=== PATIENT | female | born 1940 | race Caucasian/White ===

== ENCOUNTER 2023-07-30 20:42 | Inpatient (IN) | payer MEDICARE, SELFPAY ==
[2023-07-30 17:26] VITALS: BP 99/70
--- NOTE | 2023-07-30 19:16 | ED.GENMED ---
History of Present Illness
General
Chief Complaint: Catheter/Tube Problem
Source: patient, family (Daughter) and previous hospital records
Exam Limitations: none
Time Seen by Provider: 07/30/23 19:00
Nursing documentation reviewed up to this point in time: agreed with
Travel History
Have you had any contact with someone who has COVID-19?: No
Do you have any symptoms of coronavirus? Fever > 100 degrees, chills, cough, shortness of breath, sore throat, loss of taste or smell, muscle aches, or headache?: No
History of Present Illness
History of Present Illness:
The patient is an 83-year-old female with a past medical history of bladder mass causing right ureteral obstruction. Patient underwent a right nephrostomy tube placement on 07/11/2023. She returned to the emergency department stating that she
developed right lower back pain this morning and noticed that the right side of her shirt was wet. She reports that there is much less drainage in the nephrostomy bag and it looks more cloudy. Patient denies nausea and vomiting. She denies fever.
The area is dry at this time. There is cloudy yellow fluid in the bag. She reports Dr. Manzano is scheduled to pull the tube out on August 05.
Past History
Past History
ED Past Medical History: Cancer and HTN
ED Past Surgical History: Urological
Social History
Tobacco: Non-smoker
Alcohol: None
Drug: None
Personal: Other
Living: with family
Employment: Other
Family History
Family History: Other
Review of Systems
Review of Systems
Allergies reviewed?: Yes
All Other Systems: ROS reviewed and negative except as documented in HPI and ROS
Constitutional: Reports no symptoms
EENT: Reports no symptoms
Respiratory: Reports no symptoms
Cardiac: Reports no symptoms
ABD/GI: Reports no symptoms
: Reports flank pain
Musculoskeletal: Reports no symptoms
Skin: Reports no symptoms
Neurological: Reports no symptoms
Endocrine: Reports no symptoms
Hematologic/Lymphatic: Reports no symptoms
Psychiatric: Reports no symptoms
Phy Exam
Physical Exam
Physical Exam:
Physical Exam
General: no apparent distress, not acutely ill
Neck: supple. no meningeal signs. normal psoterior pharynx
Heart: s1/s2 regular rate and rhythm, no murmur. equal radial pulses.
Lungs: no acute respiratory distress. clear bilaterally
Abdomen: normal bowel sounds. not tender. Right nephrostomy tube dry and intact with yellow cloudy fluid in bag. No purulent discharge noted around tube insertion.
Neuro: alert and oriented. no focal neurological deficits
Skin: no rash
Psychiatric: well kept. interactive and cooperative
Extremities: no edema. no calf tenderness. negative homans. good distal pulses
Course
Orders/Labs/Results
Orders:
Orders
07/30/23 Dinner
Regular
At Your Request: Full Participation
07/30/23 19:34
Complete Blood Count/With Diff Urgent
Comprehensive Metabolic Panel Urgent
Lactic Acid Urgent
Urinalysis Reflex To Culture Urgent
Date Specimen was Collected: 07/30/23
Time Specimen was Collected: 19:34
07/30/23 19:35
Blood Culture Q30M
JESSICA Source: Blood/Venous
Specimen Description:
Blood Culture Q30M
JESSICA Source: Blood/Venous
Specimen Description:
07/30/23 19:36
CefTRIAXone [Rocephin] 1,000 mg IV NOW STA
07/30/23 19:37
0.9% Sodium Chloride 1000 ml [Nss] 1,000 ml IV BOLUS
07/30/23 20:08
Admit/Transfer Patient As Directed
Co-Sign Provider:
Level of Care: Inpatient admission
Assign to:: Medical/Surgical
Physician / Group: kateryna
Diagnosis: infected nephrsotomy tube
Reason for Hospitalization: infected nephrsotomy tube
Expected length of stay greater than two midnights?: Yes
ELOS- Estimated Length of Stay in days: 2
I certify the patient meets the requirements for IP care: Yes
07/30/23 20:12
Code Status As Directed
Resuscitation Status: Full Code
07/30/23 21:38
0.9% Sodium Chloride 1000 ml [Nss] 1,000 ml IV 80 mls/hr
07/30/23 21:38
Consult Interventional Radiology [IRAD CONSULT] Routine
Consulting Provider: Teja Orr
Was physician already notified: Yes
Reason for consult: nephrostomy tube removal
UROLOGY CONSULT Routine
Consulting Provider: Saurav Hallman
Was physician already notified: Yes
Activity As Directed
Activity Level: As Tolerated
Pneumatic Compression Sleeves As Directed
Type: Knee high
Vital Signs As Directed
Frequency: Per unit guidelines
DX Deep Vein Thrombosis Video Routine
07/31/23 00:01
Urine Microscopic Reflex Cult Routine
Urine Culture Routine
JESSICA Source: U
Specimen Description:
Date Specimen was Collected: 07/30/23
Time Specimen was Collected: 19:34
07/31/23 06:00
Complete Blood Count/With Diff IN AM
Comprehensive Metabolic Panel IN AM
07/31/23 08:00
Calcium Carbonate [Oscal Carlos 500] 500 mg PO DAILY
Multivitamin [Theragran] 1 tablet PO DAILY
07/31/23 20:00
CefTRIAXone [Rocephin] 1,000 mg IV Q24H
Abnormal Lab Results
07/30/23
19:34
WBC 11.8 H 10^3/uL
(4.8-10.8)
RBC 3.72 L 10^6/uL
(4.20-5.40)
Hgb 10.2 L g/dL
(12.0-16.0)
Hct 31.5 L %
(37.0-47.0)
MCHC 32.4 L g/dL
(33.0-37.0)
RDW 14.7 H %
(11.5-14.5)
Abs Immat Gran (auto) 0.1 H 10^3/uL
(0-0.05)
Absolute Neuts (auto) 9.0 H 10^3/uL
(1.4-6.5)
Absolute Monos (auto) 1.4 H 10^3/uL
(0.1-0.6)
Immature Gran % 0.6 H %
(0-0.5)
Neutrophils % 76.7 H %
(42.2-75.2)
Lymphocytes % 9.8 L %
(20.5-51.1)
Monocytes % 12.1 H %
(1.7-9.3)
Sodium 132 L mmol/L
(135-145)
Carbon Dioxide 21 L mmol/L
(22-30)
BUN 31 H mg/dl
(7-17)
Creatinine 2.5 H mg/dL
(0.6-1.0)
Glucose 123 H mg/dl
(70-99)
Albumin 3.4 L g/dl
(3.5-5.0)
07/30/23 19:34
07/30/23 19:34
Vital Signs
Initial and Last Documented VS:
Initial Vital Signs
Temp Pulse Resp BP Pulse Ox
98.9 F 110 16 99/70 97
07/30/23 17:26 07/30/23 17:26 07/30/23 17:26 07/30/23 17:26 07/30/23 17:26
Last Documented Vital Signs
Temp Pulse Resp BP Pulse Ox
98.5 F 73 18 95/53 96
07/30/23 23:01 07/30/23 23:01 07/30/23 23:01 07/30/23 23:01 07/30/23 23:01
MDM/Problems Addressed
Differential Diagnosis Includes:
Dislodged nephrostomy tube, infected nephrostomy tube, pyelonephritis
MDM/Problems Addressed:
Patient presents with decreased output from nephrostomy tube and right-sided back pain
Chronic conditions affecting care: Cancer
*Pulse Oximetry
Patient hypoxic: no
*EKG
Interpreted by ED Provider?: NA
*Hot Mill Supervisor Interpretation
Rate: Hot Mill Supervisor- N/A
*Critical Care Note
Total Time (30-74mins, 75-104mins- exclusive of procedures): Not Applicable
Data Reviewed
Review of Other/Old Records Reveals: Operative Reports (Operative report reviewed from interventional radiology from 07/11/2023 when patient had a right percutaneous nephrostomy tube placed)
Source: patient and family
Prescriptions/Medications Considered But Not Given:
IV antibiotics given for concern for infection associated with right kidney
Patient Management
Discussion with other providers: Hospitalist and Other (Discussed case with urology, Dr. Hallman, who recommended IV antibiotics and admission.)
Escalation/DeEscalation of care consider admission/obs:
Case also discussed with interventional radiology. Given my concern for kidney infection, decision made to admit patient for IV antibiotics and nephrostomy tube adjustment/replacement
ED Attending Note
-
Portions of this chart may have been created with voice recognition software.� Occasional wrong word or��sound alike� substitutions may have occurred due to the inherent limitations of voice recognition software.
Discharge Plan
Departure
Patient Disposition: Admit
Date of Disposition: 07/30/23
Time of Disposition: 19:35
Admit to: Med/Surg
Presentation/result/management discussed w/ accepting MD/DO: Hospitalist
Patient with high blood pressure during this ER visit?: No
Condition: Good
Covid-19: Not Applicable
Discharge Problem:
Malfunction of nephrostomy tube, Acute pyelonephritis
Interventions
Interventions:
*Risk Screen - Suicide Last Done: 07/30/23 17:26
*General Assessment Last Done: 07/30/23 17:26
*Neglect/Abuse Screening Last Done: 07/30/23 17:26
*ED COVID-19 Vaccine History Last Done: 07/30/23 17:26
*Nursing Disposition Last Done: 07/30/23 22:19
ED-Female Genitourinary Assessment Last Done: 07/30/23 20:01
Discharge Date and Time
Discharge Date/Time: 07/30/23 22:19
[2023-07-30 19:55] LABS: % Basophils 0.5 % (0-2); % Eosinophils 0.3 % (0-6); % Immature Granulocytes 0.6 % (0-0.5); % Lymphocytes 9.8 % (20.5-51.1); % Monocytes 12.1 % (1.7-9.3); % Neutrophils 76.7 % (42.2-75.2); Absolute Basophils 0.1 10^3/uL (0-0.2); Absolute Immature Granulocytes 0.1 10^3/uL (0-0.05); Absolute Lymphocytes 1.2 10^3/uL (1.2-3.4); Absolute Monocytes 1.4 10^3/uL (0.1-0.6); Hematocrit 31.5 % (37.0-47.0); Hemoglobin 10.2 g/dL (12.0-16.0); Mean Corp Hgb Conc. 32.4 g/dL (33.0-37.0); Mean Corpuscular Hgb 27.4 pg (27.0-31.0); Mean Corpuscular Volume 84.7 fL (81.0-99.0); Mean Platelet Volume 9.3 fL (7.4-10.4); Nucleated Red Blood Cells % 0 %; Platelet Count 290 10^3/uL (130-400); Red Blood Cell Count 3.72 10^6/uL (4.20-5.40); Red Cell Dist. Width 14.7 % (11.5-14.5); White Blood Cell Count 11.8 10^3/uL (4.8-10.8)
[2023-07-30 20:18] LABS: Lactic Acid 1.6 mmol/L (0.7-2.0)
[2023-07-30] MEDS: NSS 1000 IV ×2 (20:18→22:55)
[2023-07-30] MEDS: ROCEPHIN 1000 MG IV (20:18)
--- NOTE | 2023-07-30 20:19 | HPS.HSE ---
Family Physician
-
Family Physician: Anjelica Griffiths
Chief Complaint
-
infected nephrostomy tube
History of Present Illness
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
presenting with right lower back pain this morning and noticed that the right side of her shirt was wet. She noticed that the urine output from the nephrostomy was more cloudy. She denies decreased output from the nephrostomy. She denies nausea
or vomiting. She denies fever or chills. She reports Dr. Martinez scheduled to pull out the tube on August 05.
Patient was recently admitted from 07/08 to 07/12 for acute kidney injury secondary to obstructive uropathy due to right ureteral mass causing hydronephrosis. Right PCN was placed on 07/11 with improvement in renal function.
Medical History
Past Medical History
Past Medical History: Reports Other (bladder cancer status post tumor removal, right-sided hydronephrosis secondary to malignant obstruction, chronic anemia, hypertension, pacemaker, chronic ambulatory dysfunction, macular degeneration,)
Past Surgical History: Reports None
Social History
Tobacco: Non-smoker
Alcohol: None
Drug: None
Family History
Family History: Not pertinent
Allergies / Home Medications
Allergies reflects when Allergies were last updated in [facility].
Home Medications with original date entered in [facility]
Allergy/Medication List:
Allergies
Allergy/AdvReac Type Severity Reaction Status Date / Time
sulfamethoxazole Allergy swelling Verified 07/08/23 12:46
[From Bactrim] of tongue
trimethoprim [From Bactrim] Allergy swelling Verified 07/08/23 12:46
of tongue
Home Medications
calcium carbonate 500 mg calcium (1,250 mg) tablet 500 mg PO DAILY 07/30/23
glucosamine sulf dipot chlr,msm,chond 550 mg-C 30 mg-balbir 1 mg capsule (Glucosamine Chondroitin) 1 cap PO DAILY 07/30/23
naproxen sodium 220 mg tablet (Aleve) 220 mg PO DAILYPRN PRN mild pain 07/30/23
therapeutic multivitamin 1 tab PO DAILY 07/30/23
Review of Systems
-
History Source: Patient
A 12 point ROS was completed and negative except as noted: Yes
Constitutional: Reports No Symptoms
EENT: Reports No Symptoms
Respiratory: Reports No Symptoms
Cardiac: Reports No Symptoms
Abdomen/GI: Reports No Symptoms
: Reports No Symptoms
Musculoskeletal: Reports No Symptoms
Skin: Reports No Symptoms
Neurological: Reports No Symptoms
Endocrine: Reports No Symptoms
Hematologic/Lymphatic: Reports No Symptoms
Psych: Reports No Symptoms
Physical Exam
Vital Signs
Vital Signs
Temp Pulse Resp BP Pulse Ox
98.9 F 110 16 99/70 97
07/30/23 17:26 07/30/23 17:26 07/30/23 17:26 07/30/23 17:26 07/30/23 17:26
Physical Exam
General: Well Developed, Well Nourished and No Apparent Distress
HEENT: NormoCephalic, Moist mucous membranes and Atraumatic
Respiratory: Clear
Cardiac: S1/S2 and Regular Rhythm; No Murmur or Rub
GI: Soft, Non Tender, Non Distended and Normal Bowel Sounds; No Organomegaly
Rectal: Deferred by Provider
Musculoskeletal: No Clubbing, No Cyanosis and No Edema
Skin: No Rash
Neuro: Nonfocal/grossly intact
Laboratory Results
-
07/30/23 19:34
Laboratory Results
Lactic Acid 1.6 mmol/L (0.7-2.0) 07/30/23 19:34
Data Reviewed
-
Lab Data: Labs Reviewed by me
Old Records: Reviewed
Impression/Plan
-
IMPRESSION:
PLAN:
# Infected nephrostomy tube
# Right hydronephrosis secondary to malignant obstruction secondary to bladder cancer status post right-sided nephrostomy tube
-Check urine, blood cultures
-IV fluids
-Ceftriaxone
-Urology/IR consulted to remove/replace nephrostomy tube
-Labs pending to assess renal function
# Recent acute kidney injury secondary to obstructive uropathy
-Labs pending
History of bladder cancer status post tumor removal
Chronic anemia
-Hemoglobin stable
Essential hypertension
History of pacemaker
Chronic ambulatory dysfunction
Macular degeneration
Full code
DVT prophylaxis�SCDs
Regular
[2023-07-30 20:20] LABS: ALT (SGPT) 14 U/L (0-35); AST (SGOT) 23 U/L (14-36); Albumin 3.4 g/dl (3.5-5.0); Alkaline Phosphatase 86 U/L (38-126); Blood Urea Nitrogen 31 mg/dl (7-17); Calcium 8.6 mg/dl (8.4-10.2); Carbon Dioxide 21 mmol/L (22-30); Chloride 105 mmol/L (98-107); Glucose 123 mg/dl (70-99); Potassium 4.7 mmol/L (3.5-5.1); Sodium 132 mmol/L (135-145); Total Bilirubin 0.9 mg/dl (0.2-1.3); Total Protein 6.8 g/dl (6.3-8.2); eGFR 18.73
[2023-07-30 20:57] VITALS: BP 93/59
[2023-07-30 21:47] VITALS: BMI 26.3
--- NOTE | 2023-07-30 21:50 | PTCARENOTE ---
Received pt from ED via stretcher. Daughter at bedside. Pt ambulated to bed independently. AAOx3. No complaints of pain. Assessed and oriented to room. Pt verbalized understanding of call johnson. Call johnson within close reach. 1 medication from home
sent to pharmacy, medication form placed in back of paper chart. Will continue to monitor.
[2023-07-30 21:58] VITALS: BP 97/59
[2023-07-30 23:01] VITALS: BP 95/53
[2023-07-31 00:19] LABS: Urine Albumin 3+ (Neg - Trace); Urine Bilirubin Negative (Negative); Urine Character Very Cloudy (Clear); Urine Color Yellow; Urine Glucose Negative (Negative); Urine Ketone Negative (Negative); Urine Leukocyte 2+ (Negative); Urine Nitrite Positive (Negative); Urine Occult Blood 4+ (Negative); Urine Urobilinogen Negative (Neg - 1+)
[2023-07-31 02:05] LABS: Urine Amorphous Seen; Urine Squamous Cell SEEN /LPF (Few)
[2023-07-31 02:06] LABS: Urine White Cell >100 /HPF (0-5)
[2023-07-31 07:00] VITALS: BP 98/54
[2023-07-31 07:05] LABS: % Basophils 0.4 % (0-2); % Eosinophils 1.7 % (0-6); % Immature Granulocytes 0.3 % (0-0.5); % Lymphocytes 12.2 % (20.5-51.1); % Monocytes 13.9 % (1.7-9.3); % Neutrophils 71.5 % (42.2-75.2); Absolute Eosinophils 0.1 10^3/uL (0-0.7); Absolute Lymphocytes 0.9 10^3/uL (1.2-3.4); Absolute Neutrophils 5.1 10^3/uL (1.4-6.5); Hematocrit 25.6 % (37.0-47.0); Hemoglobin 8.2 g/dL (12.0-16.0); Mean Corpuscular Volume 87.4 fL (81.0-99.0); Mean Platelet Volume 10.1 fL (7.4-10.4); Nucleated Red Blood Cells % 0 %; Platelet Count 206 10^3/uL (130-400); Red Blood Cell Count 2.93 10^6/uL (4.20-5.40); Red Cell Dist. Width 14.7 % (11.5-14.5); White Blood Cell Count 7.2 10^3/uL (4.8-10.8)
[2023-07-31 07:33] LABS: ALT (SGPT) 11 U/L (0-35); AST (SGOT) 17 U/L (14-36); Albumin 2.2 g/dl (3.5-5.0); Alkaline Phosphatase 59 U/L (38-126); Blood Urea Nitrogen 33 mg/dl (7-17); Calcium 7.8 mg/dl (8.4-10.2); Carbon Dioxide 22 mmol/L (22-30); Chloride 106 mmol/L (98-107); Estimated Creatinine Clearance 16 ml/min; Glucose 104 mg/dl (70-99); Potassium 4.3 mmol/L (3.5-5.1); Sodium 135 mmol/L (135-145); Total Bilirubin 0.6 mg/dl (0.2-1.3); eGFR 19.67
[2023-07-31] MEDS: OSCAL CAL 500 500 MG PO (08:02)
[2023-07-31] MEDS: THERAGRAN 1 TABLET PO (08:02)
--- NOTE | 2023-07-31 11:46 | W.PN.HOSP.TC ---
Today's Communication/Plan
-
see A/P
Assessment / Plan
Assessment / Plan
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
presented with right lower back pain and noticed that the right side of her shirt was wet.�She noticed that the urine output from the nephrostomy was more cloudy.�
She denies decreased output from the nephrostomy.� She denies nausea or vomiting.� She denies fever or chills.�She reports Dr. Martinez scheduled to pull out the tube on August 05.
Patient was recently admitted from 07/08 to 07/12 for acute kidney injury secondary to obstructive uropathy due to right ureteral mass causing hydronephrosis.� Right PCN was placed on 07/11 with improvement in renal function.
A/P:
# Possibly infected R nephrostomy tube
# Right hydronephrosis secondary to malignant obstruction secondary to bladder cancer, status post right-sided nephrostomy tube
Follow urine and blood cultures
Cont IV fluids
Cont Ceftriaxone
Urology/IR consulted to remove/replace nephrostomy tube
# Recent acute kidney injury secondary to obstructive uropathy
# CKD stage 4
Monitor SCr
# History of bladder cancer status post tumor removal
# Chronic anemia
Hemoglobin stable
# Essential hypertension
# History of pacemaker
# Chronic ambulatory dysfunction
# Macular degeneration
Full code
DVT prophylaxis�SCDs
Regular
Anticipated Discharge: > 48 hours
Subjective/Interval History
-
Date of Service: July 31, 2023
Objective Data
-
Labs:
Laboratory Results
07/31/23
06:22
WBC 7.2
Hgb 8.2 L
Hct 25.6 L
Plt Count 206 D
Sodium 135
Potassium 4.3
Chloride 106
Carbon Dioxide 22
BUN 33 H
Creatinine 2.4 H
Glucose 104 H
Calcium 7.8 L
Total Bilirubin 0.6
AST 17
ALT 11
Alkaline Phosphatase 59
Vital Signs:
Vital Signs
Temp Pulse Resp BP Pulse Ox
36.7 C 73 18 98/54 98
07/31/23 07:00 07/31/23 07:00 07/31/23 07:00 07/31/23 07:00 07/31/23 07:00
I&O
07/30/23 07/31/23 08/01/23
06:59 06:59 06:59
Intake Total 760 / 760
Output Total 300 / 300
Balance 460 / 460
Review of Systems
-
All other systems: Reviewed and negative
Physical Exam
-
General: Well Developed, Well Nourished, No Apparent Distress, Comfortable and Conversant
HEENT: Moist Mucous Membranes, Nose Appears Normal and Ears Appear Normal
Respiratory: Clear to Auscultation and Non Labored Respirations; Negative Accessory Resp Muscle Use
Cardiac: Regular Rhythm and S1/S2
GI: Soft
Genito-urinary: Nephrostomy Tubes (R with some blood)
Psych: Calm and Intact Judgement/Insight
Data Reviewed
-
Labs: Labs Reviewed by me
[2023-07-31] MEDS: NSS 1000 IV (13:20)
--- NOTE | 2023-07-31 13:22 | CM ---
Reviewed chart, met with patient to obtain information for assessment. Patient stated that she lives in a single home with one step to enter with her spouse. She described herself as independent with her ADLs, personal care, dressing and bathing.
She ambulates without device. 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
She denied any DME in the home.
Patient drives and can get to all of her appointments and does her own shopping.
She has never had VN services nor has she been to a SNF.
Patient has a prescription plan and uses [facility] pharmacy on [facility] [address] [facility] for all of her medications.
She has a PCP-Dr. Anjelica Griffiths.
Patient stated that physically she feels she is at baseline and would like to return home when she is stable medically.
Plan: Case management will continue to follow and assist with discharge planning. Tentative back home with supportive spouse.
--- NOTE | 2023-07-31 13:29 | W.PN.URO.CBU ---
Today's Communication / Plan
-
irad for tube check may go home if styableafter check
Assessment / Plan
-
rt hydro from aggresive blader canber would check tube and dicharge to home once tbe evaluated pt scheduled for turbt next week
Diagnosis
-
Date of Service: July 31, 2023
-
Patient Diagnosis:
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
for tube check
Post Op Day:
Subjective
-
rt colic andgone asx
Objective
-
Vital Signs
Temp Pulse Resp BP Pulse Ox
98.1 F 73 18 98/54 98
07/31/23 07:00 07/31/23 07:00 07/31/23 07:00 07/31/23 07:00 07/31/23 07:00
Intake and Output
07/30/23 07/31/23 08/01/23
06:59 06:59 06:59
Intake Total 760 / 760
Output Total 300 / 300
Balance 460 / 460
Intake:
Oral fluids 120 / 120
IV fluids (Total) 640 / 640
Output:
Urinary Drain Output (Total) 300 / 300
Right Nephrostomy 300 / 300
Other:
Number of approximated MODERATE 3
amounts of urine
Laboratory Results
07/31/23 06:22
07/31/23 06:22
Review of Systems
-
: Frequency and Flank Pain
Physical Exam
-
General - well developed, well nourished, no acute distress
Chest - clear bilaterally
Abdomen - soft, non-tender, positive bowel sounds, no CVAT, no incisional pain or distention
Genitalia - normal
Rectal - normal
Skin - warm & dry with no rash
Neuro - AOx3, no motor deficits
Extremities - no clubbing, no cyanosis, no edema
Incision - clean, dry
Dressing - clean, dry, intact
Counseling
-
home if d-=satble after irad
Care Review
Data Reviewed
Discussed with: Nursing and IRAD
CT Scan: Image Pers Reviewed
[2023-07-31 15:00] VITALS: BP 94/49
--- NOTE | 2023-07-31 15:21 | W.PN.UPDATE ---
Update Note
Progress Note Update
We had unexpected emergency. We will perform nephrostomy tube check tomorrow morning. Thank you
[2023-07-31] MEDS: ROCEPHIN 1000 MG IV (20:37)
[2023-07-31] MEDS: STERILE WATER FOR INJECTION 10 ML IV (20:37)
[2023-07-31] MEDS: FLUSH (NSS) 2 FLUSH IV (20:37)
[2023-07-31 23:42] VITALS: BP 103/47
[2023-08-01] MEDS: NSS 1000 IV (04:01)
[2023-08-01 07:00] VITALS: BP 119/70
--- NOTE | 2023-08-01 07:29 | W.PN.URO.CBU ---
Today's Communication / Plan
-
if stable home after irad if ok with hospialist
Assessment / Plan
-
rt hydro from aggresive bladder cancer would check tube and discharge to home once tbe evaluated pt scheduled for turbt next week
Diagnosis
-
Date of Service: August 01, 2023
-
Patient Diagnosis:
Post Op Day:
Patient Diagnosis:
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
for tube check
Post Op Day:
Subjective
-
asx
Objective
-
Vital Signs
Temp Pulse Resp BP Pulse Ox
98.4 F 76 14 103/47 96
07/31/23 23:42 07/31/23 23:42 07/31/23 23:42 07/31/23 23:42 07/31/23 23:42
Intake and Output
07/31/23 08/01/23 08/02/23
06:59 06:59 06:59
Intake Total 760 / 760 1640 / 1640
Output Total 300 / 300 700 / 700
Balance 460 / 460 940 / 940
Intake:
Oral fluids 120 / 120 840 / 840
IV fluids (Total) 640 / 640 800 / 800
Output:
Urinary Drain Output (Total) 300 / 300 700 / 700
Right Nephrostomy 300 / 300 700 / 700
Other:
Number of approximated MODERATE 3
amounts of urine
How many times incontinent 4
MODERATE amount urine
Review of Systems
-
: Flank Pain
Physical Exam
-
General - well developed, well nourished, no acute distress
Chest - clear bilaterally
Abdomen - soft, non-tender, positive bowel sounds, no CVAT, no incisional pain or distention
Genitalia - normal
Rectal - normal
Skin - warm & dry with no rash
Neuro - AOx3, no motor deficits
Extremities - no clubbing, no cyanosis, no edema
Incision - clean, dry
Dressing - clean, dry, intact
Counseling
-
await irad
[2023-08-01 07:36] LABS: Hematocrit 26.2 % (37.0-47.0); Hemoglobin 8.3 g/dL (12.0-16.0); Mean Corp Hgb Conc. 31.7 g/dL (33.0-37.0); Mean Corpuscular Hgb 27.8 pg (27.0-31.0); Mean Corpuscular Volume 87.6 fL (81.0-99.0); Mean Platelet Volume 10.1 fL (7.4-10.4); Platelet Count 221 10^3/uL (130-400); Red Blood Cell Count 2.99 10^6/uL (4.20-5.40); Red Cell Dist. Width 14.6 % (11.5-14.5); White Blood Cell Count 5.2 10^3/uL (4.8-10.8)
[2023-08-01 07:41] LABS: Blood Urea Nitrogen 29 mg/dl (7-17); Calcium 7.9 mg/dl (8.4-10.2); Carbon Dioxide 20 mmol/L (22-30); Chloride 112 mmol/L (98-107); Estimated Creatinine Clearance 16 ml/min; Glucose 91 mg/dl (70-99); Potassium 4.4 mmol/L (3.5-5.1); Sodium 134 mmol/L (135-145)
[2023-08-01] MEDS: THERAGRAN 1 TABLET PO (08:15)
[2023-08-01] MEDS: OSCAL CAL 500 500 MG PO (08:15)
--- NOTE | 2023-08-01 09:00 | W.PN.UPDATE ---
Update Note
Progress Note Update
Antegrade nephrostogram shows patency of catheter, and catheter is in good position. High grade obstruction at right UPJ.
Catheter was not exchanged, as it is draining, and is in good position. Catheter was recently placed, and exchange would carry a higher risk of loss of access to the kidney.
--- NOTE | 2023-08-01 10:04 | PN.CDI ---
CDI
- -
CDI:
Physician Documentation Request
Admit Date: 07/30/23 20:42
Dear Doctor Levy,
Clinical Indicators:
Patient admitted with possibly infected R nephrostomy tube.
IVF NSS given.
Sodium level:
07/30/23
19:34
Sodium 132 L
Based on the above, could you clarify in the progress notes, the appropriate diagnosis, if significant, that supports the above abnormalities and additional evaluation, monitoring and/or treatment rendered:
Hyponatremia
Abnormal lab value, clinically insignificant
Other
Use of terms such as suspected, likely, concern for, or probable (associated with a specific diagnosis that is being evaluated, monitored, or treated as if it exists) are acceptable and can be coded in the inpatient setting, when documented at the
time of discharge.
Thank you,
CHANDLER Wise RN
CDI Specialist
available via tiger text
Please use your independent medical judgment in providing your response.
--- NOTE | 2023-08-01 10:15 | W.PN.HOSP.TC ---
Addendum entered and electronically signed by Ines Lockett MD 08/01/23 14:47:
# Hyponatremia
Original Note:
Today's Communication/Plan
-
see AP
Assessment / Plan
Assessment / Plan
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
presented with right lower back pain and noticed that the right side of her shirt was wet.�She noticed that the urine output from the nephrostomy was more cloudy.�
She denies decreased output from the nephrostomy.� She denies nausea or vomiting.� She denies fever or chills.�She reports Dr. Martinez scheduled to pull out the tube on August 05.
Patient was recently admitted from 07/08 to 07/12 for acute kidney injury secondary to obstructive uropathy due to right ureteral mass causing hydronephrosis.� Right PCN was placed on 07/11 with improvement in renal function.
A/P:
# Possibly infected R nephrostomy tube
# Right hydronephrosis secondary to malignant obstruction secondary to bladder cancer, status post right-sided nephrostomy tube
Follow urine Cx
blood cultures neg
s/p IV fluids
Cont Ceftriaxone
s/p tube check by IR 08/01, Catheter was not exchanged as it is draining and in good position. Catheter was recently placed, and exchange would carry a higher risk of loss of access to the kidney.
Uro on board, pt scheduled for turbt next week �
# Recent acute kidney injury secondary to obstructive uropathy
# CKD stage 4
Monitor SCr
# History of bladder cancer status post tumor removal
# Chronic anemia
Hemoglobin stable
# Essential hypertension
# History of pacemaker
# Chronic ambulatory dysfunction
# Macular degeneration
Full code
DVT prophylaxis�SCDs
Regular
Anticipated Discharge: Within 24 hours
Subjective/Interval History
-
Date of Service: August 01, 2023
Objective Data
-
Labs:
Laboratory Results
08/01/23
06:43
WBC 5.2
Hgb 8.3 L
Hct 26.2 L
Plt Count 221
Sodium 134 L
Potassium 4.4
Chloride 112 H
Carbon Dioxide 20 L
BUN 29 H
Creatinine 2.3 H
Glucose 91
Calcium 7.9 L
Vital Signs:
Vital Signs
Temp Pulse Resp BP Pulse Ox
36.8 C 68 17 119/70 96
08/01/23 07:00 08/01/23 07:00 08/01/23 07:00 08/01/23 07:00 08/01/23 07:00
I&O
07/31/23 08/01/23 08/02/23
06:59 06:59 06:59
Intake Total 760 / 760 1640 / 1640
Output Total 300 / 300 700 / 700
Balance 460 / 460 940 / 940
Review of Systems
-
All other systems: Reviewed and negative
Physical Exam
-
General: Well Developed, Well Nourished, No Apparent Distress, Comfortable and Conversant
HEENT: Normocephalic, Atraumatic, Nose Appears Normal and Ears Appear Normal
Respiratory: Clear to Auscultation and Non Labored Respirations; Negative Accessory Resp Muscle Use
Cardiac: Regular Rhythm and S1/S2
GI: Soft
Genito-urinary: Nephrostomy Tubes (R, now with clear urine )
Psych: Calm and Intact Judgement/Insight
Data Reviewed
-
Labs: Labs Reviewed by me
[2023-08-01 15:00] VITALS: BP 111/61
--- NOTE | 2023-08-01 15:03 | CM ---
Received notification from supervisor keymodule assembly that patient's daughter, Krista who lives in [place] called and asked to be added to the chart as someone with whom the medical staff can speak.
Met with patient who confirmed that staff can speak with her daughter. Updated supervisor keymodule assembly who stated that she will make sure that patient's daughter is on the chart. Request was made by patient's daughter to speak with . Placed a call to
patient's daughter, however patient's son in law answered. He stated that patient's daughter was not home but relayed that all of her questions are medical. Provided the number to [facility] nurses station so that she could speak with someone to obtain
the information she needs. He was agreeable to providing it to her and having her call.
Plan: Case management will continue to follow and assist with discharge planning. Tentative plan remains for home when stable.
[2023-08-01] MEDS: ROCEPHIN 1000 MG IV (20:41)
[2023-08-01] MEDS: STERILE WATER FOR INJECTION 10 ML IV (20:44)
[2023-08-01 23:28] VITALS: BP 111/72
[2023-08-02 06:54] LABS: Hematocrit 25.3 % (37.0-47.0); Mean Corp Hgb Conc. 31.6 g/dL (33.0-37.0); Mean Corpuscular Hgb 27.8 pg (27.0-31.0); Mean Corpuscular Volume 87.8 fL (81.0-99.0); Mean Platelet Volume 10.1 fL (7.4-10.4); Platelet Count 204 10^3/uL (130-400); Red Blood Cell Count 2.88 10^6/uL (4.20-5.40); Red Cell Dist. Width 14.6 % (11.5-14.5); White Blood Cell Count 4.4 10^3/uL (4.8-10.8)
[2023-08-02 07:00] VITALS: BP 131/67
[2023-08-02 07:18] LABS: Blood Urea Nitrogen 25 mg/dl (7-17); Calcium 8.1 mg/dl (8.4-10.2); Carbon Dioxide 24 mmol/L (22-30); Chloride 111 mmol/L (98-107); Estimated Creatinine Clearance 18 ml/min; Glucose 92 mg/dl (70-99); Potassium 4.5 mmol/L (3.5-5.1); Sodium 138 mmol/L (135-145); eGFR 23.09
--- NOTE | 2023-08-02 08:00 | W.PN.UPDATE ---
Update Note
Progress Note Update
s/p IR tube check and antegrade nephrostogram 08/01/23 => obstruction of contrast at level of bladder c/w local extension of known pT2 bladder cancer.
Currently patient scheduled for re-resection TURBT on 08/05/23 w/ plans to initiate chemoXRT w/ Med Onc and Rad Onc.
After initial recommendations by Urology for radical cystectomy s/p TURBT in 01/2023 demonstrating muscle-invasive disease - patient delayed F/U and subsequently elected bladder-sparing treatment.
Lengthy discussion had w/ patient >35 minutes in length regarding current state of her obstructed right kidney and MIBC.
- right PCN functioning well
- OK to d/c home from urologic perspective when cleared by Hospitalist
- plan for TURBT 08/05
- will F/U with Medical Oncology and Radiation Oncology to initiate chemoXRT
D/w patient.
[2023-08-02] MEDS: OSCAL CAL 500 500 MG PO (08:21)
[2023-08-02] MEDS: THERAGRAN 1 TABLET PO (08:21)
--- NOTE | 2023-08-02 11:16 | W.PN.HOSP.TC ---
Addendum entered and electronically signed by Reginald Mcghee MD 08/02/23 14:48:
Case discussed with infectious disease. QTc is less than 500 ms on ECG that was just done. Discharged on Cipro through August 10, 2023.
Total time spent on d/c = 41 min. This included today's physical exam, progress note, review of laboratory and diagnostic data, preparation of discharge documents and prescriptions, and discussions about the pt's hospital course and discharge plan
with the patient and other medical collector involved in the patient's care.
Addendum entered and electronically signed by Reginald Mcghee MD 08/02/23 14:22:
Complicated UTI is likely related to right PCN
Original Note:
Today's Communication/Plan
-
c/s ID
Assessment / Plan
Assessment / Plan
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
presented with right lower back pain and noticed that the right side of her shirt was wet.�She noticed that the urine output from the nephrostomy was more cloudy.�
She denies decreased output from the nephrostomy.� She denies nausea or vomiting.� She denies fever or chills.�She reports Dr. Martinez scheduled to pull out the tube on August 05.
Patient was recently admitted from 07/08 to 07/12 for acute kidney injury secondary to obstructive uropathy due to right ureteral mass causing hydronephrosis.� Right PCN was placed on 07/11 with improvement in renal function.
Gen: NAD, AAOx3.
Eyes: EOMI, PERRLA, no scleral icterus.
Neck: supple.
CV: RRR, +S1/S2, no m/r/g.
Resp: CTAB, no rales, wheezes, or rhonchi.
Abd: +BS, soft, NT, ND
Skin: No rashes.
Neuro: CN 2-12 intact, non-focal.
Psych: Normal mood and affect.
07/31/23 00:01 Urine Urine Culture - Final
Serratia marcescens
07/30/23 19:35 Blood/Venous Blood Culture - Preliminary
No Growth in 48 hours- Final report to follow
07/30/23 19:35 Blood/Venous Blood Culture - Preliminary
No Growth in 48 hours- Final report to follow
Acute complicated UTI:
-UCx with Serratia, currently on Rocephin (sensitive), c/s ID
Right hydronephrosis secondary to malignant obstruction secondary to bladder cancer, status post right-sided nephrostomy tube:
-h/o bladder cancer status post tumor removal
-IR performed tube check, tube functioning properly no need to exchange at this time.
-Uro following, for TURBT next week
Other problems:
Recent acute kidney injury (on CKD4) due to obstructive uropathy: Cr improving
Anemia of chronic anemia
Essential hypertension
h/o PPM
Chronic ambulatory dysfunction
Macular degeneration
FULL/SCDs
Anticipated Discharge: Within 24 hours
Subjective/Interval History
-
Date of Service: August 02, 2023
No new complaints.
Objective Data
-
Labs:
Laboratory Results
08/02/23
06:19
WBC 4.4 L
Hgb 8.0 L
Hct 25.3 L
Plt Count 204
Sodium 138
Potassium 4.5
Chloride 111 H
Carbon Dioxide 24
BUN 25 H
Creatinine 2.1 H
Glucose 92
Calcium 8.1 L
Vital Signs:
Vital Signs
Temp Pulse Resp BP Pulse Ox
98.4 F 65 16 131/67 97
08/02/23 07:00 08/02/23 07:00 08/02/23 07:00 08/02/23 07:00 08/02/23 07:00
I&O
08/01/23 08/02/23 08/03/23
06:59 06:59 06:59
Intake Total 1640 / 1640 560 / 560
Output Total 700 / 700 350 / 350
Balance 940 / 940 210 / 210
--- NOTE | 2023-08-02 13:06 | CON.ID ---
Consultation
-
Date/Time Consultation Requested: 08/02/2023 1119
Date/Time Consultation Performed: 08/02/2023 1320
Requesting Provider: Dr. Reginald Mcghee
Performing Provider: Dr. Lulu Montez
Reason for Consultation: UTI
Chief Complaint / Past History
Chief Complaint
Right flank pain
History of Present Illness
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
nephrostomy tubes placement on July 11, 2023. She came to the hospital on July 30 due to right flank pain and leaking nephrostomy tube. No fever. The right flank pain resolved. The nephrostomy appears to be functioning. Nephrostomy gram
showed patent nephrostomy. She is currently on ceftriaxone for Serratia that grew from the urine. Urology is planning for TURBT on Saturday, August 05. Patient reports she is doing well. Urine in the nephrostomy is clear.
Past History
Additional Past Medical History:
HTN
PPM
Bladder CA s/p TURBT
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
Allergy History:
sulfamethoxazole [From Bactrim] Allergy (Verified 07/08/23 12:46)
swelling of tongue
trimethoprim [From Bactrim] Allergy (Verified 07/08/23 12:46)
swelling of tongue
Social History
Tobacco: Non-Smoker
Alcohol: None
Drug: None
Family History
Family History: Not Pertinent
Review of Systems
Review of Systems
General: Negative Fever, Chills or Change in Appetite
HEENT: Negative Headache
Respiratory: Negative Dyspnea or Cough
Genital / Urological: Negative Dysuria
Endocrine: Negative Weakness
Neurological: Negative Dizziness
All systems: All other systems were reviewed and were negative
Vital Signs
Temp Pulse Resp BP Pulse Ox
98.4 F 65 16 131/67 97
08/02/23 07:00 08/02/23 07:00 08/02/23 07:00 08/02/23 07:00 08/02/23 07:00
Physical Exam
Physical Exam
Constitutional: No Acute Distress and Comfortable
Cardiovascular: Regular Rate, S1/S2 and Other (PPM pocket site without induration/erythema)
Pulmonary: Clear
Gastrointestinal: Soft, Non Distended and Normal Bowel Sounds
Genito-Urinary: Clear Urine (right perc neph); Negative CVA Tenderness
Neurological: AO x 3
Lab / Diagnostic Study Results
08/02/23 06:19
08/02/23 06:19
Abs Immat Gran (auto) 0.0 10^3/uL (0-0.05) 07/31/23 06:22
Absolute Neuts (auto) 5.1 10^3/uL (1.4-6.5) 07/31/23 06:22
Absolute Lymphs (auto) 0.9 10^3/uL (1.2-3.4) L 07/31/23 06:22
Absolute Monos (auto) 1.0 10^3/uL (0.1-0.6) H 07/31/23 06:22
Absolute Basos (auto) 0.0 10^3/uL (0-0.2) 07/31/23 06:22
Immature Gran % 0.3 % (0-0.5) 07/31/23 06:22
Neutrophils % 71.5 % (42.2-75.2) 07/31/23 06:22
Lymphocytes % 12.2 % (20.5-51.1) L 07/31/23 06:22
Monocytes % 13.9 % (1.7-9.3) H 07/31/23 06:22
Eosinophils % 1.7 % (0-6) 07/31/23 06:22
Basophils % 0.4 % (0-2) 07/31/23 06:22
Lactic Acid 1.6 mmol/L (0.7-2.0) 07/30/23 19:34
Ur Squamous Epith Cells Seen /LPF (Few) 07/31/23 00:01
Microbiology Results
Micro:
07/31/23 00:01 Urine Culture - Final
Urine Serratia marcescens
07/30/23 19:35 Blood Culture - Preliminary
Blood/Venous No Growth in 48 hours- Final report to follow
07/30/23 19:35 Blood Culture - Preliminary
Blood/Venous No Growth in 48 hours- Final report to follow
08/01/23 Nephrostogram: No evidence of catheter blockage or malpositioning. High-grade obstruction to the flow of urine at the level of the right UPJ. The catheter was not exchanged, as it is draining well, is well-positioned, and is not blocked.
Catheter was recently placed, and exchange would carry a higher rate of loss of access to the kidney.
Assessment / Plan
# Bladder cancer with obstructive uropathy s/pp perc neph tube placment 07/11/23
# Scheduled for TURBT on 08/05/23.
# Serratia bacteruria
- Ordered EKG.
-If QTC <500, can dc home on cipro 500mg po daily, through TURBT, and continue till 08/10/23.
--- NOTE | 2023-08-02 14:06 | PN.CDI ---
CDI
- -
CDI:
Physician Documentation Request
Admit Date: 07/30/23 20:42
Dear Doctor Litzy,
Clinical Indicators:
Patient admitted with malfunction of nephrostomy tube.
08/01 PN, 'Right PCN was placed on 07/11...Possibly infected R nephrostomy tube...'
08/02 PN,'Acute complicated UTI --UCx with Serratia...'
Please clarify if there is a relationship between the complicated UTI and nephrostomy tube:
Yes, complicated UTI is related to/associated with/due to nephrostomy tube.
No, complicated UTI is not related to/associated with/due to nephrostomy tube but it is due to ___. (Please specify)
Unable to determine
Use of terms such as suspected, likely, concern for, or probable (associated with a specific diagnosis that is being evaluated, monitored, or treated as if it exists) are acceptable and can be coded in the inpatient setting, when documented at the
time of discharge.
Thank you,
Uma Matthews RN
CDI Specialist
available via tiger text
Please use your independent medical judgment in providing your response.
--- NOTE | 2023-08-02 14:37 | CM ---
Spoke with attending who stated that patient is medically stable for discharge. Spoke with patient who is agreeable to discharge today. Will provide IMM. She declined VN services.
Plan: Case management will continue to follow and assist with discharge planning. Patient medically cleared for discharge.
[2023-08-02 15:00] VITALS: BP 114/57
--- NOTE | 2023-08-02 16:10 | W.DCSUMMARY ---
Discharge Summary
Discharge Data
Date of Admission: 07/30/23
Date of Discharge: 08/02/23
-
Pending Results: No
Hospital Course
Primary diagnoses:
Complicated urinary tract infection (likely related to right percutaneous nephrostomy)
Secondary diagnoses:
Right hydronephrosis secondary to malignant obstruction secondary to bladder cancer, status post right-sided nephrostomy tube
Recent acute kidney injury (on chronic kidney disease stage 4) due to obstructive uropathy
Anemia of chronic anemia
Essential hypertension
h/o permanent pacemaker
Chronic ambulatory dysfunction
Macular degeneration
Consultants:
Infectious disease
Urology
Imaging:
Nephrostogram:
1. No evidence of catheter blockage or malpositioning.
2. High-grade obstruction to the flow of urine at the level of the right UPJ.
3. The catheter was not exchanged, as it is draining well, is well-positioned, and is not blocked. Catheter was recently placed, and exchange would carry a higher rate of loss of access to the kidney.
Hospital course: 83-year-old female who presented with right lower back pain and leaking right PCN as outlined in the H&P done on admission. Patient had a history of Right hydronephrosis secondary to malignant obstruction secondary to bladder
cancer, status post right-sided nephrostomy tube. White count was 11.8 on admission. Urinalysis was suggestive of urinary tract infection. Patient was afebrile. On admission the patient was placed on Rocephin. Patient seen in consultation by
urology and infectious disease. Urine culture grew Serratia. On the day of discharge the patient's QTc was less than 500 ms and she was converted to oral ciprofloxacin through 08/10/23. The patient is scheduled for TURBT on 08/05/23.
Discharge Plan
-
Patient Disposition: Home (Routine Discharge)
Discharge Diagnosis/Procedures: Complicated urinary tract infection
Condition: Good
Diet: No restrictions
Activity: As tolerated
Driving Restrictions: As prior to admission
Referrals:
Saurav Hallman MD [Active] - (FOLLOW UP DR CONTRERAS FOR DEFINIOTIVE TREATMENT OF BLADDER CANCER AND RT RENAL OBSTRUCTION [phone])
Anjelica Griffiths MD [Family Provider] - in less than 1 week
Prescriptions:
New
ciprofloxacin HCl [Cipro] 500 mg tablet
500 mg PO DAILY Qty: 9 0RF
Continued
therapeutic multivitamin Tablet
1 tab PO DAILY
calcium carbonate 500 mg calcium (1,250 mg) Tablet
500 mg PO DAILY
Glucosamine Chondroitin 550-30-1 mg Capsule
1 cap PO DAILY
tolterodine 2 mg Capsule,Extended Release 24hr
2 mg PO DAILY
Discontinued
naproxen sodium [Aleve] 220 mg Tablet
220 mg PO DAILYPRN PRN (Reason: mild pain)
Discharge Orders:
Discharge Patient (As Directed); Ordered 08/02/23
Ordered By: Reginald Mcghee
--- NOTE | 2023-08-02 16:30 | PTCARENOTE ---
Patient ready for discharge. Removed IV. Went over discharge instructions.
== END 2023-08-02 16:44 | disposition home or self-care (01) | DRG 699 ==
LOC: 3 WEST ACU 20:42
PROVIDERS: Internal Medicine; ADMITTING PHYSICIAN Hospitalist; ATTENDING PHYSICIAN Internal Medicine; CONSULT PHYSICIAN Internal Medicine Infectious Disease; CONSULT PHYSICIAN Specialist; EMERGENCY PHYSICIAN Emergency Medicine; FAMILY PHYSICIAN Family Medicine
DX: T83.512A Infection and inflammatory reaction due to nephrostomy catheter, initial encounter (principal); E87.1 Hypo-osmolality and hyponatremia; N18.4 Chronic kidney disease, stage 4 (severe); N13.30 Unspecified hydronephrosis; D64.9 Anemia, unspecified; I12.9 Hypertensive chronic kidney disease with stage 1 through stage 4 chronic kidney disease, or unspecified chronic kidney disease; Z95.0 Presence of cardiac pacemaker; H35.30 Unspecified macular degeneration; C67.9 Malignant neoplasm of bladder, unspecified; T83.032A Leakage of nephrostomy catheter, initial encounter; Y73.2 Prosthetic and other implants, materials and accessory gastroenterology and urology devices associated with adverse incidents
CPT/HCPCS: 50431; 80048; 80053; 81003; 81015; 83605; 83735; 85025; 85027; 87040; 87077; 87086; 87186; 93005; 96361; 96374; 99284

== ENCOUNTER 2023-08-05 15:24 | Inpatient (IN) | payer MEDICARE, SELFPAY ==
[2023-08-05] VITALS (15 sets, daily range): BP systolic 92–132; BP diastolic 55–78; BMI 24.9
[2023-08-05] MEDS: NORMOSOL-R 1000 IV (13:06)
[2023-08-05] MEDS: CYSVIEW KIT 100 MG INTRAVES (13:15)
--- NOTE | 2023-08-05 15:38 | W.IMMPOSTOP ---
Surgical Immed Post Op Note
-
Primary Surgeon: Natacha
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
Post-op Diagnosis: Same
Procedure Performed: blue light TURBT (~6 cm tumor burden)
Anesthesia Type: GETA
Specimen / Cultures: bladder tumor/None
Estimated Blood Loss: 5 cc
Drains: 20Fr 3-way catheter
Complications: None
Operative Findings:
1. Extensive regrowth of bladder tumor along right and left lateral payton, right anterolateral bladder.
2. Friable soft tumor w/ bleeding noted - extensive fulguration performed to obtain hemostasis.
3. Satisfactory filling/emptying of bladder on final cysto w/o evidence of bladder perforation (aggressive resection to detrusor avoided), soft suprapubic/abdominal exam at conclusion of procedure.
Daughter (Laurence) updated post-op w/ plan for observation o/n on CBI.
[2023-08-05] MEDS: DETROL LA 4 MG PO (16:07)
[2023-08-05] MEDS: TRANEXAMIC ACID 100 IV (16:14)
--- NOTE | 2023-08-05 17:10 | PTCARENOTE ---
Pt arrived to 2S in bed. Full assessment completed. CBI infusing per order, pale pink output noted. Nephrostomy insertion site C/D, bandaid intact. Bed locked and in the lowest position, safety maintained. Oriented to room and call johnson.
[2023-08-06 03:13] VITALS: BP 122/60
[2023-08-06] MEDS: FLUSH (NSS) 1 FLUSH IV (03:17)
[2023-08-06 06:30] LABS: % Basophils 0.2 % (0-2); % Eosinophils 0.2 % (0-6); % Immature Granulocytes 0.6 % (0-0.5); % Lymphocytes 18.4 % (20.5-51.1); % Monocytes 8.6 % (1.7-9.3); Absolute Immature Granulocytes 0.1 10^3/uL (0-0.05); Absolute Lymphocytes 1.5 10^3/uL (1.2-3.4); Absolute Monocytes 0.7 10^3/uL (0.1-0.6); Absolute Neutrophils 5.9 10^3/uL (1.4-6.5); Hematocrit 25.7 % (37.0-47.0); Hemoglobin 8.2 g/dL (12.0-16.0); Mean Corp Hgb Conc. 31.9 g/dL (33.0-37.0); Mean Corpuscular Hgb 27.6 pg (27.0-31.0); Mean Corpuscular Volume 86.5 fL (81.0-99.0); Nucleated Red Blood Cells % 0 %; Platelet Count 264 10^3/uL (130-400); Red Blood Cell Count 2.97 10^6/uL (4.20-5.40); Red Cell Dist. Width 14.5 % (11.5-14.5); White Blood Cell Count 8.2 10^3/uL (4.8-10.8)
[2023-08-06 06:46] LABS: Blood Urea Nitrogen 30 mg/dl (7-17); Calcium 8.1 mg/dl (8.4-10.2); Carbon Dioxide 27 mmol/L (22-30); Chloride 108 mmol/L (98-107); Estimated Creatinine Clearance 17 ml/min; Glucose 110 mg/dl (70-99); Potassium 5.1 mmol/L (3.5-5.1); Sodium 135 mmol/L (135-145); eGFR 21.84
[2023-08-06 07:57] VITALS: BP 127/70
[2023-08-06] MEDS: THERAGRAN 1 TABLET PO (08:41)
[2023-08-06] MEDS: CIPRO 500 MG PO (08:42)
[2023-08-06] MEDS: OSCAL CAL 500 500 MG PO (08:42)
[2023-08-06] MEDS: DETROL LA 2 MG PO (08:43)
--- NOTE | 2023-08-06 10:41 | CM ---
Chart reviewed. Spoke with pt at bedside
Lives in 2 story home with
Independent - does shopping, cooking, drives
Rolling walker in home for
Denies past snf.
Has had HH in past - unsure of agency
PCP - Dr Anjelica Griffiths
Pharm - [facility]
CM will follow for d/c needs
Plan - anticipate home to previous setting
--- NOTE | 2023-08-06 11:26 | W.PN.UPDATE ---
Update Note
Progress Note Update
08/05: s/p palliative blue light TURBT => extensive involvement of bilateral bladder payton and bladder base noted w/ recurrent friable bladder cancer
Unable to identify bilateral UOs due to complete distortion of bladder anatomy
T3 disease given malignant hydro on right side from extension of MIBC
Urine light pink on low drip CBI o/n
Right PCN w/ clear drainage
Hgb 8.2 (stable, baseline)
Cr 2.2 (stable)
Plan:
- Medical Oncology consult appreciated to discuss chemotherapy regimen (patient elected against cystectomy) and GOC
- D/c home later today if clinically stable
- Plan to start chemo as outpatient (d/w Dr. Arenas)
[2023-08-06 11:49] VITALS: BP 109/53
--- NOTE | 2023-08-06 12:57 | CON.ONC ---
Impression
Impression
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
Plan
Plan
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
- She underwent TURBT with Dr. Manzano 02-18-23 for bladder cancer, and was scheduled to begin Cisplatin on 07-11-23.
- Plans for chemotherapy were put on hold pending treatment/resolution of right hydronephrosis/RHIANNA.
- Per Urology, she required a staged TURBT if she were to proceed with chemoradiation rather than radical cystectomy.
- She developed right lower back pain and leaking right percutaneous nephrostomy on 07-30-23, and was treated for complicated urinary tract infection.
- Subsequently, she underwent palliative blue light TURBT on 08-05-23.
- Extensive involvement of bilateral bladder payton and bladder base was noted with recurrent friable bladder cancer.
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
- Per NCCN Guidelines, several treatment approaches are available, including immunotherapy alternatives for patients that are cisplatin-ineligible (CKD, etc.)
- Outpatient follow-up with Dr. Arenas to discuss further and explore her options.
Patient History
History of Present Illness
Jessi Shipman, 83 year-old female, developed right lower back pain and leaking right percutaneous nephrostomy on 07-30-23, and was treated for complicated urinary tract infection. She had previously undergone TURBT with Dr. Manzano 02-18-23, and was
scheduled to begin Cisplatin 07-11-23. Plans for chemotherapy were put on hold pending treatment/resolution of right hydronephrosis/RHIANNA. Per Urology, she required a staged TURBT if she proceeds with chemoradiation rather than radical cystectomy. She
underwent palliative blue light TURBT on 08-05-23. Extensive involvement of bilateral bladder payton and bladder base was noted with recurrent friable bladder cancer. T3 disease given malignant hydro on right side from extension of MIBC.
Past-Medical/Surgical History
PMH: bladder cancer s/p TURBT, right-sided hydronephrosis secondary to malignant obstruction, chronic anemia, hypertension, pacemaker, chronic ambulatory dysfunction, macular degeneration
PSH: TURBT
SH: non-smoker; EtOH social
Patient Medication
Medication Instructions Recorded Confirmed Last Taken Type
calcium carbonate 500 mg calcium 500 mg PO DAILY Supplement 07/30/23 08/05/23 08/04/23 History
(1,250 mg) tablet
glucosamine sulf dipot 1 cap PO DAILY Supplement 07/30/23 08/05/23 08/04/23 History
chlr,msm,chond 550 mg-C 30 mg-balbir
1 mg capsule (Glucosamine
Chondroitin)
therapeutic multivitamin 1 tab PO DAILY Supplement 07/30/23 08/05/23 08/04/23 History
tolterodine 2 mg capsule,extended 2 mg PO DAILY Urinary Issue 07/30/23 08/05/23 08/04/23 History
release 24 hr
ciprofloxacin HCl 500 mg tablet 500 mg PO DAILY #9 tabs 08/02/23 08/05/23 08/04/23 Rx
(Cipro)
Active Medications
Generic Name Dose Route Start Last Admin
Trade Name Freq PRN Reason Stop Dose Admin
Acetaminophen 650 mg 08/05/23 15:28
Acetaminophen 325 Mg Tablet PO 09/02/23 15:27
Q6HPRN PRN
mild pain
Calcium Carbonate 500 mg 08/06/23 08:00 08/06/23 08:42
Calcium Carbonate 500 Mg Tablet PO 09/03/23 07:59 500 mg
DAILY CARISSA Administration
Ciprofloxacin 500 mg 08/06/23 08:00 08/06/23 08:42
Ciprofloxacin 500 Mg Tablet PO 500 mg
DAILY CARISSA Administration
Multivitamins Therapeutic 1 tablet 08/06/23 08:00 08/06/23 08:41
Multivitamin Tablet PO 09/03/23 07:59 1 tablet
DAILY CARISSA Administration
Sodium Chloride 0 flush 08/05/23 18:00 08/06/23 03:17
Sodium Chloride 0.9% (Flush) Syringe IV 09/02/23 17:59 1 flush
PER PROTOCOL CARISSA Administration
Tolterodine Tartrate 2 mg 08/06/23 08:00 08/06/23 08:43
Tolterodine 2 Mg Extended Release Capsule PO 09/03/23 07:59 2 mg
DAILY CARISSA Administration
Tramadol HCl 50 mg 08/05/23 15:29
Tramadol Hcl 50 Mg Tablet PO 09/02/23 15:28
Q6HPRN PRN
moderate pain
Review of Systems
-
History Source: Patient
Constitutional: Reports No Symptoms
EENT: Reports No Symptoms
Respiratory: Reports No Symptoms
Cardiac: Reports No Symptoms
GI: Reports No Symptoms
: Reports No Symptoms
Musculoskeletal: Reports No Symptoms
Skin: Reports No Symptoms
Neuro: Reports No Symptoms
Endocrine: Reports No Symptoms
Hematologic/Lymphatic: Reports No Symptoms
Allergy / Immunology: Reports No Symptoms
Psych: Reports No Symptoms
Physical Exam
-
General: No Apparent Distress and Comfortable
HEENT: Moist Mucous Membranes
Cardiology: Normal Sinus Rhythm, S1, S2 and No Murmur
Pulmonary: Clear
GI: Soft, Normal Bowel Sounds and No Organomegaly
Genito-Urinary: No Costovertebral Tenderness
Musculoskeletal: No Clubbing and No Cyanosis
Extremities: Pulses Present
Neurology: Non Focal
Hematologic / Lymphatic: No Lymphadenopathy
Psych: Calm
Labs
Lab Results
WBC 8.2 10^3/uL (4.8-10.8) 08/06/23 05:34
RBC 2.97 10^6/uL (4.20-5.40) L 08/06/23 05:34
Hgb 8.2 g/dL (12.0-16.0) L 08/06/23 05:34
Hct 25.7 % (37.0-47.0) L 08/06/23 05:34
MCV 86.5 fL (81.0-99.0) 08/06/23 05:34
MCH 27.6 pg (27.0-31.0) 08/06/23 05:34
MCHC 31.9 g/dL (33.0-37.0) L 08/06/23 05:34
RDW 14.5 % (11.5-14.5) 08/06/23 05:34
Plt Count 264 10^3/uL (130-400) D 08/06/23 05:34
MPV 10.0 fL (7.4-10.4) 08/06/23 05:34
Abs Immat Gran (auto) 0.1 10^3/uL (0-0.05) H 08/06/23 05:34
Absolute Neuts (auto) 5.9 10^3/uL (1.4-6.5) 08/06/23 05:34
Absolute Lymphs (auto) 1.5 10^3/uL (1.2-3.4) 08/06/23 05:34
Absolute Monos (auto) 0.7 10^3/uL (0.1-0.6) H 08/06/23 05:34
Absolute Eos (auto) 0.0 10^3/uL (0-0.7) 08/06/23 05:34
Absolute Basos (auto) 0.0 10^3/uL (0-0.2) 08/06/23 05:34
Immature Gran % 0.6 % (0-0.5) H 08/06/23 05:34
Neutrophils % 72.0 % (42.2-75.2) 08/06/23 05:34
Lymphocytes % 18.4 % (20.5-51.1) L 08/06/23 05:34
Monocytes % 8.6 % (1.7-9.3) 08/06/23 05:34
Eosinophils % 0.2 % (0-6) 08/06/23 05:34
Basophils % 0.2 % (0-2) 08/06/23 05:34
Creatinine 2.2 mg/dL (0.6-1.0) H 08/06/23 05:34
Vital Signs
Vital Signs
Temp Pulse Resp BP Pulse Ox
97.8 F 73 16 109/53 95
08/06/23 11:49 08/06/23 11:49 08/06/23 11:49 08/06/23 11:49 08/06/23 11:49
--- NOTE | 2023-08-06 14:26 | W.DS.TRANS ---
DC Summary - [facility]
-
Discharge Instructions:
Sleep Apnea Risk Low
Discharge Diagnosis/Procedures muscle-invasive bladder cancer, right
hydronephrosis
Diet Regular
Activity No strenuous activity
Additional Activity No strenuous activity, exercise, lifting >20 lbs
for 1 week
Driving Restrictions As prior to admission
Bathing Restrictions None
Instructions:
Stand-Alone Forms:
Changes to Home Medications: No
Discharge Medications:
DC Medications w/original date entered in [place]
calcium carbonate 500 mg calcium (1,250 mg) tablet 500 mg PO DAILY Supplement 07/30/23
glucosamine sulf dipot chlr,msm,chond 550 mg-C 30 mg-balbir 1 mg capsule (Glucosamine Chondroitin) 1 cap PO DAILY Supplement 07/30/23
therapeutic multivitamin 1 tab PO DAILY Supplement 07/30/23
tolterodine 2 mg capsule,extended release 24 hr 2 mg PO DAILY Urinary Issue 07/30/23
ciprofloxacin HCl 500 mg tablet (Cipro) 500 mg PO DAILY #9 tabs 08/02/23
Home Medication Changes
Pending Results: No
== END 2023-08-06 15:45 | disposition home or self-care (01) | DRG 669 ==
LOC: 2 SOUTH 15:24
PROVIDERS: ADMITTING PHYSICIAN Surgery; CONSULT PHYSICIAN Internal Medicine Hematology & Oncology
PROC: 0TBB8ZZ Excision of Bladder, Via Natural or Artificial Opening Endoscopic (ICD-10-PCS; 2023-08-05)
DX: C67.8 Malignant neoplasm of overlapping sites of bladder (principal); N13.1 Hydronephrosis with ureteral stricture, not elsewhere classified; N18.9 Chronic kidney disease, unspecified; I12.9 Hypertensive chronic kidney disease with stage 1 through stage 4 chronic kidney disease, or unspecified chronic kidney disease; H35.30 Unspecified macular degeneration; D63.1 Anemia in chronic kidney disease; D63.0 Anemia in neoplastic disease; Z79.899 Other long term (current) drug therapy; Z95.0 Presence of cardiac pacemaker
CPT/HCPCS: 80048; 85025; 86850; 86900; 86901; A4300; A9589; C1769

== ENCOUNTER 2023-08-07 18:15 | Inpatient (IN) | payer MEDICARE, SELFPAY ==
[2023-08-07 11:53] VITALS: BP 108/74; BMI 24.9
[2023-08-07 12:07] LABS: % Basophils 0.3 % (0-2); % Eosinophils 2.6 % (0-6); % Immature Granulocytes 0.7 % (0-0.5); % Lymphocytes 18.9 % (20.5-51.1); % Neutrophils 66.5 % (42.2-75.2); Absolute Eosinophils 0.3 10^3/uL (0-0.7); Absolute Immature Granulocytes 0.1 10^3/uL (0-0.05); Absolute Monocytes 1.2 10^3/uL (0.1-0.6); Absolute Neutrophils 7.1 10^3/uL (1.4-6.5); Hematocrit 29.2 % (37.0-47.0); Hemoglobin 9.1 g/dL (12.0-16.0); Mean Corp Hgb Conc. 31.2 g/dL (33.0-37.0); Mean Corpuscular Hgb 27.2 pg (27.0-31.0); Mean Corpuscular Volume 87.2 fL (81.0-99.0); Mean Platelet Volume 9.7 fL (7.4-10.4); Nucleated Red Blood Cells % 0 %; Platelet Count 309 10^3/uL (130-400); Red Blood Cell Count 3.35 10^6/uL (4.20-5.40); Red Cell Dist. Width 14.6 % (11.5-14.5); White Blood Cell Count 10.7 10^3/uL (4.8-10.8)
[2023-08-07 12:19] LABS: ALT (SGPT) < 10 U/L (0-35); AST (SGOT) 21 U/L (14-36); Albumin 2.9 g/dl (3.5-5.0); Alkaline Phosphatase 72 U/L (38-126); Blood Urea Nitrogen 36 mg/dl (7-17); Calcium 9.1 mg/dl (8.4-10.2); Carbon Dioxide 25 mmol/L (22-30); Chloride 104 mmol/L (98-107); Estimated Creatinine Clearance 17 ml/min; Glucose 125 mg/dl (70-99); Potassium 4.5 mmol/L (3.5-5.1); Sodium 135 mmol/L (135-145); Total Bilirubin 0.5 mg/dl (0.2-1.3); Total Protein 6.1 g/dl (6.3-8.2); eGFR 21.84
[2023-08-07 12:30] LABS: Troponin I < 0.012 ng/ml
--- NOTE | 2023-08-07 15:36 | ED.GENMED ---
History of Present Illness
<Derick De Paz PA-C - Last Filed: 08/07/23 16:46>
General
Chief Complaint: Chest Pain
Source: patient
Exam Limitations: none
Time Seen by Provider: 08/07/23 15:18
Travel History
Have you had any contact with someone who has COVID-19?: No
Do you have any symptoms of coronavirus? Fever > 100 degrees, chills, cough, shortness of breath, sore throat, loss of taste or smell, muscle aches, or headache?: No
History of Present Illness
History of Present Illness:
83-year-old female with history of bladder cancer and need for pacemaker presents complaining of chest pain in the center of her chest that is pleuritic in nature starting last night. She had a bladder surgery 2 days ago. She states her bladder
was cleaned out by her urologist. She has an ongoing nephrostomy tube on the right side. There is been no fever. She does note a cough. She denies shortness of breath. She is not anticoagulated. No other complaints at this time
Past History
<Derick De Paz PA-C - Last Filed: 08/07/23 16:46>
Past History
ED Past Medical History: Cancer and HTN
ED Past Surgical History: Urological
Social History
Tobacco: Non-smoker
Alcohol: None
Drug: None
Personal: Other
Living: with family
Employment: Other
Family History
Family History: Other
Phy Exam
<Derick De Paz PA-C - Last Filed: 08/07/23 16:46>
Physical Exam
Physical Exam:
General: Well-appearing female no acute respiratory distress HEENT: Normocephalic atraumatic neck is supple
Heart: Regular rate and rhythm no murmurs
Lungs: Clear to auscultation bilaterally no wheeze or Rales
Abdomen: Soft nontender nondistended no guarding rebound normal bowel
Extremities: No cyanosis or edema
Skin: Warm no rash or lesions
Scores
<Derick De Paz PA-C - Last Filed: 08/07/23 16:46>
Heart Score for Chest Pain Patients
STEMI patient?: No
History: Slightly or Non-Suspicious
ECG: Normal
Age: </= 45 years
Risk Factors: No Risk Factors
Troponin: </= Normal Limit
Heart Score for Chest Pain Patients: 0
Heart Score Risk: 2.5% MACE over next 6 weeks
<Alejandro Gloria DO - Last Filed: 08/07/23 19:27>
Heart Score for Chest Pain Patients
Heart Score for Chest Pain Patients: 0
Heart Score Risk: 2.5% MACE over next 6 weeks
Course
<Derick De Paz PA-C - Last Filed: 08/07/23 16:46>
Orders/Labs/Results
Orders:
Orders
08/07/23 11:52
Electrocardiogram (*1) Urgent
Reason for Study: Chest Pain
EKG- Treatment ONCE
08/07/23 11:56
Complete Blood Count/With Diff Urgent
Comprehensive Metabolic Panel Urgent
Troponin I Urgent
08/07/23 15:31
CR Chest - 2 Views Urgent
Comment:
Reason For Exam: cough, chest pain
08/07/23 15:41
COVID-19 Antigen Urgent
Source: Nasal Swab
NT-proBNP Urgent
Influenza A+B Rapid Molecular Urgent
JESSICA Source: Nasal Swab
Specimen Description:
08/07/23 15:52
D-Dimer Urgent
08/07/23 16:40
Cefepime HCl [Maxipime] 1,000 mg IV NOW STA
Vancomycin 1 Gram/200 ml [Vancocin] 1 gram in 200 ml IV NOW
08/07/23 17:14
Admit/Transfer Patient As Directed
Co-Sign Provider:
Level of Care: Inpatient admission
Assign to:: Medical/Surgical
Physician / Group: [facility]
Diagnosis: pneumonia
Reason for Hospitalization: pneumonia
Expected length of stay greater than two midnights?: Yes
ELOS- Estimated Length of Stay in days: 3
I certify the patient meets the requirements for IP care: Yes
08/07/23 17:15
Code Status As Directed
Resuscitation Status: Full Code
08/07/23 17:45
Heparin 5,300 units IV NOW STA
Heparin 30668 Units/250 ml 25,000 units in 250 ml IV PER PROTOCOL
Weight to be used for heparin protocol in kilograms (kg):: 65.771
Protocol:: DVT/PE
PTT Goal Range to be used:: PTT 73 to 111 seconds
Order type:: Initial
INITIAL Infusion Dose (UNITS/KG/hr) & then follow protocol:: 18 units/kg/hr
Infusion Dose in UNITS/hr & then follow protocol (UNITS/hr):: 1,200
INFUSION RATE in mL/hr & then follow protocol (mL/hr):: 12
For DVT/PE algorithm, re-bolus for low PTT?: Yes
PTT less than or equal to 64 seconds:: Re-bolus 80 units/kg (max 10,000units). Increase by 300 units/hr
(+ 3mL/hr)
PTT 64.1 to 72.9 seconds:: Re-bolus 40 units/kg (max 5,000 units). Increase by 100 units/hr
(+ 1mL/hr)
PTT 73 to 111 seconds:: Target Range. No change in rate.
PTT 111.1 to 130.9 seconds:: Decrease rate by 100 units/hr (- 1 mL/hr)
PTT 131 to 199.9 seconds:: HOLD for 1 hr. Then decrease by 200 units/hr (- 2mL/hr)
PTT greater than or equal to 200 seconds:: HOLD for 2 hrs & Notify Provider. Then decrease by 300 units/hr
(- 3mL/hr)
Lab follow-up:: Each change, PTT q6h until 2 consecutive are therapeutic. Then
PTT daily.
Heparin Protocol- PTT Orders As Directed
PTT per Heparin protocol: -Obtain CBC and baseline PTT - if not already collected.
-Obtain PTT 6 hours from start of infusion. Then, every 6 hours until 2 consecutive
PTT's are therapeutic. Then, PTT Daily.
-With each rate change, obtain PTT every 6 hours until 2 consecutive PTT's are
therapeutic. Then, PTT Daily.
Notify MD As Directed
Notify physician if: PTT is greater than or equal to 200.
08/07/23 17:46
GASTROINTESTINAL CONSULT Routine
Consulting Provider: Cheikh Quevedo
Was physician already notified: Yes
Speech Therapy Eval & Treat Routine
08/07/23 17:50
Complete Blood Count/No Diff Urgent
Comment: Obtain baseline before beginning heparin infusion if not already collected
PTT Urgent
Comment: Obtain baseline before beginning heparin infusion if not already collected
08/07/23 17:53
Heparin 2,600 units IV PRN PRN
Heparin 5,300 units IV PRN PRN
08/07/23 18:33
Acetaminophen [Tylenol] 650 mg PO Q4HPRN PRN
VANCOMYCIN Pharmacy to Dose [VANCOCIN Pharmacy to Dose] 1 each Pharmacy To Prepare [Call Pharmacy To Prepare] 0 ml IV PER PROTOCOL
08/07/23 18:33
INFECTIOUS DISEASE CONSULT Routine
Consulting Provider: Vitaliy Wolf
Was physician already notified: Yes
Legionella Urinary Antigen Routine
JESSICA Source: Urine
Specimen Description:
Respiratory Culture/Gram Stain Routine
JESSICA Source: Sputum
Specimen Description:
Strep pneumoniae Antigen Routine
JESSICA Source: Urine
Specimen Description:
VQ Scan [NM Lung Scan Vent/perf ] Routine
Comment:
Reason For Exam: sob
Heparin Protocol- PTT Orders As Directed
PTT per Heparin protocol: -Obtain CBC and baseline PTT - if not already collected.
-Obtain PTT 6 hours from start of infusion. Then, every 6 hours until 2 consecutive
PTT's are therapeutic. Then, PTT Daily.
-With each rate change, obtain PTT every 6 hours until 2 consecutive PTT's are
therapeutic. Then, PTT Daily.
Activity As Directed
Activity Level: Out of Bed-Early Mobility
Intake/ Output As Directed
Frequency: Per unit guidelines
Notify MD As Directed
Notify physician if: PTT is greater than or equal to 200.
Vital Signs As Directed
Frequency: Per unit guidelines
Weight As Directed
Frequency: Once
Comment: on admission
Pt Eval And Treat Routine
Activity Level: As Tolerated
DX Deep Vein Thrombosis Video Routine
08/08/23 Breakfast
Clear Liquid
Oral Supplement (If unsure of flavor order apple or vanilla): Ensure Enlive Vanilla
Supplement Frequency: BID
Basic Metabolic Panel IN AM
Complete Blood Count/No Diff IN AM
Cefepime HCl [Maxipime] 1,000 mg IV Q12H
08/08/23 08:00
Tolterodine Extended Release [Detrol LA] 2 mg PO DAILY
08/09/23 06:00
Basic Metabolic Panel IN AM
Complete Blood Count/No Diff IN AM
Complete Blood Count/No Diff Q2D
Comment: Notify MD if platelet count is <130,000 or decreases by 50% from baseline
08/10/23 06:00
Basic Metabolic Panel IN AM
Complete Blood Count/No Diff IN AM
08/11/23 06:00
Basic Metabolic Panel IN AM
Complete Blood Count/No Diff IN AM
Complete Blood Count/No Diff Q2D
Comment: Notify MD if platelet count is <130,000 or decreases by 50% from baseline
08/12/23 06:00
Basic Metabolic Panel IN AM
Complete Blood Count/No Diff IN AM
08/13/23 06:00
Complete Blood Count/No Diff Q2D
Comment: Notify MD if platelet count is <130,000 or decreases by 50% from baseline
08/15/23 06:00
Complete Blood Count/No Diff Q2D
Comment: Notify MD if platelet count is <130,000 or decreases by 50% from baseline
08/17/23 06:00
Complete Blood Count/No Diff Q2D
Comment: Notify MD if platelet count is <130,000 or decreases by 50% from baseline
08/19/23 06:00
Complete Blood Count/No Diff Q2D
Comment: Notify MD if platelet count is <130,000 or decreases by 50% from baseline
08/21/23 06:00
Complete Blood Count/No Diff Q2D
Comment: Notify MD if platelet count is <130,000 or decreases by 50% from baseline
08/23/23 06:00
Complete Blood Count/No Diff Q2D
Comment: Notify MD if platelet count is <130,000 or decreases by 50% from baseline
Abnormal Lab Results
08/07/23 08/07/23 08/07/23
11:56 15:52 17:50
RBC 3.35 L 10^6/uL 3.09 L 10^6/uL
(4.20-5.40) (4.20-5.40)
Hgb 9.1 L g/dL 8.5 L g/dL
(12.0-16.0) (12.0-16.0)
Hct 29.2 L % 26.2 L %
(37.0-47.0) (37.0-47.0)
MCHC 31.2 L g/dL 32.4 L g/dL
(33.0-37.0) (33.0-37.0)
RDW 14.6 H % 15.0 H %
(11.5-14.5) (11.5-14.5)
Abs Immat Gran (auto) 0.1 H 10^3/uL
(0-0.05)
Absolute Neuts (auto) 7.1 H 10^3/uL
(1.4-6.5)
Absolute Monos (auto) 1.2 H 10^3/uL
(0.1-0.6)
Immature Gran % 0.7 H %
(0-0.5)
Lymphocytes % 18.9 L %
(20.5-51.1)
Monocytes % 11.0 H %
(1.7-9.3)
D-Dimer 2.36 H ug/mlFEU
(0.00-0.50)
BUN 36 H mg/dl
(7-17)
Creatinine 2.2 H mg/dL
(0.6-1.0)
Glucose 125 H mg/dl
(70-99)
Total Protein 6.1 L g/dl
(6.3-8.2)
Albumin 2.9 L g/dl
(3.5-5.0)
08/07/23 17:50
08/07/23 11:56
Vital Signs
Initial and Last Documented VS:
Initial Vital Signs
Temp Pulse Resp BP Pulse Ox
97.6 F 86 16 108/74 97
08/07/23 11:53 08/07/23 11:53 08/07/23 11:53 08/07/23 11:53 08/07/23 11:53
Last Documented Vital Signs
Temp Pulse Resp BP Pulse Ox
98.2 F 87 18 137/78 99
08/07/23 18:45 08/07/23 18:45 08/07/23 18:45 08/07/23 18:45 08/07/23 18:45
<Alejandro Gloria, DO - Last Filed: 08/07/23 19:27>
Orders/Labs/Results
Orders:
Orders
08/07/23 11:52
Electrocardiogram (*1) Urgent
Reason for Study: Chest Pain
EKG- Treatment ONCE
08/07/23 11:56
Complete Blood Count/With Diff Urgent
Comprehensive Metabolic Panel Urgent
Troponin I Urgent
08/07/23 15:31
CR Chest - 2 Views Urgent
Comment:
Reason For Exam: cough, chest pain
08/07/23 15:41
COVID-19 Antigen Urgent
Source: Nasal Swab
NT-proBNP Urgent
Influenza A+B Rapid Molecular Urgent
JESSICA Source: Nasal Swab
Specimen Description:
08/07/23 15:52
D-Dimer Urgent
08/07/23 16:40
Cefepime HCl [Maxipime] 1,000 mg IV NOW STA
Vancomycin 1 Gram/200 ml [Vancocin] 1 gram in 200 ml IV NOW
08/07/23 17:14
Admit/Transfer Patient As Directed
Co-Sign Provider:
Level of Care: Inpatient admission
Assign to:: Medical/Surgical
Physician / Group: [facility]
Diagnosis: pneumonia
Reason for Hospitalization: pneumonia
Expected length of stay greater than two midnights?: Yes
ELOS- Estimated Length of Stay in days: 3
I certify the patient meets the requirements for IP care: Yes
08/07/23 17:15
Code Status As Directed
Resuscitation Status: Full Code
08/07/23 17:45
Heparin 5,300 units IV NOW STA
Heparin 44974 Units/250 ml 25,000 units in 250 ml IV PER PROTOCOL
Weight to be used for heparin protocol in kilograms (kg):: 65.771
Protocol:: DVT/PE
PTT Goal Range to be used:: PTT 73 to 111 seconds
Order type:: Initial
INITIAL Infusion Dose (UNITS/KG/hr) & then follow protocol:: 18 units/kg/hr
Infusion Dose in UNITS/hr & then follow protocol (UNITS/hr):: 1,200
INFUSION RATE in mL/hr & then follow protocol (mL/hr):: 12
For DVT/PE algorithm, re-bolus for low PTT?: Yes
PTT less than or equal to 64 seconds:: Re-bolus 80 units/kg (max 10,000units). Increase by 300 units/hr
(+ 3mL/hr)
PTT 64.1 to 72.9 seconds:: Re-bolus 40 units/kg (max 5,000 units). Increase by 100 units/hr
(+ 1mL/hr)
PTT 73 to 111 seconds:: Target Range. No change in rate.
PTT 111.1 to 130.9 seconds:: Decrease rate by 100 units/hr (- 1 mL/hr)
PTT 131 to 199.9 seconds:: HOLD for 1 hr. Then decrease by 200 units/hr (- 2mL/hr)
PTT greater than or equal to 200 seconds:: HOLD for 2 hrs & Notify Provider. Then decrease by 300 units/hr
(- 3mL/hr)
Lab follow-up:: Each change, PTT q6h until 2 consecutive are therapeutic. Then
PTT daily.
Heparin Protocol- PTT Orders As Directed
PTT per Heparin protocol: -Obtain CBC and baseline PTT - if not already collected.
-Obtain PTT 6 hours from start of infusion. Then, every 6 hours until 2 consecutive
PTT's are therapeutic. Then, PTT Daily.
-With each rate change, obtain PTT every 6 hours until 2 consecutive PTT's are
therapeutic. Then, PTT Daily.
Notify MD As Directed
Notify physician if: PTT is greater than or equal to 200.
08/07/23 17:46
GASTROINTESTINAL CONSULT Routine
Consulting Provider: Cheikh Quevedo
Was physician already notified: Yes
Speech Therapy Eval & Treat Routine
08/07/23 17:50
Complete Blood Count/No Diff Urgent
Comment: Obtain baseline before beginning heparin infusion if not already collected
PTT Urgent
Comment: Obtain baseline before beginning heparin infusion if not already collected
08/07/23 17:53
Heparin 2,600 units IV PRN PRN
Heparin 5,300 units IV PRN PRN
08/07/23 18:33
Acetaminophen [Tylenol] 650 mg PO Q4HPRN PRN
VANCOMYCIN Pharmacy to Dose [VANCOCIN Pharmacy to Dose] 1 each Pharmacy To Prepare [Call Pharmacy To Prepare] 0 ml IV PER PROTOCOL
08/07/23 18:33
INFECTIOUS DISEASE CONSULT Routine
Consulting Provider: Vitaliy Wolf
Was physician already notified: Yes
Legionella Urinary Antigen Routine
JESSICA Source: Urine
Specimen Description:
Respiratory Culture/Gram Stain Routine
JESSICA Source: Sputum
Specimen Description:
Strep pneumoniae Antigen Routine
JESSICA Source: Urine
Specimen Description:
VQ Scan [NM Lung Scan Vent/perf ] Routine
Comment:
Reason For Exam: sob
Heparin Protocol- PTT Orders As Directed
PTT per Heparin protocol: -Obtain CBC and baseline PTT - if not already collected.
-Obtain PTT 6 hours from start of infusion. Then, every 6 hours until 2 consecutive
PTT's are therapeutic. Then, PTT Daily.
-With each rate change, obtain PTT every 6 hours until 2 consecutive PTT's are
therapeutic. Then, PTT Daily.
Activity As Directed
Activity Level: Out of Bed-Early Mobility
Intake/ Output As Directed
Frequency: Per unit guidelines
Notify MD As Directed
Notify physician if: PTT is greater than or equal to 200.
Vital Signs As Directed
Frequency: Per unit guidelines
Weight As Directed
Frequency: Once
Comment: on admission
Pt Eval And Treat Routine
Activity Level: As Tolerated
DX Deep Vein Thrombosis Video Routine
08/08/23 Breakfast
Clear Liquid
Oral Supplement (If unsure of flavor order apple or vanilla): Ensure Enlive Vanilla
Supplement Frequency: BID
Basic Metabolic Panel IN AM
Complete Blood Count/No Diff IN AM
Cefepime HCl [Maxipime] 1,000 mg IV Q12H
08/08/23 08:00
Tolterodine Extended Release [Detrol LA] 2 mg PO DAILY
08/09/23 06:00
Basic Metabolic Panel IN AM
Complete Blood Count/No Diff IN AM
Complete Blood Count/No Diff Q2D
Comment: Notify MD if platelet count is <130,000 or decreases by 50% from baseline
08/10/23 06:00
Basic Metabolic Panel IN AM
Complete Blood Count/No Diff IN AM
08/11/23 06:00
Basic Metabolic Panel IN AM
Complete Blood Count/No Diff IN AM
Complete Blood Count/No Diff Q2D
Comment: Notify MD if platelet count is <130,000 or decreases by 50% from baseline
08/12/23 06:00
Basic Metabolic Panel IN AM
Complete Blood Count/No Diff IN AM
08/13/23 06:00
Complete Blood Count/No Diff Q2D
Comment: Notify MD if platelet count is <130,000 or decreases by 50% from baseline
08/15/23 06:00
Complete Blood Count/No Diff Q2D
Comment: Notify MD if platelet count is <130,000 or decreases by 50% from baseline
08/17/23 06:00
Complete Blood Count/No Diff Q2D
Comment: Notify MD if platelet count is <130,000 or decreases by 50% from baseline
08/19/23 06:00
Complete Blood Count/No Diff Q2D
Comment: Notify MD if platelet count is <130,000 or decreases by 50% from baseline
08/21/23 06:00
Complete Blood Count/No Diff Q2D
Comment: Notify MD if platelet count is <130,000 or decreases by 50% from baseline
08/23/23 06:00
Complete Blood Count/No Diff Q2D
Comment: Notify MD if platelet count is <130,000 or decreases by 50% from baseline
Abnormal Lab Results
08/07/23 08/07/23 08/07/23
11:56 15:52 17:50
RBC 3.35 L 10^6/uL 3.09 L 10^6/uL
(4.20-5.40) (4.20-5.40)
Hgb 9.1 L g/dL 8.5 L g/dL
(12.0-16.0) (12.0-16.0)
Hct 29.2 L % 26.2 L %
(37.0-47.0) (37.0-47.0)
MCHC 31.2 L g/dL 32.4 L g/dL
(33.0-37.0) (33.0-37.0)
RDW 14.6 H % 15.0 H %
(11.5-14.5) (11.5-14.5)
Abs Immat Gran (auto) 0.1 H 10^3/uL
(0-0.05)
Absolute Neuts (auto) 7.1 H 10^3/uL
(1.4-6.5)
Absolute Monos (auto) 1.2 H 10^3/uL
(0.1-0.6)
Immature Gran % 0.7 H %
(0-0.5)
Lymphocytes % 18.9 L %
(20.5-51.1)
Monocytes % 11.0 H %
(1.7-9.3)
D-Dimer 2.36 H ug/mlFEU
(0.00-0.50)
BUN 36 H mg/dl
(7-17)
Creatinine 2.2 H mg/dL
(0.6-1.0)
Glucose 125 H mg/dl
(70-99)
Total Protein 6.1 L g/dl
(6.3-8.2)
Albumin 2.9 L g/dl
(3.5-5.0)
08/07/23 17:50
08/07/23 11:56
Vital Signs
Initial and Last Documented VS:
Initial Vital Signs
Temp Pulse Resp BP Pulse Ox
97.6 F 86 16 108/74 97
08/07/23 11:53 08/07/23 11:53 08/07/23 11:53 08/07/23 11:53 08/07/23 11:53
Last Documented Vital Signs
Temp Pulse Resp BP Pulse Ox
98.2 F 87 18 137/78 99
08/07/23 18:45 08/07/23 18:45 08/07/23 18:45 08/07/23 18:45 08/07/23 18:45
<Derick De Paz PA-C - Last Filed: 08/07/23 16:46>
MDM/Problems Addressed
Differential Diagnosis Includes:
Chest pain. Acute. Patient is stable. Consider ACS, given history of bladder cancer and recent surgery also consider pulmonary embolism. Patient notes she is coughing. Will test for COVID and flu as well
Considered PE study of chest however renal functions will not allow this as GFR is only 17. Will check D-dimer in the event this is negative can comfortably rule out potential for PE. Troponin was ordered for triage which is undetectable. EKG
shows a paced rhythm.
<Derick De Paz PA-C - Last Filed: 08/07/23 16:46>
*Critical Care Note
Total Time (30-74mins, 75-104mins- exclusive of procedures): Not Applicable
<Derick De Paz PA-C - Last Filed: 08/07/23 16:46>
Update Note
Update Note:
Workup here demonstrates chest x-ray that shows left lower lobe pneumonia. Will start vancomycin and cefepime for this. Patient does have pleuritic chest pain in setting of recent surgery and has bladder cancer. D-dimer is 2.3 however renal
functions will not allow PE study. Will keep in hospital for further evaluation for possible PE.
ED Attending Note
<Derick De Paz PA-C - Last Filed: 08/07/23 16:46>
-
Portions of this chart may have been created with voice recognition software.� Occasional wrong word or��sound alike� substitutions may have occurred due to the inherent limitations of voice recognition software.
<Alejandro Gloria DO - Last Filed: 08/07/23 19:27>
ED Attending Note
I performed the substantive portion of visit, reviewed & personally made and approve the management plan that is documented in note by myself or LEON.: Yes
ED Attending Note:
I have reviewed and agree with history and treatment plan by sushma De Paz.
Suspect pneumonia, less likely PE. Admit to hospitalist for further treatment and management.
Discharge Plan
Departure
Patient Disposition: Admit
Date of Disposition: 08/07/23
Time of Disposition: 16:46
Admit to: Telemetry
Presentation/result/management discussed w/ accepting MD/DO: Hospitalist
Discharge Problem:
Chest pain
Interventions
Interventions:
*Risk Screen - Suicide Last Done: 08/07/23 14:42
*General Assessment Last Done: 08/07/23 15:45
*Neglect/Abuse Screening Last Done: 08/07/23 14:42
ED- Fall Risk Assessment Last Done: 08/07/23 15:46
*ED COVID-19 Vaccine History Last Done: 08/07/23 14:42
*Nursing Disposition Last Done: 08/07/23 18:23
ED- Cardiac Assessment Last Done: 08/07/23 15:55
Discharge Date and Time
Discharge Date/Time: 08/07/23 18:23
[2023-08-07 16:00] VITALS: BP 131/77
[2023-08-07 16:12] LABS: D-Dimer 2.36 ug/mlFEU (0.00-0.50)
[2023-08-07 16:16] LABS: COVID-19 Antigen Negative (Negative)
[2023-08-07 16:19] LABS: NT-proBNP 1800 pg/ml
--- NOTE | 2023-08-07 16:52 | HPS.HSE ---
Addendum entered and electronically signed by Deandre Sierra MD 08/07/23 18:52:
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
Developed sob and pleuritic chest pain
Also feels like food becomes stuck in mid esophagus when attempts to eat and startes she can only consume liquids
Pt situation reviewed with dgt in room
Seen independently and agree with [employer] OPERATOR note
Lungs clear on shallow respiration
CV reg
Ext no edema, though left leg feels 'puffy' compared to Rt
CXR:Findings suggesting mild left lower lobe pneumonia.
Imp: LLL PNA, possible aspiration
sob with pleuritic component, concern for PE, though could be related to PNA
Renal Insuff with creat of 2.[address]A, VQ scan to be ordered for the morning. Full dose Heparin will be ordered until resulted, will stop AC if negative
Bladder Cancer
P:VQ scan
ID consult
Original Note:
Family Physician
-
Family Physician: Anjelica Griffiths
Chief Complaint
-
Cough
History of Present Illness
83-year-old female with history of bladder cancer, pacemaker presents complaining of chest pain in the center of her chest that is pleuritic in nature starting last night. Patient stated cough with clear sputum. Stated some throat pain felt like,
something was stuck in her throat. Stated some back pain as well. there is been no fever.�� She denies shortness of breath.� Patient denied any headache, dizziness, syncopal episode. Patient denied abdominal pain, nausea, vomiting, diarrhea.
Patient denies dysuria hematuria
Patient presents just discharged yesterday status post TURBT for advanced bladder cancer. She has right nephrostomy tube
Medical History
Past Medical History
Past Medical History: Reports Other
Additional Past Medical History:
Bladder cancer
Past Surgical History: Reports Other
Additional Past Surgical History:
Status post TURBT
Bladder tumor removed
Social History
Tobacco: Non-smoker
Alcohol: None
Drug: None
Personal:
Living: With Family
Family History
Family History: Not pertinent
Allergies / Home Medications
Allergies reflects when Allergies were last updated in [facility].
Home Medications with original date entered in [facility]
Allergy/Medication List:
Allergies
Allergy/AdvReac Type Severity Reaction Status Date / Time
sulfamethoxazole Allergy swelling Verified 07/08/23 12:46
[From Bactrim] of tongue
trimethoprim [From Bactrim] Allergy swelling Verified 07/08/23 12:46
of tongue
Home Medications
calcium carbonate 500 mg calcium (1,250 mg) tablet 500 mg PO DAILY Supplement 07/30/23
glucosamine sulf dipot chlr,msm,chond 550 mg-C 30 mg-balbir 1 mg capsule (Glucosamine Chondroitin) 1 cap PO DAILY Supplement 07/30/23
therapeutic multivitamin 1 tab PO DAILY Supplement 07/30/23
tolterodine 2 mg capsule,extended release 24 hr 2 mg PO DAILY Urinary Issue 07/30/23
ciprofloxacin HCl 500 mg tablet (Cipro) 500 mg PO DAILY #9 tabs 08/02/23
Review of Systems
-
Constitutional: Reports No Symptoms
EENT: Reports No Symptoms
Respiratory: Reports No Symptoms and Cough
Cardiac: Reports No Symptoms and Chest Pain
Abdomen/GI: Reports No Symptoms
: Reports No Symptoms
Musculoskeletal: Reports No Symptoms
Skin: Reports No Symptoms
Neurological: Reports No Symptoms
Endocrine: Reports No Symptoms
Hematologic/Lymphatic: Reports No Symptoms
Psych: Reports No Symptoms
Physical Exam
Vital Signs
Vital Signs
Temp Pulse Resp BP Pulse Ox
97.6 F 77 18 131/77 96
08/07/23 11:53 08/07/23 16:00 08/07/23 16:00 08/07/23 16:00 08/07/23 16:00
Physical Exam
General: Well Developed, Well Nourished and No Apparent Distress
HEENT: NormoCephalic, Moist mucous membranes and Atraumatic
Respiratory: Clear
Cardiac: S1/S2 and Regular Rhythm; No Murmur or Rub
GI: Soft, Non Tender, Non Distended and Normal Bowel Sounds; No Organomegaly
Rectal: Deferred by Provider
Musculoskeletal: No Clubbing, No Cyanosis and No Edema
Skin: No Rash
Neuro: AO x 3 and Nonfocal/grossly intact
Psych: Calm
Laboratory Results
-
08/07/23 11:56
08/07/23 11:56
Laboratory Results
Total Bilirubin 0.5 mg/dl (0.2-1.3) 08/07/23 11:56
AST 21 U/L (14-36) 08/07/23 11:56
ALT < 10 U/L (0-35) 08/07/23 11:56
Alkaline Phosphatase 72 U/L (38-126) 08/07/23 11:56
Troponin I < 0.012 ng/ml 08/07/23 11:56
Data Reviewed
-
Diagnostic Radiology: Report Reviewed by me
Lab Data: Labs Reviewed by me
Impression/Plan
-
# Pleuritic chest pain/cough likely from pneumonia
-Chest x-ray with possible left lower lobe pneumonia
-COVID-negative
-Negative for influenza AMB
-IV Vanco and cefepime
-Tylenol as needed for fever
-ID consulted
# History of bladder cancer
-Had bladder tumor removed
-Nephrostomy tube in place
# Anemia of chronic disease
-Hemoglobin stable at 9.1
-No active bleeding
-Continue to monitor
# Elevated D-dimer concern for PE
-D-dimer of 2.36
-Obtain ultrasound/VQ scan
-initiated on heparin drip
#difficulty swallowing
-speech eval
-GI consulted for possible EGD
# Chronic kidney disease stage IV
-Creatinine 2.2
-Continue to monitor
# History of PPM
# Chronic macular degeneration
# Chronic ambulatory dysfunction
# DVT prophylaxis
-Heparin
# CODE STATUS
-Full code
[2023-08-07] MEDS: MAXIPIME 1000 MG IV (17:06)
[2023-08-07] MEDS: VANCOCIN 200 IV (17:07)
[2023-08-07 18:02] LABS: Hematocrit 26.2 % (37.0-47.0); Hemoglobin 8.5 g/dL (12.0-16.0); Mean Corp Hgb Conc. 32.4 g/dL (33.0-37.0); Mean Corpuscular Hgb 27.5 pg (27.0-31.0); Mean Corpuscular Volume 84.8 fL (81.0-99.0); Mean Platelet Volume 9.7 fL (7.4-10.4); Platelet Count 279 10^3/uL (130-400); Red Blood Cell Count 3.09 10^6/uL (4.20-5.40); White Blood Cell Count 8.9 10^3/uL (4.8-10.8)
[2023-08-07] MEDS: HEPARIN 5300 UNITS IV (18:04)
[2023-08-07 18:11] LABS: APTT 29.1 Sec (23.4-35.0)
[2023-08-07] MEDS: HEPARIN 25000 UNITS/250 ML IV (18:12)
[2023-08-07 18:45] VITALS: BP 137/78
--- NOTE | 2023-08-07 19:33 | PHA.VAN.IN ---
Assessment
- Assessment
Renal Function: Appears elevated from baseline (01/26/23 BASELINE SCR: 0.9)
Concomitant Antimicrobials: CEFEPIME
- Previous Dosing Experience
Previous Regimen: NONE
Plan
- Plan
Initial / Loading Dose: 1500MG
Maintenance Regimen: DOSING BY RANDOM LEVELS
Monitoring: RANDOM VANCOMYCIN LEVEL 08/08/23 AM
Pharmacokinetics Vancomycin I
- -
Patient Age: 83
Patient Sex: Female
Vancomycin Day #: 1
Indication: Pulmonary/Respiratory (LLE PNA/ASPIRATION)
Requesting Provider: KVNG
Pertinent Antimicrobial Allergies:
Allergies
sulfamethoxazole [From Bactrim] Allergy (Verified 07/08/23 12:46)
swelling of tongue
trimethoprim [From Bactrim] Allergy (Verified 07/08/23 12:46)
swelling of tongue
Height / Weight:
Height 5 ft 4 in
Actual Weight 65.771 kg
Pertinent Past Medical History: RECENT DISCHARGE 08/06/23
- Vital Signs / Lab Results
Temp Pulse Resp BP Pulse Ox
98.2 F 87 18 137/78 99
08/07/23 18:45 08/07/23 18:45 08/07/23 18:45 08/07/23 18:45 08/07/23 18:45
Lab Results - Hematology
08/07/23 08/07/23
11:56 17:50
WBC 10.7 8.9
Lab Results - Chemistry
08/07/23
11:56
BUN 36 H
Creatinine 2.2 H
Estimated Creat Clear 17
Albumin 2.9 L
Microbiology Results
08/07/23 15:41 Influenza Types A & B (FAVIOLA) - Final
Nasal Swab Negative for Influenza A & B, NAAT
Negative results must be combined with clinical observations
and patient history.
Nucleic Acid Amplification test (NAAT)performed on the
[employer] platform.
[2023-08-07] MEDS: VANCOCIN HCL 500 MG 100 IV (21:56)
[2023-08-07 23:22] VITALS: BP 120/75
[2023-08-08 01:04] LABS: APTT > 200 Sec (23.4-35.0)
--- NOTE | 2023-08-08 01:40 | PTCARENOTE ---
@2893,Instructed KAYE Ahumada on critical lab ,via TT, PTT>200.Heparin drip stopped for 2 hours. Following protocol.
[2023-08-08] MEDS: MAXIPIME 1000 MG IV (06:20)
[2023-08-08] MEDS: STERILE WATER FOR INJECTION 10 ML IV (06:21)
--- NOTE | 2023-08-08 06:31 | CON.GI ---
Consultation
-
Date/Time Consultation Performed: 08/08/23
Performing Provider: Adriano Quevedo MD
Reason for Consultation: dysphagia
Medical History
Chief Complaint / HPI
Chief Complaint: back pain, dysphagia
History of Present Illness:
The patient is an 83-year-old female with past medical history as noted presents with shortness of breath and pleuritic chest pain. She was recently hospitalized with surgery for invasive bladder cancer and right hydronephrosis. After surgery she
went home and developed some back pain and chest pain with some shortness of breath. She took 2 Tylenol and then after that developed dysphagia and odynophagia. With eating she has pain with swallowing, and does feel that there is some dysphagia
and points to her lower chest, though she is able to tolerate her secretions and liquids. She denies any fevers or chills. She is currently on heparin with elevated D-dimer and pleuritic chest pain, awaiting VQ scan for possible PE. She is never
had dysphagia in the past, never had an endoscopy and usually has no GI symptoms.
Past Medical History
Past Medical History: Other (Bladder cancer s/p TURBT; >5cm left lateral wall tumor (01/2023) Chronic kidney disease; stage 3a Mobitz type II AV block Pacemaker Macular degeneration Ambulatory dysfunction Hypertension Diverticulitis Osteoarthritis
Visual impairment Hyperlipidemia Post-herpetic neuralg)
Past Surgical History: Other ( Appendectomy Tubal ligation, pacemaker)
Social History
Tobacco: Non-Smoker
Alcohol: None
Family History
Family History: Reviewed & Not Pertinent
Allergies / Home Medications
Allergy/AdvReac Type Severity Reaction Status Date / Time
sulfamethoxazole Allergy swelling Verified 07/08/23 12:46
[From Bactrim] of tongue
trimethoprim [From Bactrim] Allergy swelling Verified 07/08/23 12:46
of tongue
Medication Instructions Recorded
calcium carbonate 500 mg calcium 500 mg PO DAILY Supplement 07/30/23
(1,250 mg) tablet
glucosamine sulf dipot 1 cap PO DAILY Supplement 07/30/23
chlr,msm,chond 550 mg-C 30 mg-balbir
1 mg capsule (Glucosamine
Chondroitin)
therapeutic multivitamin 1 tab PO DAILY Supplement 07/30/23
tolterodine 2 mg capsule,extended 2 mg PO DAILY Urinary Issue 07/30/23
release 24 hr
ciprofloxacin HCl 500 mg tablet 500 mg PO DAILY #9 tabs 08/02/23
(Cipro)
Review of Systems
-
All other systems: A 12 pt ROS was Negative except as stated above in HPI
Vital Signs
Temp Pulse Resp BP Pulse Ox
98.9 F 84 18 120/75 97
08/07/23 23:22 08/07/23 23:22 08/07/23 23:22 08/07/23 23:22 08/07/23 23:22
Physical Exam
Exam
General: NAD
HEENT: MMM, anicteric, no lymphadenopathy
Heart: Regular, 2/6 murmurs
Lungs: CTA bilaterally
Abdomen: normal bowel sounds, soft, no tenderness, no rebound or guarding, no masses, bruits or ascites
Extremeties: no edema
Skin: no rashes
Results
WBC 8.9 10^3/uL (4.8-10.8) 08/07/23 17:50
Hgb 8.5 g/dL (12.0-16.0) L 08/07/23 17:50
Hct 26.2 % (37.0-47.0) L 08/07/23 17:50
MCV 84.8 fL (81.0-99.0) 08/07/23 17:50
Plt Count 279 10^3/uL (130-400) 08/07/23 17:50
Absolute Neuts (auto) 7.1 10^3/uL (1.4-6.5) H 08/07/23 11:56
APTT > 200 Sec (23.4-35.0) H* 08/08/23 00:25
Sodium 135 mmol/L (135-145) 08/07/23 11:56
Potassium 4.5 mmol/L (3.5-5.1) 08/07/23 11:56
Chloride 104 mmol/L (98-107) 08/07/23 11:56
Carbon Dioxide 25 mmol/L (22-30) 08/07/23 11:56
BUN 36 mg/dl (7-17) H 08/07/23 11:56
Creatinine 2.2 mg/dL (0.6-1.0) H 08/07/23 11:56
Calcium 9.1 mg/dl (8.4-10.2) 08/07/23 11:56
Total Bilirubin 0.5 mg/dl (0.2-1.3) 08/07/23 11:56
AST 21 U/L (14-36) 08/07/23 11:56
ALT < 10 U/L (0-35) 08/07/23 11:56
Alkaline Phosphatase 72 U/L (38-126) 08/07/23 11:56
Diagnostic Image Results:
Prior GI Procedures:
EGD:
Colonoscopy:
Assessment / Plan
-
1. Dysphagia/odynophagia: Acute, with no history of symptoms in the past, after taking medications for back pain, likely pill esophagitis. There is no thrush on exam now, doubt other infectious esophagitis. Again she has had no dysphagia in the
past, and doubt underlying malignancy or other esophageal pathology. She is currently on heparin, awaiting VQ scan for possible PE. At this point we will check barium esophagram, start PPI daily for now and discussed dietary modifications.
Pending esophagram, symptoms and need for anticoagulation may consider endoscopy tomorrow.
-
-
Thank you for consultation and allowing me to participate in the patient's care. Please call the fashion buyer GI physician during the after hours with any questions or concerns.
[2023-08-08 07:30] VITALS: BP 134/74
--- NOTE | 2023-08-08 08:23 | PHA.VAN.FU ---
Vancomycin Assessment / Plan
- Assessment
Renal Function: Stable
WBC's are: WNL
In the past 24 hrs, patient has been: Afebrile
Concomitant Antimicrobials: cefepime
- Assessment - Therapeutic Drug Monitoring
Random Level: 13.7 - drawn ~11.5H after split load of 1500mg
- Dosing Plan
Dosing by Level: Re-dose today (Vanc 750mg)
- Monitoring Plan
Random Level: 08/09 06
- Follow Up
Pharmacy will continue to follow.
Vancomycin Follow UP
- -
Patient Age: 83
Patient Sex: Female
Vancomycin Day #: 2
Indication: Pulmonary/Respiratory
Requesting Provider: Donta Nicole
Pertinent Antimicrobial Allergies:
sulfamethoxazole / trimethoprim [From Bactrim] - swelling of tongue
Height / Weight:
Height 5 ft 4 in
Actual Weight 65.771 kg
Pertinent Past Medical History: CKD IV
- Vital Signs / Lab Results
Temp Pulse Resp BP Pulse Ox
98.3 F 74 16 134/74 96
08/08/23 07:30 08/08/23 07:30 08/08/23 07:30 08/08/23 07:30 08/08/23 07:30
Lab Results - Hematology
08/07/23 08/07/23
11:56 17:50
WBC 10.7 8.9
Lab Results - Chemistry
08/07/23
11:56
BUN 36 H
Creatinine 2.2 H
Estimated Creat Clear 17
Albumin 2.9 L
Microbiology Results
08/07/23 15:41 Influenza Types A & B (FAVIOLA) - Final
Nasal Swab Negative for Influenza A & B, NAAT
Negative results must be combined with clinical observations
and patient history.
Nucleic Acid Amplification test (NAAT)performed on the
[employer] platform.
[2023-08-08] MEDS: DETROL LA 2 MG PO (08:27)
[2023-08-08] MEDS: PROTONIX IV 40 MG IV (08:27)
[2023-08-08] MEDS: NSS (PRESERVATIVE FREE) 10 ML IV (08:28)
[2023-08-08 09:50] LABS: Hematocrit 25.7 % (37.0-47.0); Hemoglobin 8.1 g/dL (12.0-16.0); Mean Corp Hgb Conc. 31.5 g/dL (33.0-37.0); Mean Corpuscular Hgb 27.2 pg (27.0-31.0); Mean Corpuscular Volume 86.2 fL (81.0-99.0); Platelet Count 273 10^3/uL (130-400); Red Blood Cell Count 2.98 10^6/uL (4.20-5.40); White Blood Cell Count 7.8 10^3/uL (4.8-10.8)
--- NOTE | 2023-08-08 09:50 | CM ---
Patient seen at bedside. Patient states that she lives with her in a 2 story. Patient has no DME and uses the [facility] in [place], PCP is Dr. Anjelica Griffiths. Patient stated that she would anticipate needing VN to restart with [facility]. CM will
continue to follow for discharge planning needs.
Plan; home with VN; confirm with [facility] that they are current and [facility]
[2023-08-08 10:00] LABS: APTT 73.9 Sec (23.4-35.0)
[2023-08-08 10:05] LABS: Vancomycin Random 13.7 ug/ml
[2023-08-08 10:17] LABS: Blood Urea Nitrogen 27 mg/dl (7-17); Carbon Dioxide 21 mmol/L (22-30); Chloride 109 mmol/L (98-107); Estimated Creatinine Clearance 19 ml/min; Glucose 94 mg/dl (70-99); Potassium 4.2 mmol/L (3.5-5.1); Sodium 134 mmol/L (135-145); eGFR 24.48
--- NOTE | 2023-08-08 11:03 | CON.ID ---
Consultation
-
Date/Time Consultation Requested: August 07, 2023
Date/Time Consultation Performed: August 08, 2023
Requesting Provider: Dr. Deandre Sierra
Performing Provider: Dr. Lulu Montez
Reason for Consultation: PNA
Chief Complaint / Past History
Chief Complaint
Chest pain
History of Present Illness
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
nephrostomy tubes placement on July 11, 2023. She was recently hospitalized from July 30 to August 02 with transient malfunctioning nephrostomy tube. Nephrostogram showed patent tube. Urine culture grew Serratia. I placed her on
ciprofloxacin through the planned urological procedure on August 05. August 05 she underwent bluelight TURBT of 6 cm tumor burden. She was maintained on Cipro in the hospital. She was discharged to home August 06. However yesterday
she developed substernal chest pain and therefore came to the ER. No fever. No white count. Chest x-ray shows possible mild left lower lobe pneumonia. By report she was complaining of food getting stuck on her chest. Esophagram pending. She
denies cough/sob/dysphagia/odynophagia to me. Chest pain resolved. No flank pain. No urinary sxs.
Past History
Additional Past Medical History:
HTN
PPM
CKD
Bladder CA s/p TURBT, most recent 08/05/23
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
Allergy History:
sulfamethoxazole [From Bactrim] Allergy (Verified 07/08/23 12:46)
swelling of tongue
trimethoprim [From Bactrim] Allergy (Verified 07/08/23 12:46)
swelling of tongue
Medications Reviewed: Yes
Current Antibiotics:
Cefepime
Vancomycin
Social History
Tobacco: Non-Smoker
Alcohol: None
Drug: None
Family History
Family History: Not Pertinent
Review of Systems
Review of Systems
General: Negative Fever or Chills
HEENT: Negative Sinus Problems or Headache
Cardiovascular: Negative Dyspnea or Edema
Respiratory: Negative Dyspnea or Cough
Gasteroenterology: Other (no diarrhea); Negative Nausea or Vomiting
Genital / Urological: Negative Dysuria or Flank Pain
Endocrine: Negative Weakness
Neurological: Negative Headache or Dizziness
All systems: All other systems were reviewed and were negative
Vital Signs
Temp Pulse Resp BP Pulse Ox
98.3 F 74 16 134/74 96
08/08/23 07:30 08/08/23 07:30 08/08/23 07:30 08/08/23 07:30 08/08/23 07:30
Physical Exam
Physical Exam
Constitutional: No Acute Distress and Comfortable
Eyes: Sclera Anicteric
Cardiovascular: Regular Rate and S1/S2
Pulmonary: Non Labored; Negative Wheezes, Rales, Rhonchi or Coarse
Gastrointestinal: Soft, Tender and Non Tender
Genito-Urinary: Clear Urine (right nephrostomy); Negative CVA Tenderness
Extremities: Negative Edema
Neurological: Awake and Alert
Lab / Diagnostic Study Results
08/08/23 09:33
08/08/23 09:33
Abs Immat Gran (auto) 0.1 10^3/uL (0-0.05) H 08/07/23 11:56
Absolute Neuts (auto) 7.1 10^3/uL (1.4-6.5) H 08/07/23 11:56
Absolute Lymphs (auto) 2.0 10^3/uL (1.2-3.4) 08/07/23 11:56
Absolute Monos (auto) 1.2 10^3/uL (0.1-0.6) H 02/07/24 11:56
Absolute Basos (auto) 0.0 10^3/uL (0-0.2) 08/07/23 11:56
Immature Gran % 0.7 % (0-0.5) H 08/07/23 11:56
Neutrophils % 66.5 % (42.2-75.2) 08/07/23 11:56
Lymphocytes % 18.9 % (20.5-51.1) L 08/07/23 11:56
Monocytes % 11.0 % (1.7-9.3) H 08/07/23 11:56
Eosinophils % 2.6 % (0-6) 08/07/23 11:56
Basophils % 0.3 % (0-2) 08/07/23 11:56
Microbiology Results
Micro:
08/08/23 08:45 Nasal Screen MRSA (PCR) - Pending
Nose
08/07/23 15:41 Influenza Types A & B (FAVIOLA) - Final
Nasal Swab Negative for Influenza A & B, NAAT
Negative results must be combined with clinical observations
and patient history.
Nucleic Acid Amplification test (NAAT)performed on the
[employer] platform.
08/08/23 VQ scan : Examination is very low probability for pulmonary embolism.
08/07/23 CXR: Findings suggesting mild left lower lobe pneumonia.
Assessment / Plan
# Probable aspiration PNA
- Reported dysphagia/odynophagia/food stuck in esophagus
-Esophagus XRAY pending
-Narrow Vanco/cefepime to Unasyn (renally adjusted)
When able to take po, transition to Augmentin 500mg po bid till 08/12/23
#Bladder cancer with obstructive uropathy s/pp perc neph tube placement 07/11/23
s/p bluelight TURBT on 08/05/23.
Care Review
Plan reviewed with: Physician (Dr. Sierra)
[2023-08-08] MEDS: VANCOCIN 150 IV (13:04)
[2023-08-08 13:29] VITALS: BMI 24.9
--- NOTE | 2023-08-08 13:50 | W.PN.HOSP.TC ---
Today's Communication/Plan
-
venous doppler
follow up CXr
stop Heparin (in pt with hematuria, bladder cancer
await esophagram, potential EGD based on results
Assessment / Plan
Assessment / Plan
# Pleuritic chest pain/cough likely from pneumonia
V/Q scan neg for PE
-Chest x-ray with possible left lower lobe pneumonia
-COVID-negative
-Negative for influenza A&B
-IV Vanco and cefepime
-Tylenol as needed for fever
-ID consulted
# History of bladder cancer
-Had bladder tumor removed
-Nephrostomy tube in place
while on Heparin did have some hematuria, fortunately able to stop Heparin
# Anemia of chronic disease
-Hemoglobin stable at 9.1-->8.1
follow off Heparin
-Continue to monitor
# Elevated D-dimer concern for PE (most likely related to bladder cancer)
-D-dimer of 2.36
-Obtain ultrasound/VQ scan
-initiated on heparin drip, now stopped
#difficulty swallowing
-speech eval
-GI consulted for possible EGD. Underwent esophagram, results pending, though pt believes she can eat
# Chronic kidney disease stage IV
-Creatinine 2.2-->2.0
-Continue to monitor
# History of PPM
# Chronic macular degeneration
# Chronic ambulatory dysfunction
# DVT prophylaxis
-will stop Heparin, check venous doppler, if neg consider SCD's
complex situation
# CODE STATUS
-Full code
Anticipated Discharge: 24 - 48 hours
Subjective/Interval History
-
Date of Service: August 08, 2023
Asking if she can eat and go home, obviously feeling better
Objective Data
-
Labs:
Laboratory Results
08/08/23 08/08/23
09:33 15:45
WBC 7.8
Hgb 8.1 L
Hct 25.7 L
Plt Count 273
APTT 73.9 H Cancelled
Sodium 134 L
Potassium 4.2
Chloride 109 H
Carbon Dioxide 21 L
BUN 27 H
Creatinine 2.0 H
Glucose 94
Calcium 8.0 L
Vital Signs:
Vital Signs
Temp Pulse Resp BP Pulse Ox
98.3 F 74 16 134/74 97
08/08/23 07:30 08/08/23 07:30 08/08/23 07:30 08/08/23 07:30 08/08/23 08:00
I&O
08/07/23 08/08/23 08/09/23
06:59 06:59 06:59
Intake Total 448 / 448 150 / 150
Output Total 100 / 100 100 / 100
Balance 348 / 348 50 / 50
Review of Systems
-
History Source: Patient and Coordinated Provider
Constitutional: Denies Fever
EENT: Reports No Symptoms Reported
Respiratory: Denies Trouble Breathing
Cardiac: Reports No Symptoms
Abdomen/GI: Denies Abdominal Pain
Musculoskeletal: Reports No Symptoms
Physical Exam
-
General: Well Developed, Well Nourished and No Apparent Distress
HEENT: Normocephalic, Atraumatic and Moist Mucous Membranes
Respiratory: Clear to Auscultation; Negative Wheezes, Rales or Rhonchi
Cardiac: Regular Rhythm, S1/S2 and Other (pectus excavatum)
GI: Soft, Nontender and Nondistended
Genito-urinary: Bloody Urine
Musculoskeletal: No Clubbing, No Cyanosis and No Edema
Neuro: Awake and Alert
[2023-08-08 15:55] VITALS: BP 133/75
--- NOTE | 2023-08-08 16:22 | PTOTSP ---
Dysphagia Evaluation
Oral and pharyngeal stages of swallowing suspected to be grossly WFL. No signs of aspiration observed. Patient can advance to regular, thin liquids if/when medically cleared to do so.
Recommend:
1. Regular, Thin Liquids
2. General aspiration and reflux precautions
3. No further dysphagia tx warranted
[2023-08-08] MEDS: UNASYN IV (17:01)
[2023-08-08 23:35] VITALS: BP 101/61
[2023-08-09] MEDS: UNASYN IV (05:10)
[2023-08-09 06:12] LABS: Hematocrit 25.8 % (37.0-47.0); Hemoglobin 8.2 g/dL (12.0-16.0); Mean Corp Hgb Conc. 31.8 g/dL (33.0-37.0); Mean Corpuscular Hgb 27.3 pg (27.0-31.0); Mean Platelet Volume 9.8 fL (7.4-10.4); Platelet Count 240 10^3/uL (130-400); Red Cell Dist. Width 14.8 % (11.5-14.5); White Blood Cell Count 6.6 10^3/uL (4.8-10.8)
[2023-08-09 06:36] LABS: Blood Urea Nitrogen 27 mg/dl (7-17); Carbon Dioxide 23 mmol/L (22-30); Chloride 105 mmol/L (98-107); Estimated Creatinine Clearance 19 ml/min; Glucose 106 mg/dl (70-99); Potassium 3.8 mmol/L (3.5-5.1); Sodium 135 mmol/L (135-145); eGFR 24.48
[2023-08-09 08:00] VITALS: BP 116/66
[2023-08-09] MEDS: DETROL LA 2 MG PO (08:13)
[2023-08-09] MEDS: NSS (PRESERVATIVE FREE) 10 ML IV (08:14)
[2023-08-09] MEDS: PROTONIX IV 40 MG IV (08:16)
--- NOTE | 2023-08-09 09:16 | CM ---
Plan: discharge to home when stable; may or may not need home health services
Continue to monitor for needs @ discharge
--- NOTE | 2023-08-09 10:20 | W.PN.ID1 ---
Date of Service
Date of Service: August 09, 2023
Today's Communication
Transition Unasyn to Augmentin 500mg suspension po bid till 08/13/23.
ID will sign off.
Assessment / Plan
# Probable aspiration LLL PNA
- Pill dysphagia
- transition Unasyn to Augmentin 500mg suspension po bid till 08/12/23.
- ID will sign off.
#Bladder cancer with obstructive uropathy s/pp perc neph tube placement 07/11/23
s/p bluelight TURBT on 08/05/23.
Chief Complaint
-: Pneumonia
Subjective / Review of Systems
Swallowing better.
Vital Signs / Physical Exam
Vital Signs
Vital Signs
Temp Pulse Resp BP Pulse Ox
99.1 F 94 20 116/66 93
08/09/23 08:00 08/09/23 08:00 08/09/23 08:00 08/09/23 08:00 08/09/23 08:00
Physical Exam
Constitutional: No Acute Distress and Comfortable
Pulmonary: Coarse (bases)
Gastrointestinal: Soft, Non Tender and Non Distended
Genito-Urinary: Negative CVA Tenderness
Objective Data
Lab Data
Lab Results
08/09/23 05:48
08/09/23 05:48
APTT Cancelled 08/08/23 15:45
Estimated Creat Clear 19 ml/min 08/09/23 05:48
Total Bilirubin 0.5 mg/dl (0.2-1.3) 08/07/23 11:56
AST 21 U/L (14-36) 08/07/23 11:56
ALT < 10 U/L (0-35) 08/07/23 11:56
Alkaline Phosphatase 72 U/L (38-126) 08/07/23 11:56
Most recent labs reviewed.
Micro Results:
08/08/23 12:52 Legionella Urinary Antigen - Final
Urine Negative for Legionella pneumophila Serogroup 1 antigen.
A negative result does not rule out the possiblity of
Legionella infection due to other serogroups or species of
Legionella. Clinical correlation is recommended.
Streptococcus pneumoniae Antigen (M - Final
Negative for Streptococcus pneumoniae antigen.
A negative result does not exclude infection with
Streptococcus pneumoniae. Clinical correlation is
recommended.
08/08/23 08:45 Nasal Screen MRSA (PCR) - Final
Nose MRSA not detected - performed by PCR methodology.
08/07/23 15:41 Influenza Types A & B (FAVIOLA) - Final
Nasal Swab Negative for Influenza A & B, NAAT
Negative results must be combined with clinical observations
and patient history.
Nucleic Acid Amplification test (NAAT)performed on the
[employer] platform.
08/08/23 VQ scan : Examination is very low probability for pulmonary embolism.
08/07/23 CXR: Findings suggesting mild left lower lobe pneumonia.
Care Review
Plan reviewed with: Physician ()
[2023-08-09] MEDS: AUGMENTIN 500 MG/125 MG 1 TABLET PO (13:04)
[2023-08-09] MEDS: TYLENOL 650 MG PO (13:04)
--- NOTE | 2023-08-09 13:29 | W.PN.GI.CBS2 ---
Today's Communication / Plan
-
1. Dysphagia/odynophagia: Acute, with no history of symptoms in the past, after taking medications for back pain, likely pill esophagitis.
Esophagram with barium tablet showing mild acid reflux and delay in transit of barium tablet without any stricture or Schatzki's ring
Cannot rule out esophagitis . CT chest without any extrinsic lesion causing compression On the esophagus
Currently able to tolerate regular diet without any trouble swallowing
Given patient is tolerating diet well, would continue regular food but would take small bites, chew food well and stay upright with meals and drink water especially with dry foods.
Increase Protonix to 40 mg twice a day for 8 weeks and then once a day thereafter
Avoid NSAIDs
If any trouble swallowing, will do inpatient upper endoscopy, if not can be done as an outpatient
Will follow for now
Assessment / Plan
-
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 No
previous similar episodes. Chest CT, low probability for PE.
Esophagram with a barium tablet 08/08/2023 -IMPRESSION:
1. Mild residue esophagus.
2. Mild gastric esophageal reflux.
3. Delayed transit of barium pill through the gastroesophageal junction. No overt evidence for stricture or Schatzki's ring.
1. Dysphagia/odynophagia: Acute, with no history of symptoms in the past, after taking medications for back pain, likely pill esophagitis.
Esophagram with barium tablet showing mild acid reflux and delay in transit of barium tablet without any stricture or Schatzki's ring
Cannot rule out esophagitis . CT chest without any extrinsic lesion causing compression On the esophagus
Currently able to tolerate regular diet without any trouble swallowing
Given patient is tolerating diet well, would continue regular food but would take small bites, chew food well and stay upright with meals and drink water especially with dry foods.
Increase Protonix to 40 mg twice a day for 8 weeks and then once a day thereafter
Avoid NSAIDs
If any trouble swallowing, will do inpatient upper endoscopy, if not can be done as an outpatient
Will follow for now
Subjective
Subjective
Date of Service: August 09, 2023
Patient currently tolerating regular diet. Formed stool 08/08. No trouble swallowing regular food so far
Objective
Data Reviewed
Laboratory Data:
Laboratory Results
08/09/23 05:48
08/09/23 05:48
Laboratory Results
APTT Cancelled 08/08/23 15:45
Total Bilirubin 0.5 mg/dl (0.2-1.3) 08/07/23 11:56
AST 21 U/L (14-36) 08/07/23 11:56
ALT < 10 U/L (0-35) 08/07/23 11:56
Alkaline Phosphatase 72 U/L (38-126) 08/07/23 11:56
Vital Signs and I&O:
Vital Signs
Temp Pulse Resp BP Pulse Ox
99.1 F 94 20 116/66 93
08/09/23 08:00 08/09/23 08:00 08/09/23 08:00 08/09/23 08:00 08/09/23 08:00
I&O
08/08/23 08/09/23 08/10/23
06:59 06:59 06:59
Intake Total 448 / 448 750 / 750 300 / 300
Output Total 100 / 100 650 / 650
Balance 348 / 348 100 / 100 300 / 300
Physical Exam
Physical Exam
GI: Soft, Non Distended, Non Tender and Normal Bowel Sounds
--- NOTE | 2023-08-09 13:53 | W.PN.HOSP.TC ---
Today's Communication/Plan
-
dc to home
Assessment / Plan
Assessment / Plan
# Pleuritic chest pain/cough likely from pneumonia, now fully resolved
V/Q scan neg for PE
-Chest x-ray with possible left lower lobe pneumonia
-COVID-negative
-Negative for influenza A&B
-IV Vanco and cefepime to be transitioned to oral Augmentin
-Tylenol as needed for fever
-ID consulted, input appreciated
Pt did not like liquid Augmentin, she prefers tablet and is aware can crush tablet if unable to swallow whole
# History of bladder cancer
-Had bladder tumor removed
-Nephrostomy tube in place
while on Heparin did have some hematuria, fortunately able to stop Heparin and hematuria apparently resolved
# Anemia of chronic disease
-Hemoglobin stable at 9.1-->8.1-->8.2
follow off Heparin
-Continue to monitor
# Elevated D-dimer concern for PE (most likely related to bladder cancer)
-D-dimer of 2.36
-neg ultrasound/neg VQ scan
-initiated on heparin drip, now stopped
#difficulty swallowing
-speech eval
-GI consulted for possible EGD. Underwent esophagram, which was negative and cleared by GI to resume diet
# Chronic kidney disease stage IV
-Creatinine 2.2-->2.0
-Continue to monitor
# History of PPM
# Chronic macular degeneration
# Chronic ambulatory dysfunction
# DVT prophylaxis
# CODE STATUS-Full code
dc to home
see dictated note
Anticipated Discharge: Today
Subjective/Interval History
-
Date of Service: August 09, 2023
Generally feels well and is asking when can be discharged
Objective Data
-
Labs:
Laboratory Results
08/09/23
05:48
WBC 6.6
Hgb 8.2 L
Hct 25.8 L
Plt Count 240
Sodium 135
Potassium 3.8
Chloride 105
Carbon Dioxide 23
BUN 27 H
Creatinine 2.0 H
Glucose 106 H
Calcium 8.0 L
Vital Signs:
Vital Signs
Temp Pulse Resp BP Pulse Ox
99.1 F 94 20 116/66 93
08/09/23 08:00 08/09/23 08:00 08/09/23 08:00 08/09/23 08:00 08/09/23 08:00
I&O
08/08/23 08/09/23 08/10/23
06:59 06:59 06:59
Intake Total 448 / 448 750 / 750 300 / 300
Output Total 100 / 100 650 / 650
Balance 348 / 348 100 / 100 300 / 300
Review of Systems
-
History Source: Patient and Coordinated Provider
Constitutional: Denies Fever
EENT: Reports No Symptoms Reported
Respiratory: Denies Trouble Breathing or Pleurisy (resolved)
Cardiac: Reports No Symptoms
Abdomen/GI: Denies Abdominal Pain
Musculoskeletal: Reports No Symptoms
Physical Exam
-
General: Well Developed, Well Nourished and No Apparent Distress
HEENT: Normocephalic, Atraumatic and Moist Mucous Membranes
Respiratory: Clear to Auscultation; Negative Wheezes, Rales or Rhonchi
Cardiac: Regular Rhythm, S1/S2 and Other (pectus excavatum)
GI: Soft, Nontender and Nondistended
Genito-urinary: Bloody Urine
Musculoskeletal: No Clubbing, No Cyanosis and No Edema
Neuro: Awake and Alert
[2023-08-09 14:54] VITALS: BP 84/52
[2023-08-09 15:43] VITALS: BP 105/65; BP 115/69; PULSE 80
--- NOTE | 2023-08-09 16:08 | W.DS.TRANS ---
DC Summary - [employer]
-
Discharge Instructions:
Discharge Diagnosis/Procedures Pneumonia
Diet Regular
Activity With assistance,No strenuous activity
Driving Restrictions Not until seen by your Dr
Bathing Restrictions None
Blood Work CBC, BMP in 1 week
Other Services [facility]
Instructions:
Stand-Alone Forms:
Changes to Home Medications: Yes
Discharge Medications:
DC Medications w/original date entered in [facility]
calcium carbonate 500 mg calcium (1,250 mg) tablet 500 mg PO DAILY Supplement 07/30/23
glucosamine sulf dipot chlr,msm,chond 550 mg-C 30 mg-balbir 1 mg capsule (Glucosamine Chondroitin) 1 cap PO DAILY Supplement 07/30/23
therapeutic multivitamin 1 tab PO DAILY Supplement 07/30/23
tolterodine 2 mg capsule,extended release 24 hr 2 mg PO DAILY Urinary Issue 07/30/23
amoxicillin 500 mg-potassium clavulanate 125 mg tablet 1 tab PO Q12 #10 tabs 08/09/23
pantoprazole 40 mg tablet,delayed release 40 mg PO BID #60 tabs 08/09/23
Home Medication Changes
Augmentin for next 5 days
Protonix bid
Stop Cipro
Pending Results: No
--- NOTE | 2023-08-09 16:35 | VNURNOTE ---
Home Health Liaison spoke with patient's daughter Jodi by phone at 1630 to discuss [facility] nurse/therapy, visits, schedule and homebound status. Jodi is agreeable and understands that visits at home will be 2-3 x per week to assess and teach
medical management.
Jodi is aware that [facility] will contact them for start of care in 1-2 days after discharge from .
[facility] referral completed in [facility].
--- NOTE | 2023-08-09 16:53 | CM ---
Met with patient and daughter at bedside; explained at PT recommended Home Health for PT. Patient and family agreeable; agency preference is [facility]; referral sent and acknowledged via [place] [facility] to [facility] liaison
IMM explained and signed by patient
Plan: Home with Home Health services from [facility]; daughter will transport home
== END 2023-08-09 17:50 | disposition home health service (06) | DRG 178 ==
LOC: 3 WEST ACU 18:15
PROVIDERS: Emergency Medicine; Physician Assistant; Registered Nurse; ADMITTING PHYSICIAN Internal Medicine; CONSULT PHYSICIAN Internal Medicine Gastroenterology; EMERGENCY PHYSICIAN Emergency Medicine; FAMILY PHYSICIAN Family Medicine; OTHER PHYSICIAN Internal Medicine Infectious Disease
DX: J69.0 Pneumonitis due to inhalation of food and vomit (principal); N13.30 Unspecified hydronephrosis; N18.4 Chronic kidney disease, stage 4 (severe); Z11.52 Encounter for screening for COVID-19; Z95.0 Presence of cardiac pacemaker; Z93.6 Other artificial openings of urinary tract status; I12.9 Hypertensive chronic kidney disease with stage 1 through stage 4 chronic kidney disease, or unspecified chronic kidney disease; D63.1 Anemia in chronic kidney disease; K22.4 Dyskinesia of esophagus; C67.9 Malignant neoplasm of bladder, unspecified
CPT/HCPCS: 71046; 74220; 78582; 80048; 80053; 80202; 83880; 84484; 85025; 85027; 85379; 85730; 87449; 87502; 87641; 87811; 87899; 92610; 93005; 93970; 96374; 96375; 97116; 97163; 99285; A9540; A9567

== ENCOUNTER 2023-08-10 12:54 | Inpatient (IN) | payer MEDICARE, SELFPAY ==
[2023-08-10] VITALS (38 sets, daily range): BP systolic 75–129; BP diastolic 49–75
--- NOTE | 2023-08-10 09:35 | ED.GENMED ---
History of Present Illness
General
Chief Complaint: Weakness
Source: patient
Exam Limitations: none
Time Seen by Provider: 08/10/23 09:29
Nursing documentation reviewed up to this point in time: agreed with
History of Present Illness
History of Present Illness:
Patient with history of bladder cancer, status post bladder surgery during recent admission, during which time she was treated for pneumonia as well as UTI, discharge from the hospital yesterday, returns to ED today secondary to continual chills
sensation, decreased appetite, and worsening generalized weakness. This morning, secondary to profound weakness, patient was unable to get out of bed, necessitating 911 dispatch. Upon arrival, patient denies coughing. Denies headache. Denies
sore throat. Denies vomiting or diarrhea.
Past History
Past History
ED Past Medical History: Cancer and HTN
ED Past Surgical History: Urological
Social History
Tobacco: Non-smoker
Alcohol: None
Drug: None
Personal: Other
Living: with family
Employment: Other
Family History
Family History: Other
Review of Systems
Review of Systems
Allergies reviewed?: Yes
All Other Systems: ROS reviewed and negative except as documented in HPI and ROS
Constitutional: Reports chills
EENT: Reports no symptoms
Respiratory: Reports no symptoms; Denies cough or trouble breathing
Cardiac: Reports no symptoms; Denies chest pain
ABD/GI: Denies abdominal pain, vomiting or diarrhea
: Reports no symptoms
Musculoskeletal: Reports no symptoms
Skin: Reports no symptoms
Neurological: Reports weakness; Denies headache
Phy Exam
Physical Exam
Physical Exam:
Physical Exam
General: mild distress, not acutely ill. afebrile. weak appearing
Head: nc/at. eomi
Neck: supple. no meningeal signs.
Heart: s1/s2 regular rate and rhythm, no murmur. equal radial pulses.
Lungs: no acute respiratory distress. clear bilaterally
Abdomen: normal bowel sounds. not tender. nephrostomy tube noted, right midback.
Neuro: alert and oriented. no focal neurological deficits
Skin: no rash
Psychiatric: well kept. interactive and cooperative
Extremities: no edema. no calf tenderness.
Course
Orders/Labs/Results
Orders:
Orders
08/10/23 Breakfast
Regular
At Your Request: Full Participation
08/10/23 09:27
Electrocardiogram (*1) Urgent
Reason for Study: Chest Pain
Cardiac Monitoring- Treatment ONCE
EKG- Treatment ONCE
IV Insert/Care/Rem.- Treatment PRN
08/10/23 09:42
Complete Blood Count/With Diff Urgent
Comprehensive Metabolic Panel Urgent
Troponin I Urgent
08/10/23 09:48
COVID-19 Antigen Urgent
Source: Nasal Swab
Influenza A+B Rapid Molecular Urgent
JESSICA Source: Nasal Swab
Specimen Description:
08/10/23 10:19
Physical Therapy Consult [Pt Eval And Treat] Urgent
Activity Level: As Tolerated
08/10/23 10:28
Rectal Temp- Treatment ONCE
08/10/23 10:32
Lactic Acid Q4H
Comment: CANCEL 2nd LACTIC ACID IF 1st LACTIC ACID IS LESS THAN 2
Blood Culture Q30M
JESSICA Source: Blood/Venous
Specimen Description:
Blood Culture Q30M
JESSICA Source: Blood/Venous
Specimen Description:
08/10/23 10:39
Urinalysis Reflex To Culture Urgent
Date Specimen was Collected: 08/10/23
Time Specimen was Collected: 10:36
Urine Microscopic Reflex Cult Urgent
Urine Culture Urgent
JESSICA Source: U
Specimen Description:
Date Specimen was Collected: 08/10/23
Time Specimen was Collected: 10:36
08/10/23 10:40
0.9% Sodium Chloride 500 ml [Nss] 500 ml IV BOLUS
Acetaminophen [Tylenol] 650 mg PO NOW STA
08/10/23 12:21
0.9% Sodium Chloride 1000 ml [Nss] 1,000 ml IV BOLUS
08/10/23 12:29
Straight Cath As Directed
Frequency: One time now
08/10/23 12:32
Admit/Transfer Patient As Directed
Co-Sign Provider:
Level of Care: Inpatient admission
Assign to:: IMU- Intermediate Care
Physician / Group: Rigo
Diagnosis: Severe Sepsis
Reason for Hospitalization: IVFs, IV abx, possible pressors
Expected length of stay greater than two midnights?: Yes
ELOS- Estimated Length of Stay in days: 2
I certify the patient meets the requirements for IP care: Yes
Ertapenem [Invanz] 1,000 mg 0.9% Sodium Chloride [Nss] 50 ml IV NOW
08/10/23 12:33
Code Status As Directed
Resuscitation Status: Full Code
08/10/23 12:42
Urinalysis Reflex To Culture Urgent
Date Specimen was Collected: 08/10/23
Time Specimen was Collected: 12:41
Comment: Straight Cath
Urine Microscopic Reflex Cult Urgent
Urine Culture Urgent
JESSICA Source: U
Specimen Description:
Date Specimen was Collected: 08/10/23
Time Specimen was Collected: 12:41
08/10/23 17:16
0.9% Sodium Chloride 1000 ml [Nss] 1,000 ml IV 100 mls/hr
Acetaminophen [Tylenol] 650 mg PO Q4HPRN PRN
08/10/23 17:16
Activity As Directed
Activity Level: Out of Bed-Early Mobility
With Assistance
Bladder Scan As Directed
Follow Bladder Retention/Intermittent Cath Algorithm?: Yes
PRN if no void in __ hours: 6
Frequency: Per Retention Algorithm
If Bladder Scan Result >: 400
then:: Straight cath
I&O [Intake/ Output] As Directed
Frequency: q12h
Pneumatic Compression Sleeves As Directed
Type: Knee high
Straight Cath As Directed
Frequency: Per Retention Algorithm
Additional Instructions: straight cath as needed per acute urinary retention algorithm for 24 hrs
Additional Instructions: for bladder scan greater than 400 mL
Vital Signs As Directed
Frequency: Per unit guidelines
Weight As Directed
Frequency: Daily
Ot Eval And Treat Routine
Pt Eval And Treat Routine
Activity Level: Out of Bed-Early Mobility
DX Deep Vein Thrombosis Video Routine
08/11/23 04:21
Basic Metabolic Panel IN AM
Complete Blood Count/No Diff IN AM
08/11/23 12:00
Ertapenem [Invanz] 500 mg 0.9% Sodium Chloride [Nss] 50 ml IV Q24H
Abnormal Lab Results
08/10/23 08/10/23 08/10/23
09:42 10:39 12:42
WBC 11.0 H 10^3/uL
(4.8-10.8)
RBC 3.29 L 10^6/uL
(4.20-5.40)
Hgb 9.0 L g/dL
(12.0-16.0)
Hct 28.4 L %
(37.0-47.0)
MCHC 31.7 L g/dL
(33.0-37.0)
RDW 14.6 H %
(11.5-14.5)
Abs Immat Gran (auto) 0.1 H 10^3/uL
(0-0.05)
Absolute Neuts (auto) 8.1 H 10^3/uL
(1.4-6.5)
Absolute Monos (auto) 0.9 H 10^3/uL
(0.1-0.6)
Immature Gran % 0.7 H %
(0-0.5)
Lymphocytes % 14.8 L %
(20.5-51.1)
Sodium 132 L mmol/L
(135-145)
BUN 25 H mg/dl
(7-17)
Creatinine 2.1 H mg/dL
(0.6-1.0)
Glucose 102 H mg/dl
(70-99)
Calcium 8.3 L mg/dl
(8.4-10.2)
Total Protein 5.9 L g/dl
(6.3-8.2)
Albumin 2.8 L g/dl
(3.5-5.0)
Urine Ketones Trace A Trace A
(Negative) (Negative)
Ur Occult Blood Reflex 3+ A 4+ A
(Negative) (Negative)
Urine Nitrite (Reflex) Positive A
(Negative)
Leukocyte Esterase Rfl 2+ A 2+ A
(Negative) (Negative)
Urine RBC 21-25 A /HPF 30-40 A /HPF
(0-2) (0-2)
Urine WBC (Reflex) 21-25 A /HPF 40-50 A /HPF
(0-5) (0-5)
Urine Bacteria (Reflex) Few A Moderate A
(Negative) (Negative)
Urine Albumin (Reflex) 2+ A 3+ A
(Neg - Trace) (Neg - Trace)
08/10/23 09:42
08/10/23 09:42
Vital Signs
Initial and Last Documented VS:
Initial Vital Signs
Temp Pulse Resp BP Pulse Ox
99.6 F 98 16 113/75 95
08/10/23 09:28 08/10/23 09:28 08/10/23 09:28 08/10/23 09:28 08/10/23 09:28
Last Documented Vital Signs
Temp Pulse Resp BP Pulse Ox
98.7 F 71 19 126/54 100
08/11/23 07:40 08/11/23 08:15 08/11/23 08:15 08/11/23 08:15 08/11/23 08:15
MDM/Problems Addressed
MDM/Problems Addressed:
Patient presenting with fever, along with generalized weakness and mental status change, concerning for potential recurrent UTI with development of bacteremia. As such, patient will be admitted for IV fluids and IV antibiotics. Urine culture from
July 2023 noted, and as such, will start Invanz
Due to hypotension with IVF, decision made to start levophed. Pt will be admitted to ICU.
*EKG
Interpreted by ED Provider?: Yes
EKG Intrepretation Date: 08/10/23
Heart Rate: 92
Rhythm: av sequential
*Critical Care Note
Total Time (30-74mins, 75-104mins- exclusive of procedures): 40 min
ED Attending Note
-
Portions of this chart may have been created with voice recognition software.� Occasional wrong word or��sound alike� substitutions may have occurred due to the inherent limitations of voice recognition software.
Discharge Plan
Departure
Patient Disposition: Admit
Date of Disposition: 08/10/23
Time of Disposition: 11:49
Admit to: Telemetry
Presentation/result/management discussed w/ accepting MD/DO: Hospitalist
Covid-19: Negative COVID-19
Discharge Problem:
Sepsis, Acute UTI
Interventions
Interventions:
*Risk Screen - Suicide Last Done: 08/10/23 09:28
*General Assessment Last Done: 08/10/23 09:28
*Neglect/Abuse Screening Last Done: 08/10/23 09:28
ED- Fall Risk Assessment Last Done: 08/10/23 09:28
*ED COVID-19 Vaccine History Last Done: 08/10/23 09:28
*Nursing Disposition Last Done: 08/10/23 17:05
ED- Cardiac Assessment Last Done: 08/10/23 09:40
ED- Neurological Assessment Last Done: 08/10/23 09:40
ED- Pulmonary Assessment Last Done: 08/10/23 09:40
Discharge Date and Time
Discharge Date/Time: 08/10/23 17:05
[2023-08-10 09:49] LABS: % Basophils 0.2 % (0-2); % Eosinophils 2.5 % (0-6); % Immature Granulocytes 0.7 % (0-0.5); % Lymphocytes 14.8 % (20.5-51.1); % Neutrophils 73.8 % (42.2-75.2); Absolute Eosinophils 0.3 10^3/uL (0-0.7); Absolute Immature Granulocytes 0.1 10^3/uL (0-0.05); Absolute Lymphocytes 1.6 10^3/uL (1.2-3.4); Absolute Monocytes 0.9 10^3/uL (0.1-0.6); Absolute Neutrophils 8.1 10^3/uL (1.4-6.5); Hematocrit 28.4 % (37.0-47.0); Mean Corp Hgb Conc. 31.7 g/dL (33.0-37.0); Mean Corpuscular Hgb 27.4 pg (27.0-31.0); Mean Corpuscular Volume 86.3 fL (81.0-99.0); Mean Platelet Volume 9.9 fL (7.4-10.4); Nucleated Red Blood Cells % 0 %; Platelet Count 288 10^3/uL (130-400); Red Blood Cell Count 3.29 10^6/uL (4.20-5.40); Red Cell Dist. Width 14.6 % (11.5-14.5)
[2023-08-10 10:02] LABS: ALT (SGPT) 12 U/L (0-35); AST (SGOT) 24 U/L (14-36); Albumin 2.8 g/dl (3.5-5.0); Alkaline Phosphatase 68 U/L (38-126); Blood Urea Nitrogen 25 mg/dl (7-17); Calcium 8.3 mg/dl (8.4-10.2); Carbon Dioxide 23 mmol/L (22-30); Chloride 99 mmol/L (98-107); Glucose 102 mg/dl (70-99); Potassium 3.8 mmol/L (3.5-5.1); Sodium 132 mmol/L (135-145); Total Bilirubin 0.7 mg/dl (0.2-1.3); Total Protein 5.9 g/dl (6.3-8.2); eGFR 23.09
[2023-08-10 10:11] LABS: COVID-19 Antigen Negative (Negative)
[2023-08-10 10:12] LABS: Troponin I 0.021 ng/ml
[2023-08-10] MEDS: TYLENOL 650 MG PO (10:42)
[2023-08-10] MEDS: NSS 500 IV (10:43)
[2023-08-10 10:50] LABS: Urine Albumin 2+ (Neg - Trace); Urine Bilirubin Negative (Negative); Urine Character Clear (Clear); Urine Color Yellow; Urine Glucose Negative (Negative); Urine Ketone Trace (Negative); Urine Leukocyte 2+ (Negative); Urine Nitrite Negative (Negative); Urine Occult Blood 3+ (Negative); Urine Urobilinogen Negative (Neg - 1+)
[2023-08-10 10:58] LABS: Lactic Acid 1.2 mmol/L (0.7-2.0)
[2023-08-10 10:59] LABS: Urine Mucus Few
[2023-08-10 11:01] LABS: Urine Bacteria Few (Negative); Urine Red Blood Cell 21-25 /HPF (0-2); Urine White Cell 21-25 /HPF (0-5)
--- NOTE | 2023-08-10 12:15 | EDRN ---
PT was here to see pt. Dr. Poon said maybe not a good idea now as pt very somnolent from her fever. PT opted to do assessment after admission.
--- NOTE | 2023-08-10 12:15 | HPS.HSE ---
Addendum entered and electronically signed by Deandre Sierra MD 08/10/23 16:01:
Pt had refused SNF yesterday and was very insistent on being discharged to home, did not feel well shortly after arriving home
Pt seen independently and agree with PA note
Lungs clear on shallow respirations
CV reg
Abd soft, nondistended
Ext no edema
Imp: recurrent fever, UTI vs PNA vs Tumor fever
Muscle Invasive Bladder cancer
Profound weakness
P:IVF, septic bolus
Levophed for now
Ertapenem
ID and Urology consults
Original Note:
Family Physician
-
Family Physician: Anjelica Griffiths
Chief Complaint
-
Weakness and Fever
History of Present Illness
Pt is an 83yo F w/ a PMH of CKD-IV, and Bladder cancer presenting to the ED c/o weakness and fever x 1 day. She was discharged from yesterday on Augmentin after presenting with pleuritic chest pain which was diagnosed as pneumonia. She is now
returning complaining of weakness and fever which began after she returned home yesterday. She admits to intermittent cough. She denies shortness of breath or chest pain at present time. She denies abdominal pain, nausea, vomiting or diarrhea. She
has a right nephrostomy in place draining urine, but room has strong odor of urine.
Medical History
Past Medical History
Past Medical History: Reports Other
Additional Past Medical History:
Bladder Cancer
CKD Stage IV
Past Surgical History: Reports Other
Additional Past Surgical History:
Transurethral Resection of Bladder Tumor
Social History
Tobacco: Non-smoker
Alcohol: None
Family History
Family History: Not pertinent
Allergies / Home Medications
Allergies reflects when Allergies were last updated in [employer].
Home Medications with original date entered in [employer]
Allergy/Medication List:
Allergies
Allergy/AdvReac Type Severity Reaction Status Date / Time
sulfamethoxazole Allergy swelling Verified 08/10/23 09:26
[From Bactrim] of tongue
trimethoprim [From Bactrim] Allergy swelling Verified 08/10/23 09:26
of tongue
Home Medications
calcium carbonate 500 mg calcium (1,250 mg) tablet 500 mg PO DAILY Supplement 07/30/23
glucosamine sulf dipot chlr,msm,chond 550 mg-C 30 mg-balbir 1 mg capsule (Glucosamine Chondroitin) 1 cap PO DAILY Supplement 07/30/23
therapeutic multivitamin 1 tab PO DAILY Supplement 07/30/23
tolterodine 2 mg capsule,extended release 24 hr 2 mg PO DAILY Urinary Issue 07/30/23
amoxicillin 500 mg-potassium clavulanate 125 mg tablet 1 tab PO Q12 #10 tabs 08/09/23
pantoprazole 40 mg tablet,delayed release 40 mg PO BID #60 tabs 08/09/23
Review of Systems
-
A 12 point ROS was completed and negative except as noted: Yes
Constitutional: Reports Fever
Respiratory: Reports Cough; Denies Trouble Breathing
Cardiac: Denies Chest Pain or Palpitations
Abdomen/GI: Denies Abdominal Pain, Nausea, Vomiting or Diarrhea
: Reports See HPI
Physical Exam
Vital Signs
Vital Signs
Temp Pulse Resp BP Pulse Ox
102.5 F H 80 24 105/63 93
08/10/23 10:39 08/10/23 11:30 08/10/23 11:30 08/10/23 11:00 08/10/23 11:30
Physical Exam
General: Comfortable and Conversant
HEENT: Anicteric and Moist mucous membranes
Respiratory: Rales (Bilateral bases more prominent on right than left)
Cardiac: S1/S2 and Regular Rhythm
GI: Soft, Non Tender and Non Distended
Genito-urinary: Nephrostomy Tubes (Right)
Skin: Warm and Dry
Neuro: Awake, Alert, Oriented and Nonfocal/grossly intact
Psych: Calm
Laboratory Results
-
08/10/23 09:42
08/10/23 09:42
Laboratory Results
Lactic Acid Cancelled 08/10/23 14:30
Total Bilirubin 0.7 mg/dl (0.2-1.3) 08/10/23:
AST 24 U/L (14-36) 08/10/23 09:42
ALT 12 U/L (0-35) 08/10/23 09:42
Alkaline Phosphatase 68 U/L (38-126) 08/10/23 09:42
Troponin I 0.021 ng/ml 08/10/23 09:42
Data Reviewed
-
Lab Data: Labs Reviewed by me
Old Records: Reviewed
Impression/Plan
-
Septic Shock, suspect urine source
-Consult Urology and Infectious Disease
-Initial urine sample obtained from nephrostomy tube - Attempt to obtain second sample
-Await urine and blood culture
-Continue Invanz pending culture data
-Continue IVFs
-Start Levophed
CKD Stage IV
-Monitor creatinine
Anemia of Chronic Disease
-Hgb at baseline
Bladder CA s/p TURBT on Aug 05, and Right Nephrostomy on Jul 11
DVT proph: SCDs
Code Status: Full Code
--- NOTE | 2023-08-10 12:24 | EDRN ---
Leni CUI in room w/ pt.
[2023-08-10] MEDS: NSS 1000 IV ×2 (12:29→18:34)
--- NOTE | 2023-08-10 12:32 | EDRN ---
Pharmacy called to mix and send invanz IV infusion at this time.
--- NOTE | 2023-08-10 12:49 | EDRN ---
Dr. Sierra in to see pt. He said that pt to have levophed if BP not increased after pt receives an entire 2 liters of IVF.
[2023-08-10 12:51] LABS: Urine Albumin 3+ (Neg - Trace); Urine Bilirubin Negative (Negative); Urine Character Slightly Cloudy (Clear); Urine Color Amber; Urine Glucose Negative (Negative); Urine Ketone Trace (Negative); Urine Leukocyte 2+ (Negative); Urine Nitrite Positive (Negative); Urine Occult Blood 4+ (Negative); Urine Specific Gravity 1.015 (<1.030); Urine Urobilinogen Negative (Neg - 1+)
--- NOTE | 2023-08-10 12:54 | EDRN ---
First urine was obtained via nephrostomy tube per Dr. Poon request and Leni Burris requested a straight cath urine which was done.
--- NOTE | 2023-08-10 12:55 | EDRN ---
Pt was speaking to her daughter about her AM falling and weakness at this time. Daughter had just arrived in room. Pt had attempted to go to BR and fell going to BR. Pt went to couch to rest and got up and fell into a chair across room then fell to
floor and was unable to get even w/ help of her spouse. pt had about 3-4 different falls this am.
--- NOTE | 2023-08-10 12:58 | EDRN ---
Family arrived and are in with pt at this time.
[2023-08-10 13:03] LABS: Urine Bacteria Moderate (Negative); Urine Red Blood Cell 30-40 /HPF (0-2); Urine Squamous Cell 0-2 /LPF (Few); Urine White Cell 40-50 /HPF (0-5)
[2023-08-10] MEDS: INVANZ 60 MG IV (13:03)
--- NOTE | 2023-08-10 13:05 | W.PN.URO.CBU ---
Today's Communication / Plan
-
per hosptalist
Assessment / Plan
-
fever ptrobaly urinary in origin from perc tube but can also be from ateleca=tasis ansd tumor v]\\fecver from mets await cxs plan per hospitalis t and for now no gu intervention
Diagnosis
-
Date of Service: August 10, 2023
-
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
Post Op Day:
Subjective
-
fever rt flank pain
Objective
-
Vital Signs
Temp Pulse Resp BP Pulse Ox
101 F H 75 18 84/53 96
08/10/23 12:29 08/10/23 13:00 08/10/23 13:00 08/10/23 12:45 08/10/23 13:00
Laboratory Results
08/10/23 09:42
08/10/23 09:42
Review of Systems
-
Constitutional: Fever
Abdomen/GI: Abdominal Pain
: Bleeding
Physical Exam
-
General - well developed, well nourished, no acute distress
Chest - clear bilaterally
Abdomen - soft, non-tender, positive bowel sounds, no CVAT, no incisional pain or distention
Genitalia - normal
Rectal - normal
Skin - warm & dry with no rash
Neuro - AOx3, no motor deficits
Extremities - no clubbing, no cyanosis, no edema
Incision - clean, dry
Dressing - clean, dry, intact
Counseling
-
no gu changes
Care Review
Data Reviewed
Discussed with: Hospitalist
CT Scan: Image Pers Reviewed
--- NOTE | 2023-08-10 13:15 | EDRN ---
Dr. Sierra said to start Levophed and notify Leni CUI that pt to be placed on Levophed for SBP 79 and MAP <65 at this time.
[2023-08-10] MEDS: LEVOPHED 250 IV (13:20)
--- NOTE | 2023-08-10 13:20 | EDRN ---
IV #18 P started in L AC and Levophed started at 1 mcg per min at this time.
--- NOTE | 2023-08-10 13:36 | EDRN ---
Dr. Hallman in room w/pt at this time.
--- NOTE | 2023-08-10 14:04 | EDRN ---
All IV fluid boluses are completed for a total of 2 liters of IVF NSS.
--- NOTE | 2023-08-10 14:57 | EDRN ---
Pt no longer has an IMU bed at this time. Report returned to ER. Pt awaiting admission bed once again.
--- NOTE | 2023-08-10 14:57 | EDRN ---
MAP remains >65 w/ no changes in Levophed infusion. Will watch pt as all IVF have infused and no IVF infusing at this time.
--- NOTE | 2023-08-10 15:15 | CON.ID ---
Consultation
-
Date/Time Consultation Requested: 08/10/23 13:00
Date/Time Consultation Performed: 08/10/23 15:15
Requesting Provider: Dr Sierra
Performing Provider: Dr Guillen
Reason for Consultation: uti
Chief Complaint / Past History
Chief Complaint
weakness and fever
History of Present Illness
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
who presented here for weakenss and fever x1 day, of note recently hospitalized for pleuritic chest pain diagnosed as aspiration pneumonia and discharged with augmentin. She now reports weakness and fever at home, ongoing cough and malodorous
urine. No shortness of breath, abdominal pain, nausea, vomiting or diarrhea.
�She was recently hospitalized from July 30 to August 02 with transient malfunctioning nephrostomy tube.� Nephrostogram showed patent tube.� Urine culture grew Serratia.� Dr Montez placed her on ciprofloxacin through the planned urological
procedure on Saturday, August 05.� August 05 she underwent bluelight TURBT of 6 cm tumor burden.� She was maintained on Cipro in the hospital.� She was discharged to home August 06 for a 3 day total course of ciprofloxacin.
Since arrival here rectal Ts to 102.5, bpt stable, HR normal, mildly tachypneic wbc 11.0 from 6.6, hgb 9.0, plt 288, L shift is not noted, cr 2.0 baseline today 2.1, lactic acid 1.0, t bili 0.7, ast 24, alt 12, alk phos 68, UA x2 both with pyuria
and few-moderate bacteria, covid negative, cxr: most likely atelectasis, urine cultures pending, blood cultures in progress, 07/31 urine culture serratia - resistant to augmentin, 07/30 blood cultures no growth to date. She has been seen by urology
and there is no current plan for intervention.
Past History
Additional Past Medical History:
Bladder Cancer
CKD Stage IV
Additional Past Surgical History:
as above
Allergy History:
sulfamethoxazole [From Bactrim] Allergy (Verified 08/10/23 09:26)
swelling of tongue
trimethoprim [From Bactrim] Allergy (Verified 08/10/23 09:26)
swelling of tongue
Medications Reviewed: Yes
Social History
Tobacco: Non-Smoker
Alcohol: None
Drug: None
Family History
Family History: Not Pertinent
Review of Systems
Review of Systems
General: Fever and Chills
All systems: All other systems were reviewed and were negative
Vital Signs
Temp Pulse Resp BP Pulse Ox
101 F H 81 25 107/72 95
08/10/23 12:29 08/10/23 15:00 08/10/23 15:00 08/10/23 15:00 08/10/23 15:00
Physical Exam
Physical Exam
Constitutional: Acutely Ill and Chronically Ill
Cardiovascular: Regular Rate and S1/S2; Negative Murmur or Rub
Pulmonary: Clear and Symmetric; Negative Wheezes, Rales or Rhonchi
Gastrointestinal: Soft, Non Tender, Non Distended and Normal Bowel Sounds
Genito-Urinary: Hematuria; Negative Suprapubic Tenderness or CVA Tenderness
Skin: Warm and Dry; Negative Rash or Jaundice
Neurological: Awake
Lab / Diagnostic Study Results
08/10/23 09:42
08/10/23 09:42
Abs Immat Gran (auto) 0.1 10^3/uL (0-0.05) H 08/10/23 09:42
Absolute Neuts (auto) 8.1 10^3/uL (1.4-6.5) H 08/10/23 09:42
Absolute Lymphs (auto) 1.6 10^3/uL (1.2-3.4) 08/10/23 09:42
Absolute Monos (auto) 0.9 10^3/uL (0.1-0.6) H 08/10/23 09:42
Absolute Basos (auto) 0.0 10^3/uL (0-0.2) 08/10/23 09:42
Immature Gran % 0.7 % (0-0.5) H 08/10/23 09:42
Neutrophils % 73.8 % (42.2-75.2) 08/10/23 09:42
Lymphocytes % 14.8 % (20.5-51.1) L 08/10/23 09:42
Monocytes % 8.0 % (1.7-9.3) 08/10/23 09:42
Eosinophils % 2.5 % (0-6) 08/10/23 09:42
Basophils % 0.2 % (0-2) 08/10/23 09:42
Lactic Acid Cancelled 08/10/23 14:30
Ur Squamous Epith Cells 0-2 /LPF (Few) 08/10/23 12:42
Microbiology Results
Micro:
08/10/23 12:42 Urine Culture - Pending
Urine
08/10/23 10:39 Urine Culture - Pending
Urine
08/10/23 10:32 Blood Culture - Pending
Blood/Venous
08/10/23 10:32 Blood Culture - Pending
Blood/Venous
08/10/23 09:48 Influenza Types A & B (FAVIOLA) - Final
Nasal Swab Negative for Influenza A & B, NAAT
Negative results must be combined with clinical observations
and patient history.
Nucleic Acid Amplification test (NAAT)performed on the
[employer] platform.
Assessment / Plan
Post Operative Fever - POD5 - blue light TURBT (~6 cm tumor burden)
DDX: UTI, atelectasis, drug fever, tumor fever
- likely atelecatsis on the CXR
- UA's suggestive of urinary tract colonization vs infection - follow up cultures
- 2/8 VQ scan no PE, 08/08 no DVT on US
- agree with ertapenem
- follow clinically
--- NOTE | 2023-08-10 15:23 | EDRN ---
Pt's feeling cold. Will take NV temp at this time. Pt has maintained MAP >65 in the 70's w/ last MAP 79. Pt now feeling cold. Will retake temp rectally at this time.
--- NOTE | 2023-08-10 15:46 | EDRN ---
Infectious disease MD in to see pt at this time. Dr. dEen.
--- NOTE | 2023-08-10 16:44 | EDRN ---
MAP remains in the 70's w/ last MAP 77, SBP >100.
--- NOTE | 2023-08-10 18:21 | PTCARENOTE ---
Pt received from ED via stretcher. Aox3, drowsy. Levo infusing at 1mcg. VSS. Family at bedside. Daughter assisting pt with admission questions. Awaiting verification of IVF and IV Abx by pharmacy.
--- NOTE | 2023-08-10 23:48 | PTCARENOTE ---
Received pt at start of shift. aaox3, withdrawn, sleepy. denies pain. BP's stable, levo running at 1mcg but turned off around 2345. Nephrostomy tube in place, cdi. Vpaced on monitor. RA at start of shift then placed on 2L when asleep d/t desat to
86%. SCDs in place. Bed alarm on, Call johnson in reach. Spoke to Krista daughter on phone, updated her.
[2023-08-11] VITALS (38 sets, daily range): BP systolic 85–127; BP diastolic 37–74; BMI 26.3
[2023-08-11] MEDS: TYLENOL 650 MG PO ×2 (03:24→11:41)
[2023-08-11] MEDS: NSS 1000 IV ×2 (04:22→12:48)
[2023-08-11 04:47] LABS: Hematocrit 23.2 % (37.0-47.0); Hemoglobin 7.3 g/dL (12.0-16.0); Mean Corp Hgb Conc. 31.5 g/dL (33.0-37.0); Mean Corpuscular Hgb 27.7 pg (27.0-31.0); Mean Corpuscular Volume 87.9 fL (81.0-99.0); Mean Platelet Volume 9.9 fL (7.4-10.4); Platelet Count 210 10^3/uL (130-400); Red Blood Cell Count 2.64 10^6/uL (4.20-5.40); Red Cell Dist. Width 14.3 % (11.5-14.5); White Blood Cell Count 7.6 10^3/uL (4.8-10.8)
[2023-08-11 05:08] LABS: Blood Urea Nitrogen 25 mg/dl (7-17); Calcium 7.5 mg/dl (8.4-10.2); Carbon Dioxide 19 mmol/L (22-30); Chloride 106 mmol/L (98-107); Estimated Creatinine Clearance 19 ml/min; Glucose 102 mg/dl (70-99); Potassium 3.7 mmol/L (3.5-5.1); Sodium 133 mmol/L (135-145); eGFR 24.48
--- NOTE | 2023-08-11 05:33 | PTCARENOTE ---
Placed back on levo gtt around 0430 d/t MAP <60.
--- NOTE | 2023-08-11 09:20 | PTCARENOTE ---
Rec'd pt this AM. Levo gtt off at 0915. Vital signs stable. resting comfortably. Daughter updated via phone.
[2023-08-11] MEDS: INVANZ 55 MG IV (11:41)
--- NOTE | 2023-08-11 12:15 | W.PN.ID1 ---
Date of Service
Date of Service: August 11, 2023
Today's Communication
- agree with ertapenem - aspiration?
Assessment / Plan
Post Operative Fevers - POD6 - blue light TURBT (~6 cm tumor burden)
DDX: drug fever, tumor fever, less likely atelectasis
- likely atelectasis on the CXR
- Urine cultures x2 negative
- agree with ertapenem - aspiration?
- follow clinically
Chief Complaint
-: Fever
Subjective / Review of Systems
tmax 102.8
bp stable
resolved leukocytosis
cr stable
urine culture x2 no growth
blood cultures no growth at 24 hours
Vital Signs / Physical Exam
Vital Signs
Vital Signs
Temp Pulse Resp BP Pulse Ox
100.7 F H 71 19 126/54 100
08/11/23 11:54 08/11/23 08:15 08/11/23 08:15 08/11/23 08:15 08/11/23 08:15
Physical Exam
Constitutional: No Acute Distress and Chronically Ill
Cardiovascular: Regular Rate and S1/S2; Negative Murmur or Rub
Pulmonary: Clear and Symmetric; Negative Wheezes or Rales
Gastrointestinal: Soft, Non Tender, Non Distended and Normal Bowel Sounds
Skin: Warm and Dry; Negative Rash or Jaundice
Objective Data
Lab Data
Lab Results
08/11/23 04:21
08/11/23 04:21
Estimated Creat Clear 19 ml/min 08/11/23 04:21
Lactic Acid Cancelled 08/10/23 14:30
Total Bilirubin 0.7 mg/dl (0.2-1.3) 08/10/23 09:42
AST 24 U/L (14-36) 08/10/23 09:42
ALT 12 U/L (0-35) 08/10/23 09:42
Alkaline Phosphatase 68 U/L (38-126) 08/10/23 09:42
Most recent labs reviewed.
Micro Results:
08/10/23 10:32 Blood Culture - Preliminary
Blood/Venous No Growth in 24 hours- Final report to follow
08/10/23 10:32 Blood Culture - Preliminary
Blood/Venous No Growth in 24 hours- Final report to follow
08/10/23 10:39 Urine Culture - Final
Urine NO GROWTH
08/10/23 12:42 Urine Culture - Final
Urine NO GROWTH
08/10/23 09:48 Influenza Types A & B (FAVIOLA) - Final
Nasal Swab Negative for Influenza A & B, NAAT
Negative results must be combined with clinical observations
and patient history.
Nucleic Acid Amplification test (NAAT)performed on the
[employer] platform.
--- NOTE | 2023-08-11 13:19 | W.PN.URO.CBU ---
Today's Communication / Plan
-
no gu intervention
Assessment / Plan
-
fever improving feeling betterconytinue present care
Diagnosis
-
Date of Service: August 11, 2023
-
Patient Diagnosis:
Post Op Day:
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
Post Op Day:
Subjective
-
improving
Objective
-
Vital Signs
Temp Pulse Resp BP Pulse Ox
100.7 F H 71 19 126/54 100
08/11/23 11:54 08/11/23 08:15 08/11/23 08:15 08/11/23 08:15 08/11/23 08:15
Intake and Output
08/10/23 08/11/23 08/12/23
06:59 06:59 06:59
Intake Total 240 / 240
Output Total 1000 / 1000
Balance -760 / -760
Intake:
Oral fluids 240 / 240
Output:
Urinary Drain Output (Total) 650 / 650
Right Nephrostomy 650 / 650
Urine, Voided 350 / 350
Laboratory Results
08/11/23 04:21
08/11/23 04:21
Review of Systems
-
Constitutional: Fever
: Flank Pain
Physical Exam
-
General - well developed, well nourished, no acute distress
Chest - clear bilaterally
Abdomen - soft, non-tender, positive bowel sounds, no CVAT, no incisional pain or distention
Genitalia - normal
Rectal - normal
Skin - warm & dry with no rash
Neuro - AOx3, no motor deficits
Extremities - no clubbing, no cyanosis, no edema
Incision - clean, dry
Dressing - clean, dry, intact
Counseling
-
no gu intervention
Care Review
Data Reviewed
Discussed with: Hospitalist and Nursing
--- NOTE | 2023-08-11 13:36 | PTCARENOTE ---
Restarted levo for MAP 56. Notified Dr. Sierra. family updated
--- NOTE | 2023-08-11 15:51 | W.PN.HOSP.TC ---
Today's Communication/Plan
-
continue in IMU
wean off Levophed
Continue Ertapenem
Assessment / Plan
Assessment / Plan
Septic Shock, suspect urine source
-Consult Urology and Infectious Disease
-Initial urine sample obtained from nephrostomy tube - Attempt to obtain second sample
-Await urine and blood culture-NGTD
-Continue Invanz pending culture data
-Continue IVFs
- Levophed has been weaned to 1, hopefully will be off in near future
WBC 11.0-->7.6
CKD Stage IV
-Monitor creatinine
Anemia of Chronic Disease/Blood Loss Anemia
9.0-->7.3
drop in Hgb possibly from rehydration association with septic fluid boluses, but will need to recheck.
Type and Screen ordered
Blood Consent obtained from pt, witness by CRISTAL Zayas
Bladder CA s/p TURBT on Aug 05, and Right Nephrostomy on Jul 11
DVT proph: SCDs
Code Status: Full Code
Anticipated Discharge: > 48 hours
Subjective/Interval History
-
Date of Service: August 11, 2023
Much more alert and conversant over past 24 hrs
Objective Data
-
Labs:
Laboratory Results
08/11/23 08/11/23
04:21 15:50
WBC 7.6 Pending
Hgb 7.3 L Pending
Hct 23.2 L Pending
Plt Count 210 D Pending
Sodium 133 L
Potassium 3.7
Chloride 106
Carbon Dioxide 19 L
BUN 25 H
Creatinine 2.0 H
Glucose 102 H
Calcium 7.5 L
Vital Signs:
Vital Signs
Temp Pulse Resp BP Pulse Ox
100.7 F H 67 22 88/42 96
08/11/23 11:54 08/11/23 13:30 08/11/23 13:30 08/11/23 13:30 08/11/23 13:37
I&O
08/10/23 08/11/23 08/12/23
06:59 06:59 06:59
Intake Total 240 / 240
Output Total 1000 / 1000
Balance -760 / -760
Review of Systems
-
History Source: Patient and Coordinated Provider
Constitutional: Denies Fever
EENT: Reports No Symptoms Reported
Respiratory: Denies Trouble Breathing or Pleurisy (resolved)
Cardiac: Reports No Symptoms
Abdomen/GI: Denies Abdominal Pain
Musculoskeletal: Reports No Symptoms
Physical Exam
-
General: Well Developed, Well Nourished, No Apparent Distress and Appears Chronically Ill
HEENT: Normocephalic, Atraumatic and Moist Mucous Membranes
Respiratory: Clear to Auscultation; Negative Wheezes, Rales or Rhonchi
Cardiac: Regular Rhythm, S1/S2 and Other (pectus excavatum)
GI: Soft, Nontender and Nondistended
Genito-urinary: Bloody Urine
Musculoskeletal: No Clubbing, No Cyanosis and No Edema
Neuro: Awake and Alert
[2023-08-11 16:59] LABS: Hemoglobin 7.8 g/dL (12.0-16.0); Mean Corp Hgb Conc. 31.2 g/dL (33.0-37.0); Mean Corpuscular Hgb 27.2 pg (27.0-31.0); Mean Corpuscular Volume 87.1 fL (81.0-99.0); Mean Platelet Volume 9.7 fL (7.4-10.4); Platelet Count 225 10^3/uL (130-400); Red Blood Cell Count 2.87 10^6/uL (4.20-5.40); Red Cell Dist. Width 14.3 % (11.5-14.5); White Blood Cell Count 7.7 10^3/uL (4.8-10.8)
--- NOTE | 2023-08-11 17:20 | PTCARENOTE ---
Pt more awake and alert. BP stable on 1mcg of levo. family at bedside.
[2023-08-11] MEDS: LEVOPHED 250 IV (20:00)
[2023-08-12] VITALS (47 sets, daily range): BP systolic 76–141; BP diastolic 43–93; PULSE 73–75; O2SAT 97–98; BMI 26.4
[2023-08-12] MEDS: NSS 1000 IV ×2 (03:48→17:53)
[2023-08-12 04:37] LABS: % Basophils 0.3 % (0-2); % Eosinophils 4.2 % (0-6); % Immature Granulocytes 0.5 % (0-0.5); % Lymphocytes 20.2 % (20.5-51.1); % Monocytes 12.1 % (1.7-9.3); % Neutrophils 62.7 % (42.2-75.2); Absolute Eosinophils 0.3 10^3/uL (0-0.7); Absolute Lymphocytes 1.5 10^3/uL (1.2-3.4); Absolute Monocytes 0.9 10^3/uL (0.1-0.6); Absolute Neutrophils 4.6 10^3/uL (1.4-6.5); Hematocrit 27.3 % (37.0-47.0); Hemoglobin 8.7 g/dL (12.0-16.0); Mean Corp Hgb Conc. 31.9 g/dL (33.0-37.0); Mean Corpuscular Hgb 27.6 pg (27.0-31.0); Mean Corpuscular Volume 86.7 fL (81.0-99.0); Mean Platelet Volume 9.9 fL (7.4-10.4); Nucleated Red Blood Cells % 0 %; Platelet Count 258 10^3/uL (130-400); Red Blood Cell Count 3.15 10^6/uL (4.20-5.40); Red Cell Dist. Width 14.1 % (11.5-14.5); White Blood Cell Count 7.4 10^3/uL (4.8-10.8)
--- NOTE | 2023-08-12 04:57 | PTCARENOTE ---
nurse wanted to do daily weight.
[2023-08-12 04:58] LABS: Blood Urea Nitrogen 20 mg/dl (7-17); Calcium 7.9 mg/dl (8.4-10.2); Carbon Dioxide 20 mmol/L (22-30); Chloride 109 mmol/L (98-107); Estimated Creatinine Clearance 25 ml/min; Glucose 96 mg/dl (70-99); Potassium 4.2 mmol/L (3.5-5.1); Sodium 136 mmol/L (135-145); eGFR 34.58
--- NOTE | 2023-08-12 06:22 | PTCARENOTE ---
Took care of patient overnight. No assessment changes from previous shift. aaox3, drowsy, sleepy. Attempted to wean of levo gtt around [address] back on at 0200. MAP dropped to 59. IVF running. No other issues. call johnson in reach, bed
alarm on.
[2023-08-12] MEDS: TYLENOL 650 MG PO (08:11)
--- NOTE | 2023-08-12 08:46 | W.PN.ID1 ---
Date of Service
Date of Service: August 12, 2023
Today's Communication
- third set of blood cultures and repeat covid ag
- continue with ertapenem for now - day 3
- increasing suspicion for tumor fever
Assessment / Plan
Post Operative Fevers - POD7 - blue light TURBT (~6 cm tumor burden)
DDX: tumor fever, aspiration pneumonia
- tumor fever becoming the leading diagnosis, unlikely drug fever due to antibiotics as switched on arrival, fevers began before
- recheck covid ag
- third set of blood cultures
- sputum culture if able to obtain one (patient has been reporting no sputum production)
- continue with ertapenem for now - day 3
- follow clinically
Chief Complaint
-: Fever
Subjective / Review of Systems
fevers ongoing
bp stable
without leukocytosis
cr further improved
denies cough/sputum production
swallow evaluation - no dysphagia treatment needed
confused
Vital Signs / Physical Exam
Vital Signs
Vital Signs
Temp Pulse Resp BP Pulse Ox
101.8 F H 83 17 113/57 96
08/12/23 08:13 08/12/23 05:29 08/12/23 05:29 08/12/23 05:30 08/12/23 05:29
Physical Exam
Constitutional: No Acute Distress and Chronically Ill
Cardiovascular: Regular Rate and S1/S2; Negative Murmur or Rub
Pulmonary: Clear and Symmetric; Negative Wheezes or Rales
Gastrointestinal: Soft, Non Tender, Non Distended and Normal Bowel Sounds
Skin: Warm and Dry; Negative Rash or Jaundice
Neurological: Awake
Psychological: Confused
Objective Data
Lab Data
Lab Results
08/12/23 03:54
08/12/23 03:54
Estimated Creat Clear 25 ml/min 08/12/23 03:54
Lactic Acid Cancelled 08/10/23 14:30
Total Bilirubin 0.7 mg/dl (0.2-1.3) 08/10/23 09:42
AST 24 U/L (14-36) 08/10/23 09:42
ALT 12 U/L (0-35) 08/10/23 09:42
Alkaline Phosphatase 68 U/L (38-126) 08/10/23 09:42
Most recent labs reviewed.
Micro Results:
08/10/23 10:32 Blood Culture - Preliminary
Blood/Venous No Growth in 24 hours- Final report to follow
08/10/23 10:32 Blood Culture - Preliminary
Blood/Venous No Growth in 24 hours- Final report to follow
08/10/23 10:39 Urine Culture - Final
Urine NO GROWTH
08/10/23 12:42 Urine Culture - Final
Urine NO GROWTH
08/10/23 09:48 Influenza Types A & B (FAVIOLA) - Final
Nasal Swab Negative for Influenza A & B, NAAT
Negative results must be combined with clinical observations
and patient history.
Nucleic Acid Amplification test (NAAT)performed on the
[employer] platform.
--- NOTE | 2023-08-12 09:08 | W.PN.HOSP.TC ---
Today's Communication/Plan
-
cont IVF
treat fever
follow cultures
apprec ID/urology
on and off Levophed, consider midodrine
Assessment / Plan
Assessment / Plan
pt is an 83 year old female
Septic Shock-- suspect urine source--cultures all negative--apprec urology and ID--cont ertapenem--cont IVF--on and off pressors --WBC 11 to 7.4
CKD Stage IV (unknown baseline)--Monitor creatinine
Anemia of Chronic Disease--drop likely dilutional from IVF
Bladder CA s/p TURBT on Aug 05, and Right Nephrostomy on Jul 11--apprec urology
DVT proph: SCDs
Code Status: Full Code
spoke with Cheikh, he is the 'point person' to contact
may need SNF at d/c
Anticipated Discharge: > 48 hours
Subjective/Interval History
-
Date of Service: August 12, 2023
pt sleepy but arousable
Objective Data
-
Labs:
Laboratory Results
08/12/23
03:54
WBC 7.4
Hgb 8.7 L
Hct 27.3 L
Plt Count 258
Sodium 136
Potassium 4.2
Chloride 109 H
Carbon Dioxide 20 L
BUN 20 H
Creatinine 1.5 H
Glucose 96
Calcium 7.9 L
Vital Signs:
max temp for 24 hours
08/12/23
08:13
Temp 101.8 F H
Vital Signs
Temp Pulse Resp BP Pulse Ox
101.8 F H 83 17 113/57 96
08/12/23 08:13 08/12/23 05:29 08/12/23 05:29 08/12/23 05:30 08/12/23 05:29
I&O
08/11/23 08/12/23 08/13/23
06:59 06:59 06:59
Intake Total 240 / 240 972 / 972
Output Total 1000 / 1000 1150 / 1150
Balance -760 / -760 -178 / -178
Review of Systems
-
Unable to obtain full review of systems at this time due to: Acuity
Physical Exam
-
General: Well Developed, Well Nourished and No Apparent Distress
HEENT: Normocephalic, Atraumatic and Oxygen
Respiratory: Clear to Auscultation; Negative Wheezes or Rhonchi
Cardiac: Regular Rhythm and S1/S2; Negative Murmur
GI: Soft, Nontender, Nondistended and Normal Bowel Sounds
Musculoskeletal: No Clubbing, No Cyanosis and No Edema
Skin: Warm
Neuro: Awake
Psych: Calm
--- NOTE | 2023-08-12 09:32 | CM ---
Addendum entered by Christel Hou 08/12/23 16:45:
family meeting with patient family and they will work on options for SNF referrals. CM will send when family identifies options. Patient is contact for information.
Original Note:
Patient seen at bedside with physician. Patient drowsy at this time. CM and physician spoke with patient , who indicated that he would be the point person. CM reviewed dot compliance manager role with patient and will continue to follow for
discharge planning needs. CM will continue to follow for discharge planning needs.
Plan; SNF vs home with VN; pending functional assessment
[2023-08-12 11:04] LABS: COVID-19 Antigen Negative (Negative)
--- NOTE | 2023-08-12 11:27 | PTCARENOTE ---
RTC from pt's Daughter Krista requesting to meet with MD with her siblings. RN spoke with Dr. Black and informed daughter that her father is the primary contact and decision maker for her mother. He is the person that will be updated by the
MD. RN updated daughter and requested she and siblings obtain any additional info from her father. Also rec'd call from son, Rd Shipman Jr. requesting info. Re-iterated that father is primary contact and he needs to get info from his father. Provided
brief nursing update but informed pt that nursing staff cannot update multiple family members throughout the day.
[2023-08-12] MEDS: INVANZ 55 MG IV (12:07)
--- NOTE | 2023-08-12 16:32 | W.PN.URO.CBU ---
Today's Communication / Plan
-
NO CHANGES
Assessment / Plan
-
fever improving feeling betterconytinue present care POSSIBLE SHERLY MAHAJANB;E UROSEPSIS FROM PERC TUBE WILL AGRE WITH ID
Diagnosis
-
Date of Service: August 12, 2023
-
Patient Diagnosis:
Post Op Day:
Patient Diagnosis:
Post Op Day:
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
Post Op Day:
Subjective
-
FELING SL BETTER
Objective
-
Vital Signs
Temp Pulse Resp BP Pulse Ox
98.6 F 71 19 76/61 96
08/12/23 10:46 08/12/23 11:00 08/12/23 11:00 08/12/23 11:00 08/12/23 15:14
Intake and Output
08/11/23 08/12/23 08/13/23
06:59 06:59 06:59
Intake Total 240 / 240 972 / 972
Output Total 1000 / 1000 1150 / 1150 550 / 550
Balance -760 / -760 -178 / -178 -550 / -550
Intake:
Oral fluids 240 / 240 240 / 240
IV fluids (Total) 720 / 720
IV piggybacks
Output:
Urinary Drain Output (Total) 650 / 650 350 / 350 250 / 250
Right Nephrostomy 650 / 650 350 / 350 250 / 250
Urine, Voided 350 / 350 800 / 800 300 / 300
Laboratory Results
08/12/23 03:54
08/12/23 03:54
Review of Systems
-
Constitutional: Fever
: Flank Pain and Difficulty Voiding
Physical Exam
-
General - well developed, well nourished, no acute distress
Chest - clear bilaterally
Abdomen - soft, non-tender, positive bowel sounds, no CVAT, no incisional pain or distention
Genitalia - normal
Rectal - normal
Skin - warm & dry with no rash
Neuro - AOx3, no motor deficits
Extremities - no clubbing, no cyanosis, no edema
Incision - clean, dry
Dressing - clean, dry, intact
Counseling
-
NO CHANGES
Care Review
Data Reviewed
Discussed with: Other (SPOKE WITH PRIMARY UROLOGIST QUYNH CANO IN ON RECENT EVENTS TO ALERT FAMILY ETC)
--- NOTE | 2023-08-12 17:45 | PTCARENOTE ---
Pt presented this AM to be lethargic and confused at start of shift. Upon assessment Pt presented to be febrile and slightly Hypotensive. Pt treated with PO Tylenol and Levo drip reinitiated. Pt improved throughout the day as fever and pressures
were managed . Orientation improved, pt out of bed with max assist, family at bedside, daughter (Lesley) requested to stay over night in order to meet with Oncology in the AM Dr. Black in agreement. molding manager notified.
[2023-08-13] VITALS (44 sets, daily range): BP systolic 80–161; BP diastolic 44–120; BMI 26.9
[2023-08-13] MEDS: NSS 1000 IV ×2 (03:13→17:29)
[2023-08-13] MEDS: TYLENOL 650 MG PO (03:17)
[2023-08-13 04:35] LABS: Hemoglobin 7.6 g/dL (12.0-16.0); Mean Corp Hgb Conc. 31.7 g/dL (33.0-37.0); Mean Corpuscular Volume 85.1 fL (81.0-99.0); Platelet Count 240 10^3/uL (130-400); Red Blood Cell Count 2.82 10^6/uL (4.20-5.40); Red Cell Dist. Width 14.2 % (11.5-14.5); White Blood Cell Count 6.3 10^3/uL (4.8-10.8)
[2023-08-13 05:01] LABS: Blood Urea Nitrogen 14 mg/dl (7-17); Calcium 7.6 mg/dl (8.4-10.2); Carbon Dioxide 19 mmol/L (22-30); Chloride 109 mmol/L (98-107); Estimated Creatinine Clearance 31 ml/min; Glucose 112 mg/dl (70-99); Magnesium 1.8 mg/dl (1.6-2.3); Sodium 137 mmol/L (135-145); eGFR 45.19
--- NOTE | 2023-08-13 06:01 | PTCARENOTE ---
received patient- pt is AAOx2- forgetful with some garbled speech at times. on 2L- 98%. right nephro tube intact draining clear yellow urine. q2t. levo gtt running- tried to titrate levo off- pt SBP dropped to 80s. levo had to be increased to
3mcg/min to maintained MAP >65. daughter at bedside, staying overnight to see doctor in the AM. bed alarm on, care ongoing.
--- NOTE | 2023-08-13 09:51 | W.PN.HOSP.TC ---
Today's Communication/Plan
-
repeat blood cultures
transfuse pRBC
Assessment / Plan
Assessment / Plan
pt is an 83 year old female
Septic Shock-- suspect urine source--cultures all negative except 08/13 blood culture with gm positive cocci in chains--repeat until clear--apprec urology and ID--cont ertapenem--cont IVF--on and off pressors --WBC 11 to 7.4
CKD Stage IV (unknown baseline)--Monitor creatinine
Anemia of Chronic Disease--drop likely dilutional from IVF--HGB 7.6--will transfuse 1 unit pRBC, consent obtained
Bladder CA s/p TURBT on Aug 05, and Right Nephrostomy on Jul 11--apprec urology--metastatic--await onc input for options
DVT proph: SCDs
Code Status: Full Code
spoke with Cheikh twice 08/12, he is the 'point person' to contact--daughter at bedside this AM
will need SNF at d/c
Anticipated Discharge: > 48 hours
Subjective/Interval History
-
Date of Service: August 13, 2023
pt feels 'great'
Objective Data
-
Labs:
Laboratory Results
08/13/23
04:12
WBC 6.3
Hgb 7.6 L
Hct 24.0 L
Plt Count 240
Sodium 137
Potassium 4.0
Chloride 109 H
Carbon Dioxide 19 L
BUN 14
Creatinine 1.2 H
Glucose 112 H
Calcium 7.6 L
Vital Signs:
max temp for 24 hours
08/13/23
03:10
Temp 100.3 F
Vital Signs
Temp Pulse Resp BP Pulse Ox
98.3 F 69 25 120/67 98
08/13/23 09:41 08/13/23 09:00 08/13/23 09:00 08/13/23 09:00 08/13/23 09:00
I&O
08/12/23 08/13/23 08/14/23
06:59 06:59 06:59
Intake Total 972 / 972 2450 / 2450
Output Total 1150 / 1150 1200 / 1200
Balance -178 / -178 1250 / 1250
Review of Systems
-
All other systems: Reviewed and negative
Physical Exam
-
General: Appears Chronically Ill
HEENT: Normocephalic, Atraumatic and Oxygen
Respiratory: Decreased Breath Sounds
Cardiac: Regular Rhythm and S1/S2; Negative Murmur
GI: Soft, Nontender, Nondistended and Normal Bowel Sounds
Musculoskeletal: No Clubbing, No Cyanosis and No Edema
Skin: Warm
Neuro: Awake
Psych: Calm
--- NOTE | 2023-08-13 09:53 | W.PN.ID1 ---
Date of Service
Date of Service: August 13, 2023
Today's Communication
add vanc
continue ertapenem for now
Assessment / Plan
Post Operative Fevers - POD8 - blue light TURBT (~6 cm tumor burden)
Gram positive bacteremia
DDX: gram positive bacteremia vs contamination, tumor fever, aspiration pneumonia
- one of two steps of blood cultures gpcs in chains - further imaging pending ID/repeat cultures
- repeat blood cultures x2 in progress
- covid ag - neg
- sputum culture if able to obtain one (patient has been reporting no sputum production)
- add vancomycin pending ID/sensi of the strep/enterococcus
- continue with ertapenem for now - day 3
- follow clinically
Chief Complaint
-: Fever
Subjective / Review of Systems
fever curve further improved
BP stable
remains without leukocytosis
cr further improved to 1.2
covid ag again negative
1 of 2 bood cultures yesterday with GPCS in chains -
tolerating current therapies
Vital Signs / Physical Exam
Vital Signs
Vital Signs
Temp Pulse Resp BP Pulse Ox
98.3 F 69 25 120/67 98
08/13/23 09:41 08/13/23 09:00 08/13/23 09:00 08/13/23 09:00 08/13/23 09:00
Physical Exam
Constitutional: No Acute Distress and Chronically Ill
Cardiovascular: Regular Rate and S1/S2; Negative Murmur or Rub
Pulmonary: Clear and Symmetric; Negative Wheezes or Rales
Gastrointestinal: Soft, Non Tender, Non Distended and Normal Bowel Sounds
Skin: Warm and Dry; Negative Rash or Jaundice
Objective Data
Lab Data
Lab Results
08/13/23 04:12
08/13/23 04:12
Estimated Creat Clear 31 ml/min 08/13/23 04:12
Lactic Acid Cancelled 08/10/23 14:30
Total Bilirubin 0.7 mg/dl (0.2-1.3) 08/10/23 09:42
AST 24 U/L (14-36) 08/10/23 09:42
ALT 12 U/L (0-35) 08/10/23 09:42
Alkaline Phosphatase 68 U/L (38-126) 08/10/23 09:42
Most recent labs reviewed.
Micro Results:
08/12/23 10:59 Blood Culture - Preliminary
Blood/Venous Positive culture in progress
Gram Stain - Preliminary
08/12/23 10:55 Blood Culture - Pending
Blood/Venous
08/10/23 10:32 Blood Culture - Preliminary
Blood/Venous No Growth in 48 hours- Final report to follow
08/10/23 10:32 Blood Culture - Preliminary
Blood/Venous No Growth in 48 hours- Final report to follow
08/10/23 12:42 Urine Culture - Final
Urine NO GROWTH
08/10/23 10:39 Urine Culture - Final
Urine NO GROWTH
08/10/23 09:48 Influenza Types A & B (FAVIOLA) - Final
Nasal Swab Negative for Influenza A & B, NAAT
Negative results must be combined with clinical observations
and patient history.
Nucleic Acid Amplification test (NAAT)performed on the
[employer] platform.
[2023-08-13] MEDS: VANCOCIN 300 MG IV (11:01)
[2023-08-13] MEDS: VANCOCIN 300 ML IV (11:01)
--- NOTE | 2023-08-13 11:33 | PHA.VAN.IN ---
Assessment
- Assessment
Renal Function: Unknown baseline (SCR decreasing from admission 2.1-->2-->1.5-->1.2)
Concomitant Antimicrobials: ertapenem
Plan
- Plan
Initial / Loading Dose: Vanc 1500mg - 08/13 11:01 PLUS additional 500mg x1 later today
Maintenance Regimen: dosing by level
Monitoring: random 08/14 06
Pharmacokinetics Vancomycin I
- -
Patient Age: 83
Patient Sex: Female
Vancomycin Day #: 1
Indication: Bacteremia
Requesting Provider: Dr. Guillen
Pertinent Antimicrobial Allergies:
sulfamethoxazole/trimethoprim - swelling of tongue
Height / Weight:
Height 5 ft 4 in
Actual Weight 71.1 kg
Pertinent Past Medical History: CKD
- Vital Signs / Lab Results
Temp Pulse Resp BP Pulse Ox
98.3 F 69 25 120/67 98
08/13/23 09:41 08/13/23 09:00 08/13/23 09:00 08/13/23 09:00 08/13/23 09:00
Lab Results - Hematology
08/11/23 08/11/23 08/12/23
04:21 16:43 03:54
WBC 7.6 7.7 7.4
08/13/23
04:12
WBC 6.3
Lab Results - Chemistry
08/11/23 08/12/23 08/13/23
04:21 03:54 04:12
BUN 25 H 20 H 14
Creatinine 2.0 H 1.5 H 1.2 H
Estimated Creat Clear 19 25 31
08/10/23
14:30
Lactic Acid Cancelled
Lab Results - Urine
08/10/23
12:42
Urine Nitrite (Reflex) Positive A
Leukocyte Esterase Rfl 2+ A
Urine WBC (Reflex) 40-50 A
Ur Squamous Epith Cells 0-2
Urine Bacteria (Reflex) Moderate A
Microbiology Results
08/12/23 10:55 Blood Culture - Preliminary
Blood/Venous No Growth in 24 hours- Final report to follow
08/10/23 10:32 Blood Culture - Preliminary
Blood/Venous No Growth in 72 hours- Final report to follow
08/10/23 10:32 Blood Culture - Preliminary
Blood/Venous No Growth in 72 hours- Final report to follow
08/12/23 10:59 Blood Culture - Preliminary
Blood/Venous Positive culture in progress
Gram Stain - Preliminary
08/10/23 12:42 Urine Culture - Final
Urine NO GROWTH
08/10/23 10:39 Urine Culture - Final
Urine NO GROWTH
[2023-08-13] MEDS: INVANZ 55 MG IV (13:09)
--- NOTE | 2023-08-13 14:50 | W.PN.URO.CBU ---
Today's Communication / Plan
-
continue present care
Assessment / Plan
-
fever improving feeling betterconytinue present care POSSIBLE SHERLY JACOME UROSEPSIS FROM PERC TUBE WILL AGRE WITH ID
Diagnosis
-
Date of Service: August 13, 2023
-
Patient Diagnosis:
Post Op Day:
Patient Diagnosis:
Post Op Day:
Patient Diagnosis:
Post Op Day:
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
Post Op Day:
Subjective
-
improving
Objective
-
Vital Signs
Temp Pulse Resp BP Pulse Ox
98.0 F 75 21 117/70 98
08/13/23 14:15 08/13/23 14:15 08/13/23 14:15 08/13/23 14:15 08/13/23 09:00
Intake and Output
08/12/23 08/13/23 08/14/23
06:59 06:59 06:59
Intake Total 972 / 972 2450 / 2450 0 / 0
Output Total 1150 / 1150 1200 / 1200
Balance -178 / -178 1250 / 1250 0 / 0
Intake:
Oral fluids 240 / 240
IV fluids (Total) 720 / 720 2400 / 2400
IV piggybacks 50 / 50
Blood Product Amount Infused ( 0 / 0
mL)
Packed Rbc Leukoreduced Unit 0 / 0
[id number]
Output:
Urinary Drain Output (Total) 350 / 350 900 / 900
Right Nephrostomy 350 / 350 900 / 900
Urine, Voided 800 / 800 300 / 300
Other:
How many times incontinent 1
SATURATED amount urine
Laboratory Results
08/13/23 04:12
08/13/23 04:12
Review of Systems
-
: Flank Pain and Bleeding
Physical Exam
-
General - well developed, well nourished, no acute distress
Chest - clear bilaterally
Abdomen - soft, non-tender, positive bowel sounds, no CVAT, no incisional pain or distention
Genitalia - normal
Rectal - normal
Skin - warm & dry with no rash
Neuro - AOx3, no motor deficits
Extremities - no clubbing, no cyanosis, no edema
Incision - clean, dry
Dressing - clean, dry, intact
Counseling
-
conytinue present care
--- NOTE | 2023-08-13 15:30 | PTCARENOTE ---
Levophed stopped at 1530, MAP has been stable 85-90 x4hr. Physician notified per protocol. Will continue to monitor for now.
--- NOTE | 2023-08-13 15:47 | CON.ONC ---
Impression
Impression
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
Plan
Plan
The patient wishes to pursue bladder preservation therapy however given 3 month interval since last restaging would consider restaging once she attains ambulatory capacity to PS 0-2 as opposed to PS3-4 to reassess any modifications of te original
plan
Patient History
History of Present Illness
requested to review options for bladder preservation therapy
82 year old woman in usual state of health until a fall outside [facility] in late December. She experienced flank, hip and abdominal pain after the fall, also noted acute onset of grossly bloody urine. She underwent CT imaging and was told that she
might have bladder cancer. She was treated by primary care physician with antibiotics for UTI without improvement. She was then referred to Dr. Manzano for evaluation. CT urography showed possible upper tract urothelial carcinoma as well as
bladder mass. He performed blue light TURBT on January 25 for a large and hemorrhagic left lateral bladder wall tumor. The left ureteral orifice was not clearly identified due to tumor location so ureteroscopy was not able to be performed. Pathology
showed urothelial carcinoma with squamous features, detrussor muscle involvement representing stage T2. Her case was discussed at [facility] multidisciplinary tumor board on 03/27 with concern for adenopathy. PET scan was recommended by
consensus. If no evidence of metastatic disease, options under consideration are surgery or bladder conservation with chemo/RT. Patient definitely does not want cystectomy. PET scan noted no distant mets though common iliac artery LN was
involved. SHe was re-evalauted and consented to cisplatin based therapy with XRT however she was subsequently admitted to for pain and FTT for which she has since developed nonambulatroy status prompting need for PT//rehab following treatment
for pneumonia/ urosepsis/ septic shock
Past-Medical/Surgical History
diverticulitis
hypertension
chronic kidney disease
Macular degeneration
osteoarthritis
hyperlipidemia
Patient Medication
Medication Instructions Recorded Confirmed Last Taken Type
calcium carbonate 500 mg calcium 500 mg PO DAILY Supplement 07/30/23 08/10/23 08/09/23 History
(1,250 mg) tablet
glucosamine sulf dipot 1 cap PO DAILY Supplement 07/30/23 08/10/23 08/09/23 History
chlr,msm,chond 550 mg-C 30 mg-balbir
1 mg capsule (Glucosamine
Chondroitin)
therapeutic multivitamin 1 tab PO DAILY Supplement 07/30/23 08/10/23 08/09/23 History
tolterodine 2 mg capsule,extended 2 mg PO DAILY Urinary Issue 07/30/23 08/10/23 08/09/23 History
release 24 hr
amoxicillin 500 mg-potassium 1 tab PO Q12 Infection 08/10/23 08/10/23 08/09/23 History
clavulanate 125 mg tablet
pantoprazole 40 mg tablet,delayed 40 mg PO BID Gastrointestinal Issue 08/10/23 08/10/23 08/09/23 History
release
Active Medications
Generic Name Dose Route Start Last Admin
Trade Name Freq PRN Reason Stop Dose Admin
Acetaminophen 650 mg 08/10/23 17:16 08/13/23 03:17
Acetaminophen 325 Mg Tablet PO 09/07/23 17:15 650 mg
Q4HPRN PRN Administration
mild pain/ fever>100.5F
Norepinephrine Bitartrate 4 mg in 250 mls @ 0 mls/hr 08/10/23 13:15 08/11/23 20:00
Levophed IV 250 mls
PER PROTOCOL CARISSA Administration
Protocol
Per Protocol
Sodium Chloride 1,000 mls @ 100 mls/hr 08/10/23 17:16 08/13/23 03:13
Nss IV 1,000 mls
.Q10H CARISSA Administration
Ertapenem 500 mg/ Sodium 55 mls @ 100 mls/hr 08/11/23 12:00 08/13/23 13:09
Chloride IV 55 mls
Q24H CARISSA Administration
Vancomycin HCl 1 each/ Device 0 mls @ 0 mls/hr 08/13/23 12:00
IV
PER PROTOCOL CARISSA
Protocol
As Directed
Vancomycin HCl 100 mls @ 100 mls/hr 08/13/23 18:00
Vancocin Hcl 500 Mg IV 08/13/23 18:59
ONCE@1800 ONE
Sodium Chloride 0 flush 08/10/23 14:00
Sodium Chloride 0.9% (Flush) Syringe IV 09/07/23 13:59
PER PROTOCOL CARISSA
Review of Systems
-
History Source: Patient and Family
All Other Systems: Reviewed and Negative (other than for weakness )
Physical Exam
-
General: Comfortable
HEENT: Moist Mucous Membranes
Cardiology: Irregular Rate/Rhythm
Labs
Lab Results
WBC 6.3 10^3/uL (4.8-10.8) 08/13/23 04:12
RBC 2.82 10^6/uL (4.20-5.40) L 08/13/23 04:12
Hgb 7.6 g/dL (12.0-16.0) L 08/13/23 04:12
Hct 24.0 % (37.0-47.0) L 08/13/23 04:12
MCV 85.1 fL (81.0-99.0) 08/13/23 04:12
MCH 27.0 pg (27.0-31.0) 08/13/23 04:12
MCHC 31.7 g/dL (33.0-37.0) L 08/13/23 04:12
RDW 14.2 % (11.5-14.5) 08/13/23 04:12
Plt Count 240 10^3/uL (130-400) 08/13/23 04:12
MPV 10.0 fL (7.4-10.4) 08/13/23 04:12
Abs Immat Gran (auto) 0.0 10^3/uL (0-0.05) 08/12/23 03:54
Absolute Neuts (auto) 4.6 10^3/uL (1.4-6.5) 08/12/23 03:54
Absolute Lymphs (auto) 1.5 10^3/uL (1.2-3.4) 08/12/23 03:54
Absolute Monos (auto) 0.9 10^3/uL (0.1-0.6) H 08/12/23 03:54
Absolute Eos (auto) 0.3 10^3/uL (0-0.7) 08/12/23 03:54
Absolute Basos (auto) 0.0 10^3/uL (0-0.2) 08/12/23 03:54
Immature Gran % 0.5 % (0-0.5) 08/12/23 03:54
Neutrophils % 62.7 % (42.2-75.2) 08/12/23 03:54
Lymphocytes % 20.2 % (20.5-51.1) L 08/12/23 03:54
Monocytes % 12.1 % (1.7-9.3) H 08/12/23 03:54
Eosinophils % 4.2 % (0-6) 08/12/23 03:54
Basophils % 0.3 % (0-2) 08/12/23 03:54
Creatinine 1.2 mg/dL (0.6-1.0) H 08/13/23 04:12
Vital Signs
Vital Signs
Temp Pulse Resp BP Pulse Ox
98.3 F 79 28 129/72 98
08/13/23 14:34 08/13/23 14:34 08/13/23 14:34 08/13/23 14:34 08/13/23 09:00
--- NOTE | 2023-08-13 15:52 | PTCARENOTE ---
Patient more awake and alert this afternoon. Patient is AAOx3, no c/o pain. Patient is receiving one unit of PRBC. Family at bedside. Patient tolerating regular diet, incontinent of large amounts of ramesh urine. Affect still remains flat.
[2023-08-13] MEDS: VANCOCIN HCL 500 MG 100 IV (17:39)
[2023-08-14] VITALS (14 sets, daily range): BP systolic 111–151; BP diastolic 52–88; PULSE 77; O2SAT 94–99; BMI 27.3
[2023-08-14] MEDS: NSS 1000 IV ×2 (04:05→09:30)
[2023-08-14 04:27] LABS: Hematocrit 26.5 % (37.0-47.0); Hemoglobin 8.5 g/dL (12.0-16.0); Mean Corp Hgb Conc. 32.1 g/dL (33.0-37.0); Mean Corpuscular Hgb 27.2 pg (27.0-31.0); Mean Corpuscular Volume 84.7 fL (81.0-99.0); Mean Platelet Volume 9.9 fL (7.4-10.4); Platelet Count 226 10^3/uL (130-400); Red Blood Cell Count 3.13 10^6/uL (4.20-5.40); Red Cell Dist. Width 14.4 % (11.5-14.5); White Blood Cell Count 5.7 10^3/uL (4.8-10.8)
[2023-08-14 04:44] LABS: Vancomycin Random 16.2 ug/ml
[2023-08-14 05:21] LABS: ALT (SGPT) 17 U/L (0-35); AST (SGOT) 32 U/L (14-36); Alkaline Phosphatase 54 U/L (38-126); Blood Urea Nitrogen 11 mg/dl (7-17); Calcium 7.6 mg/dl (8.4-10.2); Carbon Dioxide 21 mmol/L (22-30); Chloride 111 mmol/L (98-107); Estimated Creatinine Clearance 35 ml/min; Glucose 108 mg/dl (70-99); Magnesium 1.7 mg/dl (1.6-2.3); Potassium 3.8 mmol/L (3.5-5.1); Sodium 137 mmol/L (135-145); Total Bilirubin 0.5 mg/dl (0.2-1.3); Total Protein 4.7 g/dl (6.3-8.2); eGFR 45.19
--- NOTE | 2023-08-14 06:05 | PTCARENOTE ---
Pt drowsy overnight, but oriented. denies any pain. Tele showing vpaced rhythm. Repositioned throughout the night. heels floated, pt favors left side. Daughter stayed overnight. Nephrostomy tube with clear yellow output. Incont in diaper. skin
intact. on room air. NSS @ 100mL/hr. BPs have been stable. Call johnson within reach. Bed alarm set for safety.
--- NOTE | 2023-08-14 08:58 | PHA.VAN.FU ---
Vancomycin Assessment / Plan
- Assessment
Renal Function: Stable
WBC's are: WNL
In the past 24 hrs, patient has been: Afebrile
Concomitant Antimicrobials: ertapenem
- Assessment - Therapeutic Drug Monitoring
Random Level: 16.2 - drawn ~10.5H after previous dose of 500mg
received total of 2000mg yesterday
- Dosing Plan
Dosing by Level: Re-dose today (Vanc 750mg)
- Monitoring Plan
Random Level: 08/15 0600
- Follow Up
Pharmacy will continue to follow.
Vancomycin Follow UP
- -
Patient Age: 83
Patient Sex: Female
Vancomycin Day #: 2
Indication: Bacteremia
Requesting Provider: Dr. Guillen
Pertinent Antimicrobial Allergies:
sulfamethoxazole/trimethoprim - swelling of tongue
Height / Weight:
Height 5 ft 4 in
Actual Weight 72.2 kg
Pertinent Past Medical History: CKD
- Vital Signs / Lab Results
Temp Pulse Resp BP Pulse Ox
98.3 F 76 25 132/67 93
08/14/23 08:14 08/14/23 07:00 08/14/23 07:00 08/14/23 06:00 08/14/23 07:00
Lab Results - Hematology
08/11/23 08/12/23 08/13/23
16:43 03:54 04:12
WBC 7.7 7.4 6.3
08/14/23
03:59
WBC 5.7
Lab Results - Chemistry
08/12/23 08/13/23 08/14/23
03:54 04:12 03:59
BUN 20 H 14 11
Creatinine 1.5 H 1.2 H 1.2 H
Estimated Creat Clear 25 31 35
Albumin 2.0 L
Microbiology Results
08/12/23 10:59 Blood Culture - Preliminary
Blood/Venous Streptococcus species
Gram Stain - Preliminary
08/12/23 10:55 Blood Culture - Preliminary
Blood/Venous No Growth in 24 hours- Final report to follow
08/10/23 10:32 Blood Culture - Preliminary
Blood/Venous No Growth in 72 hours- Final report to follow
08/10/23 10:32 Blood Culture - Preliminary
Blood/Venous No Growth in 72 hours- Final report to follow
08/10/23 12:42 Urine Culture - Final
Urine NO GROWTH
Therapeutic Drug Monitoring
Random Vancomycin 16.2 ug/ml 08/14/23 03:59
--- NOTE | 2023-08-14 09:31 | CM ---
Addendum entered by Christel Hou 08/14/23 09:58:
referrals sent via all scripts
Original Note:
Patient seen at bedside with daughter. Daughter requested referrals to [facility]. CM will send referrals and await responses. CM will continue to follow for discharge planning needs.
Plan; SNF
[2023-08-14] MEDS: INVANZ 55 MG IV (10:56)
--- NOTE | 2023-08-14 11:10 | W.PN.ID1 ---
Date of Service
Date of Service: August 14, 2023
Today's Communication
await ID of the strep
follow repeat blood cultures
panellipse
Assessment / Plan
Fevers Resolved
Gram positive bacteremia - probable strep
- one of two steps of blood cultures gpcs in chains - further imaging pending ID/repeat cultures
- repeat blood cultures x2 in progress
- panellipse, pneumonia also on the differential
- sputum culture if able
- continue vancomycin pending ID/sensi of the strep
- stop ertapenem
- follow clinically
Chief Complaint
-: Fever
Subjective / Review of Systems
remains afebrile
bp stable
without leukocytosis
cr 1.2
repeat blood cultures x2 in progress
Vital Signs / Physical Exam
Vital Signs
Vital Signs
Temp Pulse Resp BP Pulse Ox
98.3 F 79 20 137/72 94
08/14/23 08:14 08/14/23 10:00 08/14/23 10:00 08/14/23 10:00 08/14/23 10:00
Physical Exam
Constitutional: No Acute Distress
Cardiovascular: Regular Rate and S1/S2; Negative Murmur or Rub
Pulmonary: Clear and Symmetric; Negative Wheezes or Rales
Gastrointestinal: Soft, Non Tender, Non Distended and Normal Bowel Sounds
Skin: Warm and Dry; Negative Rash or Jaundice
Objective Data
Lab Data
Lab Results
08/14/23 03:59
08/14/23 03:59
Estimated Creat Clear 35 ml/min 08/14/23 03:59
Lactic Acid Cancelled 08/10/23 14:30
Total Bilirubin 0.5 mg/dl (0.2-1.3) 08/14/23 03:59
AST 32 U/L (14-36) 08/14/23 03:59
ALT 17 U/L (0-35) 08/14/23 03:59
Alkaline Phosphatase 54 U/L (38-126) 08/14/23 03:59
Most recent labs reviewed.
Micro Results:
08/10/23 10:32 Blood Culture - Preliminary
Blood/Venous No Growth in 4 days- Final report to follow
08/10/23 10:32 Blood Culture - Preliminary
Blood/Venous No Growth in 4 days- Final report to follow
08/12/23 10:59 Blood Culture - Preliminary
Blood/Venous Streptococcus species
Gram Stain - Preliminary
08/13/23 11:28 Blood Culture - Pending
Blood/Venous
08/13/23 11:28 Blood Culture - Pending
Blood/Venous
08/12/23 10:55 Blood Culture - Preliminary
Blood/Venous No Growth in 24 hours- Final report to follow
08/10/23 12:42 Urine Culture - Final
Urine NO GROWTH
08/10/23 10:39 Urine Culture - Final
Urine NO GROWTH
08/10/23 09:48 Influenza Types A & B (FAVIOLA) - Final
Nasal Swab Negative for Influenza A & B, NAAT
Negative results must be combined with clinical observations
and patient history.
Nucleic Acid Amplification test (NAAT)performed on the
[employer] platform.
--- NOTE | 2023-08-14 11:49 | W.PN.HOSP.TC ---
Today's Communication/Plan
-
SNF referrals sent out
d/c planning
Assessment / Plan
Assessment / Plan
pt is an 83 year old female
Septic Shock-- suspect urine source--cultures all negative except 08/13 blood culture with strep species, repeat negative---apprec urology and ID--cont ertapenem--stop IVF--on and off pressors --WBC 11 to 7.4
CKD Stage IV (unknown baseline)--Monitor creatinine
Anemia of Chronic Disease--drop likely dilutional from IVF--HGB 7.6--will transfuse 1 unit pRBC, consent obtained--improved to 8.5
Bladder CA s/p TURBT on Aug 05, and Right Nephrostomy on Jul 11--apprec urology--metastatic--apprec onc input for options
DVT proph: SCDs
Code Status: Full Code
spoke with Cheikh twice 08/12, he is the 'point person' to contact--daughter at bedside this AM
will need SNF at d/c
Anticipated Discharge: 24 - 48 hours
Subjective/Interval History
-
Date of Service: August 14, 2023
pt agreeable to SNF
Objective Data
-
Labs:
Laboratory Results
08/14/23
03:59
WBC 5.7
Hgb 8.5 L
Hct 26.5 L
Plt Count 226
Sodium 137
Potassium 3.8
Chloride 111 H
Carbon Dioxide 21 L
BUN 11
Creatinine 1.2 H
Glucose 108 H
Calcium 7.6 L
Total Bilirubin 0.5
AST 32
ALT 17
Alkaline Phosphatase 54
Vital Signs:
max temp for 24 hours
08/14/23
03:22
Temp 100.1 F
Vital Signs
Temp Pulse Resp BP Pulse Ox
98.1 F 75 29 137/72 91
08/14/23 11:37 08/14/23 11:00 08/14/23 11:00 08/14/23 10:00 08/14/23 11:00
I&O
08/13/23 08/14/23 08/15/23
06:59 06:59 06:59
Intake Total 2450 / 2450 1518 / 1518
Output Total 1200 / 1200 750 / 750 450 / 450
Balance 1250 / 1250 768 / 768 -450 / -450
Review of Systems
-
All other systems: Reviewed and negative
Physical Exam
-
General: Well Developed, Well Nourished and No Apparent Distress
HEENT: Normocephalic and Atraumatic
Respiratory: Clear to Auscultation; Negative Wheezes, Rales, Rhonchi or Crackles
Cardiac: Regular Rhythm and S1/S2; Negative Murmur
GI: Soft, Nontender, Nondistended and Normal Bowel Sounds
Musculoskeletal: No Clubbing, No Cyanosis and No Edema
Neuro: Awake
--- NOTE | 2023-08-14 11:56 | PN.CDI ---
CDI
- -
CDI:
Physician Documentation Request
Admit Date: 08/10/23 12:54
Dear Doctor Wayne,
Patient admitted with sepsis.
Creatinine resulted as follows:
08/10/23 08/11/23 08/12/23
09:42 04:21 03:54
Creatinine 2.1 H 2.0 H 1.5 H
08/14/23
03:59
Creatinine 1.2 H
Based on the above, could you please provide a diagnosis that supports the above abnormalities and additional evaluation, monitoring and/or treatment rendered:
RHIANNA
Abnormal lab values clinically insignificant
Other
Criteria for RHIANNA*
1 Increase in serum creatinine by > or = to 0.3 mg/dL (> or = to 26.5 micromol/L) within 48 hours, OR
2 Increase in serum creatinine to > or = to 1.5 times baseline, which is known or presumed to have occurred within 7 days, OR
3 Urine volume < 0.5 nL/kg/hour for six hours
Use of terms such as suspected, likely, concern for, or probable (associated with a specific diagnosis that is being evaluated, monitored, or treated as if it exists) are acceptable and can be coded in the inpatient setting, when documented at the
time of discharge.
Thank you,
Laury Durbin RN, BSN
CDI Specialist
tiger text
Please use your independent medical judgment in providing your response.
[2023-08-14] MEDS: VANCOCIN 150 IV (12:06)
[2023-08-15] VITALS (11 sets, daily range): BP systolic 118–154; BP diastolic 60–106; BMI 27.1
[2023-08-15 05:27] LABS: Hematocrit 28.8 % (37.0-47.0); Hemoglobin 9.5 g/dL (12.0-16.0); Mean Corpuscular Hgb 27.5 pg (27.0-31.0); Mean Corpuscular Volume 83.5 fL (81.0-99.0); Mean Platelet Volume 9.5 fL (7.4-10.4); Platelet Count 243 10^3/uL (130-400); Red Blood Cell Count 3.45 10^6/uL (4.20-5.40); Red Cell Dist. Width 14.5 % (11.5-14.5); White Blood Cell Count 5.8 10^3/uL (4.8-10.8)
[2023-08-15 05:41] LABS: Blood Urea Nitrogen 10 mg/dl (7-17); Calcium 7.7 mg/dl (8.4-10.2); Carbon Dioxide 26 mmol/L (22-30); Chloride 111 mmol/L (98-107); Estimated Creatinine Clearance 35 ml/min; Glucose 102 mg/dl (70-99); Magnesium 1.7 mg/dl (1.6-2.3); Potassium 3.5 mmol/L (3.5-5.1); Sodium 136 mmol/L (135-145); eGFR 45.19
[2023-08-15 05:45] LABS: Vancomycin Random 14.4 ug/ml
--- NOTE | 2023-08-15 05:54 | PTCARENOTE ---
Pt AAOx3, [place]. 100% V-paced. VSS. Appears pale, weak pedal pulses. Pt able to request BP for loose BM, but incontinent of blood tinged urine. This RN observed two consecutive episodes of desat to 60s-70s with prompt return to 93%. This RN woke pt
and placed 2L NC with improvement to 98%.
--- NOTE | 2023-08-15 07:05 | W.PN.ONC2 ---
Today's Communication / Plan
-
For D/C likely to SNF. When PS improved, restaging with CT to assess bladder conservation if remains local (chemoXRT) vs systemic Tx alone is PS adequate. Will sign off.
Impression
Impression
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
Septic shock
Gm + bacteremia, suspect UTI source
Plan
Plan
The patient wishes to pursue bladder preservation therapy however given 3 month interval since last restaging would consider restaging once she attains ambulatory capacity to PS 0-2 as opposed to PS3-4 to reassess any modifications of the original
plan
Subjective/Objective
Chief Complaint
ACS Heme Onc
Subjective
PS remains poor. No c/o. Daughter sleeping in room.
Vital Signs:
Vital Signs
Temp Pulse Resp BP Pulse Ox
98.9 F 76 23 154/84 97
08/15/23 02:52 08/15/23 06:00 08/15/23 06:00 08/15/23 06:00 08/15/23 06:00
Lab Results:
Laboratory Data
WBC 5.8 10^3/uL (4.8-10.8) 08/15/23 05:18
Hgb 9.5 g/dL (12.0-16.0) L 08/15/23 05:18
Plt Count 243 10^3/uL (130-400) 08/15/23 05:18
eGFR 45.19 08/15/23 05:18
Physical Exam
Cardiology: S1 and S2
Pulmonary: Clear
--- NOTE | 2023-08-15 08:40 | W.PN.UPDATE ---
Update Note
Progress Note Update
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
RHIANNA
s/p right PCN placement 07/2023
s/p re-resection TURBT 08/05/23 => extensive regrowth of bladder cancer noted throughout totality of bladder urothelium - palliative TURBT performed
Hgb 9.5
Cr 1.2 (prior baseline >2.0 at time of TURBT)
Right PCN draining clear urine
Plan:
- No indication for further urologic intervention - patient adamantly has refused cystectomy and decided upon bladder-sparing therapy w/ chemoXRT
- Restaging imaging considered per Oncology
- F/U with Oncology to discuss next steps in treatment
- Antibiotic therapy for bacteremia
D/w Oncology
--- NOTE | 2023-08-15 10:00 | CM ---
Patient accepted at [facility] with [facility] and referral pending at [facility], not accepted at [facility] or [facility]. CM will review with patient and family options. CM will continue to follow for discharge planning needs.
--- NOTE | 2023-08-15 10:11 | PHA.VAN.FU ---
Vancomycin Assessment / Plan
- Assessment
Renal Function: Stable
WBC's are: WNL
In the past 24 hrs, patient has been: Afebrile
- Assessment - Therapeutic Drug Monitoring
Random Level: 14.4 - drawn ~17H after previous dose of 750mg
- Dosing Plan
Dosing by Level: Re-dose today (Vanc 750mg)
- Monitoring Plan
Random Level: 08/16 0600 - continue to trend level direction
- Follow Up
Pharmacy will continue to follow.
Vancomycin Follow UP
- -
Patient Age: 83
Patient Sex: Female
Vancomycin Day #: 3
Indication: Bacteremia
Requesting Provider: Dr. Guillen
Pertinent Antimicrobial Allergies:
sulfamethoxazole/trimethoprim - swelling of tongue
Height / Weight:
Height 5 ft 4 in
Actual Weight 71.6 kg
Pertinent Past Medical History: CKD
- Vital Signs / Lab Results
Temp Pulse Resp BP Pulse Ox
98 F 76 23 154/84 97
08/15/23 07:29 08/15/23 06:00 08/15/23 06:00 08/15/23 06:00 08/15/23 06:00
Lab Results - Hematology
08/13/23 08/14/23 08/15/23
04:12 03:59 05:18
WBC 6.3 5.7 5.8
Lab Results - Chemistry
08/13/23 08/14/23 08/15/23
04:12 03:59 05:18
BUN 14 11 10
Creatinine 1.2 H 1.2 H 1.2 H
Estimated Creat Clear 31 35 35
Albumin 2.0 L
Microbiology Results
08/13/23 11:28 Blood Culture - Preliminary
Blood/Venous No Growth in 24 hours- Final report to follow
08/13/23 11:28 Blood Culture - Preliminary
Blood/Venous No Growth in 24 hours- Final report to follow
08/12/23 10:55 Blood Culture - Preliminary
Blood/Venous No Growth in 48 hours- Final report to follow
08/10/23 10:32 Blood Culture - Preliminary
Blood/Venous No Growth in 4 days- Final report to follow
08/10/23 10:32 Blood Culture - Preliminary
Blood/Venous No Growth in 4 days- Final report to follow
08/12/23 10:59 Blood Culture - Preliminary
Blood/Venous Streptococcus species
Gram Stain - Preliminary
Therapeutic Drug Monitoring
Random Vancomycin 14.4 ug/ml 08/15/23 05:18
[2023-08-15] MEDS: VANCOCIN 150 IV (10:53)
--- NOTE | 2023-08-15 11:43 | W.PN.HOSP.TC ---
Addendum entered and electronically signed by Rossana Black MD 08/15/23 13:31:
In retrospect, seems to have normal baseline creatinine so CKD is not a valid diagnosis and creat at 2.1 on admission with improvement to 1.2 is now RHIANNA
Original Note:
Today's Communication/Plan
-
transfer to tele
d/c planning
Assessment / Plan
Assessment / Plan
pt is an 83 year old female
Septic Shock-- suspect urine source--cultures all negative except 08/13 blood culture with strep species, repeat negative---apprec urology and ID--cont ertapenem--stop IVF-- off pressors --WBC 11 to 7.4
CKD Stage IV (unknown baseline)--Monitor creatinine
Anemia of Chronic Disease--drop likely dilutional from IVF--HGB 7.6--will transfuse 1 unit pRBC, consent obtained--improved to 8.5
Bladder CA s/p TURBT on Aug 05, and Right Nephrostomy on Jul 11--apprec urology--metastatic--apprec onc input for options
DVT proph: SCDs
Code Status: Full Code
spoke with Cheikh twice 08/12, he is the 'point person' to contact--daughter at bedside this AM
will need SNF at d/c
can transfer to tele
Anticipated Discharge: > 48 hours
Subjective/Interval History
-
Date of Service: August 15, 2023
pt without c/o
Objective Data
-
Labs:
Laboratory Results
08/15/23
05:18
WBC 5.8
Hgb 9.5 L
Hct 28.8 L
Plt Count 243
Sodium 136
Potassium 3.5
Chloride 111 H
Carbon Dioxide 26
BUN 10
Creatinine 1.2 H
Glucose 102 H
Calcium 7.7 L
Vital Signs:
max temp for 24 hours
08/14/23
23:23
Temp 99.0 F
Vital Signs
Temp Pulse Resp BP Pulse Ox
98 F 76 23 154/84 97
08/15/23 07:29 08/15/23 06:00 08/15/23 06:00 08/15/23 06:00 08/15/23 06:00
I&O
08/14/23 08/15/23 08/16/23
06:59 06:59 06:59
Intake Total 1518 / 1518 1775 / 1775
Output Total 750 / 750 1750 / 1750
Balance 768 / 768
Review of Systems
-
All other systems: Reviewed and negative
Physical Exam
-
General: Well Developed, Well Nourished, No Apparent Distress and Appears Chronically Ill
HEENT: Normocephalic and Atraumatic
Respiratory: Clear to Auscultation; Negative Wheezes or Rhonchi
Cardiac: Regular Rhythm and S1/S2; Negative Murmur
GI: Soft, Nontender, Nondistended and Normal Bowel Sounds
Musculoskeletal: No Clubbing, No Cyanosis and No Edema
Neuro: Awake
Psych: Calm
--- NOTE | 2023-08-15 12:57 | PTCARENOTE ---
Pt's daughter at bedside asking if patient could shower, this RN reminded daughter that pt was a max assist to sit on side of bed with PT yesterday and a shower would not be an appropriate goal. PT is following EOD per notes. Q2T maintained. Pt with
no complaints at this time.
--- NOTE | 2023-08-15 13:39 | W.PN.ID1 ---
Date of Service
Date of Service: August 15, 2023
Today's Communication
- continue vancomycin pending ID/sensi of the strep
Assessment / Plan
Fevers Resolved
Gram positive bacteremia - probable strep
- one of two steps of blood cultures gpcs in chains - further imaging pending ID/repeat cultures
- repeat blood cultures x2 in progress
- panelipse - negative, cxr questionable pneumonia
- not producing sputum
- continue vancomycin pending ID/sensi of the strep
- follow clinically
Chief Complaint
-: Fever
Subjective / Review of Systems
afebrile
bp stable
awaiting ID of the strep
no leukocytosis
cr stable
repeat blood cultures no growth at 48 hrs
Vital Signs / Physical Exam
Vital Signs
Vital Signs
Temp Pulse Resp BP Pulse Ox
98.4 F 76 23 154/84 96
08/15/23 11:00 08/15/23 06:00 08/15/23 06:00 08/15/23 06:00 08/15/23 09:04
Physical Exam
Constitutional: No Acute Distress
Cardiovascular: Regular Rate and S1/S2; Negative Murmur or Rub
Pulmonary: Clear and Symmetric; Negative Wheezes or Rales
Gastrointestinal: Soft, Non Tender, Non Distended and Normal Bowel Sounds
Skin: Warm and Dry; Negative Rash or Jaundice
Objective Data
Lab Data
Lab Results
08/15/23 05:18
08/15/23 05:18
Estimated Creat Clear 35 ml/min 08/15/23 05:18
Lactic Acid Cancelled 08/10/23 14:30
Total Bilirubin 0.5 mg/dl (0.2-1.3) 08/14/23 03:59
AST 32 U/L (14-36) 08/14/23 03:59
ALT 17 U/L (0-35) 08/14/23 03:59
Alkaline Phosphatase 54 U/L (38-126) 08/14/23 03:59
Most recent labs reviewed.
Micro Results:
08/13/23 11:28 Blood Culture - Preliminary
Blood/Venous No Growth in 48 hours- Final report to follow
08/13/23 11:28 Blood Culture - Preliminary
Blood/Venous No Growth in 48 hours- Final report to follow
08/12/23 10:55 Blood Culture - Preliminary
Blood/Venous No Growth in 72 hours- Final report to follow
08/10/23 10:32 Blood Culture - Final
Blood/Venous No Growth - Final Report
08/10/23 10:32 Blood Culture - Final
Blood/Venous No Growth - Final Report
08/12/23 10:59 Blood Culture - Preliminary
Blood/Venous Streptococcus species
Gram Stain - Preliminary
08/10/23 12:42 Urine Culture - Final
Urine NO GROWTH
08/10/23 10:39 Urine Culture - Final
Urine NO GROWTH
08/10/23 09:48 Influenza Types A & B (FAVIOLA) - Final
Nasal Swab Negative for Influenza A & B, NAAT
Negative results must be combined with clinical observations
and patient history.
Nucleic Acid Amplification test (NAAT)performed on the
[employer] platform.
--- NOTE | 2023-08-15 15:08 | PTCARENOTE ---
Report called to [facility] Pt and daughter updated.
[2023-08-16] VITALS (7 sets, daily range): BP systolic 101–137; BP diastolic 53–72; PULSE 77; O2SAT 99; BMI 27.2
[2023-08-16 07:03] LABS: Vancomycin Random 13.7 ug/ml
--- NOTE | 2023-08-16 07:53 | PHA.VAN.FU ---
Addendum entered and electronically signed by Marce Slaughter [facility] 08/16/23 14:44:
BUN & SCR ordered per protocol
Original Note:
Vancomycin Assessment / Plan
- Assessment
Renal Function: No New Labs Today
In the past 24 hrs, patient has been: Afebrile
- Assessment - Therapeutic Drug Monitoring
Random Level: 13.7 - drawn ~19.5H after previous dose of 750mg
- Dosing Plan
Dosing by Level: Re-dose today (Vanc 750mg)
Dosing Comments: if levels remain relatively stable - may consider scheduling dosing
- Monitoring Plan
Random Level: 08/17 0600
- Follow Up
Pharmacy will continue to follow.
Vancomycin Follow UP
- -
Patient Age: 83
Patient Sex: Female
Vancomycin Day #: 4
Indication: Bacteremia
Requesting Provider: Dr. Guillen
Pertinent Antimicrobial Allergies:
sulfamethoxazole/trimethoprim - swelling of tongue
Height / Weight:
Height 5 ft 4 in
Actual Weight 71.894 kg
Pertinent Past Medical History: CKD
- Vital Signs / Lab Results
Temp Pulse Resp BP Pulse Ox
98.6 F 76 22 115/59 93
08/16/23 02:48 08/16/23 02:48 08/16/23 02:48 08/16/23 02:48 08/16/23 02:48
Lab Results - Hematology
08/14/23 08/15/23
03:59 05:18
WBC 5.7 5.8
Lab Results - Chemistry
08/14/23 08/15/23
03:59 05:18
BUN 11 10
Creatinine 1.2 H 1.2 H
Estimated Creat Clear 35 35
Albumin 2.0 L
Microbiology Results
08/13/23 11:28 Blood Culture - Preliminary
Blood/Venous No Growth in 48 hours- Final report to follow
08/13/23 11:28 Blood Culture - Preliminary
Blood/Venous No Growth in 48 hours- Final report to follow
08/12/23 10:55 Blood Culture - Preliminary
Blood/Venous No Growth in 72 hours- Final report to follow
08/10/23 10:32 Blood Culture - Final
Blood/Venous No Growth - Final Report
08/10/23 10:32 Blood Culture - Final
Blood/Venous No Growth - Final Report
08/12/23 10:59 Blood Culture - Preliminary
Blood/Venous Streptococcus species
Gram Stain - Preliminary
Therapeutic Drug Monitoring
Random Vancomycin 13.7 ug/ml 08/16/23 06:25
[2023-08-16] MEDS: VANCOCIN 150 IV (10:02)
--- NOTE | 2023-08-16 15:38 | W.PN.HOSP.TC ---
Today's Communication/Plan
-
d/c planning
Assessment / Plan
Assessment / Plan
pt is an 83 year old female
Septic Shock-- suspect urine source--cultures all negative except 08/13 blood culture with strep species, repeat negative---apprec urology and ID--cont ertapenem--stop IVF-- off pressors --WBC 11 to 7.4
CKD Stage IV (unknown baseline)--Monitor creatinine
Anemia of Chronic Disease--drop likely dilutional from IVF--HGB 7.6--will transfuse 1 unit pRBC, consent obtained--improved to 8.5
Bladder CA s/p TURBT on Aug 05, and Right Nephrostomy on Jul 11--apprec urology--metastatic--apprec onc input for options
DVT proph: SCDs
Code Status: Full Code
spoke with Cheikh twice 08/12, he is the 'point person' to contact--daughter at bedside this AM
will need SNF at d/c--hopeful Saturday
Anticipated Discharge: > 48 hours
Subjective/Interval History
-
Date of Service: August 16, 2023
pt sitting in the chair
Objective Data
-
Vital Signs:
max temp for 24 hours
08/15/23
19:59
Temp 99.1 F
Vital Signs
Temp Pulse Resp BP Pulse Ox
97.8 F 82 18 101/59 98
08/16/23 11:00 08/16/23 11:00 08/16/23 11:00 08/16/23 11:00 08/16/23 11:00
I&O
08/15/23 08/16/23 08/17/23
06:59 06:59 06:59
Intake Total 1775 / 1775 1088 / 1088 150 / 150
Output Total 1750 / 1750 600 / 600
Balance 25 / 25 488 / 488 150 / 150
Review of Systems
-
All other systems: Reviewed and negative
Physical Exam
-
General: Well Developed, Well Nourished and No Apparent Distress
HEENT: Normocephalic and Atraumatic
Respiratory: Clear to Auscultation; Negative Wheezes or Rhonchi
Cardiac: Regular Rhythm and S1/S2; Negative Murmur
GI: Soft, Nontender, Nondistended and Normal Bowel Sounds
Musculoskeletal: No Clubbing, No Cyanosis and No Edema
Neuro: Awake
--- NOTE | 2023-08-16 17:55 | W.PN.ID1 ---
Date of Service
Date of Service: August 16, 2023
Today's Communication
Continue abx.
Assessment / Plan
Fevers : Resolved
Gram positive bacteremia - Strep spp.
- one of two steps of blood cultures gpcs in chains - further imaging pending ID/repeat cultures
- repeat blood cultures x2 in progress
- panelipse - negative, cxr questionable pneumonia
- not producing sputum
- continue vancomycin pending ID/sensi of the strep
- follow clinically
Chief Complaint
-: Fever
Subjective / Review of Systems
Review of Systems: No Fever
Vital Signs / Physical Exam
Vital Signs
Vital Signs
Temp Pulse Resp BP Pulse Ox
97.8 F 83 16 130/64 98
08/16/23 15:00 08/16/23 15:00 08/16/23 15:00 08/16/23 15:00 08/16/23 15:00
Physical Exam
Constitutional: No Acute Distress, Comfortable, Chronically Ill and Non-toxic
Eyes: Sclera Anicteric
Cardiovascular: S1/S2; Negative S3/S4
Pulmonary: Non Labored
Gastrointestinal: Non Distended
Neurological: Awake and Alert
Psychological: Calm
Objective Data
Lab Data
Lab Results
08/15/23 05:18
08/15/23 05:18
Estimated Creat Clear 35 ml/min 08/15/23 05:18
Lactic Acid Cancelled 08/10/23 14:30
Total Bilirubin 0.5 mg/dl (0.2-1.3) 08/14/23 03:59
AST 32 U/L (14-36) 08/14/23 03:59
ALT 17 U/L (0-35) 08/14/23 03:59
Alkaline Phosphatase 54 U/L (38-126) 08/14/23 03:59
Most recent labs reviewed.
Micro Results:
08/13/23 11:28 Blood Culture - Preliminary
Blood/Venous No Growth in 72 hours- Final report to follow
08/13/23 11:28 Blood Culture - Preliminary
Blood/Venous No Growth in 72 hours- Final report to follow
08/12/23 10:55 Blood Culture - Preliminary
Blood/Venous No Growth in 4 days- Final report to follow
08/10/23 10:32 Blood Culture - Final
Blood/Venous No Growth - Final Report
08/10/23 10:32 Blood Culture - Final
Blood/Venous No Growth - Final Report
08/12/23 10:59 Blood Culture - Preliminary
Blood/Venous Streptococcus species
Gram Stain - Preliminary
08/10/23 12:42 Urine Culture - Final
Urine NO GROWTH
08/10/23 10:39 Urine Culture - Final
Urine NO GROWTH
08/10/23 09:48 Influenza Types A & B (FAVIOLA) - Final
Nasal Swab Negative for Influenza A & B, NAAT
Negative results must be combined with clinical observations
and patient history.
Nucleic Acid Amplification test (NAAT)performed on the
[employer] platform.
[2023-08-17 03:30] VITALS: BP 110/68
[2023-08-17 06:00] VITALS: BMI 27.2
[2023-08-17 07:00] VITALS: BP 113/59
[2023-08-17 08:22] LABS: Vancomycin Random 12.7 ug/ml
[2023-08-17 08:28] LABS: Hematocrit 26.1 % (37.0-47.0); Hemoglobin 8.3 g/dL (12.0-16.0); Mean Corp Hgb Conc. 31.8 g/dL (33.0-37.0); Mean Corpuscular Hgb 27.5 pg (27.0-31.0); Mean Corpuscular Volume 86.4 fL (81.0-99.0); Mean Platelet Volume 10.1 fL (7.4-10.4); Platelet Count 226 10^3/uL (130-400); Red Blood Cell Count 3.02 10^6/uL (4.20-5.40); Red Cell Dist. Width 14.7 % (11.5-14.5); White Blood Cell Count 5.3 10^3/uL (4.8-10.8)
[2023-08-17 08:44] LABS: Blood Urea Nitrogen 16 mg/dl (7-17); Calcium 7.6 mg/dl (8.4-10.2); Carbon Dioxide 28 mmol/L (22-30); Chloride 108 mmol/L (98-107); Estimated Creatinine Clearance 26 ml/min; Glucose 95 mg/dl (70-99); Potassium 3.4 mmol/L (3.5-5.1); Sodium 137 mmol/L (135-145)
--- NOTE | 2023-08-17 10:41 | W.PN.HOSP.TC ---
Today's Communication/Plan
-
anticipate d/c to SNF Saturday
Assessment / Plan
Assessment / Plan
pt is an 83 year old female
Septic Shock--resolved-- suspect urine source--cultures all negative except 08/13 blood culture with strep species (called lab, no further workup by them at this point), repeat negative---apprec urology and ID--on vanco--consider stopping or change
to oral
CKD Stage IV (unknown baseline)--Monitor creatinine
Anemia of Chronic Disease--drop likely dilutional from IVF--HGB 7.6--will transfuse 1 unit pRBC, consent obtained--improved to 8.5
Bladder CA s/p TURBT on Aug 05, and Right Nephrostomy on Jul 11--apprec urology--metastatic--apprec onc input for options
DVT proph: SCDs
Code Status: Full Code
spoke with Cheikh twice 08/12, he is the 'point person' to contact--daughter at bedside this AM
will need SNF at d/c--hopeful Saturday
Anticipated Discharge: 24 - 48 hours
Subjective/Interval History
-
Date of Service: August 17, 2023
pt without c/o--waiting for breakfast
Objective Data
-
Labs:
Laboratory Results
08/17/23
07:28
WBC 5.3
Hgb 8.3 L
Hct 26.1 L
Plt Count 226
Sodium 137
Potassium 3.4 L
Chloride 108 H
Carbon Dioxide 28
BUN 16
Creatinine 1.6 H
Glucose 95
Calcium 7.6 L
Vital Signs:
max temp for 24 hours
08/16/23
19:10
Temp 98.5 F
Vital Signs
Temp Pulse Resp BP Pulse Ox
98.5 F 70 19 113/59 94
08/17/23 07:00 08/17/23 07:00 08/17/23 07:00 08/17/23 07:00 08/17/23 07:00
I&O
08/16/23 08/17/23 08/18/23
06:59 06:59 06:59
Intake Total 1088 / 1088 990 / 990
Output Total 600 / 600 450 / 450
Balance 488 / 488 540 / 540
Review of Systems
-
All other systems: Reviewed and negative
Physical Exam
-
General: Well Developed, Well Nourished and No Apparent Distress
HEENT: Normocephalic and Atraumatic
Cardiac: Regular Rhythm and S1/S2; Negative Murmur
GI: Soft, Nontender, Nondistended and Normal Bowel Sounds
Musculoskeletal: No Clubbing, No Cyanosis and No Edema
Neuro: Awake
--- NOTE | 2023-08-17 11:41 | PHA.VAN.FU ---
Vancomycin Assessment / Plan
- Assessment
Renal Function: SCR Increasing (1.2>1.6)
WBC's are: Trending Down (5.8>5.3)
In the past 24 hrs, patient has been: Afebrile
- Assessment - Therapeutic Drug Monitoring
Random Level: 12.72 drawn ~21.5 hrs after 750mg dose given
- Dosing Plan
Dosing by Level: Re-dose today (Vancomycin 750mg IV x 1 dose)
- Monitoring Plan
Random Level: Ordered for 08/18/23 at 06:00
- Follow Up
Pharmacy will continue to follow.
Vancomycin Follow UP
- -
Patient Age: 83
Patient Sex: Female
Vancomycin Day #: 5
Indication: Bacteremia
Requesting Provider: Dr. Guillen
Pertinent Antimicrobial Allergies:
sulfamethoxazole/trimethoprim - swelling of tongue
Height / Weight:
Height 5 ft 4 in
Actual Weight 71.809 kg
Pertinent Past Medical History: CKD
- Vital Signs / Lab Results
Temp Pulse Resp BP Pulse Ox
98.5 F 70 19 113/59 94
08/17/23 07:00 08/17/23 07:00 08/17/23 07:00 08/17/23 07:00 08/17/23 07:00
Lab Results - Hematology
08/15/23 08/17/23
05:18 07:28
WBC 5.8 5.3
Lab Results - Chemistry
08/15/23 08/17/23
05:18 07:28
BUN 10 16
Creatinine 1.2 H 1.6 H
Estimated Creat Clear 35 26
Microbiology Results
08/13/23 11:28 Blood Culture - Preliminary
Blood/Venous No Growth in 4 days- Final report to follow
08/13/23 11:28 Blood Culture - Preliminary
Blood/Venous No Growth in 4 days- Final report to follow
08/12/23 10:55 Blood Culture - Final
Blood/Venous No Growth - Final Report
08/10/23 10:32 Blood Culture - Final
Blood/Venous No Growth - Final Report
08/10/23 10:32 Blood Culture - Final
Blood/Venous No Growth - Final Report
Therapeutic Drug Monitoring
Random Vancomycin 12.7 ug/ml 08/17/23 07:28
[2023-08-17] MEDS: VANCOCIN 150 IV (12:08)
[2023-08-17] MEDS: KCL 40 MEQ PO (12:09)
--- NOTE | 2023-08-17 14:49 | W.PN.ID1 ---
Date of Service
Date of Service: August 17, 2023
Today's Communication
Continue antibiotics. See below�
Assessment / Plan
Fevers : Resolved
Gram positive bacteremia - Strep spp.
- one of two steps of blood cultures gpcs in chains
- repeat blood cultures negative
- panelipse - negative, cxr questionable pneumonia
- not producing sputum
-Transition to cefazolin.
If remains clinically stable, can likely transition to cephalexin in next 24 hours.
Chief Complaint
-: Fever
Subjective / Review of Systems
Review of Systems: No Fever and No Chills
Vital Signs / Physical Exam
Vital Signs
Vital Signs
Temp Pulse Resp BP Pulse Ox
98.5 F 70 19 113/59 94
08/17/23 07:00 08/17/23 07:00 08/17/23 07:00 08/17/23 07:00 08/17/23 07:00
Physical Exam
Constitutional: No Acute Distress, Comfortable and Non-toxic
Pulmonary: Non Labored
Gastrointestinal: Non Distended
Extremities: Negative Erythema
Neurological: Awake and Alert
Psychological: Calm
Objective Data
Lab Data
Lab Results
08/17/23 07:28
08/17/23 07:28
Estimated Creat Clear 26 ml/min 08/17/23 07:28
Lactic Acid Cancelled 08/10/23 14:30
Total Bilirubin 0.5 mg/dl (0.2-1.3) 08/14/23 03:59
AST 32 U/L (14-36) 08/14/23 03:59
ALT 17 U/L (0-35) 08/14/23 03:59
Alkaline Phosphatase 54 U/L (38-126) 08/14/23 03:59
Most recent labs reviewed.
Micro Results:
08/13/23 11:28 Blood Culture - Preliminary
Blood/Venous No Growth in 4 days- Final report to follow
08/13/23 11:28 Blood Culture - Preliminary
Blood/Venous No Growth in 4 days- Final report to follow
08/12/23 10:55 Blood Culture - Final
Blood/Venous No Growth - Final Report
08/10/23 10:32 Blood Culture - Final
Blood/Venous No Growth - Final Report
08/10/23 10:32 Blood Culture - Final
Blood/Venous No Growth - Final Report
08/12/23 10:59 Blood Culture - Preliminary
Blood/Venous Streptococcus species
Gram Stain - Preliminary
08/10/23 12:42 Urine Culture - Final
Urine NO GROWTH
08/10/23 10:39 Urine Culture - Final
Urine NO GROWTH
08/10/23 09:48 Influenza Types A & B (FAVIOLA) - Final
Nasal Swab Negative for Influenza A & B, NAAT
Negative results must be combined with clinical observations
and patient history.
Nucleic Acid Amplification test (NAAT)performed on the
[employer] platform.
[2023-08-17 15:00] VITALS: BP 109/54
[2023-08-17] MEDS: ANCEF 5 IV (18:17)
[2023-08-17 23:27] VITALS: BP 126/64
[2023-08-18] VITALS (7 sets, daily range): BP systolic 78–135; BP diastolic 40–72; PULSE 81; O2SAT 93; BMI 27.0
[2023-08-18] MEDS: ANCEF 5 IV (05:05)
[2023-08-18] MEDS: FLUSH (NSS) 1 FLUSH IV (05:05)
[2023-08-18 07:46] LABS: Hematocrit 27.8 % (37.0-47.0); Hemoglobin 8.9 g/dL (12.0-16.0); Mean Corpuscular Hgb 26.7 pg (27.0-31.0); Mean Corpuscular Volume 83.5 fL (81.0-99.0); Mean Platelet Volume 10.4 fL (7.4-10.4); Platelet Count 260 10^3/uL (130-400); Red Blood Cell Count 3.33 10^6/uL (4.20-5.40); Red Cell Dist. Width 14.8 % (11.5-14.5); White Blood Cell Count 6.6 10^3/uL (4.8-10.8)
[2023-08-18 07:59] LABS: Blood Urea Nitrogen 19 mg/dl (7-17); Carbon Dioxide 27 mmol/L (22-30); Chloride 105 mmol/L (98-107); Estimated Creatinine Clearance 25 ml/min; Glucose 110 mg/dl (70-99); Magnesium 1.8 mg/dl (1.6-2.3); Potassium 3.9 mmol/L (3.5-5.1); Sodium 137 mmol/L (135-145); eGFR 29.76
--- NOTE | 2023-08-18 10:59 | W.PN.HOSP.TC ---
Today's Communication/Plan
-
hopeful d/c to SNF in AM
Assessment / Plan
Assessment / Plan
pt is an 83 year old female
Septic Shock--resolved--suspected urine source with positive UA--cultures all negative except 08/13 blood culture with strep species (called lab, no further workup by them at this point), repeat negative---apprec urology and ID--vanco to ancef and
transition to keflex per ID
CKD Stage IV (unknown baseline)--Monitor creatinine
Anemia of Chronic Disease--drop likely dilutional from IVF--HGB 7.6--will transfuse 1 unit pRBC, consent obtained--improved to 8.5
Bladder CA s/p TURBT on Aug 05, and Right Nephrostomy on Jul 11--apprec urology--metastatic--apprec onc input for options
DVT proph: SCDs
Code Status: Full Code
spoke with Cheikh twice 08/12, he is the 'point person' to contact--daughter at bedside this AM
d/c--hopeful Saturday--therapy has said can't keep balance and NOT safe to be in a chair will need SNF
Anticipated Discharge: Within 24 hours
Subjective/Interval History
-
Date of Service: August 18, 2023
pt asking when she is leaving the hospital
Objective Data
-
Labs:
Laboratory Results
08/18/23
06:24
WBC 6.6
Hgb 8.9 L
Hct 27.8 L
Plt Count 260
Sodium 137
Potassium 3.9
Chloride 105
Carbon Dioxide 27
BUN 19 H
Creatinine 1.7 H
Glucose 110 H
Calcium 8.0 L
Vital Signs:
max temp for 24 hours
08/17/23
23:27
Temp 99.5 F
Vital Signs
Temp Pulse Resp BP Pulse Ox
99.8 F 74 17 123/67 95
08/18/23 07:47 08/18/23 07:47 08/18/23 07:47 08/18/23 07:47 08/18/23 07:47
I&O
08/17/23 08/18/23 08/19/23
06:59 06:59 06:59
Intake Total 990 / 990 950 / 950
Output Total 450 / 450 700 / 700
Balance 540 / 540 250 / 250
Review of Systems
-
All other systems: Reviewed and negative
Physical Exam
-
General: Well Developed, Well Nourished and No Apparent Distress
HEENT: Normocephalic and Atraumatic
Respiratory: Clear to Auscultation; Negative Wheezes or Rhonchi
Cardiac: Regular Rhythm and S1/S2; Negative Murmur
GI: Soft, Nontender, Nondistended and Normal Bowel Sounds
Musculoskeletal: No Clubbing, No Cyanosis and No Edema
Neuro: Awake and Alert
[2023-08-18 11:55] LABS: Glucose - Point of Care 116 mg/dl (70-99)
[2023-08-18] MEDS: KEFLEX 500 MG PO ×2 (13:09→22:58)
--- NOTE | 2023-08-18 15:30 | CM ---
manager lsw reviewed patient's chart and spoke with patient's daughter at bedside and patient's spouse by phone, patient's spouse would like [facility] for skilled placement and is aware of $225 per day cost, manager rn case will need Auth from
insurance.
Glory; To confirm that there is a skilled bed for patient and obtain Auth from insurance.
[2023-08-18] MEDS: TYLENOL 650 MG PO (16:53)
[2023-08-18] MEDS: TYLENOL/FEVERALL 325 MG RECTAL (18:23)
--- NOTE | 2023-08-18 19:31 | PTCARENOTE ---
Pt's 1500 vitals showed oral temp of 100.6, PRN Tylenol administered. Pt repositioned in bed and skin noted to be very warm. SPD called for rectal temp. Pt's rectal temp 104.4 call center specialist physician notified and ordered blood cultures, P.O and rectal
Tylenol. Cold compress and ice packs applied with +effects. Prior to rectal Tylenol administration temperature recheck, rectal temp 102.9. Pt AAOx3 but drowsy, alert to sound, daughter at bedside.
--- NOTE | 2023-08-18 19:45 | PTCARENOTE ---
Pt with manual BP of 78/50, asymptomatic. KAYE VailS. notified. 500ml bolus ordered and administered. Pt manual BP recheck after bolus was 84/40. KAYE Palencia. notified again. STAT Midodrine ordered and administered. 3am BP recheck 111/55. Pt hot to touch
at 0430, rectal temp 101.2, KAYE VailS notified. Tylenol administered.
[2023-08-18] MEDS: NSS 500 IV (20:26)
[2023-08-18] MEDS: PROTONIX 40 MG PO (22:58)
[2023-08-18] MEDS: ProAmatine 10 MG PO (23:19)
[2023-08-18 23:33] LABS: % Basophils 0.5 % (0-2); % Eosinophils 2.6 % (0-6); % Immature Granulocytes 0.5 % (0-0.5); % Lymphocytes 23.5 % (20.5-51.1); % Monocytes 12.4 % (1.7-9.3); % Neutrophils 60.5 % (42.2-75.2); Absolute Eosinophils 0.2 10^3/uL (0-0.7); Absolute Lymphocytes 1.5 10^3/uL (1.2-3.4); Absolute Monocytes 0.8 10^3/uL (0.1-0.6); Hemoglobin 8.5 g/dL (12.0-16.0); Mean Corp Hgb Conc. 32.7 g/dL (33.0-37.0); Mean Corpuscular Hgb 27.2 pg (27.0-31.0); Mean Corpuscular Volume 83.1 fL (81.0-99.0); Mean Platelet Volume 9.8 fL (7.4-10.4); Nucleated Red Blood Cells % 0 %; Platelet Count 219 10^3/uL (130-400); Red Blood Cell Count 3.13 10^6/uL (4.20-5.40); Red Cell Dist. Width 14.9 % (11.5-14.5); White Blood Cell Count 6.6 10^3/uL (4.8-10.8)
[2023-08-18 23:47] LABS: Blood Urea Nitrogen 20 mg/dl (7-17); Calcium 7.3 mg/dl (8.4-10.2); Carbon Dioxide 24 mmol/L (22-30); Chloride 105 mmol/L (98-107); Estimated Creatinine Clearance 23 ml/min; Glucose 115 mg/dl (70-99); Potassium 3.9 mmol/L (3.5-5.1); Sodium 132 mmol/L (135-145); eGFR 27.78
[2023-08-18 23:48] LABS: Lactic Acid 0.9 mmol/L (0.7-2.0)
[2023-08-19 02:49] VITALS: BP 111/55
[2023-08-19 03:16] LABS: COVID-19 Antigen Negative (Negative)
[2023-08-19] MEDS: KEFLEX 500 MG PO (04:26)
[2023-08-19] MEDS: TYLENOL 650 MG PO ×2 (04:38→23:54)
[2023-08-19 06:00] VITALS: BMI 26.3
[2023-08-19 06:56] LABS: Hematocrit 27.3 % (37.0-47.0); Hemoglobin 8.6 g/dL (12.0-16.0); Mean Corp Hgb Conc. 31.5 g/dL (33.0-37.0); Mean Corpuscular Volume 85.8 fL (81.0-99.0); Mean Platelet Volume 10.3 fL (7.4-10.4); Platelet Count 246 10^3/uL (130-400); Red Blood Cell Count 3.18 10^6/uL (4.20-5.40); Red Cell Dist. Width 14.7 % (11.5-14.5); White Blood Cell Count 7.2 10^3/uL (4.8-10.8)
[2023-08-19 07:08] LABS: Blood Urea Nitrogen 23 mg/dl (7-17); Calcium 7.6 mg/dl (8.4-10.2); Carbon Dioxide 26 mmol/L (22-30); Chloride 102 mmol/L (98-107); Estimated Creatinine Clearance 19 ml/min; Glucose 99 mg/dl (70-99); Magnesium 1.8 mg/dl (1.6-2.3); Potassium 3.9 mmol/L (3.5-5.1); Sodium 134 mmol/L (135-145); eGFR 24.48
[2023-08-19 07:48] VITALS: BP 99/47
[2023-08-19] MEDS: OSCAL CAL 500 500 MG PO (08:20)
[2023-08-19] MEDS: DETROL LA 2 MG PO (08:20)
[2023-08-19] MEDS: THERAGRAN 1 TABLET PO (08:20)
[2023-08-19] MEDS: PROTONIX 40 MG PO ×2 (08:21→21:23)
--- NOTE | 2023-08-19 12:14 | CM ---
Addendum entered by RINA Harris 08/19/23 13:40:
Placed a call to [facility] [phone] and spoke with a outside sales representative named, Brenna, who requested that all clinicals be faxed to, .
Faxed all clinical. Will await determination.
Original Note:
Received text from attending that patient is medically cleared for discharge. Met with patient and her daughter who was at bedside. Patient is still selecting [facility]. She is still agreeable to 225 co-pay.
Placed a call to Anali in admissions at [facility] who confirmed the ability to accept patient/pending auth from insurance but stated that she won't have a bed until tomorrow.
Anali stated that she will email financial application for patient's family to complete.
Plan: Case mangement will continue to follow and assist with discharge planning. [facility].
--- NOTE | 2023-08-19 12:39 | W.PN.ID1 ---
Date of Service
Date of Service: August 19, 2023
Today's Communication
broad workup for relapse of fevers/hypotension- most notable renal/bladder US given rapidly growing tumor
restart vancomycin
Assessment / Plan
Fevers : Relapsed
Gram positive bacteremia - Strep spp.
RHIANNA - progressive
- relapse of fevers 08/18 - persistent, with hypotension
- with progressive RHIANNA and rapidly growing tumor will reassess for obstruction with renal US
- UA and culture
- repeat blood cultures x2 already in progress
- influenza neg today, covid ag neg today
- s pneumo urine ag
- repeat CXR - unfortunately patient unable to stand, portable
- echo
- 08/08 vasc US negative as was VQ scan at that time
- restart vancomycin
- follow clinically
Chief Complaint
-: Fever
Subjective / Review of Systems
relapse of fevers to 102.8
relapse of hypotension
repeat blood cultures are in progress
08/12 blood culture was not IDd beyond strep
cr increasing now 2.0 from baseline of 1.2
family at bedside report fevers were notable, occasional nonproductive cough, questionable coughing while eating
no back pain
abdomen soft
reports shes still making urine from the bladder 'actually its more'
Vital Signs / Physical Exam
Vital Signs
Vital Signs
Temp Pulse Resp BP Pulse Ox
98.8 F 67 17 99/47 97
08/19/23 07:48 08/19/23 07:48 08/19/23 07:48 08/19/23 07:48 08/19/23 08:15
Physical Exam
Constitutional: No Acute Distress and Non-toxic
Cardiovascular: Regular Rate and S1/S2; Negative Murmur or Rub
Pulmonary: Clear and Symmetric; Negative Wheezes or Rales
Gastrointestinal: Soft, Non Tender, Non Distended and Normal Bowel Sounds
Genito-Urinary: Negative Suprapubic Tenderness or CVA Tenderness
Skin: Warm and Dry; Negative Rash or Jaundice
Lines: Other (suprapubic cath - clear urine)
Physical Exam:
leaning to the L in the bed
Objective Data
Lab Data
Lab Results
08/19/23 06:14
08/19/23 06:14
Estimated Creat Clear 19 ml/min 08/19/23 06:14
Lactic Acid 0.9 mmol/L (0.7-2.0) 08/18/23 23:23
Total Bilirubin 0.5 mg/dl (0.2-1.3) 08/14/23 03:59
AST 32 U/L (14-36) 08/14/23 03:59
ALT 17 U/L (0-35) 08/14/23 03:59
Alkaline Phosphatase 54 U/L (38-126) 08/14/23 03:59
Most recent labs reviewed.
Micro Results:
08/12/23 10:59 Blood Culture - Final
Blood/Venous Streptococcus species
Gram Stain - Final
08/19/23 Unknown Influenza Types A & B (FAVIOLA) - Final
Nasal Swab Negative for Influenza A & B, NAAT
Negative results must be combined with clinical observations
and patient history.
Nucleic Acid Amplification test (NAAT)performed on the
[employer] platform.
08/18/23 18:18 Blood Culture - Pending
Blood/Venous
08/18/23 17:57 Blood Culture - Pending
Blood/Venous
08/13/23 11:28 Blood Culture - Final
Blood/Venous No Growth - Final Report
08/13/23 11:28 Blood Culture - Final
Blood/Venous No Growth - Final Report
08/12/23 10:55 Blood Culture - Final
Blood/Venous No Growth - Final Report
08/10/23 10:32 Blood Culture - Final
Blood/Venous No Growth - Final Report
08/10/23 10:32 Blood Culture - Final
Blood/Venous No Growth - Final Report
08/10/23 12:42 Urine Culture - Final
Urine NO GROWTH
08/10/23 10:39 Urine Culture - Final
Urine NO GROWTH
08/10/23 09:48 Influenza Types A & B (FAVIOLA) - Final
Nasal Swab Negative for Influenza A & B, NAAT
Negative results must be combined with clinical observations
and patient history.
Nucleic Acid Amplification test (NAAT)performed on the
[employer] platform.
--- NOTE | 2023-08-19 12:55 | PHA.VAN.IN ---
Assessment
- Assessment
Renal Function: Unknown baseline
Plan
- Plan
Initial / Loading Dose: Vanc 1500mg - administration pending
Maintenance Regimen: dosing by level
Monitoring: random 08/20 0600
Pharmacokinetics Vancomycin I
- -
Patient Age: 83
Patient Sex: Female
Vancomycin Day #: 1 (previously on vanco 08/13-08/17)
Indication: Bacteremia
Requesting Provider: Dr. Guillen
Pertinent Antimicrobial Allergies:
sulfamethoxazole/trimethoprim - swelling of tongue
Height / Weight:
Height 5 ft 4 in
Actual Weight 69.4 kg
Pertinent Past Medical History: CKD
- Vital Signs / Lab Results
Temp Pulse Resp BP Pulse Ox
98.8 F 67 17 99/47 97
08/19/23 07:48 08/19/23 07:48 08/19/23 07:48 08/19/23 07:48 08/19/23 08:15
Lab Results - Hematology
08/17/23 08/18/23 08/18/23
07:28 06:24 23:23
WBC 5.3 6.6 6.6
08/19/23
06:14
WBC 7.2
Lab Results - Chemistry
08/17/23 08/18/23 08/18/23
07:28 06:24 23:23
BUN 16 19 H 20 H
Creatinine 1.6 H 1.7 H 1.8 H
Estimated Creat Clear 26 25 23
08/19/23
06:14
BUN 23 H
Creatinine 2.0 H
Estimated Creat Clear 19
08/18/23
23:23
Lactic Acid 0.9
Microbiology Results
08/12/23 10:59 Blood Culture - Final
Blood/Venous Streptococcus species
Gram Stain - Final
08/19/23 Unknown Influenza Types A & B (FAVIOLA) - Final
Nasal Swab Negative for Influenza A & B, NAAT
Negative results must be combined with clinical observations
and patient history.
Nucleic Acid Amplification test (NAAT)performed on the
[employer] platform.
08/13/23 11:28 Blood Culture - Final
Blood/Venous No Growth - Final Report
08/13/23 11:28 Blood Culture - Final
Blood/Venous No Growth - Final Report
08/12/23 10:55 Blood Culture - Final
Blood/Venous No Growth - Final Report
[2023-08-19 13:23] VITALS: BP 91/50
[2023-08-19] MEDS: VANCOCIN 300 MG IV (13:23)
[2023-08-19] MEDS: VANCOCIN 300 ML IV (13:23)
[2023-08-19] MEDS: ProAmatine 5 MG PO ×2 (13:23→17:25)
--- NOTE | 2023-08-19 15:05 | W.PN.HOSP.TC ---
Today's Communication/Plan
-
discharge planning
Assessment / Plan
Assessment / Plan
Septic Shock - resolved
-resolved-suspected urine source with positive UA
-cultures all negative except 2/13 blood culture with strep species (called lab, no further workup by them at this point), repeat negative
-appreciate urology and ID
-vanco to Ancef and transition to Keflex per ID
CKD Stage IV (unknown baseline)
-Monitor creatinine
Anemia of Chronic Disease
-drop likely dilutional from IVF
-s/p 1U PRBC
Bladder CA s/p TURBT on Aug 05, and Right Nephrostomy on Jul 11
-appreciate urology
-metastatic disease
-patient will be evaluated post rehab by oncology for potential candidacy of chemotherapy
DVT proph: SCDs
Code Status: Full Code
Anticipated Discharge: Within 24 hours
Subjective/Interval History
-
Date of Service: August 19, 2023
feeling better subjectively , denies abd pain/nausea/vomiting
no other issues
Objective Data
-
Labs:
Laboratory Results
08/19/23
06:14
WBC 7.2
Hgb 8.6 L
Hct 27.3 L
Plt Count 246
Sodium 134 L
Potassium 3.9
Chloride 102
Carbon Dioxide 26
BUN 23 H
Creatinine 2.0 H
Glucose 99
Calcium 7.6 L
Vital Signs:
Vital Signs
Temp Pulse Resp BP Pulse Ox
98.5 F 66 16 91/50 95
08/19/23 13:23 08/19/23 13:23 08/19/23 13:23 08/19/23 13:23 08/19/23 13:23
I&O
08/18/23 08/19/23 08/20/23
06:59 06:59 06:59
Intake Total 950 / 950 1390 / 1390
Output Total 700 / 700
Balance 250 / 250 1390 / 1390
Review of Systems
-
Respiratory: Reports No Symptoms
Cardiac: Reports No Symptoms
Abdomen/GI: Reports No Symptoms
Physical Exam
-
General: No Apparent Distress
HEENT: Negative Oxygen
GI: Soft, Nontender and Nondistended
Musculoskeletal: No Edema
Neuro: Awake, Alert, Oriented and No Motor Deficits
[2023-08-19 16:22] VITALS: BP 98/56
[2023-08-19 19:30] VITALS: BP 95/43
[2023-08-19 21:35] LABS: Urine Albumin 1+ (Neg - Trace); Urine Bilirubin Negative (Negative); Urine Character Clear (Clear); Urine Color Yellow; Urine Glucose Negative (Negative); Urine Ketone Negative (Negative); Urine Leukocyte 1+ (Negative); Urine Nitrite Negative (Negative); Urine Occult Blood 1+ (Negative); Urine Urobilinogen Negative (Neg - 1+)
[2023-08-19 21:43] LABS: Urine Squamous Cell 0-2 /LPF (Few); Urine Uric Acid Crystals Present
[2023-08-19 21:45] LABS: Urine White Cell 30-40 /HPF (0-5)
[2023-08-19 23:45] VITALS: BP 136/65
[2023-08-20 06:00] VITALS: BMI 26.9
[2023-08-20 06:48] LABS: Vancomycin Random 17.6 ug/ml
[2023-08-20 06:49] LABS: % Basophils 0.6 % (0-2); % Eosinophils 5.9 % (0-6); % Immature Granulocytes 0.2 % (0-0.5); % Lymphocytes 26.2 % (20.5-51.1); % Monocytes 14.5 % (1.7-9.3); % Neutrophils 52.6 % (42.2-75.2); Absolute Eosinophils 0.4 10^3/uL (0-0.7); Absolute Lymphocytes 1.6 10^3/uL (1.2-3.4); Absolute Monocytes 0.9 10^3/uL (0.1-0.6); Absolute Neutrophils 3.3 10^3/uL (1.4-6.5); Hematocrit 25.1 % (37.0-47.0); Hemoglobin 8.2 g/dL (12.0-16.0); Mean Corp Hgb Conc. 32.7 g/dL (33.0-37.0); Mean Corpuscular Hgb 27.5 pg (27.0-31.0); Mean Corpuscular Volume 84.2 fL (81.0-99.0); Mean Platelet Volume 10.3 fL (7.4-10.4); Nucleated Red Blood Cells % 0 %; Platelet Count 222 10^3/uL (130-400); Red Blood Cell Count 2.98 10^6/uL (4.20-5.40); Red Cell Dist. Width 14.6 % (11.5-14.5); White Blood Cell Count 6.3 10^3/uL (4.8-10.8)
[2023-08-20 07:40] VITALS: BP 96/51
--- NOTE | 2023-08-20 09:43 | PHA.VAN.FU ---
Addendum entered and electronically signed by Marce Slaughter [facility] 08/20/23 16:20:
BUN & SCR ordered per protocol
Original Note:
Vancomycin Assessment / Plan
- Assessment
Renal Function: SCR Increasing
WBC's are: WNL
- Assessment - Therapeutic Drug Monitoring
Random Level: 17.6 - drawn ~16.5H after 1500mg initial dose
- Dosing Plan
Dosing by Level: Re-dose today (Vanc 750mg)
Patient previously maintained levels on 750mg once daily dosing earlier this admission
SCR currently elevated
Will trial dose of 750mg today but may require reduced dosing or prolonged interval if SCR remains elevated
- Monitoring Plan
Random Level: 08/21 0600
- Follow Up
Pharmacy will continue to follow.
Vancomycin Follow UP
- -
Patient Age: 83
Patient Sex: Female
Vancomycin Day #: 2 (previously on vanco 08/13-08/17)
Indication: Bacteremia
Requesting Provider: Dr. Guillen
Pertinent Antimicrobial Allergies:
sulfamethoxazole/trimethoprim - swelling of tongue
Height / Weight:
Height 5 ft 4 in
Actual Weight 71.123 kg
Pertinent Past Medical History: CKD
- Vital Signs / Lab Results
Temp Pulse Resp BP Pulse Ox
97.6 F 80 16 96/51 96
08/20/23 07:40 08/20/23 07:40 08/20/23 07:40 08/20/23 07:40 08/20/23 07:40
Lab Results - Hematology
08/18/23 08/18/23 08/19/23
06:24 23:23 06:14
WBC 6.6 6.6 7.2
08/20/23
06:04
WBC 6.3
Lab Results - Chemistry
08/18/23 08/18/23 08/19/23
06:24 23:23 06:14
BUN 19 H 20 H 23 H
Creatinine 1.7 H 1.8 H 2.0 H
Estimated Creat Clear 25 23 19
08/18/23
23:23
Lactic Acid 0.9
Lab Results - Urine
08/19/23
21:26
Urine Nitrite (Reflex) Negative
Leukocyte Esterase Rfl 1+ A
Ur Squamous Epith Cells 0-2
Microbiology Results
08/19/23 21:26 Streptococcus pneumoniae Antigen (M - Final
Urine Negative for Streptococcus pneumoniae antigen.
A negative result does not exclude infection with
Streptococcus pneumoniae. Clinical correlation is
recommended.
08/18/23 18:18 Blood Culture - Preliminary
Blood/Venous No Growth in 24 hours- Final report to follow
08/18/23 17:57 Blood Culture - Preliminary
Blood/Venous No Growth in 24 hours- Final report to follow
08/12/23 10:59 Blood Culture - Final
Blood/Venous Streptococcus species
Gram Stain - Final
08/19/23 Unknown Influenza Types A & B (FAVIOLA) - Final
Nasal Swab Negative for Influenza A & B, NAAT
Negative results must be combined with clinical observations
and patient history.
Nucleic Acid Amplification test (NAAT)performed on the
[employer] platform.
08/13/23 11:28 Blood Culture - Final
Blood/Venous No Growth - Final Report
08/13/23 11:28 Blood Culture - Final
Blood/Venous No Growth - Final Report
Therapeutic Drug Monitoring
Random Vancomycin 17.6 ug/ml 08/20/23 06:04
[2023-08-20] MEDS: THERAGRAN 1 TABLET PO (09:58)
[2023-08-20] MEDS: PROTONIX 40 MG PO ×2 (09:58→20:59)
[2023-08-20] MEDS: DETROL LA 2 MG PO (09:58)
[2023-08-20] MEDS: ProAmatine 5 MG PO (09:59)
[2023-08-20] MEDS: OSCAL CAL 500 500 MG PO (09:59)
[2023-08-20] MEDS: VANCOCIN 150 IV (12:01)
[2023-08-20] MEDS: ProAmatine 10 MG PO (12:09)
--- NOTE | 2023-08-20 12:32 | CM ---
Placed a call to [employer] to determine auth status. Spoke with a solar manufacturer's representative named, Zuly, who confirmed receipt of all clinical and stated that it has just been assigned to a reviewer for hopeful authorization. Will f/u again if no return
call has been received with determination.
Plan: Case management will continue to follow and assist with discharge planning. Hopeful transfer to [facility] pending auth.
--- NOTE | 2023-08-20 13:55 | W.PN.HOSP.TC ---
Today's Communication/Plan
-
continue discharge planning for rehab
Assessment / Plan
Assessment / Plan
Septic Shock - resolved
-resolved-suspected urine source with positive UA
-cultures all negative except 2/13 blood culture with strep species (called lab, no further workup by them at this point), repeat negative
-appreciate urology and ID
-vanco to Ancef and transition to Keflex per ID
CKD Stage IV (unknown baseline)
-Monitor creatinine
Anemia of Chronic Disease
-drop likely dilutional from IVF
-s/p 1U PRBC
Bladder CA s/p TURBT on Aug 05, and Right Nephrostomy on Jul 11
-appreciate urology
-metastatic disease
-patient will be evaluated post rehab by oncology for potential candidacy of chemotherapy
DVT proph: SCDs
Code Status: Full Code
Anticipated Discharge: Today
Subjective/Interval History
-
Date of Service: August 20, 2023
no complains overnight
Objective Data
-
Labs:
Laboratory Results
08/20/23
06:04
WBC 6.3
Hgb 8.2 L
Hct 25.1 L
Plt Count 222
Vital Signs:
Vital Signs
Temp Pulse Resp BP Pulse Ox
97.6 F 67 16 91/51 96
08/20/23 07:40 08/20/23 12:09 08/20/23 07:40 08/20/23 12:09 08/20/23 07:40
I&O
08/19/23 08/20/23 08/21/23
06:59 06:59 06:59
Intake Total 1390 / 1390 1200 / 1200
Output Total 475 / 475
Balance 1390 / 1390 725 / 725
Review of Systems
-
Respiratory: Reports No Symptoms
Cardiac: Reports No Symptoms
Abdomen/GI: Reports No Symptoms
Physical Exam
-
General: No Apparent Distress
HEENT: Negative Oxygen
GI: Soft, Nontender and Nondistended
Musculoskeletal: No Edema
Neuro: Awake, Alert, Oriented and No Motor Deficits
[2023-08-20 15:10] VITALS: BP 101/65
[2023-08-20 15:35] VITALS: BP 101/65; BP 96/54; BP 98/54; PULSE 65; PULSE 67; O2SAT 93
--- NOTE | 2023-08-20 16:01 | CM ---
Received return call from Linda at [facility] who stated that auth is pending Dr. carias to peer review. Will update attending.
Attending will need to call [phone] option 5.
Plan: Case management will continue to follow and assist with discharge planning. Will update attending so that peer to peer can be done.
--- NOTE | 2023-08-20 16:59 | W.PN.ID1 ---
Date of Service
Date of Service: August 20, 2023
Today's Communication
- will replace toth given progressive RHIANNA and persistent obstruction on US
- note persistent pyuria
- start doxycycline, stop vancomycin - plan for another 7 days
- follow up with urology
Assessment / Plan
Fevers : resolving
Gram positive bacteremia - Strep spp.
RHIANNA - progressive
- will replace toth given progressive RHIANNA and persistent obstruction on US
- note persistent pyuria
- start doxycycline, stop vancomycin - plan for another 7 days
- follow up with urology
Chief Complaint
-: Fever
Subjective / Review of Systems
no further fevers
bp improving
without leukocytosis
cultures remain negative
echo - no lesions
US markedly improved though persistent hydronephrosis
Vital Signs / Physical Exam
Vital Signs
Vital Signs
Temp Pulse Resp BP Pulse Ox
98.8 F 67 17 101/65 96
08/20/23 15:10 08/20/23 15:10 08/20/23 15:10 08/20/23 15:10 08/20/23 15:10
Physical Exam
Constitutional: No Acute Distress
Cardiovascular: Regular Rate and S1/S2; Negative Murmur or Rub
Pulmonary: Clear and Symmetric; Negative Wheezes or Rales
Gastrointestinal: Soft, Non Tender, Non Distended and Normal Bowel Sounds
Skin: Warm and Dry; Negative Rash or Jaundice
Objective Data
Lab Data
Lab Results
08/20/23 06:04
08/19/23 06:14
Estimated Creat Clear 19 ml/min 08/19/23 06:14
Lactic Acid 0.9 mmol/L (0.7-2.0) 08/18/23 23:23
Total Bilirubin 0.5 mg/dl (0.2-1.3) 08/14/23 03:59
AST 32 U/L (14-36) 08/14/23 03:59
ALT 17 U/L (0-35) 08/14/23 03:59
Alkaline Phosphatase 54 U/L (38-126) 08/14/23 03:59
Most recent labs reviewed.
Micro Results:
08/19/23 21:26 Streptococcus pneumoniae Antigen (M - Final
Urine Negative for Streptococcus pneumoniae antigen.
A negative result does not exclude infection with
Streptococcus pneumoniae. Clinical correlation is
recommended.
08/19/23 21:26 Urine Culture - Pending
Urine
08/18/23 18:18 Blood Culture - Preliminary
Blood/Venous No Growth in 24 hours- Final report to follow
08/18/23 17:57 Blood Culture - Preliminary
Blood/Venous No Growth in 24 hours- Final report to follow
08/12/23 10:59 Blood Culture - Final
Blood/Venous Streptococcus species
Gram Stain - Final
08/19/23 Unknown Influenza Types A & B (FAVIOLA) - Final
Nasal Swab Negative for Influenza A & B, NAAT
Negative results must be combined with clinical observations
and patient history.
Nucleic Acid Amplification test (NAAT)performed on the
[employer] platform.
08/13/23 11:28 Blood Culture - Final
Blood/Venous No Growth - Final Report
08/13/23 11:28 Blood Culture - Final
Blood/Venous No Growth - Final Report
08/12/23 10:55 Blood Culture - Final
Blood/Venous No Growth - Final Report
08/10/23 10:32 Blood Culture - Final
Blood/Venous No Growth - Final Report
08/10/23 10:32 Blood Culture - Final
Blood/Venous No Growth - Final Report
08/10/23 12:42 Urine Culture - Final
Urine NO GROWTH
08/10/23 10:39 Urine Culture - Final
Urine NO GROWTH
08/10/23 09:48 Influenza Types A & B (FAVIOLA) - Final
Nasal Swab Negative for Influenza A & B, NAAT
Negative results must be combined with clinical observations
and patient history.
Nucleic Acid Amplification test (NAAT)performed on the
[employer] platform.
[2023-08-20] MEDS: ProAmatine PO (17:38)
--- NOTE | 2023-08-20 19:01 | W.PN.UPDATE ---
Update Note
Progress Note Update
Heme/Onc not consulted on this patient but she is my outpatient. Pt's family called the office today to discuss prognosis, which is poor, and to ask about hospice. Not a candidate for treatment due to loss of PS and repeated infection.
and daughter requesting hospice. I agree that hospice would be appropriate. If pt does not want hospice, please consult us so we can discuss with her directly. Thank you.
[2023-08-20] MEDS: VIBRAMYCIN 100 MG PO (20:59)
[2023-08-20 23:53] VITALS: BP 99/52
[2023-08-21 00:39] VITALS: BP 114/60
[2023-08-21 03:10] VITALS: BP 119/50
--- NOTE | 2023-08-21 05:41 | DOWNTIME ---
There was a [employer] Downtime on 08/21/2023 from 0111 to 08/21/2023 at 0405. Downtime documentation of patient's care, including medication administrations, has been reconciled in the electronic record per guidelines. Refer to the
patient's paper chart under the miscellaneous tab to see printed paper medication records and downtime forms.
[2023-08-21 06:00] VITALS: BMI 26.7
[2023-08-21 06:56] LABS: Blood Urea Nitrogen 27 mg/dl (7-17); Estimated Creatinine Clearance 21 ml/min
[2023-08-21 07:00] VITALS: BP 94/48
--- NOTE | 2023-08-21 07:40 | W.PN.ONC2 ---
Today's Communication / Plan
-
D/C planning.
She is eligible for anti-cancer treatment if her PS improves post septic shock. Recommend SNF. They agree.
Impression
Impression
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
Septic shock - resolved
Gm + bacteremia, suspect UTI source
CKD Stage IV
Plan
Plan
Long discussion with patient and daughter Krista regarding goals of care.
No clear evidence of metastatic disease and she has not received ANY treatment yet for her bladder ca.
She remains weak and cannot walk 2* to severe deconditioning. She needs posr hospitalization SNF for some rehab.
Following that, restaging (although imaging done in hospital still shows no evidence for metastatic disease) and then either chemoXRT or systemic treatment alone.
Discussed with Nurse media analytics manager and will review with CM.
Subjective/Objective
Chief Complaint
Oncology F/U
Subjective
Patient weak but wants to do rehab or SNF to see if she can get stronger enough to get chemoXRT for locally advanced bladder ca. Denies pain or dyspnea.
Vital Signs:
Vital Signs
Temp Pulse Resp BP Pulse Ox
97.9 F 65 18 119/50 96
08/21/23 03:10 08/21/23 03:10 08/21/23 03:10 08/21/23 03:10 08/21/23 03:10
Lab Results:
Laboratory Data
WBC 6.3 10^3/uL (4.8-10.8) 08/20/23 06:04
Hgb 8.2 g/dL (12.0-16.0) L 08/20/23 06:04
Plt Count 222 10^3/uL (130-400) 08/20/23 06:04
eGFR 24.48 08/19/23 06:14
Physical Exam
AAOx3. NAD
HEENT: No Jaundice
Cardiology: S1 and S2
Pulmonary: Clear
GI: Soft
Extremities: No C/C/E
[2023-08-21] MEDS: THERAGRAN 1 TABLET PO (08:16)
[2023-08-21] MEDS: ProAmatine 10 MG PO ×2 (08:16→11:59)
[2023-08-21] MEDS: PROTONIX 40 MG PO (08:16)
[2023-08-21] MEDS: VIBRAMYCIN 100 MG PO (08:16)
[2023-08-21] MEDS: OSCAL CAL 500 500 MG PO (08:17)
[2023-08-21] MEDS: DETROL LA 2 MG PO (08:17)
--- NOTE | 2023-08-21 09:11 | CM ---
Addendum entered by RINA Harris 08/21/23 11:56:
Imm reviewed and on chart.
Addendum entered by RINA Harris 08/21/23 10:50:
Spoke with Anali in admissions at [facility] who stated that the number for report is, and fax [phone]. TT attending to make aware that auth is approved and bed is available.
Addendum entered by RINA Harris 08/21/23 10:38:
Received return call from Dr. Parrish who confirmed that [facility] approved the SNF stay. Auth# [id number] [facility] 08/22/23 fax all paperwork to [phone]. Placed a call to Anali in admissions at [facility] to update however she did not answer. Left a
message requesting return call.
Addendum entered by RINA Harris 08/21/23 09:32:
Spoke with Lynne Lazo through TT who stated that hospice was broached with the family, however they became upset and expressed no interest, therefore the plan remains hopeful for SNF and then CA tx when she can tolerate.
Original Note:
Spoke with Dr. Parrish this morning through TT and by phone. Let her know of appeal and request was made for her to call [facility] to appeal their determination. Discussed the case. She stated that she would call and then get right back to .
Will await return call.
Plan: Case management will continue to follow and assist with discharge planning. Hopeful transfer to SNF.
--- NOTE | 2023-08-21 12:39 | W.PN.ID1 ---
Date of Service
Date of Service: August 21, 2023
Today's Communication
- continue doxycycline - plan for another 7 days
Assessment / Plan
Fevers : resolved
Gram positive bacteremia - Strep spp.
RHIANNA - progressive
- will replace toth given progressive RHIANNA and persistent obstruction on US
- note persistent pyuria
- continue doxycycline - plan for another 7 days
- would continue toth for now, alternative of TID straight caths discussed and she is not willing to do that
- follow up with urology, oncology
Chief Complaint
-: Fever
Subjective / Review of Systems
no further fevers
bp stable
cr improved with toth
reassessed with oncology - for dc
cultures no growth
Vital Signs / Physical Exam
Vital Signs
Vital Signs
Temp Pulse Resp BP Pulse Ox
97.9 F 63 18 94/48 94
08/21/23 07:00 08/21/23 07:00 08/21/23 07:00 08/21/23 07:00 08/21/23 08:15
Physical Exam
Constitutional: No Acute Distress
Cardiovascular: Regular Rate and S1/S2; Negative Murmur or Rub
Pulmonary: Clear and Symmetric; Negative Wheezes or Rales
Gastrointestinal: Soft, Non Tender, Non Distended and Normal Bowel Sounds
Skin: Warm and Dry; Negative Rash or Jaundice
Objective Data
Lab Data
Lab Results
08/20/23 06:04
08/21/23 05:58
Estimated Creat Clear 21 ml/min 08/21/23 05:58
Lactic Acid 0.9 mmol/L (0.7-2.0) 08/18/23 23:23
Total Bilirubin 0.5 mg/dl (0.2-1.3) 08/14/23 03:59
AST 32 U/L (14-36) 08/14/23 03:59
ALT 17 U/L (0-35) 08/14/23 03:59
Alkaline Phosphatase 54 U/L (38-126) 08/14/23 03:59
Most recent labs reviewed.
Micro Results:
08/19/23 21:26 Urine Culture - Final
Urine NO GROWTH
08/18/23 18:18 Blood Culture - Preliminary
Blood/Venous No Growth in 48 hours- Final report to follow
08/18/23 17:57 Blood Culture - Preliminary
Blood/Venous No Growth in 48 hours- Final report to follow
08/19/23 21:26 Streptococcus pneumoniae Antigen (M - Final
Urine Negative for Streptococcus pneumoniae antigen.
A negative result does not exclude infection with
Streptococcus pneumoniae. Clinical correlation is
recommended.
08/12/23 10:59 Blood Culture - Final
Blood/Venous Streptococcus species
Gram Stain - Final
08/19/23 Unknown Influenza Types A & B (FAVIOLA) - Final
Nasal Swab Negative for Influenza A & B, NAAT
Negative results must be combined with clinical observations
and patient history.
Nucleic Acid Amplification test (NAAT)performed on the
[employer] platform.
08/13/23 11:28 Blood Culture - Final
Blood/Venous No Growth - Final Report
08/13/23 11:28 Blood Culture - Final
Blood/Venous No Growth - Final Report
08/12/23 10:55 Blood Culture - Final
Blood/Venous No Growth - Final Report
08/10/23 10:32 Blood Culture - Final
Blood/Venous No Growth - Final Report
08/10/23 10:32 Blood Culture - Final
Blood/Venous No Growth - Final Report
08/10/23 12:42 Urine Culture - Final
Urine NO GROWTH
08/10/23 10:39 Urine Culture - Final
Urine NO GROWTH
08/10/23 09:48 Influenza Types A & B (FAVIOLA) - Final
Nasal Swab Negative for Influenza A & B, NAAT
Negative results must be combined with clinical observations
and patient history.
Nucleic Acid Amplification test (NAAT)performed on the
[employer] platform.
--- NOTE | 2023-08-21 14:52 | W.PN.HOSP.TC ---
Today's Communication/Plan
-
d/c snf rehab
Assessment / Plan
Assessment / Plan
Septic Shock - resolved
-resolved-suspected urine source with positive UA
-cultures all negative except 2/ blood culture with strep species (called lab, no further workup by them at this point), repeat negative
-appreciate urology and ID
-vanco to Ancef and transition to Keflex per ID
CKD Stage IV (unknown baseline)
-Monitor creatinine
Anemia of Chronic Disease
-drop likely dilutional from IVF
-s/p 1U PRBC
Bladder CA s/p TURBT on Aug 05
Right Nephrostomy on Jul 11
-appreciate urology
-metastatic disease
-Gracia catheter in place, f/u in urology office.
-patient will be evaluated post rehab by oncology for potential candidacy of chemotherapy
DVT proph: SCDs
Code Status: Full Code
08/21 Care plan discussed with sister.
More than 30 minutes spent in discharge including
Final examination of the patient
Summarizing hospital stay
Instructions for continuing care to all relevant caregivers
Preparation of discharge records, prescriptions, and referral forms
Total time spent (in minutes): 38 mins
Anticipated Discharge: Today
Subjective/Interval History
-
Date of Service: August 21, 2023
no complains ovenright
Objective Data
-
Labs:
Laboratory Results
08/21/23
05:58
BUN 27 H
Creatinine 1.8 H
Vital Signs:
Vital Signs
Temp Pulse Resp BP Pulse Ox
97.9 F 63 18 94/48 94
08/21/23 07:00 08/21/23 07:00 08/21/23 07:00 08/21/23 07:00 08/21/23 08:15
I&O
08/20/23 08/21/23 08/22/23
06:59 06:59 06:59
Intake Total 1200 / 1200 1260 / 1260
Output Total 475 / 475 950 / 950
Balance 725 / 725 310 / 310
Review of Systems
-
Respiratory: Reports No Symptoms
Cardiac: Reports No Symptoms
Abdomen/GI: Reports No Symptoms
Physical Exam
-
General: No Apparent Distress
HEENT: Negative Oxygen
GI: Soft, Nontender and Nondistended
Musculoskeletal: No Edema
Neuro: Awake, Alert, Oriented and No Motor Deficits
--- NOTE | 2023-08-22 07:38 | W.DCSUMMARY ---
Discharge Summary
Discharge Data
Date of Admission: 08/10/23
Date of Discharge: 08/21/23
-
Pending Results: No
Hospital Course
Discharging Physician : Dr Kale Keyes
Disposition : Home
Primary care physician : Dr Karen Nation
Principal Discharge diagnosis :
Septic shock
Streptococcus species bacteremia
Chronic Discharge diagnosis :
Metastatic bladder cancer s/p transurethral resection of bladder tumor
Status post right nephrostomy tube placement in Jul 24
Anemia of chronic disease
Chronic kidney disease stage IV
Hospital Course :
Patient is 83-year-old female with mentioned past medical history came to ER with new onset of generalized weakness and fever episode. Patient was discharged from ER day before this admission after being diagnosed for pleurisy/pneumonia and was
prescribed Augmentin.
Septic shock, Streptococcus species bacteremia, malignant bladder cancer-patient with history of metastatic bladder cancer and right ureteral obstruction with recent resection of bladder tumor on August 06 and right percutaneous nephrostomy tube
placement. Urine analysis through nephrostomy tube showing pyuria and bacteriuria. Urine culture and blood cultures were collected. Patient required small dose of Levophed vasopressor support. Patient was started on Invanz and infectious disease
and urology were involved in care. Urology recommended for patient to be evaluated by medical oncology for possible treatment options. Patient blood culture later grew gram-positive bacteria and identified as Streptococcus species. ID changed
antibiotic to vancomycin later to cephalosporin. After improvement of sepsis/septic shock patient was changed to doxycycline 7-day course at discharge. Patient have indwelling Gracia catheter and did not want to pursue 3 times a day straight
catheterization and was left in at discharge. Medical oncology recommended patient to go through SNF rehab for improvement of functional status. Also planned to have follow-up with repeat CT abdomen pelvis for staging purposes on outpatient basis
and possible consideration of chemotherapy.
Important imaging findings :
None
Procedure findings :
None
Discharge Plan
-
Patient Disposition: Intermediate/SNF
Discharge Diagnosis/Procedures: Septic shock resolved suspected urinary source, chronic kidney disease stage IV, anemia of chronic disease, metastatic bladder cancer with right nephrostomy tube status post TURBT
Condition: Fair
Diet: As tolerated and Regular
Activity: As tolerated
Driving Restrictions: No driving
Bathing Restrictions: None
Referrals:
Bita Hunt MD [Active] - in two to four weeks
Saurav Hallman MD [Active] -
Anjelica Griffiths MD [Family Provider] - in less than 1 week
Prescriptions:
New
doxycycline hyclate 100 mg Capsule
100 mg PO Q12 Qty: 14 0RF
Rx Instructions:
Last dose 08/27/23
midodrine 5 mg Tablet
10 mg PO TID@0800,1300,1800 PRN (Reason: Dizziness or SBP < 100) Qty: 60 0RF
Continued
therapeutic multivitamin Tablet
1 tab PO DAILY
calcium carbonate 500 mg calcium (1,250 mg) Tablet
500 mg PO DAILY
Glucosamine Chondroitin 550-30-1 mg Capsule
1 cap PO DAILY
tolterodine 2 mg Capsule,Extended Release 24hr
2 mg PO DAILY
pantoprazole 40 mg tablet,delayed release (DR/EC)
40 mg PO BID
Discontinued
amoxicillin-pot clavulanate 500-125 mg tablet
1 tab PO Q12
Patient Comments:
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
Discharge Orders:
Discharge Patient (As Directed); Ordered 08/21/23
Ordered By: Kale Keyes
Discharge Date and Time
Discharge Date/Time: 08/21/23 14:14
== END 2023-08-21 14:14 | DRG 871 ==
LOC: 3 WEST ACU 12:54
PROVIDERS: Internal Medicine; Nurse Practitioner Family; Physician Assistant Medical; ADMITTING PHYSICIAN Internal Medicine; ATTENDING PHYSICIAN Hospitalist; CONSULT PHYSICIAN Internal Medicine Hematology & Oncology; CONSULT PHYSICIAN Specialist; CONSULT PHYSICIAN Student in an Organized Health Care Education/Training Program; EMERGENCY PHYSICIAN Emergency Medicine; FAMILY PHYSICIAN Family Medicine
PROC: 30233N1 Transfusion of Nonautologous Red Blood Cells into Peripheral Vein, Percutaneous Approach (ICD-10-PCS; 2023-08-13)
DX: A41.9 Sepsis, unspecified organism (principal); R65.21 Severe sepsis with septic shock; J98.11 Atelectasis; N17.9 Acute kidney failure, unspecified; N39.0 Urinary tract infection, site not specified; C67.9 Malignant neoplasm of bladder, unspecified; D63.8 Anemia in other chronic diseases classified elsewhere
CPT/HCPCS: 70100; 71045; 76770; 80048; 80053; 80202; 81003; 81015; 82565; 82962; 83605; 83735; 84484; 84520; 85025; 85027; 86850; 86900; 86901; 86920; 87040; 87086; 87149; 87205; 87502; 87811; 87899; 93005; 93306; 96361; 96365; 96366; 96367; 97163; 97167; 97530; 97535; 99291; J1335; P9016

== ENCOUNTER → 2023-08-22 12:52 | Outpatient (REF) | payer OTHER, MEDICARE, SELFPAY ==
[2023-08-22 13:08] LABS: % Basophils 0.8 % (0-2); % Eosinophils 5.5 % (0-6); % Immature Granulocytes 0.2 % (0-0.5); % Lymphocytes 31.5 % (20.5-51.1); % Monocytes 13.4 % (1.7-9.3); % Neutrophils 48.6 % (42.2-75.2); Absolute Eosinophils 0.3 10^3/uL (0-0.7); Absolute Lymphocytes 1.6 10^3/uL (1.2-3.4); Absolute Monocytes 0.7 10^3/uL (0.1-0.6); Absolute Neutrophils 2.5 10^3/uL (1.4-6.5); Hematocrit 25.9 % (37.0-47.0); Hemoglobin 8.2 g/dL (12.0-16.0); Mean Corp Hgb Conc. 31.7 g/dL (33.0-37.0); Mean Corpuscular Hgb 27.2 pg (27.0-31.0); Mean Platelet Volume 11.2 fL (7.4-10.4); Nucleated Red Blood Cells % 0 %; Platelet Count 234 10^3/uL (130-400); Red Blood Cell Count 3.01 10^6/uL (4.20-5.40); Red Cell Dist. Width 15.1 % (11.5-14.5); White Blood Cell Count 5.1 10^3/uL (4.8-10.8)
[2023-08-22 13:28] LABS: Blood Urea Nitrogen 26 mg/dl (7-17); Calcium 8.1 mg/dl (8.4-10.2); Carbon Dioxide 26 mmol/L (22-30); Chloride 103 mmol/L (98-107); Glucose 94 mg/dl (70-99); Potassium 3.9 mmol/L (3.5-5.1); Sodium 135 mmol/L (135-145); eGFR 27.78
== END ==
LOC: OLABP 12:52
PROVIDERS: ATTENDING PHYSICIAN Student in an Organized Health Care Education/Training Program
DX: A41.9 Sepsis, unspecified organism (principal); B95.0 Streptococcus, group A, as the cause of diseases classified elsewhere; M62.81 Muscle weakness (generalized); R26.2 Difficulty in walking, not elsewhere classified; N18.4 Chronic kidney disease, stage 4 (severe); I10 Essential (primary) hypertension; D64.9 Anemia, unspecified; C67.9 Malignant neoplasm of bladder, unspecified; R29.6 Repeated falls
CPT/HCPCS: 36415; 80048; 85025

== ENCOUNTER 2023-08-31 19:31 | Emergency (ER) | payer OTHER, MEDICARE, SELFPAY ==
[2023-08-31 19:36] VITALS: BP 130/67
--- NOTE | 2023-08-31 20:09 | ED.GENMED ---
History of Present Illness
General
Chief Complaint: Catheter/Tube Problem
Source: patient and ambulance crew
Exam Limitations: none
Time Seen by Provider: 08/31/23 19:48
Nursing documentation reviewed up to this point in time: agreed with
Travel History
Have you had any contact with someone who has COVID-19?: No
Do you have any symptoms of coronavirus? Fever > 100 degrees, chills, cough, shortness of breath, sore throat, loss of taste or smell, muscle aches, or headache?: No
History of Present Illness
History of Present Illness:
83-year-old female presents emergency department due to loose sutures in right nephrostomy. Nephrostomy is draining. No fever.
Past History
Past History
ED Past Medical History: Cancer and HTN
ED Past Surgical History: Urological
Social History
Tobacco: Non-smoker
Alcohol: None
Drug: None
Personal: Other
Living: with family
Employment: Other
Family History
Family History: Other
Review of Systems
Review of Systems
Allergies reviewed?: Yes
All Other Systems: Not applicable
Constitutional: Reports no symptoms; Denies fever
EENT: Reports no symptoms
Respiratory: Reports no symptoms
Cardiac: Reports no symptoms
ABD/GI: Reports no symptoms
: Reports other (Loose sutures on right nephrostomy)
Musculoskeletal: Reports no symptoms
Skin: Reports no symptoms
Neurological: Reports no symptoms
Endocrine: Reports no symptoms
Hematologic/Lymphatic: Reports no symptoms
Psychiatric: Reports no symptoms
Phy Exam
Physical Exam
Physical Exam:
Physical Exam
General: no apparent distress, not acutely ill
Neck: supple. no meningeal signs. normal posterior pharynx
Heart: s1/s2 regular rate and rhythm, no murmur. equal radial
pulses.
HEENT: Pupils equal round reactive to light, EOMI
Lungs: no acute respiratory distress. clear bilaterally
Abdomen: normal bowel sounds. not tender. no CVAT, right CVA nephrostomy in place draining urine, loose suture
Neuro: alert and oriented. no focal neurological deficits
Skin: no rash
Psychiatric: well kept. interactive and cooperative
Extremities: no edema. no calf tenderness. negative homans. good distal pulses
Course
Vital Signs
Initial and Last Documented VS:
Initial Vital Signs
Temp Pulse Resp BP Pulse Ox
98.0 F 63 16 130/67 98
08/31/23 19:36 08/31/23 19:36 08/31/23 19:36 08/31/23 19:36 08/31/23 19:36
Last Documented Vital Signs
Temp Pulse Resp BP Pulse Ox
98.0 F 63 16 130/67 98
08/31/23 19:36 08/31/23 19:36 08/31/23 19:36 08/31/23 19:36 08/31/23 19:36
MDM/Problems Addressed
Differential Diagnosis Includes:
Infected nephrostomy site, dislodged nephrostomy tube
MDM/Problems Addressed:
81-year-old female with loose suture and right nephrostomy, draining appropriately. Discussed with Dr. Orr,, who reviewed pictures and agrees patient may be discharged home.
Chronic conditions affecting care: Other (Pyelonephritis)
Acute Exacerbation and/or Progression of Chronic Illness: Other (Obstructed UPJ)
*Pulse Oximetry
Patient hypoxic: no
*EKG
Interpreted by ED Provider?: NA
*Yarn Dyer Interpretation
Rate: Yarn Dyer- N/A
*Critical Care Note
Total Time (30-74mins, 75-104mins- exclusive of procedures): Not Applicable
Data Reviewed
Review of Other/Old Records Reveals: Operative Reports (Prior nephrostomy nephrogram on 07/31/2023, normal)
Source: records
Patient Management
Social determinants of health affecting care: Strong social support
Discussion with other providers: Manager Intermediate (Dr. Orr, interventional radiology)
Escalation/DeEscalation of care consider admission/obs:
Admit not indicated
ED Attending Note
-
Portions of this chart may have been created with voice recognition software.� Occasional wrong word or��sound alike� substitutions may have occurred due to the inherent limitations of voice recognition software.
Discharge Plan
Departure
Patient Disposition: Longterm/SNF
Date of Disposition: 08/31/23
Time of Disposition: 20:16
Patient with high blood pressure during this ER visit?: Yes
Condition: Good
Discharge Problem:
Nephrostomy complication
Instructions: BLOOD PRESSURE
Prescriptions:
No Action
therapeutic multivitamin Tablet
1 tab PO DAILY
calcium carbonate 500 mg calcium (1,250 mg) Tablet
500 mg PO DAILY
Glucosamine Chondroitin 550-30-1 mg Capsule
1 cap PO DAILY
tolterodine 2 mg Capsule,Extended Release 24hr
2 mg PO DAILY
pantoprazole 40 mg tablet,delayed release (DR/EC)
40 mg PO BID
doxycycline hyclate 100 mg Capsule
100 mg PO Q12 Qty: 14 0RF
Rx Instructions:
Last dose 08/27/23
midodrine 5 mg Tablet
10 mg PO TID@0800,1300,1800 PRN (Reason: Dizziness or SBP < 100) Qty: 60 0RF
Referrals:
Karen Pinedo DO [Family Provider] - Call in 1-3 days for appt
Interventions
Interventions:
*Risk Screen - Suicide Last Done: 08/31/23 19:36
*General Assessment Last Done: 08/31/23 19:36
*Neglect/Abuse Screening Last Done: 08/31/23 19:36
*ED COVID-19 Vaccine History Last Done: 08/31/23 19:36
[2023-09-01 00:45] VITALS: BP 130/86
== END 2023-09-01 00:52 ==
LOC: EMR 19:31
PROVIDERS: EMERGENCY PHYSICIAN Emergency Medicine; FAMILY PHYSICIAN Student in an Organized Health Care Education/Training Program
DX: N99.528 Other complication of incontinent external stoma of urinary tract (principal); N12 Tubulo-interstitial nephritis, not specified as acute or chronic; I10 Essential (primary) hypertension
CPT/HCPCS: 99282

== ENCOUNTER 2023-09-26 17:06 | Emergency (ER) | payer MEDICARE, SELFPAY ==
[2023-09-26 17:09] VITALS: BP 116/76
[2023-09-26 17:32] LABS: % Basophils 0.4 % (0-2); % Eosinophils 3.1 % (0-6); % Immature Granulocytes 1.1 % (0-0.5); % Lymphocytes 23.5 % (20.5-51.1); % Monocytes 10.6 % (1.7-9.3); % Neutrophils 61.3 % (42.2-75.2); Absolute Eosinophils 0.3 10^3/uL (0-0.7); Absolute Immature Granulocytes 0.1 10^3/uL (0-0.05); Absolute Lymphocytes 2.1 10^3/uL (1.2-3.4); Absolute Neutrophils 5.6 10^3/uL (1.4-6.5); Hematocrit 29.1 % (37.0-47.0); Hemoglobin 9.5 g/dL (12.0-16.0); Mean Corp Hgb Conc. 32.6 g/dL (33.0-37.0); Mean Corpuscular Hgb 26.3 pg (27.0-31.0); Mean Corpuscular Volume 80.6 fL (81.0-99.0); Mean Platelet Volume 9.7 fL (7.4-10.4); Nucleated Red Blood Cells % 0 %; Platelet Count 433 10^3/uL (130-400); Red Blood Cell Count 3.61 10^6/uL (4.20-5.40); Red Cell Dist. Width 16.1 % (11.5-14.5); White Blood Cell Count 9.1 10^3/uL (4.8-10.8)
[2023-09-26 17:57] LABS: ALT (SGPT) 22 U/L (0-35); AST (SGOT) 29 U/L (14-36); Alkaline Phosphatase 95 U/L (38-126); Blood Urea Nitrogen 44 mg/dl (7-17); Calcium 8.7 mg/dl (8.4-10.2); Carbon Dioxide 23 mmol/L (22-30); Chloride 100 mmol/L (98-107); Glucose 118 mg/dl (70-99); Potassium 4.1 mmol/L (3.5-5.1); Sodium 131 mmol/L (135-145); Total Bilirubin 0.5 mg/dl (0.2-1.3); Total Protein 6.4 g/dl (6.3-8.2); eGFR 24.48
[2023-09-26 17:58] LABS: Troponin I < 0.012 ng/ml
[2023-09-26 18:04] VITALS: BP 78/60
[2023-09-26 18:20] VITALS: BP 104/64
[2023-09-26 19:00] VITALS: BP 111/67
--- NOTE | 2023-09-26 20:13 | ED.GENMED ---
History of Present Illness
General
Chief Complaint: Cardiac Symptoms
Source: patient and family (Children)
Exam Limitations: none
Time Seen by Provider: 09/26/23 18:30
Nursing documentation reviewed up to this point in time: agreed with
Travel History
Have you had any contact with someone who has COVID-19?: No
Do you have any symptoms of coronavirus? Fever > 100 degrees, chills, cough, shortness of breath, sore throat, loss of taste or smell, muscle aches, or headache?: No
History of Present Illness
History of Present Illness:
83-year-old female with history as documented presents to the emergency room referred by cardiology after an episode of A-fib. Patient follows with Dr. Barajas for cardiology ([facility]). Apparently she received a call that she had an episode of
A-fib. Apparently she was told that she likely need to be on blood thinners but given her recently abnormal hemoglobin and renal function she was recommended to get blood work first. Family brought her to the emergency room to get blood work for
assessment. Patient says she feels fine and wants to go home. She says she does not know why she is here. She denies any chest pain, palpitations, shortness of breath. She denies any recent bleeding including GI bleeding. She denies any other
complaints. I did place a call to the patient's warehouse clerk spoke with the on-call warehouse clerk for [facility]. She was indeed referred for evaluation with labs prior to starting anticoagulation.
Past History
Past History
ED Past Medical History: Cancer and HTN
ED Past Surgical History: Urological
Social History
Tobacco: Non-smoker
Alcohol: None
Drug: None
Personal: Other
Living: with family
Employment: Other
Family History
Family History: Other
Review of Systems
Review of Systems
All Other Systems: ROS reviewed and negative except as documented in HPI and ROS
Constitutional: Denies fever or chills
Respiratory: Denies trouble breathing
Cardiac: Denies chest pain
ABD/GI: Denies abdominal pain, nausea, vomiting, bloody stools or black stools
: Denies flank pain
Musculoskeletal: Denies neck pain or back pain
Neurological: Denies dizzy or headache
Phy Exam
Physical Exam
Physical Exam:
General: Awake, alert, oriented x3, hard of hearing; no acute distress
Head: Normocephalic, atraumatic
Eyes: Conjunctiva normal, sclera anicteric
Throat: Airway intact, handling secretions
Neck: Trachea midline, supple without meningismus
Lungs: Clear to auscultation bilaterally, no wheezing, rales, rhonchi
Heart: Regular rate and rhythm, no murmurs, gallops, or rubs
Abd: Soft, non distended, nontender
Rectal: Hemoccult negative
Back: Right-sided nephrostomy tube with good output
Neuro: No gross deficits
Skin: no rash
Extremities: Warm well-perfused
Scores
[id number] Score for Afib Stroke Risk
Age in Years (65=0, 65-74=1, >/=75=2): > or = 75
Sex (Female=+1): Female
Congestive Heart Failure History (Yes=+1): No
Hypertension History (Yes=+1): Yes
Stroke/TIA/Thromboembolism History (Yes=+2): No
Vascular Disease History (Yes=+1): No
Diabetes Mellitus (Yes=+1): No
Score: 4
Anticoagulation Recommendations: Recommend anticoagulation (as validated in nonvalvular fib)
Heart Failure Risk
Heart Failure Risk Score: Not Applicable
Heart Score for Chest Pain Patients
STEMI patient?: Not applicable
Withdrawal Assessment of Alcohol
Withdrawal Assessment Completed?: Not applicable
Course
Orders/Labs/Results
Orders:
Orders
09/26/23 17:17
Electrocardiogram (*1) Urgent
Reason for Study: Chest Pain
EKG- Treatment ONCE
09/26/23 17:23
Complete Blood Count/With Diff Urgent
Comprehensive Metabolic Panel Urgent
Troponin I Urgent
09/26/23 18:32
Interrogate Pacemaker- Treatment ONCE
09/26/23 19:53
Chest [CR Chest - 2 Views ] Urgent
Comment:
Reason For Exam: a fib
Abnormal Lab Results
09/26/23
17:23
RBC 3.61 L 10^6/uL
(4.20-5.40)
Hgb 9.5 L g/dL
(12.0-16.0)
Hct 29.1 L %
(37.0-47.0)
MCV 80.6 L fL
(81.0-99.0)
MCH 26.3 L pg
(27.0-31.0)
MCHC 32.6 L g/dL
(33.0-37.0)
RDW 16.1 H %
(11.5-14.5)
Plt Count 433 H 10^3/uL
(130-400)
Abs Immat Gran (auto) 0.1 H 10^3/uL
(0-0.05)
Absolute Monos (auto) 1.0 H 10^3/uL
(0.1-0.6)
Immature Gran % 1.1 H %
(0-0.5)
Monocytes % 10.6 H %
(1.7-9.3)
Sodium 131 L mmol/L
(135-145)
BUN 44 H mg/dl
(7-17)
Creatinine 2.0 H mg/dL
(0.6-1.0)
Glucose 118 H mg/dl
(70-99)
Albumin 3.0 L g/dl
(3.5-5.0)
09/26/23 17:23
09/26/23 17:23
Vital Signs
Initial and Last Documented VS:
Initial Vital Signs
Temp Pulse Resp BP Pulse Ox
37.0 C 100 16 116/76 98
09/26/23 17:09 09/26/23 17:09 09/26/23 17:09 09/26/23 17:09 09/26/23 17:09
Last Documented Vital Signs
Temp Pulse Resp BP Pulse Ox
37.0 C 83 25 111/67 98
09/26/23 17:09 09/26/23 19:15 09/26/23 19:15 09/26/23 19:00 09/26/23 19:15
MDM/Problems Addressed
Differential Diagnosis Includes:
A-fib
MDM/Problems Addressed:
83-year-old female presents for evaluation after an episode of A-fib found on outpatient report from patient's device interrogation. I called patient's cardiology group to discuss�they confirm that she had a roughly 20-hour episode of A-fib 2 days
ago. Plan was to start anticoagulation and request was for blood work prior to initiation. We sent basic labs including a CBC which showed stable anemia to 9.5. Platelet count acceptable. We sent a CMP which showed a creatinine of 2.0 which is
in line with patient's baseline. She had an EKG which showed atrial sensed ventricular paced rhythm�visible P waves on EKG here. Chest x-ray ordered in triage no acute pathology. Discussed with cardiology recommended starting Eliquis 2.5 mg twice
daily. Patient is already on metoprolol succinate, no dose adjustment for now. She will follow-up with cardiology as an outpatient. She feels comfortable with this plan and in fact is repeatedly requesting discharge. Spoke about return
precautions all questions answered.
Chronic conditions affecting care:
Hypertension, hyperlipidemia, cardiac history, cancer history
*Radiology
Radiology exam reviewed: preliminary read by ED provider
*Pulse Oximetry
Patient hypoxic: no
*EKG
Interpreted by ED Provider?: Yes
Heart Rate: 103
Rate: normal
Rhythm: av sequential
*Critical Care Note
Total Time (30-74mins, 75-104mins- exclusive of procedures): Not Applicable
Data Reviewed
Review of Other/Old Records Reveals: Labs and Records
Source: patient and family (Daughter, son-in-law)
Patient Management
Discussion with other providers: Process Cheese Cooker (Discussed with warehouse clerk on-call for [facility] (patient's normal cardiology group))
ED Attending Note
-
Portions of this chart may have been created with voice recognition software.� Occasional wrong word or��sound alike� substitutions may have occurred due to the inherent limitations of voice recognition software.
Discharge Plan
Departure
Patient Disposition: Home (Routine Discharge)
Date of Disposition: 09/26/23
Time of Disposition: 20:21
Patient with high blood pressure during this ER visit?: No
Discharge Problem:
Atrial fibrillation
Instructions: Atrial Fibrillation (DC)
Prescriptions:
New
Eliquis 2.5 mg tablet
2.5 mg PO BID Qty: 60 0RF
No Action
therapeutic multivitamin Tablet
1 tab PO DAILY
calcium carbonate 500 mg calcium (1,250 mg) Tablet
500 mg PO DAILY
Glucosamine Chondroitin 550-30-1 mg Capsule
1 cap PO DAILY
tolterodine 2 mg Capsule,Extended Release 24hr
2 mg PO DAILY
pantoprazole 40 mg tablet,delayed release (DR/EC)
40 mg PO BID
doxycycline hyclate 100 mg Capsule
100 mg PO Q12 Qty: 14 0RF
Rx Instructions:
Last dose 08/27/23
midodrine 5 mg Tablet
10 mg PO TID@0800,1300,1800 PRN (Reason: Dizziness or SBP < 100) Qty: 60 0RF
Referrals:
Alejandro Barajas MD [Non-Admitting Privileges] - Call in 1-3 days for appt
Activity Restrictions/Additional Instructions:
You were seen in the emergency room after your warehouse clerk detected an episode of A-fib. Because of the high risk of stroke with A-fib, your cardiology group recommended starting you on a blood thinner called Eliquis. You should take this
medicine as prescribed. This medicine does come with a higher risk of bleeding. If you notice any bleeding in your stools or any other bleeding you should call your doctor immediately or come to the emergency room. If you have any significant
trauma or fall you should come to the emergency room for assessment due to high risk of bleeding.
Thank you for visiting the Emergency Department at [facility].
1. Please schedule a follow up appointment as directed. Call first thing tomorrow morning to make an appointment.
2. If indicated, please take your medications as instructed and indicated on discharge paperwork.
3. If any of your symptoms do not improve, or persist, or become more severe within 6-12 hours, please return to the emergency department for further care.
4. Please return to the emergency department if you develop a headache, neck pain/stiffness, fever greater than 100.4F, chest pain, shortness of breath, persistent nausea, vomiting, slurred speech, difficulty walking, numbness/tingling, weakness,
signs of infection or any other symptoms that are worrisome to you.
Please call [phone] if you have any questions.
Interventions
Interventions:
*Risk Screen - Suicide Last Done: 09/26/23 18:20
*General Assessment Last Done: 09/26/23 18:07
*Neglect/Abuse Screening Last Done: 09/26/23 18:07
ED- Pulmonary Assessment Last Done: 09/26/23 18:20
ED- Cardiac Assessment Last Done: 09/26/23 18:20
Discharge Date and Time
Print Language: MALAGASY
== END 2023-09-26 20:43 | disposition home or self-care (01) ==
LOC: EMR 17:06
PROVIDERS: EMERGENCY PHYSICIAN Emergency Medicine; FAMILY PHYSICIAN Family Medicine
DX: I48.91 Unspecified atrial fibrillation (principal); E78.00 Pure hypercholesterolemia, unspecified; I10 Essential (primary) hypertension; D64.9 Anemia, unspecified
CPT/HCPCS: 99285; 71046; 80053; 84484; 85025; 93005

== ENCOUNTER → 2023-12-04 12:47 | Outpatient (REF) | payer MEDICARE, SELFPAY | LOC: RAD 12:47 | PROVIDERS: ATTENDING PHYSICIAN Nurse Practitioner Family; FAMILY PHYSICIAN Family Medicine | DX: C67.8 Malignant neoplasm of overlapping sites of bladder (principal); M79.641 Pain in right hand; M79.642 Pain in left hand; M25.50 Pain in unspecified joint | CPT/HCPCS: 73130 ==

== ENCOUNTER → 2024-02-19 12:01 | Outpatient (REF) | payer MEDICARE, SELFPAY ==
[2024-02-19 12:29] VITALS: BP 146/77; BP_SYST 70
[2024-02-19 13:09] VITALS: BP 122/82; BP_SYST 76
== END ==
LOC: RADI 12:01
PROVIDERS: ATTENDING PHYSICIAN Radiology Vascular & Interventional Radiology; FAMILY PHYSICIAN Family Medicine; REFERRING PHYSICIAN Surgery
DX: Z43.6 Encounter for attention to other artificial openings of urinary tract (principal); N13.6 Pyonephrosis
CPT/HCPCS: 50435; 87086; C1729; C1769

== ENCOUNTER 2024-03-22 16:29 | Emergency (ER) | payer MEDICARE, SELFPAY ==
[2024-03-22 16:31] VITALS: BP 101/70
--- NOTE | 2024-03-22 17:11 | ED.GENMED ---
History of Present Illness
General
Chief Complaint: Weakness
Source: patient
Exam Limitations: none
Time Seen by Provider: 03/22/24 16:53
History of Present Illness
History of Present Illness:
Yes 83-year-old female on Eliquis for history of A-fib presents with progressive weakness over the past 7 days. She fell in the garage hitting her head. She was not evaluated. She does have a history of bladder cancer and has a right nephrostomy
tube. She notes slight cough and some chills over the past couple days. She denies shortness of breath. She notes she has generalized weakness. She denies any pain.
Past History
Past History
ED Past Medical History: Cancer and HTN
ED Past Surgical History: Urological
Social History
Tobacco: Non-smoker
Alcohol: None
Drug: None
Personal: Other
Living: with family
Employment: Other
Family History
Family History: Other
Phy Exam
Physical Exam
Physical Exam:
General: Well-appearing female no acute respiratory distress
HEENT: Normocephalic mucosa dry neck is supple pupils equal round reactive to light
Heart: Regular rate and rhythm no murmurs
Lungs: Clear no wheeze
Abdomen is soft nontender
Extremities: No cyanosis or edema
Skin: Warm no rash
Course
Orders/Labs/Results
Orders:
Orders
03/22/24 16:36
CT Head W/o Iv Contrast Urgent
Comment: pt c/o with bilateral leg weakness
Reason For Exam: fall 1 week ago, head strike, on eliquis
03/22/24 17:07
CR Chest - 2 Views Urgent
Comment:
Reason For Exam: cough
03/22/24 17:29
COVID-19 Antigen Urgent
Source: Nasal Swab
Complete Blood Count/With Diff Urgent
Influenza A+B Rapid Molecular Urgent
JESSICA Source: Nasal Swab
Specimen Description:
03/22/24 18:57
Comprehensive Metabolic Panel Urgent
03/22/24 19:07
Urinalysis Reflex To Culture Stat
Date Specimen was Collected: 03/22/24
Time Specimen was Collected: 19:02
Urine Microscopic Reflex Cult Stat
Urine Culture Stat
JESSICA Source: U
Specimen Description:
Date Specimen was Collected: 03/22/24
Time Specimen was Collected: 19:02
03/22/24 19:48
CefTRIAXone [Rocephin] 1,000 mg IV NOW STA
Abnormal Lab Results
03/22/24 03/22/24 03/22/24
17:29 18:57 19:07
RDW 16.9 H %
(11.5-14.5)
Absolute Monos (auto) 1.0 H 10^3/uL
(0.1-0.6)
Monocytes % 13.4 H %
(1.7-9.3)
Sodium 132 L mmol/L
(135-145)
BUN 34 H mg/dl
(7-17)
Creatinine 2.1 H mg/dL
(0.6-1.0)
Glucose 101 H mg/dl
(70-99)
Total Protein 5.8 L g/dl
(6.3-8.2)
Albumin 3.3 L g/dl
(3.5-5.0)
Ur Occult Blood Reflex 4+ A
(Negative)
Leukocyte Esterase Rfl 2+ A
(Negative)
Urine Bacteria (Reflex) Many A
(Negative)
Urine Albumin (Reflex) 2+ A
(Neg - Trace)
03/22/24 17:29
03/22/24 18:57
Vital Signs
Initial and Last Documented VS:
Initial Vital Signs
Temp Pulse Resp BP Pulse Ox
100.5 F H 93 18 101/70 93
03/22/24 16:31 03/22/24 16:31 03/22/24 16:31 03/22/24 16:31 03/22/24 16:31
Last Documented Vital Signs
Temp Pulse Resp BP Pulse Ox
100.5 F H 101 25 106/72 94
03/22/24 16:31 03/22/24 19:00 03/22/24 19:00 03/22/24 19:00 03/22/24 18:00
MDM/Problems Addressed
Differential Diagnosis Includes:
Weakness. Patient noted to have a fever at triage temperature 100.5. Question viral illness including COVID or flu. She did hit her head last week and is on Eliquis. Will order CT of head to evaluate for any intracranial hemorrhage. Check for
electrolyte abnormality versus anemia as well.
Do not suspect CVA given generalized weakness and no unilateral finding
*Critical Care Note
Total Time (30-74mins, 75-104mins- exclusive of procedures): Not Applicable
Update Note
Update Note:
Workup consistent with UTI. CT negative chest x-ray clear COVID and flu negative. Labs reviewed with stable kidney function. White count normal. Had discussion with patient and daughter regarding treatment options. Patient does not want to stay
in the hospital. She was to try antibiotics at home. Will give a dose of Rocephin prior to discharge. Will discharge home on Omnicef.
ED Attending Note
-
Portions of this chart may have been created with voice recognition software.� Occasional wrong word or��sound alike� substitutions may have occurred due to the inherent limitations of voice recognition software.
Discharge Plan
Departure
Patient Disposition: Home (Routine Discharge)
Date of Disposition: 03/22/24
Time of Disposition: 19:53
Patient with high blood pressure during this ER visit?: No
Discharge Problem:
Acute UTI
Instructions: Urinary Tract Infection, Adult ED
Prescriptions:
New
cefdinir 300 mg capsule
300 mg PO BID Qty: 14 0RF
No Action
therapeutic multivitamin Tablet
1 tab PO DAILY
Glucosamine Chondroitin 550-30-1 mg Capsule
1 cap PO DAILY
tolterodine 2 mg Capsule,Extended Release 24hr
2 mg PO DAILY
Eliquis 2.5 mg tablet
2.5 mg PO BID Qty: 60 0RF
calcium 500 mg Tablet
500 mg PO DAILY
famotidine 20 mg Tablet
20 mg PO DAILY
Referrals:
Anjelica Griffiths MD [Family Provider] -
Activity Restrictions/Additional Instructions:
Stay hydrated. Take antibiotics as directed. Please return here for worsening symptoms including fever increased weakness vomiting. Follow-up with urology otherwise
Interventions
Interventions:
*Risk Screen - Suicide Last Done: 03/22/24 16:31
*General Assessment Last Done: 03/22/24 16:31
*Neglect/Abuse Screening Last Done: 03/22/24 16:31
ED- Fall Risk Assessment Last Done: 03/22/24 17:58
*ED COVID-19 Vaccine History Last Done: 03/22/24 17:52
ED- Cardiac Assessment Last Done: 03/22/24 19:41
ED- Neurological Assessment Last Done: 03/22/24 19:41
ED- Pulmonary Assessment Last Done: 03/22/24 19:41
Discharge Date and Time
Print Language: HUNGARIAN
[2024-03-22 17:36] LABS: % Basophils 0.7 % (0-2); % Eosinophils 1.8 % (0-6); % Immature Granulocytes 0.5 % (0-0.5); % Lymphocytes 28.5 % (20.5-51.1); % Monocytes 13.4 % (1.7-9.3); % Neutrophils 55.1 % (42.2-75.2); Absolute Basophils 0.1 10^3/uL (0-0.2); Absolute Eosinophils 0.1 10^3/uL (0-0.7); Absolute Lymphocytes 2.2 10^3/uL (1.2-3.4); Absolute Neutrophils 4.2 10^3/uL (1.4-6.5); Hematocrit 39.6 % (37.0-47.0); Hemoglobin 13.1 g/dL (12.0-16.0); Mean Corp Hgb Conc. 33.1 g/dL (33.0-37.0); Mean Corpuscular Hgb 27.3 pg (27.0-31.0); Mean Corpuscular Volume 82.5 fL (81.0-99.0); Mean Platelet Volume 9.3 fL (7.4-10.4); Nucleated Red Blood Cells % 0 %; Platelet Count 219 10^3/uL (130-400); Red Cell Dist. Width 16.9 % (11.5-14.5); White Blood Cell Count 7.7 10^3/uL (4.8-10.8)
[2024-03-22 17:52] LABS: COVID-19 Antigen Negative (Negative)
[2024-03-22 17:56] VITALS: BMI 27.7
[2024-03-22 18:50] VITALS: BP 108/67
[2024-03-22 19:00] VITALS: BP 106/72
[2024-03-22 19:17] LABS: Urine Albumin 2+ (Neg - Trace); Urine Bilirubin Negative (Negative); Urine Character Very Cloudy (Clear); Urine Color Yellow; Urine Glucose Negative (Negative); Urine Ketone Negative (Negative); Urine Leukocyte 2+ (Negative); Urine Nitrite Negative (Negative); Urine Occult Blood 4+ (Negative); Urine Urobilinogen Negative (Neg - 1+)
[2024-03-22 19:20] LABS: ALT (SGPT) 16 U/L (0-35); AST (SGOT) 26 U/L (14-36); Albumin 3.3 g/dl (3.5-5.0); Alkaline Phosphatase 69 U/L (38-126); Blood Urea Nitrogen 34 mg/dl (7-17); Calcium 8.9 mg/dl (8.4-10.2); Carbon Dioxide 22 mmol/L (22-30); Chloride 100 mmol/L (98-107); Estimated Creatinine Clearance 20 ml/min; Glucose 101 mg/dl (70-99); Potassium 4.4 mmol/L (3.5-5.1); Sodium 132 mmol/L (135-145); Total Bilirubin 1.2 mg/dl (0.2-1.3); Total Protein 5.8 g/dl (6.3-8.2); eGFR 23.09
[2024-03-22 19:23] LABS: Urine Amorphous Seen
[2024-03-22 19:24] LABS: Urine Bacteria Many (Negative)
--- NOTE | 2024-03-22 19:44 | EDRN ---
Pt fell 1 week ago and hit her head. Pt was not seen for this injury. Daughter says pt has been dizzy and weak. Pt says she feels exhausted. Pt was able to walk without a walker but is now dependent on it to ambulate. Pt lives with her .
Pt denies fever/chills/cough although daughter notes pt had a fever when she had her temp taken in ED. No cp, sob, abd pain, n/v. Pt has had a decreased appetite and daughter says she has been eating a lot of popsicles.
[2024-03-22 20:00] VITALS: BP 113/67
[2024-03-22] MEDS: ROCEPHIN 1000 MG IV (20:16)
== END 2024-03-22 20:35 | disposition home or self-care (01) ==
LOC: EMR 16:29
PROVIDERS: Physician Assistant; EMERGENCY PHYSICIAN Emergency Medicine; FAMILY PHYSICIAN Family Medicine
DX: N39.0 Urinary tract infection, site not specified (principal); S09.90XA Unspecified injury of head, initial encounter; R53.1 Weakness; R05.9 Cough, unspecified; W18.30XA Fall on same level, unspecified, initial encounter; Y92.89 Other specified places as the place of occurrence of the external cause; Z11.52 Encounter for screening for COVID-19; I48.91 Unspecified atrial fibrillation; I10 Essential (primary) hypertension; Z85.51 Personal history of malignant neoplasm of bladder; Z93.6 Other artificial openings of urinary tract status; Z79.01 Long term (current) use of anticoagulants
CPT/HCPCS: 99284; 96374; 70450; 71046; 80053; 81003; 81015; 85025; 87086; 87502; 87811

== ENCOUNTER 2024-03-23 23:00 | Inpatient (IN) | payer MEDICARE, SELFPAY ==
[2024-03-23] VITALS (10 sets, daily range): BP systolic 83–112; BP diastolic 55–97; BMI 28.0
[2024-03-23 18:32] LABS: % Basophils 0.4 % (0-2); % Eosinophils 2.3 % (0-6); % Immature Granulocytes 0.4 % (0-0.5); % Lymphocytes 27.3 % (20.5-51.1); % Neutrophils 57.6 % (42.2-75.2); Absolute Eosinophils 0.2 10^3/uL (0-0.7); Absolute Lymphocytes 2.5 10^3/uL (1.2-3.4); Absolute Monocytes 1.1 10^3/uL (0.1-0.6); Absolute Neutrophils 5.3 10^3/uL (1.4-6.5); Hematocrit 43.4 % (37.0-47.0); Mean Corp Hgb Conc. 32.3 g/dL (33.0-37.0); Mean Corpuscular Hgb 27.7 pg (27.0-31.0); Mean Corpuscular Volume 85.9 fL (81.0-99.0); Mean Platelet Volume 9.6 fL (7.4-10.4); Nucleated Red Blood Cells % 0 %; Platelet Count 222 10^3/uL (130-400); Red Blood Cell Count 5.05 10^6/uL (4.20-5.40); Red Cell Dist. Width 16.8 % (11.5-14.5); White Blood Cell Count 9.2 10^3/uL (4.8-10.8)
[2024-03-23 18:52] LABS: ALT (SGPT) 20 U/L (0-35); AST (SGOT) 32 U/L (14-36); Albumin 3.6 g/dl (3.5-5.0); Blood Urea Nitrogen 38 mg/dl (7-17); Calcium 8.8 mg/dl (8.4-10.2); Carbon Dioxide 22 mmol/L (22-30); Chloride 99 mmol/L (98-107); Glucose 115 mg/dl (70-99); Potassium 4.2 mmol/L (3.5-5.1); Sodium 135 mmol/L (135-145); Total Protein 6.3 g/dl (6.3-8.2); eGFR 21.84
[2024-03-23 19:55] LABS: Alkaline Phosphatase < 20 U/L (38-126); Total Bilirubin 1.1 mg/dl (0.2-1.3)
--- NOTE | 2024-03-23 20:31 | ED.GENMED ---
History of Present Illness
General
Chief Complaint: Weakness
Source: patient and family (daughter at bedside.)
Exam Limitations: none
Time Seen by Provider: 03/23/24 18:36
History of Present Illness
History of Present Illness:
83 yo female w h/o HTN, HLD, pacemaker, a fib on Eliquis, GERD, bladder cancer, R nephrostomy tube presents after discharge from this ED yesterday for UTI, given 1 gm Rocephin and Cefdinir po upon discharge.
She remains generally weak, febrile, poor appetite. Opted to try out pt antibiotics when offered admission. Is back feeling worse.
Urine culture pending.
Past History
Past History
ED Past Medical History: Cancer and HTN
ED Past Surgical History: Urological
Social History
Tobacco: Non-smoker
Alcohol: None
Drug: None
Personal: Other
Living: with family
Employment: Other
Family History
Family History: Other
Review of Systems
Review of Systems
Allergies reviewed?: Yes
All Other Systems: ROS reviewed and negative except as documented in HPI and ROS
Constitutional: Reports fever and fatigue; Denies chills
EENT: Denies sore throat
Respiratory: Denies trouble breathing
Cardiac: Denies chest pain
ABD/GI: Denies abdominal pain, nausea or vomiting
: Reports other (urostomy tube)
Musculoskeletal: Denies edema
Skin: Reports no symptoms
Neurological: Reports weakness (General weakness); Denies dizzy or headache
Phy Exam
Physical Exam
Physical Exam:
GENERAL: No acute distress. A&Ox3.
CONSTITUTIONAL: Afebrile.
EYES: clear, conjunctivae normal
ENMT: moist mucus membranes, Pharynx nl
RESPIRATORY: Regular respirations, nonlabored, lungs clear.
CARDIOVASCULAR: Regular rate and rhythm, no murmurs, no rubs.
GI: Soft, nontender, normal BS
: R urostomy tube draining well.
MUSCULOSKELETAL: No edema. Well perfused.
SKIN: Warm, dry, pink
PSYCH: Normal mood and affect. Well kept, interactive and appropriate
NEUROLOGIC: Awake, alert and oriented. No focal neurological deficits
Sepsis
Sepsis Screening
Sepsis Assessment: Sepsis Ruled Out
Sepsis Screen
Sepsis Screen: Sepsis Ruled Out
Date: 03/23/24
Time: 23:45
Course
Orders/Labs/Results
Orders:
Orders
03/23/24 18:20
Complete Blood Count/With Diff Urgent
Comprehensive Metabolic Panel Urgent
Lactic Acid Urgent
03/23/24 18:54
CT Abd/pel Without Iv Or Oral Urgent
Comment:
Reason For Exam: UTI, febrile, nephrostomy tube, hx bladder ca
03/23/24 19:19
Blood Culture Urgent
JESSICA Source: Blood/Venous
Specimen Description:
03/23/24 20:41
Acetaminophen [Tylenol] 650 mg .ROUTE .STK-MED ONE
03/23/24 20:42
0.9% Sodium Chloride 1000 ml [Nss] 1,000 ml IV BOLUS
Acetaminophen [Tylenol] 650 mg PO NOW STA
03/23/24 21:03
Electrocardiogram (*1) Urgent
Reason for Study: Fatigue / Weakness
EKG- Treatment ONCE
03/23/24 21:04
CefTRIAXone [Rocephin] 1,000 mg IV NOW STA
03/23/24 22:50
Admit/Transfer Patient As Directed
Co-Sign Provider:
Level of Care: Inpatient admission
Assign to:: Telemetry
Physician / Group: Ibrahima
Diagnosis: Cystitis / Bladder cancer
Reason for Telemetry: Arrhythmia
Date to Stop Telemetry: 03/26/24
Time to Stop Telemetry: 11:00
Reason for Hospitalization: Cystitis / Bladder cancer
Expected length of stay greater than two midnights?: Yes
ELOS- Estimated Length of Stay in days: 2
I certify the patient meets the requirements for IP care: Yes
PRN Pain Medication Management As Directed
May give lesser potent ordered pain med per pt: Yes
preference::
Protocol:: Medication orders for pain may be administered in a
manner that supports deferring to patient preference
when the pt is:
- Requesting an ordered lesser potent pain medication.
Least to most potent pain medications are defined
as: acetaminophen < NSAID < tramadol < opioids
(morphine, oxycodone, hydromorphone).
- Requesting a lesser dose of the same medication IF
ORDERED.
- Requesting a less intrusive route of administration
if both routes are prescribed by the provider (PO <
IV).
03/23/24 22:51
Code Status As Directed
Resuscitation Status: Full Code
03/26/24 11:00
DC Protocol for Telemetry ONCE
Abnormal Lab Results
03/23/24
18:20
MCHC 32.3 L g/dL
(33.0-37.0)
RDW 16.8 H %
(11.5-14.5)
Absolute Monos (auto) 1.1 H 10^3/uL
(0.1-0.6)
Monocytes % 12.0 H %
(1.7-9.3)
BUN 38 H mg/dl
(7-17)
Creatinine 2.2 H mg/dL
(0.6-1.0)
Glucose 115 H mg/dl
(70-99)
Alkaline Phosphatase < 20 L U/L
(38-126)
03/23/24 18:20
03/23/24 18:20
Vital Signs
Initial and Last Documented VS:
Initial Vital Signs
Temp Pulse Resp BP Pulse Ox
101.2 F H 81 18 112/97 96
03/23/24 18:07 03/23/24 18:07 03/23/24 18:07 03/23/24 18:07 03/23/24 18:07
Last Documented Vital Signs
Temp Pulse Resp BP Pulse Ox
98.3 F 86 17 97/57 89
03/23/24 22:45 03/23/24 22:45 03/23/24 22:45 03/23/24 22:00 03/23/24 22:45
MDM/Problems Addressed
Differential Diagnosis Includes:
UTI, sepsis
MDM/Problems Addressed:
83 yo female w h/o HTN, HLD, pacemaker, a fib on Eliquis, GERD, bladder cancer, R nephrostomy tube presents after discharge from this ED yesterday for UTI, given 1 gm Rocephin and Cefdinir po upon discharge.
She remains generally weak, febrile, poor appetite. Opted to try out pt antibiotics when offered admission. Is back feeling worse.
Dr. [facility] contacted pt today regarding recent
Urine culture pending.
Temp 101.2
CBC with no clinically significant abnormality
CMP: BUN/creat 38/2.[address] abd/pelvis radiology report read: IMPRESSION:
1. 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
2. 3.2 cm mass in the RIGHT MID URETER consistent with UROTHELIAL CARCINOMA.
3. Right percutaneous nephrostomy tube in place and moderate right renal cortical atrophy.
4. No CT evidence for hydronephrosis in either kidney.
5. Severe calcific atherosclerotic plaque in the abdominal aorta.
6. Severe diverticulosis in the descending colon.
7. Small pericardial effusion.
8. Mild inflammatory interstitial pneumonitis in the lower lungs.
9. Severe discogenic degenerative disease and facet joint arthrosis in the lumbar spine.
9:00 p.m.
Lactic 2.0
BP soft at 94/59 (pt states she always has low BP) HR 77 paced.
concern for risk of sepsis
Plan: Admit for IV antibiotics
Urine culture pending
Blood culture pending.
Hospitalist notified of admission.
Texted Oncology material preparation worker Dr. Padilla with update.
*Critical Care Note
Total Time (30-74mins, 75-104mins- exclusive of procedures): Not Applicable
ED Attending Note
-
Portions of this chart may have been created with voice recognition software.� Occasional wrong word or��sound alike� substitutions may have occurred due to the inherent limitations of voice recognition software.
Discharge Plan
Departure
Patient Disposition: Admit
Date of Disposition: 03/23/24
Time of Disposition: 21:10
Admit to: Med/Surg
Presentation/result/management discussed w/ accepting MD/DO: Hospitalist
Condition: Fair
Discharge Problem:
Bladder cancer, Acute hemorrhagic cystitis
Interventions
Interventions:
*Risk Screen - Suicide Last Done: 03/23/24 18:58
*General Assessment Last Done: 03/23/24 18:58
*Neglect/Abuse Screening Last Done: 03/23/24 18:58
*ED COVID-19 Vaccine History Last Done: 03/23/24 18:58
ED- Cardiac Assessment Last Done: 03/23/24 18:58
ED- Neurological Assessment Last Done: 03/23/24 18:58
ED- Pulmonary Assessment Last Done: 03/23/24 18:58
[2024-03-23] MEDS: TYLENOL 650 MG PO (20:45)
[2024-03-23] MEDS: NSS 1000 IV (20:45)
[2024-03-23] MEDS: ROCEPHIN 1000 MG IV (21:07)
--- NOTE | 2024-03-23 22:56 | HPS.HSE ---
Family Physician
-
Family Physician: Anjelica Griffiths
Chief Complaint
-
Fever, weakness
History of Present Illness
Patient is an 83y F with PMH significant for transitional cell carcinoma who presents to ED complaining of weakness and fever. Patient was seen here in the ED yesterday with similar complaints. Evaluation at that time suggested UTI and patient
received a dose of V ceftriaxone and was discharged to home on Omnicef. Patient states that she has taken a single soriano of this medication so far. She spoke with her Oncologist today who advised her to return to the ED. In the ED today, patient is
febrile to 101.2.
She denies any N/V/D.
Medical History
Past Medical History
Past Medical History: Reports Other
Additional Past Medical History:
Transitional Cell Carcinoma
Right Ureteral Obstruction secondary to the above
CKD IV
Past Surgical History: Reports Other
Additional Past Surgical History:
TURBT
Right Percutaneous Nephrostomy Tube
Social History
Tobacco: Non-smoker
Alcohol: None
Family History
Family History: Not pertinent
Allergies / Home Medications
Allergies reflects when Allergies were last updated in [facility].
Home Medications with original date entered in [facility]
Allergy/Medication List:
Allergies
Allergy/AdvReac Type Severity Reaction Status Date / Time
sulfamethoxazole Allergy swelling Verified 03/23/24 18:07
[From Bactrim] of tongue
trimethoprim [From Bactrim] Allergy swelling Verified 03/23/24 18:07
of tongue
Home Medications
glucosamine sulf dipot chlr,msm,chond 550 mg-C 30 mg-balbir 1 mg capsule (Glucosamine Chondroitin) 1 cap PO DAILY Supplement 07/30/23
therapeutic multivitamin 1 tab PO DAILY Supplement 07/30/23
tolterodine 2 mg capsule,extended release 24 hr 2 mg PO DAILY Urinary Issue 07/30/23
apixaban 2.5 mg tablet (Eliquis) 2.5 mg PO BID #60 tabs 09/26/23
calcium 500 mg tablet 500 mg PO DAILY 03/22/24
cefdinir 300 mg capsule 300 mg PO BID #14 caps 03/22/24
famotidine 20 mg tablet 20 mg PO DAILY 03/22/24
Review of Systems
-
History Source: Patient and Family
A 12 point ROS was completed and negative except as noted: Yes
Constitutional: Reports Fever and Fatigue; Denies Chills
EENT: Denies Sore Throat
Respiratory: Denies Cough or Trouble Breathing
Cardiac: Denies Chest Pain or Palpitations
Abdomen/GI: Denies Abdominal Pain, Nausea, Vomiting or Diarrhea
: Denies Dysuria, Frequency or Flank Pain
Neurological: Denies Dizzy or Headache
Psych: Denies Depression or Anxiety
Physical Exam
Vital Signs
Vital Signs
Temp Pulse Resp BP Pulse Ox
98.3 F 86 17 97/57 89
03/23/24 22:45 03/23/24 22:45 03/23/24 22:45 03/23/24 22:00 03/23/24 22:45
Physical Exam
General: Other (83y F in no acute distress.)
HEENT: Moist mucous membranes and PERRLA
Respiratory: Clear; No Wheezes, Rales or Rhonchi
Cardiac: S1/S2 and Regular Rhythm
GI: Soft, Non Tender, Non Distended and Normal Bowel Sounds
Genito-urinary: Other (R PCN tube in place. No surrounding erythema, bleeding / discharge. Yellow urine in device.)
Musculoskeletal: No Clubbing, No Cyanosis and No Edema
Neuro: AO x 3
Laboratory Results
-
03/23/24 18:20
03/23/24 18:20
Laboratory Results
Lactic Acid 2.0 mmol/L (0.7-2.0) 03/23/24 18:20
Total Bilirubin 1.1 mg/dl (0.2-1.3) 03/23/24 18:20
AST 32 U/L (14-36) 03/23/24 18:20
ALT 20 U/L (0-35) 03/23/24 18:20
Alkaline Phosphatase < 20 U/L (38-126) L 03/23/24 18:20
Impression/Plan
-
A/P: Patient is an 83y F with PMH significant for bladder cancer who presents to ED c/o persistent fever and weakness due to UTI.
UTI / Cystitis
- Admit for further evaluation and treatment.
- Continue IV abx.
- Cultures from 01/2024 with haq-sensitive organisms isolated.
- Follow-up repeat culture from 03/22 visit.
- IVF support.
- Follow for any new / worsening symptoms.
Transitional Cell Carcinoma
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
- Maintain R PCN tube / local care.
- Follow-up with Oncology as an outpatient.
CKD IV
- Stable. renal function is at / near known baseline.
DVT Prophylaxis: Eliquis
Code Status: Full
[2024-03-24] VITALS (10 sets, daily range): BP systolic 86–137; BP diastolic 55–92; PULSE 96–99; O2SAT 93; BMI 26.9
[2024-03-24] MEDS: NSS 1000 IV ×3 (01:08→17:29)
--- NOTE | 2024-03-24 01:15 | TRANSFER ---
Received pt from ED via stretcher. Stretcher placed next to bed, pt able to stand and pivot into bed with assist x2. AAOx2-3. [place]. Daughter at bedside. No complaints of pain. Assessed and orientated to room. Pt demonstrated understanding of call
johnson. Call johnson within close reach. shelter monitor placed. Will continue to monitor.
[2024-03-24 06:10] LABS: Hematocrit 39.1 % (37.0-47.0); Hemoglobin 12.8 g/dL (12.0-16.0); Mean Corp Hgb Conc. 32.7 g/dL (33.0-37.0); Mean Corpuscular Hgb 28.1 pg (27.0-31.0); Mean Corpuscular Volume 85.7 fL (81.0-99.0); Mean Platelet Volume 9.9 fL (7.4-10.4); Platelet Count 204 10^3/uL (130-400); Red Blood Cell Count 4.56 10^6/uL (4.20-5.40); Red Cell Dist. Width 16.7 % (11.5-14.5); White Blood Cell Count 7.9 10^3/uL (4.8-10.8)
[2024-03-24 06:22] LABS: Blood Urea Nitrogen 36 mg/dl (7-17); Calcium 8.1 mg/dl (8.4-10.2); Carbon Dioxide 22 mmol/L (22-30); Chloride 105 mmol/L (98-107); Estimated Creatinine Clearance 17 ml/min; Glucose 101 mg/dl (70-99); Potassium 4.3 mmol/L (3.5-5.1); Sodium 139 mmol/L (135-145); eGFR 21.84
--- NOTE | 2024-03-24 07:14 | W.PN.HOSP.TC ---
Addendum entered and electronically signed by Rafael Keyes MD 03/24/24 13:10:
Seen and examined. Feeling better. No new complaints.
Daughter at bedside
Right pcn with yellow urine
No further fevers/rigors
No dysuria
NAD, resting comfortably in bed
Scleral anicteric
Moist mucous membranes
No JVD
CTA bilateral
Normal S1-S2 no murmurs
Soft nontender nondistended bowel sounds active
No peripheral pitting edema
Moves extremities spontaneously
AAOx3
Acute cystitis on IV Rocephin. Reviewed urine culture from 1 month ago. He is with Klebsiella sensitive to Rocephin. As she has improved symptoms with previous urine culture sensitive to Rocephin we will continue this for now. Await urine
culture from this admission. De-escalate antibiotics to likely Vantin 200 mg p.o. twice daily x 10 days in the setting of complicated UTI
Generalized weakness likely secondary to poor p.o. intake or multifactorial in the setting of poor p.o. intake and acute cystitis. Therefore have encouraged p.o. intake and IV fluids. Continue antibiotics. Expect to improve. Reviewed with
daughter. Discussed how caloric intake is required for energy.
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
Original Note:
Today's Communication/Plan
-
Continue IV Rocephin. Follow-up on urine and blood cultures recently taken. Provide IV fluid support. Follow-up for any new and worsening symptoms.
Assessment / Plan
Assessment / Plan
HPI: Patient is an 83-year-old female with a history of hypertension, hyperlipidemia, pacemaker status, atrial fibrillation on Eliquis, GERD, bladder cancer, right nephrostomy tube status presented again after discharge from the ED on 03/22/24 for
UTI. She was given 1 g of Rocephin and cefdinir oral medication upon discharge. She felt generally weak, febrile, and had a poor appetite. She was hoping to avoid being admitted and rather opted to try outpatient antibiotics but unfortunately
returned back to the emergency department feeling worse. Patient was febrile in the emergency department with a temperature of 101.2, and a urine culture was sent. A blood culture was taken. She denied any nausea, vomiting, or diarrhea. Lactic
acid was 2.0 with a low BP at 94�59 and heart rate of 77 paced. BUN was 38 and creatinine was found to be elevated at 2.2. There was concern for risk of sepsis and the patient was admitted to [facility] to be given IV antibiotics. The
patient's oncologist has been informed of the patient's current status and was the one who advised her to return to the emergency department.
Asessment/Plan:
-UTI/Cystitis
Continue IV Rocephin
Follow-up on blood culture taken
IV fluid support
Urine cultures from 02/19/2024 showed Proteus and Klebsiella as causative organisms
May consider switching to ertapenem if patient's status does not improve and culture sensitivities indicate
Follow-up repeat urine culture from most recent visit
Monitor temp and ensure patient is not febrile.
-Transitional Cell Carcinoma
-Chronic R Ureteral Obstruction secondary to the above -right nephrostomy tube status
Abdomen/pelvis CT conducted on 03/23/2024 impression shown below in the data portion of this progress note.
Maintain R PCN tube / local care.
Follow-up with Oncology as an outpatient.
-CKD IV: Stable
Renal function is at or near known baseline which is around Cr 2.0 and BUN 20s-30s
Creatinine found to be 2.2 and BUN 36 on 03/20/2024
DVT Prophylaxis: Apixaban
Code Status: Full
Data:
-Abdomen/pelvis CT conducted on 03/23/2024:
IMPRESSION:
1. 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
2. 3.2 cm mass in the RIGHT MID URETER consistent with UROTHELIAL CARCINOMA.
3. Right percutaneous nephrostomy tube in place and moderate right renal cortical atrophy.
4. No CT evidence for hydronephrosis in either kidney.
5. Severe calcific atherosclerotic plaque in the abdominal aorta.
6. Severe diverticulosis in the descending colon.
7. Small pericardial effusion.
8. Mild inflammatory interstitial pneumonitis in the lower lungs.
9. Severe discogenic degenerative disease and facet joint arthrosis in the lumbar spine.
-Chest x-ray conducted on 03/22/2024:
No acute cardiopulmonary process. Left cardiac conduction device with leads in the right atrium and right ventricle. Low lung volumes. No consolidation, pleural effusion, or pneumothorax. Stable enlargement of the cardiac silhouette. Chronic
degenerative changes of the spine.
-Head CT conducted on 03/22/2024: No acute intracranial abnormality. Mild age-related parenchymal atrophy. No intra- or extra-axial mass, hemorrhage, or fluid collection. Mild subcortical, deep, and periventricular white matter low-attenuation,
compatible with changes of chronic small vessel ischemic disease. The imaged paranasal sinuses and mastoid air cells are clear.
Anticipated Discharge: 24 - 48 hours
Subjective/Interval History
-
Date of Service: March 24, 2024
Met with patient at the bedside. She was complaining of feeling cold and even though her room temperature was set to 75 she was shivering. I asked if she had received extra blankets and she said she did but it did not improve her chills.
Otherwise, patient has no current complaints and believes that her condition is improving. She believes that the antibiotics are working.
Objective Data
-
Labs:
Laboratory Results
03/23/24 03/24/24
18:20 05:44
WBC 7.9
Hgb 12.8
Hct 39.1
Plt Count 204
Sodium 139
Potassium 4.3
Chloride 105
Carbon Dioxide 22
BUN 36 H
Creatinine 2.2 H
Glucose 101 H
Calcium 8.1 L
Total Bilirubin 1.1
Alkaline Phosphatase < 20 L
Vital Signs:
Vital Signs
Temp Pulse Resp BP Pulse Ox
99.0 F 92 18 137/67 93
03/24/24 04:09 03/24/24 04:09 03/24/24 04:09 03/24/24 04:09 03/24/24 04:09
I&O
03/23/24 03/24/24 03/25/24
06:59 06:59 06:59
Intake Total 700 / 700
Output Total 50 / 50
Balance 650 / 650
Review of Systems
-
History Source: Patient
Constitutional: Reports Chills
EENT: Reports No Symptoms Reported
Respiratory: Reports No Symptoms
Cardiac: Reports No Symptoms
Abdomen/GI: Reports No Symptoms
Breast: Reports No Symptoms
Genitourinary: Reports No Symptoms
Musculoskeletal: Reports No Symptoms
Skin: Reports No Symptoms
Neuro: Reports Other (Fatigue)
Endocrine: Reports No Symptoms
Allergy / Immunology: Reports No Symptoms
Physical Exam
-
General: Well Developed, Well Nourished, No Apparent Distress and Chills
HEENT: Normocephalic, Atraumatic and Moist Mucous Membranes
Respiratory: Clear to Auscultation
Cardiac: Regular Rhythm and S1/S2
Breast: Deferred by me
GI: Soft, Nontender, Nondistended and Normal Bowel Sounds
Rectal: Deferred by Provider
Genito-urinary: Deferred by me
Musculoskeletal: No Clubbing, No Cyanosis and No Edema
Skin: Warm and Dry
Neuro: Awake, Alert, Oriented and AO x 3
Psych: Calm
[2024-03-24] MEDS: ELIQUIS 2.5 MG PO ×2 (07:40→19:46)
--- NOTE | 2024-03-24 12:34 | CM ---
Addendum entered by Kyleigh Varela 03/24/24 14:14:
PT/OT recommending home care, will discuss options with patient.
Original Note:
Patient seen bedside with daughter Jodi.
Patient lives with spouse 2 story home with 2 steps to enter.
patient has a RW and cane.
Patient can drive but has not in approx 1 year.
Patient independent prior to admission.
Patient had VN in the past, not sure what agency. Options list provided.
Patient PT/OT evals (P).
PCP: Dr Griffiths
Pharmacy: [facility]
Plan: possible VN needs.
--- NOTE | 2024-03-24 16:01 | VNURNOTE ---
Home Health Liaison spoke with patient to discuss [facility] nurse/therapy, visits, schedule and homebound status. Patient is agreeable and understands that visits at home will be 2-3 x per week to assess and teach medical management. Patient is aware
that [facility] will contact them for start of care in 1-2 days after discharge from . [facility] referral completed in [facility].
[2024-03-24] MEDS: ROCEPHIN 1000 MG IV (19:47)
[2024-03-24] MEDS: STERILE WATER FOR INJECTION 10 ML IV (19:47)
[2024-03-25] MEDS: NSS 1000 IV (01:11)
[2024-03-25 03:30] VITALS: BP 115/51
[2024-03-25 06:00] VITALS: BMI 27.7
--- NOTE | 2024-03-25 07:06 | W.PN.HOSP.TC ---
Addendum entered and electronically signed by Rafael Keyes MD 03/25/24 15:10:
Seen and examined. Feeling better. No new complaints.
Daughter at bedside
Right pcn with yellow urine
No further fevers/rigors
No dysuria
NAD, resting comfortably in bed
Scleral anicteric
Moist mucous membranes
No JVD
CTA bilateral
Normal S1-S2 no murmurs
Soft nontender nondistended bowel sounds active
No peripheral pitting edema
Moves extremities spontaneously
AAOx3
Acute Hypoxic respiratory failure with spo2 on RA of mid 80s, Crackles, CXR with edema and cardiomegaly, IVDIresis. With saying that also with febrile. Check covid. On Ctx. Will ask ID to eval.
Acute cystitis on IV Rocephin. Reviewed urine culture from 1 month ago. He is with Klebsiella sensitive to Rocephin. As she has improved symptoms with previous urine culture sensitive to Rocephin we will continue this for now. Await urine
culture from this admission. De-escalate antibiotics to likely Vantin 200 mg p.o. twice daily x 10 days in the setting of complicated UTI
Generalized weakness likely secondary to poor p.o. intake or multifactorial in the setting of poor p.o. intake and acute cystitis. Therefore have encouraged p.o. intake and IV fluids. Continue antibiotics. Expect to improve. Reviewed with
daughter. Discussed how caloric intake is required for energy.
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
Original Note:
Today's Communication/Plan
-
Patient spiked a temperature of 100.8 today. Chest x-ray conducted showed moderate pulmonary edema. Incentive spirometry ordered. VBG ordered. Monitoring and assessing for possible respiratory infection.
Assessment / Plan
Assessment / Plan
HPI: Patient is an 83-year-old female with a history of hypertension, hyperlipidemia, pacemaker status, atrial fibrillation on Eliquis, GERD, bladder cancer, right nephrostomy tube status presented again after discharge from the ED on 03/22/24 for
UTI. She was given 1 g of Rocephin and cefdinir oral medication upon discharge. She felt generally weak, febrile, and had a poor appetite. She was hoping to avoid being admitted and rather opted to try outpatient antibiotics but unfortunately
returned back to the emergency department feeling worse. Patient was febrile in the emergency department with a temperature of 101.2, and a urine culture was sent. A blood culture was taken. She denied any nausea, vomiting, or diarrhea. Lactic
acid was 2.0 with a low BP at 94�59 and heart rate of 77 paced. BUN was 38 and creatinine was found to be elevated at 2.2. There was concern for risk of sepsis and the patient was admitted to [facility] to be given IV antibiotics. The
patient's oncologist has been informed of the patient's current status and was the one who advised her to return to the emergency department.
Asessment/Plan:
-UTI/Cystitis
Continue IV Rocephin
Follow-up on blood culture taken -no growth in 24 hours
IV fluid support
Urine cultures from 02/19/2024 showed Proteus and Klebsiella as causative organisms
May consider switching to ertapenem if patient's status does not improve and culture sensitivities indicate
Follow-up repeat urine culture from most recent visit
Monitor temp and ensure patient is not febrile.
Patient will possibly be discharged on cefpodoxime 200 mg twice daily for 7 days
-Transitional Cell Carcinoma
-Chronic R Ureteral Obstruction secondary to the above -right nephrostomy tube status
Abdomen/pelvis CT conducted on 03/23/2024 impression shown below in the data portion of this progress note.
Maintain R PCN tube / local care.
Follow-up with Oncology as an outpatient.
-CKD IV: Stable
Renal function is at or near known baseline which is around Cr 2.0 and BUN 20s-30s
Creatinine found to be 2.2 and BUN 36 on 03/20/2024 -creatinine is 1.8 on 03/25/2024
Urine output was 250 on the morning of 03/25/2024
-Moderate Pulmonary Edema:
Patient spiked a temp at 100.8 on 03/25/2024 in the morning
Patient remains on 2 L of oxygen via nasal cannula. Patient is not on nasal cannula oxygen normally.
Crackles heard on auscultation of the lungs, occasional coughing - chest x-ray ordered
Chest x-ray shows interval development of moderate pulmonary edema
Incentive spirometry ordered
Repeat BMP -showed bicarbonate at 16
VBG ordered
Ethacrynic acid 25 mg ordered for diuresis
-Case management has worked with the patient and patient is prepared for discharge when medically stable
DVT Prophylaxis: Apixaban
Code Status: Full
Data:
-Chest x-ray conducted on 03/25/2024:
Interval development of moderate pulmonary edema.
No effusion
-Abdomen/pelvis CT conducted on 03/23/2024:
IMPRESSION:
1. 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
2. 3.2 cm mass in the RIGHT MID URETER consistent with UROTHELIAL CARCINOMA.
3. Right percutaneous nephrostomy tube in place and moderate right renal cortical atrophy.
4. No CT evidence for hydronephrosis in either kidney.
5. Severe calcific atherosclerotic plaque in the abdominal aorta.
6. Severe diverticulosis in the descending colon.
7. Small pericardial effusion.
8. Mild inflammatory interstitial pneumonitis in the lower lungs.
9. Severe discogenic degenerative disease and facet joint arthrosis in the lumbar spine.
-Chest x-ray conducted on 03/22/2024:
No acute cardiopulmonary process. Left cardiac conduction device with leads in the right atrium and right ventricle. Low lung volumes. No consolidation, pleural effusion, or pneumothorax. Stable enlargement of the cardiac silhouette. Chronic
degenerative changes of the spine.
-Head CT conducted on 03/22/2024:
No acute intracranial abnormality. Mild age-related parenchymal atrophy. No intra- or extra-axial mass, hemorrhage, or fluid collection. Mild subcortical, deep, and periventricular white matter low-attenuation, compatible with changes of chronic
small vessel ischemic disease. The imaged paranasal sinuses and mastoid air cells are clear.
Anticipated Discharge: 24 - 48 hours
Subjective/Interval History
-
Date of Service: March 25, 2024
Met with patient at the bedside. She states that she wants to go home and believes that she is ready to go home but today she was laying in bed on her left side with the covers over her and was very sleepy. Despite staff and nurses reminding the
patient to keep her 2 L nasal cannula on while sleeping the patient repeatedly removed her nasal cannula. Pulse oximetry readings following these removals often read in the mid 80s. Patient having mild coughs in bed. Patient complains of her
nephrostomy dressing irritating her and pulling on her skin so it was changed today.
Objective Data
-
Labs:
Laboratory Results
03/25/24
07:00
WBC Pending
Hgb Pending
Hct Pending
Plt Count Pending
Sodium Pending
Potassium Pending
Chloride Pending
Carbon Dioxide Pending
BUN Pending
Creatinine Pending
Glucose Pending
Calcium Pending
Vital Signs:
Vital Signs
Temp Pulse Resp BP Pulse Ox
98.5 F 85 20 115/51 94
03/25/24 03:30 03/25/24 03:30 03/25/24 03:30 03/25/24 03:30 03/25/24 03:30
I&O
03/24/24 03/25/24 03/26/24
06:59 06:59 06:59
Intake Total 700 / 700 5420 / 5420
Output Total 50 / 50 300 / 300
Balance 650 / 650 5120 / 5120
Review of Systems
-
History Source: Patient
Constitutional: Reports Chills and Other (Sleepy)
EENT: Reports No Symptoms Reported
Respiratory: Reports Cough
Cardiac: Reports No Symptoms
Abdomen/GI: Reports No Symptoms
Breast: Reports No Symptoms
Genitourinary: Reports No Symptoms
Musculoskeletal: Reports No Symptoms
Skin: Reports No Symptoms
Neuro: Reports No Symptoms
Endocrine: Reports No Symptoms
Hematologic / Lymphatic: Reports No Symptoms
Allergy / Immunology: Reports No Symptoms
Psych: Reports Other
Physical Exam
-
General: Well Developed, Well Nourished, No Apparent Distress and Chills
HEENT: Normocephalic, Atraumatic and Moist Mucous Membranes
Respiratory: Crackles (Bilateral crackles heard)
Cardiac: Regular Rhythm and S1/S2
Breast: Deferred by me
GI: Soft, Nontender, Nondistended and Normal Bowel Sounds
Rectal: Deferred by Provider
Genito-urinary: Deferred by me
Musculoskeletal: No Clubbing, No Cyanosis and No Edema
Skin: Warm and Dry
Neuro: Other (Sleepy)
[2024-03-25 07:49] VITALS: BP 116/63
[2024-03-25 08:09] LABS: Hematocrit 33.2 % (37.0-47.0); Hemoglobin 10.7 g/dL (12.0-16.0); Mean Corp Hgb Conc. 32.2 g/dL (33.0-37.0); Mean Corpuscular Hgb 27.4 pg (27.0-31.0); Mean Corpuscular Volume 84.9 fL (81.0-99.0); Mean Platelet Volume 9.5 fL (7.4-10.4); Platelet Count 176 10^3/uL (130-400); Red Blood Cell Count 3.91 10^6/uL (4.20-5.40); Red Cell Dist. Width 16.5 % (11.5-14.5); White Blood Cell Count 5.7 10^3/uL (4.8-10.8)
[2024-03-25] MEDS: ELIQUIS 2.5 MG PO ×2 (09:18→19:49)
[2024-03-25] MEDS: PEPCID 10 MG PO (09:18)
[2024-03-25 10:19] LABS: Blood Urea Nitrogen 27 mg/dl (7-17); Calcium 7.9 mg/dl (8.4-10.2); Carbon Dioxide 14 mmol/L (22-30); Chloride 111 mmol/L (98-107); Estimated Creatinine Clearance 25 ml/min; Glucose 95 mg/dl (70-99); Sodium 135 mmol/L (135-145); eGFR 29.76
[2024-03-25 11:08] VITALS: BP 122/56
[2024-03-25 11:45] LABS: Blood Urea Nitrogen 27 mg/dl (7-17); Carbon Dioxide 16 mmol/L (22-30); Chloride 109 mmol/L (98-107); Estimated Creatinine Clearance 24 ml/min; Glucose 95 mg/dl (70-99); Potassium 4.1 mmol/L (3.5-5.1); Sodium 136 mmol/L (135-145); eGFR 27.78
[2024-03-25 13:33] LABS: Venous Blood Gas B.E. -7.4 mmol/L (-4 to +4); Venous Blood Gas HCO3 16.9 mmol/L (22-27); Venous Blood Gas O2 Sat % 99.3 %; Venous Blood Gas pCO2 30 mmHg (35-48); Venous Blood Gas pH 7.36 (7.32-7.43); Venous Blood Gas pO2 111 mmHg (30-50)
[2024-03-25] MEDS: EDECRIN 25 MG PO (13:35)
--- NOTE | 2024-03-25 13:58 | RESPNOTE ---
Respiratory: patient unable to perform Incentive Spirometer technique.
[2024-03-25 14:02] LABS: COVID-19 Antigen Negative (Negative)
[2024-03-25 15:15] VITALS: BP 111/50
[2024-03-25] MEDS: ROCEPHIN 1000 MG IV (19:49)
[2024-03-25] MEDS: STERILE WATER FOR INJECTION 10 ML IV (19:49)
[2024-03-25] MEDS: TYLENOL 650 MG PO (19:49)
[2024-03-25 19:55] VITALS: BP 108/60
[2024-03-25 23:38] VITALS: BP 92/50
[2024-03-26] VITALS (7 sets, daily range): BP systolic 92–124; BP diastolic 45–81; PULSE 70; O2SAT 91; BMI 27.5
--- NOTE | 2024-03-26 07:10 | W.PN.HOSP.TC ---
Addendum entered and electronically signed by Rafael Keyes MD 03/26/24 13:35:
Seen and examined. Feeling better. No new complaints.
Daughter at bedside
Right pcn with yellow urine
No further fevers/rigors
No dysuria
NAD, resting comfortably in bed
Scleral anicteric
Moist mucous membranes
No JVD
CTA bilateral
Normal S1-S2 no murmurs
Soft nontender nondistended bowel sounds active
No peripheral pitting edema
Moves extremities spontaneously
AAOx3
Acute Hypoxic respiratory failure with spo2 on RA of mid 80s, Crackles, CXR with edema and cardiomegaly, IVDIresis. With saying that also with febrile. Check covid. On Ctx. Will ask ID to eval.
Sepsis secondary to acute cystitis on IV Rocephin. Reviewed urine culture from 1 month ago. He is with Klebsiella sensitive to Rocephin. As she has improved symptoms with previous urine culture sensitive to Rocephin we will continue this for now.
Await urine culture from this admission. De-escalate antibiotics to likely Vantin 200 mg p.o. twice daily x 10 days in the setting of complicated UTI or per ID can do Cefdinir
-Unlikely to PCN as Ucx from this admission is contaminated with mixed shania.
Generalized weakness likely secondary to poor p.o. intake or multifactorial in the setting of poor p.o. intake and acute cystitis. Therefore have encouraged p.o. intake and IV fluids. Continue antibiotics. Expect to improve. Reviewed with
daughter. Discussed how caloric intake is required for energy.
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
Original Note:
Today's Communication/Plan
-
If patient remains stable and nonfebrile we may move forward with discharge planning. Continue to monitor patient.
Assessment / Plan
Assessment / Plan
HPI: Patient is an 83-year-old female with a history of hypertension, hyperlipidemia, pacemaker status, atrial fibrillation on Eliquis, GERD, bladder cancer, right nephrostomy tube status presented again after discharge from the ED on 03/22/24 for
UTI. She was given 1 g of Rocephin and cefdinir oral medication upon discharge. She felt generally weak, febrile, and had a poor appetite. She was hoping to avoid being admitted and rather opted to try outpatient antibiotics but unfortunately
returned back to the emergency department feeling worse. Patient was febrile in the emergency department with a temperature of 101.2, and a urine culture was sent. A blood culture was taken. She denied any nausea, vomiting, or diarrhea. Lactic
acid was 2.0 with a low BP at 94�59 and heart rate of 77 paced. BUN was 38 and creatinine was found to be elevated at 2.2. There was concern for risk of sepsis and the patient was admitted to [facility] to be given IV antibiotics. The
patient's oncologist has been informed of the patient's current status and was the one who advised her to return to the emergency department.
Asessment/Plan:
-UTI/Cystitis
Continue IV Rocephin
Follow-up on blood culture taken -no growth in 24 hours
IV fluid support
Urine cultures from 02/19/2024 showed Proteus and Klebsiella as causative organisms
May consider switching to ertapenem if patient's status does not improve and culture sensitivities indicate
Follow-up repeat urine culture from most recent visit
Monitor temp and ensure patient is not febrile.
Patient will possibly be discharged on cefpodoxime 200 mg twice daily for 7 days
-Generalized Weakness:
Generalized weakness may be due to poor oral intake or may be multifactorial in the setting of poor oral intake and acute cystitis patient. The patient has been encouraged to increase her oral intake with foods and liquids.
Discussed how caloric intake is required for the body's energy
-Transitional Cell Carcinoma
-Chronic R Ureteral Obstruction secondary to the above -right nephrostomy tube status
Abdomen/pelvis CT conducted on 03/23/2024 impression shown below in the data portion of this progress note.
Maintain R PCN tube / local care.
Follow-up with Oncology as an outpatient.
-CKD IV: Stable
Renal function is at or near known baseline which is around Cr 2.0 and BUN 20s-30s
Creatinine found to be 2.2 and BUN 36 on 03/20/2024 -creatinine is 1.8 on 03/25/2024
Urine output was 250 on the morning of 03/25/2024
-Moderate Pulmonary Edema:
Patient spiked a temp at 100.8 on 03/25/2024 in the morning
Patient remains on 2 L of oxygen via nasal cannula. Patient is not on nasal cannula oxygen normally.
Crackles heard on auscultation of the lungs, occasional coughing - chest x-ray ordered
Chest x-ray shows interval development of moderate pulmonary edema
Incentive spirometry ordered
Repeat BMP -showed bicarbonate at 16
VBG ordered
Ethacrynic acid 25 mg ordered for diuresis
Infectious diseases consult recommends continuing ceftriaxone and then may be able to transition back to oral cefdinir afterwards.
-Case management has worked with the patient and patient is prepared for discharge when medically stable
DVT Prophylaxis: Apixaban
Code Status: Full
Data:
-Chest x-ray conducted on 03/25/2024:
Interval development of moderate pulmonary edema.
No effusion
-Abdomen/pelvis CT conducted on 03/23/2024:
IMPRESSION:
1. 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
2. 3.2 cm mass in the RIGHT MID URETER consistent with UROTHELIAL CARCINOMA.
3. Right percutaneous nephrostomy tube in place and moderate right renal cortical atrophy.
4. No CT evidence for hydronephrosis in either kidney.
5. Severe calcific atherosclerotic plaque in the abdominal aorta.
6. Severe diverticulosis in the descending colon.
7. Small pericardial effusion.
8. Mild inflammatory interstitial pneumonitis in the lower lungs.
9. Severe discogenic degenerative disease and facet joint arthrosis in the lumbar spine.
-Chest x-ray conducted on 03/22/2024:
No acute cardiopulmonary process. Left cardiac conduction device with leads in the right atrium and right ventricle. Low lung volumes. No consolidation, pleural effusion, or pneumothorax. Stable enlargement of the cardiac silhouette. Chronic
degenerative changes of the spine.
-Head CT conducted on 03/22/2024:
No acute intracranial abnormality. Mild age-related parenchymal atrophy. No intra- or extra-axial mass, hemorrhage, or fluid collection. Mild subcortical, deep, and periventricular white matter low-attenuation, compatible with changes of chronic
small vessel ischemic disease. The imaged paranasal sinuses and mastoid air cells are clear.
Anticipated Discharge: Within 24 hours
Subjective/Interval History
-
Date of Service: March 26, 2024
Met with the patient at the bedside. She continues to express a desire to go home and finds her hospital bed uncomfortable. She is seen with her lower jaw shivering in bed and she states that she feels cold.
Objective Data
-
Labs:
Laboratory Results
03/26/24
07:07
WBC Pending
Hgb Pending
Hct Pending
Plt Count Pending
Sodium Pending
Potassium Pending
Chloride Pending
Carbon Dioxide Pending
BUN Pending
Creatinine Pending
Glucose Pending
Calcium Pending
Vital Signs:
Vital Signs
Temp Pulse Resp BP Pulse Ox
98.0 F 71 20 106/51 96
03/26/24 03:52 03/26/24 03:52 03/26/24 03:52 03/26/24 03:52 03/26/24 03:52
I&O
03/25/24 03/26/24 03/27/24
06:59 06:59 06:59
Intake Total 5420 / 5420 240 / 240
Output Total 300 / 300 750 / 750
Balance 5120 / 5120 -510 / -510
Review of Systems
-
History Source: Patient
Constitutional: Reports Chills and Other (Overall discomfort)
EENT: Reports No Symptoms Reported
Respiratory: Reports No Symptoms
Cardiac: Reports No Symptoms
Abdomen/GI: Reports No Symptoms
Breast: Reports No Symptoms
Genitourinary: Reports No Symptoms
Musculoskeletal: Reports No Symptoms
Skin: Reports No Symptoms
Neuro: Reports No Symptoms
Endocrine: Reports No Symptoms
Hematologic / Lymphatic: Reports No Symptoms
Allergy / Immunology: Reports No Symptoms
Physical Exam
-
General: Well Developed and Well Nourished
HEENT: Normocephalic, Atraumatic and Moist Mucous Membranes
Respiratory: Crackles (Diffuse crackles heard throughout bilaterally)
Cardiac: Regular Rhythm and S1/S2
Breast: Deferred by me
GI: Soft, Nontender, Nondistended and Normal Bowel Sounds
Genito-urinary: Nephrostomy Tubes
Musculoskeletal: No Clubbing, No Cyanosis and No Edema
Skin: Warm
Neuro: Awake, Alert, Oriented and AO x 3
[2024-03-26] MEDS: EDECRIN 25 MG PO (07:45)
[2024-03-26] MEDS: ELIQUIS 2.5 MG PO ×2 (07:48→19:46)
[2024-03-26 07:57] LABS: Hematocrit 36.6 % (37.0-47.0); Mean Corp Hgb Conc. 32.8 g/dL (33.0-37.0); Mean Corpuscular Hgb 27.1 pg (27.0-31.0); Mean Corpuscular Volume 82.6 fL (81.0-99.0); Mean Platelet Volume 9.6 fL (7.4-10.4); Platelet Count 206 10^3/uL (130-400); Red Blood Cell Count 4.43 10^6/uL (4.20-5.40); Red Cell Dist. Width 16.6 % (11.5-14.5); White Blood Cell Count 7.8 10^3/uL (4.8-10.8)
[2024-03-26 08:42] LABS: Blood Urea Nitrogen 29 mg/dl (7-17); Calcium 8.4 mg/dl (8.4-10.2); Carbon Dioxide 23 mmol/L (22-30); Chloride 106 mmol/L (98-107); Estimated Creatinine Clearance 22 ml/min; Glucose 101 mg/dl (70-99); Potassium 4.2 mmol/L (3.5-5.1); Sodium 137 mmol/L (135-145); eGFR 26.04
--- NOTE | 2024-03-26 09:24 | CON.ID ---
Consultation
-
Date/Time Consultation Requested: 03/25/2024 15:14
Date/Time Consultation Performed: 03/26/2024 0925
Requesting Provider: Dr. Eisenberg
Performing Provider: Dr. Wolf
Reason for Consultation: Fever
Chief Complaint / Past History
History of Present Illness
Jessi Shipman is an 83-year-old female being evaluated regarding fever. History is obtained from chart review, along with patient interview.
The patient initially was seen in the ER on 03/22 following reported 7 days of generalized weakness. She reportedly had fallen in her garage and hit her head, according to reviewed notes. At that time in the ER she reported cough along with chills
for several days. She denied any shortness of breath. She was given a dose of Rocephin, and discharged on a course of cefdinir.
She presents back on 03/23 for ongoing weakness along with decreased appetite. In the ER, she was noted to have a fever to 100.2 degrees. She was continued on ceftriaxone.
At present she denies any current fevers or chills. She denies any ongoing cough. There is no sputum production. She denies any abdominal pain. She has a longstanding right PCN, but reports no difficulty with it. She denies any flank pain.
Past History
Additional Past Medical History:
Bladder Cancer (transitional cell)
CKD Stage IV
HTN
A-fib (maintained on Eliquis)
GERD
Additional Past Surgical History:
Right percutaneous nephrostomy tube
Allergy History:
sulfamethoxazole [From Bactrim] Allergy (Verified 03/23/24 18:07)
swelling of tongue
Medications Reviewed: Yes
Current Antibiotics:
Ceftriaxone 1 g IV every 24 hours (day #4)
Social History
Tobacco: Non-Smoker
Alcohol: None
Drug: None
Family History
Family History: Not Pertinent
Review of Systems
Vital Signs
Temp Pulse Resp BP Pulse Ox
98.1 F 72 20 116/66 93
03/26/24 07:48 03/26/24 07:48 03/26/24 07:48 03/26/24 07:48 03/26/24 07:48
Physical Exam
Physical Exam
Constitutional: No Acute Distress, Comfortable, Chronically Ill and Non-toxic
Head: Normocephalic
Eyes: Pupils Equal, Pupils Round, No Conjunctival Hemorrhage and Sclera Anicteric
Oral: No Thrush and No Ulcers
Cardiovascular: Irregular Rate and S1/S2; Negative S3/S4 or Murmur
Pulmonary: Clear; Negative Wheezes, Rales or Rhonchi
Gastrointestinal: Soft, Non Tender, Non Distended, Normal Bowel Sounds, No Rebound and No Guarding
Genito-Urinary: Other (Right PCN in place with clear yellow urine.); Negative CVA Tenderness
Extremities: Negative Edema, Cyanosis or Erythema
Skin: Warm and Dry; Negative Rash or Jaundice
Neurological: Awake and Alert
Psychological: Calm
.
Lab / Diagnostic Study Results
03/26/24 07:20
03/26/24 07:20
Abs Immat Gran (auto) 0.0 10^3/uL (0-0.05) 03/23/24 18:20
Absolute Neuts (auto) 5.3 10^3/uL (1.4-6.5) 03/23/24 18:20
Absolute Lymphs (auto) 2.5 10^3/uL (1.2-3.4) 03/23/24 18:20
Absolute Monos (auto) 1.1 10^3/uL (0.1-0.6) H 03/23/24 18:20
Absolute Basos (auto) 0.0 10^3/uL (0-0.2) 03/23/24 18:20
Immature Gran % 0.4 % (0-0.5) 03/23/24 18:20
Neutrophils % 57.6 % (42.2-75.2) 03/23/24 18:20
Lymphocytes % 27.3 % (20.5-51.1) 03/23/24 18:20
Monocytes % 12.0 % (1.7-9.3) H 03/23/24 18:20
Eosinophils % 2.3 % (0-6) 03/23/24 18:20
Basophils % 0.4 % (0-2) 03/23/24 18:20
Lactic Acid 2.0 mmol/L (0.7-2.0) 03/23/24 18:20
Microbiology Results
Micro:
03/23/24 19:19 Blood Culture - Preliminary
Blood/Venous No Growth in 48 hours- Final report to follow
Imaging:
03/25/2024 CXR (2 view): When compared to prior study of 03/22/2024 there has been interval development of interstitial and airspace opacities bilaterally, likely on the basis of alveolar pulmonary edema. No definite pleural effusion or pneumothorax
noted. See full dictation for additional detail.
03/23/2024 CT abdomen/pelvis: Severe diffuse irregular urinary bladder wall thickening and a large amount of perivesicular inflammation consistent with urothelial carcinoma and possible acute cystitis. A 3.2 cm mass in the right mid ureter is
consistent with urothelial carcinoma. A right percutaneous nephrostomy tube is in place with moderate right renal cortical atrophy. No CT evidence for hydronephrosis.
Assessment / Plan
Generalized weakness
Reported cough and chills
- intercurrent viral illness?
Pyuria
- Not unexpected given longstanding PCN placement and underlying carcinoma
Bladder Cancer (transitional cell) w/ chronic (R) PCN
CKD Stage IV
HTN
A-fib (maintained on Eliquis)
GERD
Recommendations:
UA from right PCN reviewed and noted to be cloudy. Culture found to be polymicrobial ( not unexpected).
No peripheral leukocytosis noted.
Continue with ceftriaxone for today.
Follow for additional temperatures. If otherwise stable, may be able to transition back to oral cefdinir in the next 24-48 hours.
Monitor white count.
--- NOTE | 2024-03-26 11:23 | PN.CDI ---
CDI
- -
CDI:
Physician Documentation Request
Admit Date: 03/23/24 23:00
Dear Doctor Faina,
Patient admitted with UTI/ cystitis.
03/26 PN, 'Continue IV Rocephin.'
On admission, T max 101.2 and RR > 20.
Please clarify which of the following most accurately describes the status of the patient's infection:
Sepsis, POA
UTI/ cystitis only
Other
Sepsis
- Systemic manifestations of infection, with 2 or more SIRS criteria which include:
- Fever >100.4 degrees F or hypothermia < 96.8 degrees F
- Leukocytosis - WBC > 12,000 or leukopenia - WBC < 4,000 or > 10% bands
- Tachycardia > 90 beats per minute
- Tachypnea - RR > 20 breaths per minute or PaCO2 , 32mmHg
Source: Merck Manual 2013
- Indicate the known or suspected organism
- Indicate the known or suspected underlying infection, such as UTI/ cystitis
- Indicate if a suspected bacterial infection of unknown source
Localized Infection Only, Without Systemic Illness
- indicate the site/source, such as UTI/ cystitis
Other
Use of terms such as suspected, likely, concern for, or probable (associated with a specific diagnosis that is being evaluated, monitored, or treated as if it exists) are acceptable and can be coded in the inpatient setting, when documented at the
time of discharge.
Thank you,
Anjelica DOBBINSN,RN,CCDS
CDI Specialist
Available via [place] text
Please use your independent medical judgment in providing your response.
--- NOTE | 2024-03-26 12:15 | PN.CDI ---
CDI
- -
CDI:
Physician Documentation Request
Admit Date: 03/23/24 23:00
Dear Doctor Faina,
Patient admitted with UTI/ cystitis.
03/26 PN, 'UTI/Cystitis....right nephrostomy tube status...Maintain R PCN tube.'
Please clarify the likely relationship between these conditions:
Yes, UTI/cystitis is related to/associated with/due to right nephrostomy tube.
No, UTI/ cystitis is not related to/associated with/due to right nephrostomy tube but it is due to ___. (Please specify)
Unable to determine
Use of terms such as suspected, likely, concern for, or probable (associated with a specific diagnosis that is being evaluated, monitored, or treated as if it exists) are acceptable and can be coded in the inpatient setting, when documented at the
time of discharge.
Thank you,
Anjelica ARTEAGA,RN,CCDS
CDI Specialist
Available via [employer] text
Please use your independent medical judgment in providing your response.
[2024-03-26] MEDS: FLUSH (NSS) 2 FLUSH IV (19:45)
[2024-03-26] MEDS: STERILE WATER FOR INJECTION 10 ML IV (19:46)
[2024-03-26] MEDS: ROCEPHIN 1000 MG IV (19:46)
[2024-03-26 21:30] LABS: Glucose - Point of Care 121 mg/dl (70-99)
[2024-03-27 06:00] VITALS: BMI 27.2
[2024-03-27 06:47] LABS: Hematocrit 34.8 % (37.0-47.0); Hemoglobin 11.6 g/dL (12.0-16.0); Mean Corp Hgb Conc. 33.3 g/dL (33.0-37.0); Mean Corpuscular Hgb 27.4 pg (27.0-31.0); Mean Corpuscular Volume 82.3 fL (81.0-99.0); Mean Platelet Volume 9.9 fL (7.4-10.4); Platelet Count 204 10^3/uL (130-400); Red Blood Cell Count 4.23 10^6/uL (4.20-5.40); Red Cell Dist. Width 16.3 % (11.5-14.5); White Blood Cell Count 6.4 10^3/uL (4.8-10.8)
[2024-03-27 07:08] LABS: ALT (SGPT) 24 U/L (0-35); AST (SGOT) 46 U/L (14-36); Albumin 2.5 g/dl (3.5-5.0); Alkaline Phosphatase 61 U/L (38-126); Blood Urea Nitrogen 32 mg/dl (7-17); Calcium 8.2 mg/dl (8.4-10.2); Carbon Dioxide 20 mmol/L (22-30); Chloride 104 mmol/L (98-107); Estimated Creatinine Clearance 23 ml/min; Glucose 109 mg/dl (70-99); Potassium 3.9 mmol/L (3.5-5.1); Sodium 137 mmol/L (135-145); Total Bilirubin 0.6 mg/dl (0.2-1.3); Total Protein 4.8 g/dl (6.3-8.2); eGFR 27.78
[2024-03-27 07:36] VITALS: BP 98/54
[2024-03-27] MEDS: PEPCID 10 MG PO (07:41)
[2024-03-27] MEDS: ELIQUIS 2.5 MG PO ×2 (07:41→21:27)
[2024-03-27] MEDS: EDECRIN 25 MG PO (07:54)
--- NOTE | 2024-03-27 10:57 | W.PN.HOSP.TC ---
Addendum entered and electronically signed by Rafael Keyes MD 03/27/24 15:41:
Seen and examined. Feeling better. No new complaints.
Right pcn with yellow urine
No further fevers/rigors
No dysuria
NAD, resting comfortably in bed
Scleral anicteric
Moist mucous membranes
No JVD
CTA bilateral
Normal S1-S2 no murmurs
Soft nontender nondistended bowel sounds active
No peripheral pitting edema
Moves extremities spontaneously
AAOx3
Acute Hypoxic respiratory failure with spo2 on RA of mid 80s, Crackles, CXR with edema and cardiomegaly, IVDIresis. With saying that also with febrile. Check covid. On Ctx. Will ask ID to eval.
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 on ethacrynic acid, weight up per pulm, will transition to IV ethacrynic acid. Monitor UOP and daily weights. Keep K >4, Mg>2
Sepsis secondary to acute cystitis on IV Rocephin. Reviewed urine culture from 1 month ago. He is with Klebsiella sensitive to Rocephin. As she has improved symptoms with previous urine culture sensitive to Rocephin we will continue this for now.
Await urine culture from this admission. De-escalate antibiotics to likely Vantin 200 mg p.o. twice daily x 10 days in the setting of complicated UTI or per ID can do Cefdinir
-Unlikely to PCN as Ucx from this admission is contaminated with mixed shania.
Generalized weakness likely secondary to poor p.o. intake or multifactorial in the setting of poor p.o. intake and acute cystitis. Therefore have encouraged p.o. intake and IV fluids. Continue antibiotics. Expect to improve. Reviewed with
daughter. Discussed how caloric intake is required for energy.
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
Original Note:
Today's Communication/Plan
-
Patient's white blood cell count is 6.4 and stable. Patient remains on 2 L oxygen even though her baseline need prior to admission was 9 and she was able to breathe easily on room air. Pulmonology consulted. Infectious diseases recommends
continuing with ceftriaxone and then transitioning to oral cefdinir within the next 48 hours.
Assessment / Plan
Assessment / Plan
HPI: Patient is an 83-year-old female with a history of hypertension, hyperlipidemia, pacemaker status, atrial fibrillation on Eliquis, GERD, bladder cancer, right nephrostomy tube status presented again after discharge from the ED on 03/22/24 for
UTI. She was given 1 g of Rocephin and cefdinir oral medication upon discharge. She felt generally weak, febrile, and had a poor appetite. She was hoping to avoid being admitted and rather opted to try outpatient antibiotics but unfortunately
returned back to the emergency department feeling worse. Patient was febrile in the emergency department with a temperature of 101.2, and a urine culture was sent. A blood culture was taken. She denied any nausea, vomiting, or diarrhea. Lactic
acid was 2.0 with a low BP at 94�59 and heart rate of 77 paced. BUN was 38 and creatinine was found to be elevated at 2.2. There was concern for risk of sepsis and the patient was admitted to [facility] to be given IV antibiotics. The
patient's oncologist has been informed of the patient's current status and was the one who advised her to return to the emergency department.
Asessment/Plan:
-Acute hypoxic respiratory failure with SpO2 on room air in the mid 80s:
Patient spiked a temp at 100.8 on 03/25/2024 in the morning -currently 97.8
Patient remains on 2 L of oxygen via nasal cannula. Patient is not on nasal cannula oxygen normally.
Crackles heard on auscultation of the lungs, occasional coughing - chest x-ray ordered
Chest x-ray shows interval development of moderate pulmonary edema
Incentive spirometry ordered -education on how to use incentive spirometry given
Repeat BMP -showed bicarbonate at 20
VBG ordered -VBG pH of 7.36, pCO2 of 30, pO2 of 111, VBG O2 sat 99.3
Continue ethacrynic acid 25 mg for diuresis to get additional fluid off her lungs -monitor labs to ensure she does not get too dry
Infectious diseases consult recommends continuing ceftriaxone today and then then transition back to oral cefdinir within the next 48 hours. Continue to monitor white count
Pulmonology consulted
-UTI/Cystitis
Continue IV Rocephin
Follow-up on blood culture taken -no growth in 24 hours
IV fluid support
Urine cultures from 02/19/2024 showed Proteus and Klebsiella as causative organisms
May consider switching to ertapenem if patient's status does not improve and culture sensitivities indicate
Follow-up repeat urine culture from most recent visit -reviewed and noted to be cloudy. The culture was polymicrobial which is not unexpected
Monitor temp and ensure patient is not febrile.
Patient will possibly be discharged on cefpodoxime 200 mg twice daily for 7 days
-Generalized Weakness:
Generalized weakness may be due to poor oral intake or may be multifactorial in the setting of poor oral intake and acute cystitis patient. The patient has been encouraged to increase her oral intake with foods and liquids.
Discussed how caloric intake is required for the body's energy
-Transitional Cell Carcinoma
-Chronic R Ureteral Obstruction secondary to the above -right nephrostomy tube status
Abdomen/pelvis CT conducted on 03/23/2024 impression shown below in the data portion of this progress note.
Maintain R PCN tube / local care.
Follow-up with Oncology as an outpatient.
-CKD IV: Stable
Renal function is at or near known baseline which is around Cr 2.0 and BUN 20s-30s
Creatinine found to be 2.2 and BUN 30 on 03/23/2024 -creatinine is 1.8 and BUN is 32 on 03/27/2024
Urine output was 250 on the morning of 03/25/2024
-Case management has worked with the patient and patient is prepared for discharge when medically stable
DVT Prophylaxis: Apixaban
Code Status: Full
Data:
-Chest x-ray conducted on 03/25/2024:
Interval development of moderate pulmonary edema.
No effusion
-Abdomen/pelvis CT conducted on 03/23/2024:
IMPRESSION:
1. 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
2. 3.2 cm mass in the RIGHT MID URETER consistent with UROTHELIAL CARCINOMA.
3. Right percutaneous nephrostomy tube in place and moderate right renal cortical atrophy.
4. No CT evidence for hydronephrosis in either kidney.
5. Severe calcific atherosclerotic plaque in the abdominal aorta.
6. Severe diverticulosis in the descending colon.
7. Small pericardial effusion.
8. Mild inflammatory interstitial pneumonitis in the lower lungs.
9. Severe discogenic degenerative disease and facet joint arthrosis in the lumbar spine.
-Chest x-ray conducted on 03/22/2024:
No acute cardiopulmonary process. Left cardiac conduction device with leads in the right atrium and right ventricle. Low lung volumes. No consolidation, pleural effusion, or pneumothorax. Stable enlargement of the cardiac silhouette. Chronic
degenerative changes of the spine.
-Head CT conducted on 03/22/2024:
No acute intracranial abnormality. Mild age-related parenchymal atrophy. No intra- or extra-axial mass, hemorrhage, or fluid collection. Mild subcortical, deep, and periventricular white matter low-attenuation, compatible with changes of chronic
small vessel ischemic disease. The imaged paranasal sinuses and mastoid air cells are clear.
Anticipated Discharge: Within 24 hours
Subjective/Interval History
-
Date of Service: March 27, 2024
Met with patient at the bedside. She states that she feels much better today and is hoping to go home if able to. She is no longer shivering in her bed and is resting comfortably.
Objective Data
-
Labs:
Laboratory Results
03/27/24
06:17
WBC 6.4
Hgb 11.6 L
Hct 34.8 L
Plt Count 204
Sodium 137
Potassium 3.9
Chloride 104
Carbon Dioxide 20 L
BUN 32 H
Creatinine 1.8 H
Glucose 109 H
Calcium 8.2 L
Total Bilirubin 0.6
AST 46 H
ALT 24
Alkaline Phosphatase 61
Vital Signs:
Vital Signs
Temp Pulse Resp BP Pulse Ox
97.9 F 73 18 98/54 94
03/27/24 07:36 03/27/24 07:54 03/27/24 07:36 03/27/24 07:54 03/27/24 07:36
I&O
03/26/24 03/27/24 03/28/24
06:59 06:59 06:59
Intake Total 240 / 240 240 / 240
Output Total 750 / 750 225 / 225
Balance -510 / -510
Review of Systems
-
History Source: Patient
Constitutional: Reports No Symptoms
EENT: Reports No Symptoms Reported
Respiratory: Reports No Symptoms
Cardiac: Reports No Symptoms
Abdomen/GI: Reports No Symptoms
Breast: Reports No Symptoms
Genitourinary: Reports No Symptoms
Musculoskeletal: Reports No Symptoms
Skin: Reports No Symptoms
Neuro: Reports No Symptoms
Endocrine: Reports No Symptoms
Hematologic / Lymphatic: Reports No Symptoms
Physical Exam
-
General: Well Developed, Well Nourished, No Apparent Distress and Comfortable
HEENT: Normocephalic, Atraumatic and Moist Mucous Membranes
Respiratory: Crackles (Crackles heard at the lung bases)
Cardiac: Regular Rhythm and S1/S2
Breast: Deferred by me
GI: Soft, Nontender, Nondistended and Normal Bowel Sounds
Genito-urinary: Deferred by me
Musculoskeletal: No Clubbing and No Cyanosis
Skin: Warm and Dry
Neuro: Awake, Alert, Oriented and AO x 3
Psych: Calm
--- NOTE | 2024-03-27 11:38 | RESPNOTE ---
attempted home O2 eval at this time, patient requested to return after lunch.
--- NOTE | 2024-03-27 12:02 | CON.PUL ---
Consultation
Consultation Request
Date/Time Consultation Requested: 03/27/24
Date/Time Consultation Performed: 03/27/24
Performing Provider: Evan
Reason for Consultation: SOB
Medical History
-
History of Present Illness:
Patient is an 83 year old F with PMH of transitional cell carcinoma, CKD IV who presents to ED complaining of weakness and fever. In the ED today, patient is febrile to 101.2.
Adm to 03/23/24 for presumed UTI/cystitis.
She developed SOB, CXR showing acute bilateral patchy opacities. She does note trouble/difficulty urinating. She has hesitancy and incomplete emptying. She does not void often.
Received 5L on her I/Os in the last 48-72 hours.
She denies prior history of lung disease, lifelong nonsmoker.
Past Medical History
Past Medical History: Other (see list below)
Social History
Tobacco: Non-smoker
Alcohol: None
Drug: None
Family History
Family History: Reviewed & Not Pertinent
Allergies / Home Medications
Allergies
Allergy/AdvReac Type Severity Reaction Status Date / Time
sulfamethoxazole Allergy swelling Verified 03/23/24 18:07
[From Bactrim] of tongue
trimethoprim [From Bactrim] Allergy swelling Verified 03/23/24 18:07
of tongue
Home Medications
�Medication �Instructions �Recorded �Confirmed �Last Taken �Type
therapeutic multivitamin 1 tab PO DAILY Supplement 07/30/23 03/23/24 08/09/23 History
apixaban 2.5 mg tablet (Eliquis) 2.5 mg PO BID #60 tabs 09/26/23 03/23/24 Unknown Rx
famotidine 20 mg tablet 20 mg PO DAILY Gastrointestinal 03/22/24 03/23/24 Unknown History
Issue
Review of Systems
-
History Source: Patient
All other systems: Negative unless noted
Vitals / Labs / Diagnostic Testing
Vital Signs
Temp Pulse Resp BP Pulse Ox
97.8 F 73 18 98/54 94
03/27/24 11:18 03/27/24 07:54 03/27/24 07:36 03/27/24 07:54 03/27/24 07:36
Lab Data
03/27/24 06:17
03/27/24 06:17
Microbiology
03/23/24 19:19 Blood/Venous Blood Culture - Preliminary
No Growth in 72 hours- Final report to follow
Diagnostic Testing:
Physical Exam
-
HEENT: Normocephalic, Anicteric and Moist Mucous Membranes
Cardiovascular: S1/S2 and Regular Rhythm
Respiratory: Rales and Non-Labored Respirations
GI: Soft, Non Distended and Non Tender
Neurology: Awake, Alert, Oriented and No Motor Deficits
Skin: Warm, Dry and Good Color
General: Comfortable and Other (NAD)
Assessment
-
Patient is an 83 year old F with PMH of transitional cell carcinoma, CKD IV who presents to ED complaining of weakness and fever. In the ED today, patient is febrile to 101.2F.
Adm to 03/23/24 for presumed UTI/cystitis. She developed SOB, CXR showing acute bilateral patchy opacities. We are asked for evaluation.
Acute hypoxic respiratory failure
Moderate pulmonary edema on CXR
Volume overload from HFpEF
UTI / Cystitis
Generalized weakness
s/p fall at home
Pulmonary nodule
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
Transitional Cell Carcinoma
Chronic R Ureteral Obstruction s/p R PCN tube
CKD IV
HTN
A-fib on Eliquis
GERD
Plan
Hypoxemia was not noted on arrival, developed in the past 24 hours
No prior history of hypoxemia or home O2 use
Placed on 2-3L
Home O2 evaluation eventually
She denies prior history of lung disease, lifelong nonsmoker.
Denies fam hx of lung disease
Suspect patient has volume overload in the setting of acute on chronic urinary hesitation/incomplete emptying
She does not void often/IO reviewed with limited UO given incontinence
She is recorded of being +5L in the last 48-72 hours
Weight--69 kg lowest in Fe, now highest 73.9kg
CXR/CT obtained indicating acute pulmonary patchy opacities most in keeping with edema
Other imaging reviewed in past, not present
proBNP 5600
Recommend IV diuresis
Prior ECHO results are reviewed indicating pEF, stable findings
She has CKD stage IV, creat 1.9-2.2
She notes that HD was discussed in past but not offered
May consider renal eval if worsening
History of TCC, on treatment
Recent PET/CT reviewed with nodule - There are no areas of abnormal FDG avidity in the chest. Image 102 series 4 demonstrates a stable 8 mm subpleural pulmonary nodule at the posterolateral left lung base which is not FDG avid. The stability and
lack of FDG avidity suggests that this lesion is benign.
Can be followed as OP
Updated daughter at bedside
We will follow
Diagnostic Data
Chest X-Ray: 03/25/24- Interval development of moderate pulmonary edema. No effusion
CT AP 03/23/24- CHEST: There is a cardiac pacemaker in place with lead tips terminating in the right atrium and right ventricle. There is mild calcification in the aortic valve. There is severe calcific atherosclerotic plaque and moderate tortuosity
in the descending thoracic aorta. There is a small pericardial effusion. There are no pleural effusions.
There is a moderate amount of subpleural ground-glass opacity in the basilar segments of the lower lobes of both lungs mixed with finely increased interstitial reticular markings suggesting a mild inflammatory interstitial pneumonitis.
Echo: 08/19/23- Normal left ventricular size and function. Mild concentric left ventricular hypertrophy. Normal regional wall motion. Left ventricular ejection fraction is 55-60%. Mild tricuspid regurgitation.
No evidence of vegetation, consider DILCIA if clinically indicated. No prior echo for comparison
PFT's:
Reports and relevant images were personally reviewed.
Total time spent on this consultation __77__ includes review of history, physical exam, medications, laboratory data, personal review of imaging, extensive review of outpatient records, discussion with care team and respiratory therapy.
[2024-03-27 13:33] LABS: NT-proBNP 5600 pg/ml
--- NOTE | 2024-03-27 13:36 | W.PN.ID1 ---
Date of Service
Date of Service: March 27, 2024
Today's Communication
Transition to cefdinir.
Assessment / Plan
Generalized weakness
Reported cough and chills
- intercurrent viral illness?
Pyuria
- Not unexpected given longstanding PCN placement and underlying carcinoma
Bladder Cancer (transitional cell) w/ chronic (R) PCN
CKD Stage IV
HTN
A-fib (maintained on Eliquis)
GERD
Recommendations:
UA from right PCN reviewed and noted to be cloudy. Culture found to be polymicrobial ( not unexpected).
No peripheral leukocytosis noted.
Transition to oral cefdinir 300 mg q24h x 5 days
Monitor white count.
Chief Complaint
-: Fever
Subjective / Review of Systems
Patient seen and examined. Overall feels well.
Review of Systems: No Fever
Vital Signs / Physical Exam
Vital Signs
Vital Signs
Temp Pulse Resp BP Pulse Ox
97.8 F 73 18 98/54 94
03/27/24 11:18 03/27/24 07:54 03/27/24 07:36 03/27/24 07:54 03/27/24 07:36
Physical Exam
Constitutional: No Acute Distress
Eyes: Sclera Anicteric
Cardiovascular: Regular Rate and S1/S2; Negative Murmur or Rub
Pulmonary: Clear and Symmetric; Negative Wheezes or Rales
Gastrointestinal: Soft, Non Tender, Non Distended and Normal Bowel Sounds
Skin: Warm and Dry; Negative Rash or Jaundice
Objective Data
Lab Data
Lab Results
03/27/24 06:17
03/27/24 06:17
Estimated Creat Clear 23 ml/min 03/27/24 06:17
Lactic Acid 2.0 mmol/L (0.7-2.0) 03/23/24 18:20
Total Bilirubin 0.6 mg/dl (0.2-1.3) 03/27/24 06:17
AST 46 U/L (14-36) H 03/27/24 06:17
ALT 24 U/L (0-35) 03/27/24 06:17
Alkaline Phosphatase 61 U/L (38-126) 03/27/24 06:17
Most recent labs reviewed.
Micro Results:
03/23/24 19:19 Blood Culture - Preliminary
Blood/Venous No Growth in 72 hours- Final report to follow
03/26/24 14:00 Blood Culture - Pending
Blood/Venous
Imaging:
03/25/2024 CXR (2 view): When compared to prior study of 03/22/2024 there has been interval development of interstitial and airspace opacities bilaterally, likely on the basis of alveolar pulmonary edema. No definite pleural effusion or pneumothorax
noted. See full dictation for additional detail.
03/23/2024 CT abdomen/pelvis: Severe diffuse irregular urinary bladder wall thickening and a large amount of perivesicular inflammation consistent with urothelial carcinoma and possible acute cystitis. A 3.2 cm mass in the right mid ureter is
consistent with urothelial carcinoma. A right percutaneous nephrostomy tube is in place with moderate right renal cortical atrophy. No CT evidence for hydronephrosis.
Care Review
Plan reviewed with: Physician (Hospitalist.)
[2024-03-27 14:18] VITALS: BP 98/62; PULSE 74; O2SAT 96
[2024-03-27 14:43] VITALS: BP 99/61
[2024-03-27] MEDS: OMNICEF 300 MG PO (15:04)
--- NOTE | 2024-03-27 15:10 | CM ---
PT recommends SNF; spoke with via phone; reported that he will speak with ; and if she is agreeable, CM will send referral.
AUTH required
Per spouse, past SNF stay @ [facility]; AUTH required
Chart reviewed: patient remains on 2 L oxygen even though her baseline need prior to admission was 9 and she was able to breathe easily on room air. Pulmonology consulted. Infectious diseases recommends continuing with ceftriaxone and then
transitioning to oral cefdinir within the next 48 hours.
Anticipated DC within 24 hours
Discharge plan to be determine; CM will follow up with patient and tomorrow
[2024-03-27] MEDS: EDECRIN 50 MG IV (17:10)
[2024-03-27 23:29] VITALS: BP 105/60
[2024-03-28 06:00] VITALS: BMI 27.2
[2024-03-28 08:07] VITALS: BP 81/50
[2024-03-28 08:21] LABS: Hematocrit 36.6 % (37.0-47.0); Hemoglobin 12.3 g/dL (12.0-16.0); Mean Corp Hgb Conc. 33.6 g/dL (33.0-37.0); Mean Corpuscular Hgb 27.5 pg (27.0-31.0); Mean Corpuscular Volume 81.7 fL (81.0-99.0); Mean Platelet Volume 10.3 fL (7.4-10.4); Platelet Count 242 10^3/uL (130-400); Red Blood Cell Count 4.48 10^6/uL (4.20-5.40); Red Cell Dist. Width 16.4 % (11.5-14.5); White Blood Cell Count 5.5 10^3/uL (4.8-10.8)
--- NOTE | 2024-03-28 08:27 | W.PN.HOSP.TC ---
Addendum entered and electronically signed by Rafael Keyes MD 03/28/24 14:09:
Seen and examined. Feeling better. No new complaints.
Right pcn with yellow urine
No further fevers/rigors
No dysuria
NAD, resting comfortably in bed
Scleral anicteric
Moist mucous membranes
No JVD
CTA bilateral
Normal S1-S2 no murmurs
Soft nontender nondistended bowel sounds active
No peripheral pitting edema
Moves extremities spontaneously
AAOx3
Acute Hypoxic respiratory failure with spo2 on RA of mid 80s, Crackles, CXR with edema and cardiomegaly, IVDIresis. With saying that also with febrile. Check covid. On Ctx. Will ask ID to eval.
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 on ethacrynic acid, weight up per pulm, will transition to IV ethacrynic acid. Monitor UOP and daily weights. Keep K >4, Mg>2
-Weight improving, down to 71.7, dry around 69kg (08/01/2023)
-UOP remains good
-Per EMR mid 90's on Room air, 100% on 2l, will ask nursing to wean off
-Continue IV diuretics
Sepsis secondary to acute cystitis on IV Rocephin. Reviewed urine culture from 1 month ago. He is with Klebsiella sensitive to Rocephin. As she has improved symptoms with previous urine culture sensitive to Rocephin we will continue this for now.
Await urine culture from this admission. De-escalate antibiotics to Cefdinir 300mg q24 x5day per ID
-Unlikely to PCN as Ucx from this admission is contaminated with mixed shania.
Generalized weakness likely secondary to poor p.o. intake or multifactorial in the setting of poor p.o. intake and acute cystitis. Therefore have encouraged p.o. intake and IV fluids. Continue antibiotics. Expect to improve. Reviewed with
daughter. Discussed how caloric intake is required for energy.
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
Dispo: DC to SNF when bed available.
Original Note:
Today's Communication/Plan
-
We will continue to diurese this patient as there is a little more fluid to get off of her. Patient had a bloody streaked stool and appears to be somewhat constipated. Colace, MiraLAX added. Patient restricted to 1500 cc of fluid. Preparation H
added for hemorrhoids. Family meeting and discussion has taken place in regards to future SNF placement. PT OT eval will be necessary in order to move forward with this planning. Per past SNF stay at [facility] addie had an authorization that has now
since . She will need another authorization in order to go to SNF postdischarge. Case management continues to follow.
Assessment / Plan
Assessment / Plan
HPI: Patient is an 83-year-old female with a history of hypertension, hyperlipidemia, pacemaker status, atrial fibrillation on Eliquis, GERD, bladder cancer, right nephrostomy tube status presented again after discharge from the ED on 03/22/24 for
UTI. She was given 1 g of Rocephin and cefdinir oral medication upon discharge. She felt generally weak, febrile, and had a poor appetite. She was hoping to avoid being admitted and rather opted to try outpatient antibiotics but unfortunately
returned back to the emergency department feeling worse. Patient was febrile in the emergency department with a temperature of 101.2, and a urine culture was sent. A blood culture was taken. She denied any nausea, vomiting, or diarrhea. Lactic
acid was 2.0 with a low BP at 94�59 and heart rate of 77 paced. BUN was 38 and creatinine was found to be elevated at 2.2. There was concern for risk of sepsis and the patient was admitted to [facility] to be given IV antibiotics. The
patient's oncologist has been informed of the patient's current status and was the one who advised her to return to the emergency department.
Asessment/Plan:
-Acute hypoxic respiratory failure with SpO2 on room air in the mid 80s:
Patient spiked a temp at 100.8 on 03/25/2024 in the morning -currently 97.4
Patient remains on 2 L of oxygen via nasal cannula. Patient is not on nasal cannula oxygen normally.
Crackles heard on auscultation of the lungs, occasional coughing - chest x-ray ordered
Chest x-ray shows interval development of moderate pulmonary edema
Incentive spirometry ordered -education on how to use incentive spirometry given
Repeat BMP -showed bicarbonate at 23
VBG ordered on 03/25/2024-VBG pH of 7.36, pCO2 of 30, pO2 of 111, VBG O2 sat 99.3
Continue ethacrynic acid 25 mg for diuresis to get additional fluid off her lungs -monitor labs to ensure she does not get too dry
Patient has been changed over to cefdinir 300 mg orally every day. Continue to monitor white count
Appreciate pulmonology consult. They recommend a home O2 evaluation eventually. They continue to follow
-UTI/Cystitis
Continue IV Rocephin
Follow-up on blood culture taken -no growth in 24 hours
IV fluid support
Urine cultures from 02/19/2024 showed Proteus and Klebsiella as causative organisms
May consider switching to ertapenem if patient's status does not improve and culture sensitivities indicate
Follow-up repeat urine culture from most recent visit -reviewed and noted to be cloudy. The culture was polymicrobial which is not unexpected
Monitor temp and ensure patient is not febrile.
Patient will possibly be discharged on cefpodoxime 200 mg twice daily for 7 days
-Generalized Weakness:
Generalized weakness may be due to poor oral intake or may be multifactorial in the setting of poor oral intake and acute cystitis patient. The patient has been encouraged to increase her oral intake with foods and liquids.
Discussed how caloric intake is required for the body's energy
-Transitional Cell Carcinoma
-Chronic R Ureteral Obstruction secondary to the above -right nephrostomy tube status
Abdomen/pelvis CT conducted on 03/23/2024 impression shown below in the data portion of this progress note.
Maintain R PCN tube / local care.
Follow-up with Oncology as an outpatient.
-CKD IV: Stable
Renal function is at or near known baseline which is around Cr 2.0 and BUN 20s-30s
Creatinine found to be 2.2 and BUN 30 on 03/23/2024 -creatinine is 1.8 and BUN is 32 on 03/27/2024
Urine output was 250 on the morning of 03/25/2024 - Unsure of urine output on 03/28/24 as it may not have been accurately measured.
Patiently currently being diuresed on IV enthacrynate sodium. Continuing to follow creatinine which is stable at 1.8.
-Case management has worked with the patient and patient is prepared for discharge when medically stable
DVT Prophylaxis: Apixaban
Code Status: Full
Data:
-Chest x-ray conducted on 03/25/2024:
Interval development of moderate pulmonary edema.
No effusion
-Abdomen/pelvis CT conducted on 03/23/2024:
IMPRESSION:
1. 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
2. 3.2 cm mass in the RIGHT MID URETER consistent with UROTHELIAL CARCINOMA.
3. Right percutaneous nephrostomy tube in place and moderate right renal cortical atrophy.
4. No CT evidence for hydronephrosis in either kidney.
5. Severe calcific atherosclerotic plaque in the abdominal aorta.
6. Severe diverticulosis in the descending colon.
7. Small pericardial effusion.
8. Mild inflammatory interstitial pneumonitis in the lower lungs.
9. Severe discogenic degenerative disease and facet joint arthrosis in the lumbar spine.
-Chest x-ray conducted on 03/22/2024:
No acute cardiopulmonary process. Left cardiac conduction device with leads in the right atrium and right ventricle. Low lung volumes. No consolidation, pleural effusion, or pneumothorax. Stable enlargement of the cardiac silhouette. Chronic
degenerative changes of the spine.
-Head CT conducted on 03/22/2024:
No acute intracranial abnormality. Mild age-related parenchymal atrophy. No intra- or extra-axial mass, hemorrhage, or fluid collection. Mild subcortical, deep, and periventricular white matter low-attenuation, compatible with changes of chronic
small vessel ischemic disease. The imaged paranasal sinuses and mastoid air cells are clear.
Anticipated Discharge: 24 - 48 hours
Subjective/Interval History
-
Date of Service: March 28, 2024
Met with patient at the bedside. Overall, she is doing well and offers no complaints at the present time. She believes that she is at her baseline and wishes to go home. Had a discussion with the patient about the need for a placement in a SNF
for the time being as there is a serious risk of her decompensating in the outpatient setting at home. Her is no longer able to be the sole medical educator of her chronic medical conditions and after a group family discussion the patient was
amenable to SNF placement in the interim.
Objective Data
-
Labs:
Laboratory Results
03/28/24
07:08
WBC 5.5
Hgb 12.3
Hct 36.6 L
Plt Count 242
Sodium Pending
Potassium Pending
Chloride Pending
Carbon Dioxide Pending
BUN Pending
Creatinine Pending
Glucose Pending
Calcium Pending
Total Bilirubin Pending
AST Pending
ALT Pending
Alkaline Phosphatase Pending
Vital Signs:
Vital Signs
Temp Pulse Resp BP Pulse Ox
98.8 F 72 18 105/60 94
03/27/24 23:29 03/27/24 23:29 03/27/24 23:29 03/27/24 23:29 03/27/24 23:29
I&O
03/27/24 03/28/24 03/29/24
06:59 06:59 06:59
Intake Total 240 / 240 480 / 480
Output Total 225 / 225 400 / 400
Balance 15 / 15 80 / 80
Review of Systems
-
History Source: Patient
All other systems: Reviewed and negative
Physical Exam
-
General: Well Developed, Well Nourished, No Apparent Distress and Comfortable
HEENT: Normocephalic, Atraumatic and Moist Mucous Membranes
Respiratory: Rales (Bilaterally) and Non Labored Respirations
Cardiac: Regular Rhythm and S1/S2
Breast: Deferred by me
GI: Soft, Nontender, Nondistended and Normal Bowel Sounds
Rectal: Deferred by Provider
Genito-urinary: Deferred by me
Musculoskeletal: No Clubbing, No Cyanosis and No Edema
Neuro: Awake, Alert, Oriented and AO x 3
Psych: Calm
[2024-03-28 08:54] LABS: ALT (SGPT) 32 U/L (0-35); AST (SGOT) 56 U/L (14-36); Albumin 2.6 g/dl (3.5-5.0); Alkaline Phosphatase 68 U/L (38-126); Blood Urea Nitrogen 42 mg/dl (7-17); Calcium 8.5 mg/dl (8.4-10.2); Carbon Dioxide 23 mmol/L (22-30); Chloride 102 mmol/L (98-107); Estimated Creatinine Clearance 23 ml/min; Glucose 103 mg/dl (70-99); Potassium 3.9 mmol/L (3.5-5.1); Sodium 136 mmol/L (135-145); Total Bilirubin 0.6 mg/dl (0.2-1.3); Total Protein 5.1 g/dl (6.3-8.2); eGFR 27.78
[2024-03-28 09:07] VITALS: BP 81/50
[2024-03-28] MEDS: DESENEX/MITRAZOL/ZEASORB 1 APPLIC TOPICAL ×2 (09:42→21:34)
[2024-03-28] MEDS: OMNICEF 300 MG PO (09:42)
[2024-03-28] MEDS: ELIQUIS 2.5 MG PO ×2 (09:42→20:08)
--- NOTE | 2024-03-28 09:51 | W.PN.PUL3 ---
Today's Communication / Plan
-
Diuresis with ethacrynic acid and maintain net negative fluid balance as tolerated
Up OOB as tolerated
PT/OT
ABx as per ID
Assessment
-
Patient is an 83 year old F with PMH of transitional cell carcinoma, CKD IV who presents to ED complaining of weakness and fever. In the ED today, patient is febrile to 101.2F.
Adm to 03/23/24 for presumed UTI/cystitis. She developed SOB, CXR showing acute bilateral patchy opacities. We are asked for evaluation.
Impression:
Acute hypoxic respiratory failure
Moderate pulmonary edema on CXR
Volume overload from HFpEF
UTI / Cystitis
RHIANNA (baseline creatinine approximately 1.2)
Generalized weakness
s/p fall at home
Pulmonary nodule (8 mm subpleural left lower lobe nodule which was not FDG avid on recent PET/CT from 03/20/2024)
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
Transitional Cell Carcinoma
Chronic R Ureteral Obstruction s/p R PCN tube
CKD IV
HTN
A-fib on Eliquis
GERD
Plan
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
No prior history of hypoxemia or home O2 use
Placed on 2-3L --> now on room air
Home O2 evaluation eventually
She denies prior history of lung disease, lifelong nonsmoker.
Denies fam hx of lung disease
Suspect patient has volume overload in the setting of acute on chronic urinary hesitation/incomplete emptying
She does not void often/IO reviewed with limited UO given incontinence
She is recorded of being +5L in the last 48-72 hours
Weight--69 kg lowest in Fe, now highest 73.9kg
CXR/CT obtained indicating acute pulmonary patchy opacities most in keeping with edema
Other imaging reviewed in past, not present
proBNP 5600
Recommend aggressive diuresis --> on ethacrynic acid due to sulfa allergy; maintain net negative as tolerated while trending sCr and I/O
Prior ECHO results are reviewed indicating pEF, stable findings
She has CKD stage IV, creat 1.9-2.2
She notes that HD was discussed in past but not offered
May consider renal eval if worsening
History of TCC, on treatment
Recent PET/CT reviewed with nodule - There are no areas of abnormal FDG avidity in the chest. Image 102 series 4 demonstrates a stable 8 mm subpleural pulmonary nodule at the posterolateral left lung base which is not FDG avid. The stability and
lack of FDG avidity suggests that this lesion is benign.
Can be followed as OP
Dr. Gordon updated daughter at bedside
We will follow
Diagnostic Data
Chest X-Ray: 03/25/24- Interval development of moderate pulmonary edema. No effusion
CT AP 03/23/24- CHEST: There is a cardiac pacemaker in place with lead tips terminating in the right atrium and right ventricle. There is mild calcification in the aortic valve. There is severe calcific atherosclerotic plaque and moderate tortuosity
in the descending thoracic aorta. There is a small pericardial effusion. There are no pleural effusions.
There is a moderate amount of subpleural ground-glass opacity in the basilar segments of the lower lobes of both lungs mixed with finely increased interstitial reticular markings suggesting a mild inflammatory interstitial pneumonitis.
Echo: 08/19/23- Normal left ventricular size and function. Mild concentric left ventricular hypertrophy. Normal regional wall motion. Left ventricular ejection fraction is 55-60%. Mild tricuspid regurgitation.
No evidence of vegetation, consider DILCIA if clinically indicated. No prior echo for comparison
PFT's:
Reports and relevant images were personally reviewed.
Total time spent today was 35 minutes for this encounter. Time includes reviewing laboratory test/imaging results, reviewing pertinent medical records, obtaining and reviewing medical history, performing an appropriate exam, ordering medications,
tests and procedures. Time also includes documentation of this encounter, coordinating patient care and communicating with other healthcare professionals. Total time does not include separately billed tests performed on this date of service.
Subjective Data
-
Date of Service:
Date of Service: March 28, 2024
Chief Complaint: Pulmonary Follow Up
Subjective:
Patient was seen and evaluated today at bedside. She denies shortness of breath or chest pain. She feels very tired. She is currently on room air breathing comfortably and saturating 93%. No acute events reported from overnight.
Review of Systems
General: Other (Negative unless mentioned above)
Objective Data
Data Reviewed
Vital Signs / I&O / Oxygen:
Vital Signs
Temp Pulse Resp BP Pulse Ox
97.4 F 72 19 81/50 100
03/28/24 08:07 03/28/24 08:07 03/28/24 08:07 03/28/24 08:07 03/28/24 08:07
Intake and Output
03/27/24 03/28/24 03/29/24
06:59 06:59 06:59
Intake Total 240 / 240 480 / 480
Output Total 225 / 225 400 / 400
Balance 15 / 15 80 / 80
SaO2 100
Nasal Cannula flow liters per 2
minute
Physical Exam
General: Respiratory Distress (negative), Comfortable and Chills (negative)
HEENT: Normocephalic and Anicteric
Cardiovascular: S1-S2 and Peripheral Edema (negative)
Respiratory: Wheeze (negative), Crackles (Bibasilar), Rhonchi (negative) and Non-Labored Respirations
GI: Soft, Non Distended, Non Tender and Normal Bowel Sounds
Neurology: Awake, Alert and Tremors (negative)
Skin: Warm, Dry, Cyanosis (negative) and Jaundice (negative)
Labs/Micro/Reports
Lab Data
03/28/24 07:08
03/28/24 07:08
Microbiology
03/23/24 19:19 Blood/Venous Blood Culture - Preliminary
No Growth in 4 days- Final report to follow
03/26/24 14:00 Blood/Venous Blood Culture - Preliminary
No Growth in 24 hours- Final report to follow
[2024-03-28 10:39] VITALS: BP 92/64
--- NOTE | 2024-03-28 12:33 | PTCARENOTE ---
BP this am was 81/50, manual rechecked and SBP 92, HG 12.3 At this moment pt had a small blood y movment PT stated she was straining. I did notice external hemmroids. Daughter stated she takes pepcid daily but not taking it here. requesting it.
will let MD know
[2024-03-28] MEDS: PEPCID 20 MG PO (14:19)
[2024-03-28] MEDS: EDECRIN 50 MG PO (14:19)
[2024-03-28] MEDS: MIRALAX 17 GRAMS PO (14:19)
[2024-03-28 15:53] VITALS: BP 117/83
[2024-03-28 16:07] VITALS: BP 117/83; PULSE 70; O2SAT 92
--- NOTE | 2024-03-28 16:23 | CM ---
Spoke with dgt in room .
She said pt has been to [facility] before and would like to go back.
Will need auth
PLAN To SNF after located and auth obtianed
[2024-03-28 23:25] VITALS: BP 91/54
[2024-03-29 06:00] VITALS: BMI 26.0
--- NOTE | 2024-03-29 06:47 | PTCARENOTE ---
Approximated urine in bedside commode was brownish red
--- NOTE | 2024-03-29 07:06 | W.PN.HOSP.TC ---
Addendum entered and electronically signed by Rafael Keyes MD 03/29/24 13:26:
Seen and examined. Feeling better. No new complaints.
Right pcn with yellow urine
No further fevers/rigors
No dysuria
NAD, resting comfortably in bed
Scleral anicteric
Moist mucous membranes
No JVD
Bibasilar crackles
Normal S1-S2 no murmurs
Soft nontender nondistended bowel sounds active
No peripheral pitting edema
Moves extremities spontaneously
AAOx3
Acute Hypoxic respiratory failure with spo2 on RA of mid 80s, Crackles, CXR with edema and cardiomegaly, IVDIresis. With saying that also with febrile. Check covid. On Ctx. Will ask ID to eval.
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 on ethacrynic acid, weight up per pulm, will transition to IV ethacrynic acid. Monitor UOP and daily weights. Keep K >4, Mg>2
-Weight improving, down to 71.7, dry around 69kg (08/01/2023)
-UOP remains good
-Per EMR mid 90's on Room air, 100% on 2l, will ask nursing to wean off
-Continue IV diuretics
Sepsis secondary to acute cystitis on IV Rocephin. Reviewed urine culture from 1 month ago. He is with Klebsiella sensitive to Rocephin. As she has improved symptoms with previous urine culture sensitive to Rocephin we will continue this for now.
Await urine culture from this admission. De-escalate antibiotics to Cefdinir 300mg q24 x5day per ID
-Unlikely to PCN as Ucx from this admission is contaminated with mixed shania.
Generalized weakness likely secondary to poor p.o. intake or multifactorial in the setting of poor p.o. intake and acute cystitis. Therefore have encouraged p.o. intake and IV fluids. Continue antibiotics. Expect to improve. Reviewed with
daughter. Discussed how caloric intake is required for energy.
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
Dispo: DC to SNF when bed available.
Original Note:
Today's Communication/Plan
-
Continue to monitor creatinine as patient is receiving ethacrynic acid for diuresis. Fluid still heard in the lungs on auscultation. She has reached her dry weight of around 69 kg. Plan to be discharged to a senior living facility.
Authorization needed prior to discharge to senior living facility. Case management continues to follow. Continue to try to wean the patient off of oxygen if possible. Continue oral cefdinir.
Assessment / Plan
Assessment / Plan
HPI: Patient is an 83-year-old female with a history of hypertension, hyperlipidemia, pacemaker status, atrial fibrillation on Eliquis, GERD, bladder cancer, right nephrostomy tube status presented again after discharge from the ED on 03/22/24 for
UTI. She was given 1 g of Rocephin and cefdinir oral medication upon discharge. She felt generally weak, febrile, and had a poor appetite. She was hoping to avoid being admitted and rather opted to try outpatient antibiotics but unfortunately
returned back to the emergency department feeling worse. Patient was febrile in the emergency department with a temperature of 101.2, and a urine culture was sent. A blood culture was taken. She denied any nausea, vomiting, or diarrhea. Lactic
acid was 2.0 with a low BP at 94�59 and heart rate of 77 paced. BUN was 38 and creatinine was found to be elevated at 2.2. There was concern for risk of sepsis and the patient was admitted to [facility] to be given IV antibiotics. The
patient's oncologist has been informed of the patient's current status and was the one who advised her to return to the emergency department.
Asessment/Plan:
-Acute hypoxic respiratory failure with SpO2 on room air in the mid 80s:
Patient spiked a temp at 100.8 on 03/25/2024 in the morning -currently 97.4
Patient remains on 2 L of oxygen via nasal cannula. Patient is not on nasal cannula oxygen normally.
Crackles heard on auscultation of the lungs, occasional coughing - chest x-ray ordered
Chest x-ray shows interval development of moderate pulmonary edema
Incentive spirometry ordered -education on how to use incentive spirometry given
VBG ordered on 03/25/2024-VBG pH of 7.36, pCO2 of 30, pO2 of 111, VBG O2 sat 99.3
Continue ethacrynic acid 25 mg for diuresis to get additional fluid off her lungs -monitor labs to ensure she does not get too dry
Patient has been changed over to cefdinir 300 mg orally every day. Continue to monitor white count
Appreciate pulmonology consult. They recommend a home O2 evaluation eventually. They continue to follow
-UTI/Cystitis
Continue IV Rocephin
Follow-up on blood culture taken -no growth in 24 hours
IV fluid support
Urine cultures from 02/19/2024 showed Proteus and Klebsiella as causative organisms
May consider switching to ertapenem if patient's status does not improve and culture sensitivities indicate
Follow-up repeat urine culture from most recent visit -reviewed and noted to be cloudy. The culture was polymicrobial which is not unexpected
Monitor temp and ensure patient is not febrile.
Patient will possibly be discharged on cefpodoxime 200 mg twice daily for 7 days
-Generalized Weakness likely secondary to poor oral intake:
Generalized weakness may be due to poor oral intake or may be multifactorial in the setting of poor oral intake and acute cystitis patient. The patient has been encouraged to increase her oral intake with foods and liquids.
Discussed how caloric intake is required for the body's energy
-Transitional Cell Carcinoma
-Chronic R Ureteral Obstruction secondary to the above -right nephrostomy tube status
Abdomen/pelvis CT conducted on 03/23/2024 impression shown below in the data portion of this progress note.
Maintain R PCN tube / local care.
Follow-up with Oncology as an outpatient.
-CKD IV: Stable
Renal function is at or near known baseline which is around Cr 2.0 and BUN 20s-30s
Creatinine found to be 2.2 and BUN 30 on 03/23/2024 -creatinine is 1.8 and BUN is 32 on 03/27/2024
Urine output was 250 on the morning of 03/25/2024 - Unsure of urine output on 03/28/24 as it may not have been accurately measured.
Patiently currently being diuresed on IV enthacrynate sodium. Continuing to follow creatinine which is stable at 1.8.
-Case management has worked with the patient and patient is prepared for discharge when medically stable
DVT Prophylaxis: Apixaban
Code Status: Full
Data:
-Chest x-ray conducted on 03/25/2024:
Interval development of moderate pulmonary edema.
No effusion
-Abdomen/pelvis CT conducted on 03/23/2024:
IMPRESSION:
1. 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
2. 3.2 cm mass in the RIGHT MID URETER consistent with UROTHELIAL CARCINOMA.
3. Right percutaneous nephrostomy tube in place and moderate right renal cortical atrophy.
4. No CT evidence for hydronephrosis in either kidney.
5. Severe calcific atherosclerotic plaque in the abdominal aorta.
6. Severe diverticulosis in the descending colon.
7. Small pericardial effusion.
8. Mild inflammatory interstitial pneumonitis in the lower lungs.
9. Severe discogenic degenerative disease and facet joint arthrosis in the lumbar spine.
-Chest x-ray conducted on 03/22/2024:
No acute cardiopulmonary process. Left cardiac conduction device with leads in the right atrium and right ventricle. Low lung volumes. No consolidation, pleural effusion, or pneumothorax. Stable enlargement of the cardiac silhouette. Chronic
degenerative changes of the spine.
-Head CT conducted on 03/22/2024:
No acute intracranial abnormality. Mild age-related parenchymal atrophy. No intra- or extra-axial mass, hemorrhage, or fluid collection. Mild subcortical, deep, and periventricular white matter low-attenuation, compatible with changes of chronic
small vessel ischemic disease. The imaged paranasal sinuses and mastoid air cells are clear.
Anticipated Discharge: 24 - 48 hours
Subjective/Interval History
-
Date of Service: March 29, 2024
Met with patient at the bedside. Overall she believes that she is doing good and is a little anxious about her discharge to a senior living facility in the interim. Supportive counseling given.
Objective Data
-
Labs:
Laboratory Results
03/29/24
06:00
WBC Pending
Hgb Pending
Hct Pending
Plt Count Pending
Sodium Pending
Potassium Pending
Chloride Pending
Carbon Dioxide Pending
BUN Pending
Creatinine Pending
Glucose Pending
Calcium Pending
Total Bilirubin Pending
AST Pending
ALT Pending
Alkaline Phosphatase Pending
Vital Signs:
Vital Signs
Temp Pulse Resp BP Pulse Ox
98.4 F 71 16 91/54 95
03/28/24 23:25 03/28/24 23:25 03/28/24 23:25 03/28/24 23:25 03/28/24 23:25
I&O
03/28/24 03/29/24 03/30/24
06:59 06:59 06:59
Intake Total 480 / 480
Output Total 400 / 400
Balance 80 / 80
Review of Systems
-
History Source: Patient
All other systems: Reviewed and negative
Physical Exam
-
General: Well Developed, Well Nourished, No Apparent Distress and Comfortable
HEENT: Normocephalic, Atraumatic and Moist Mucous Membranes
Respiratory: Crackles (Crackles heard bilaterally throughout the lung)
Cardiac: Regular Rhythm and S1/S2
Breast: Deferred by me
GI: Soft, Nontender, Nondistended and Normal Bowel Sounds
Genito-urinary: Other (Right PCN with yellow urine)
Musculoskeletal: No Clubbing and No Cyanosis
Skin: Warm and Dry
Neuro: Awake, Alert and Oriented
Psych: Calm
[2024-03-29 07:57] VITALS: BP 90/57
[2024-03-29] MEDS: ELIQUIS 2.5 MG PO ×2 (08:36→20:06)
[2024-03-29] MEDS: DESENEX/MITRAZOL/ZEASORB 1 APPLIC TOPICAL (08:36)
[2024-03-29] MEDS: MIRALAX 17 GRAMS PO (08:37)
[2024-03-29] MEDS: OMNICEF 300 MG PO (08:37)
[2024-03-29] MEDS: PEPCID 20 MG PO (08:37)
[2024-03-29 09:51] LABS: Hematocrit 38.6 % (37.0-47.0); Hemoglobin 12.7 g/dL (12.0-16.0); Mean Corp Hgb Conc. 32.9 g/dL (33.0-37.0); Mean Corpuscular Hgb 27.7 pg (27.0-31.0); Mean Corpuscular Volume 84.1 fL (81.0-99.0); Mean Platelet Volume 10.8 fL (7.4-10.4); Platelet Count 252 10^3/uL (130-400); Red Blood Cell Count 4.59 10^6/uL (4.20-5.40); Red Cell Dist. Width 16.4 % (11.5-14.5); White Blood Cell Count 5.5 10^3/uL (4.8-10.8)
--- NOTE | 2024-03-29 10:06 | W.PN.PUL3 ---
Today's Communication / Plan
-
Diuresis with ethacrynic acid and maintain net negative fluid balance as tolerated
Up OOB as tolerated
PT/OT
ABx as per ID
Ok to resume prednisone that she apparently takes at home for hand arthritis --> confirm dosing/frequency
Assessment
-
Patient is an 83 year old F with PMH of transitional cell carcinoma, CKD IV who presents to ED complaining of weakness and fever. In the ED today, patient is febrile to 101.2F.
Adm to 03/23/24 for presumed UTI/cystitis. She developed SOB, CXR showing acute bilateral patchy opacities. We are asked for evaluation.
Impression:
Acute hypoxic respiratory failure
Moderate pulmonary edema on CXR
Volume overload from HFpEF
UTI / Cystitis
RHIANNA (baseline creatinine approximately 1.2)
Generalized weakness
s/p fall at home
Pulmonary nodule (8 mm subpleural left lower lobe nodule which was not FDG avid on recent PET/CT from 03/20/2024)
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
Transitional Cell Carcinoma
Chronic R Ureteral Obstruction s/p R PCN tube
CKD IV
HTN
A-fib on Eliquis
GERD
Plan
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
No prior history of hypoxemia or home O2 use
Placed on 2-3L --> now on room air
Home O2 evaluation eventually
Consider prednisone for her recurrent hand/joint pain that occurs with chemo
She denies prior history of lung disease, lifelong nonsmoker.
Denies fam hx of lung disease
Suspect patient has volume overload in the setting of acute on chronic urinary hesitation/incomplete emptying
She does not void often/IO reviewed with limited UO given incontinence
Weight--69 kg lowest in Feb, now highest 73.9kg
CXR/CT obtained indicating acute pulmonary patchy opacities most in keeping with edema
Other imaging reviewed in past, not present
proBNP 5600
Recommend aggressive diuresis --> remains on ethacrynic acid due to sulfa allergy; maintain net negative as tolerated while trending sCr and I/O
Prior ECHO results are reviewed indicating pEF, stable findings
She has CKD stage IV, creat 1.9-2.2
She notes that HD was discussed in past but not offered
May consider renal eval if worsening
History of TCC, on treatment
Recent PET/CT reviewed with nodule - There are no areas of abnormal FDG avidity in the chest. Image 102 series 4 demonstrates a stable 8 mm subpleural pulmonary nodule at the posterolateral left lung base which is not FDG avid. The stability and
lack of FDG avidity suggests that this lesion is benign.
Can be followed as OP
Dr. Mcpherson updated daughters at bedside and all questions were answered to their satisfaction.
We will follow
Diagnostic Data
Chest X-Ray: 03/25/24- Interval development of moderate pulmonary edema. No effusion
CT AP 03/23/24- CHEST: There is a cardiac pacemaker in place with lead tips terminating in the right atrium and right ventricle. There is mild calcification in the aortic valve. There is severe calcific atherosclerotic plaque and moderate tortuosity
in the descending thoracic aorta. There is a small pericardial effusion. There are no pleural effusions.
There is a moderate amount of subpleural ground-glass opacity in the basilar segments of the lower lobes of both lungs mixed with finely increased interstitial reticular markings suggesting a mild inflammatory interstitial pneumonitis.
Echo: 08/19/23- Normal left ventricular size and function. Mild concentric left ventricular hypertrophy. Normal regional wall motion. Left ventricular ejection fraction is 55-60%. Mild tricuspid regurgitation.
No evidence of vegetation, consider DILCIA if clinically indicated. No prior echo for comparison
Reports and relevant images were personally reviewed.
Total time spent today was 38 minutes for this encounter. Time includes reviewing laboratory test/imaging results, reviewing pertinent medical records, obtaining and reviewing medical history, performing an appropriate exam, ordering medications,
tests and procedures. Time also includes documentation of this encounter, coordinating patient care and communicating with other healthcare professionals. Total time does not include separately billed tests performed on this date of service.
Subjective Data
-
Date of Service:
Date of Service: March 29, 2024
Chief Complaint: Pulmonary Follow Up
Subjective:
Patient seen at bedside. Multiple family members at bedside including daughters, Laurence + Jazmyn, and son-in-law, Neo. Patient currently on room air breathing comfortably. She feels well. No acute events reported from overnight. She currently
denies chest pain, DISLA, nausea, fevers or chills.
Review of Systems
General: Other (Negative unless mentioned above)
Objective Data
Data Reviewed
Vital Signs / I&O / Oxygen:
Vital Signs
Temp Pulse Resp BP Pulse Ox
97.5 F 78 19 90/57 90
03/29/24 07:57 03/29/24 07:57 03/29/24 07:57 03/29/24 07:57 03/29/24 07:57
Intake and Output
03/28/24 03/29/24 03/30/24
06:59 06:59 06:59
Intake Total 480 / 480 120 / 120
Output Total 400 / 400 300 / 300
Balance 80 / 80 -180 / -180
SaO2 90
Nasal Cannula flow liters per 2
minute
Physical Exam
General: Respiratory Distress (negative), Comfortable and Chills (negative)
HEENT: Normocephalic and Anicteric
Cardiovascular: S1-S2, Murmur (LISA heard at RUSB) and Peripheral Edema (negative)
Respiratory: Wheeze (negative), Crackles (Bibasilar), Rhonchi (negative) and Non-Labored Respirations
GI: Soft, Non Distended, Non Tender and Normal Bowel Sounds
Neurology: Awake, Alert and Tremors (negative)
Skin: Warm, Dry, Cyanosis (negative) and Jaundice (negative)
Labs/Micro/Reports
Lab Data
03/29/24 07:17
Microbiology
03/23/24 19:19 Blood/Venous Blood Culture - Final
No Growth - Final Report
03/26/24 14:00 Blood/Venous Blood Culture - Preliminary
No Growth in 48 hours- Final report to follow
[2024-03-29 10:25] LABS: ALT (SGPT) 31 U/L (0-35); AST (SGOT) 45 U/L (14-36); Albumin 2.9 g/dl (3.5-5.0); Alkaline Phosphatase 68 U/L (38-126); Blood Urea Nitrogen 49 mg/dl (7-17); Calcium 8.6 mg/dl (8.4-10.2); Carbon Dioxide 22 mmol/L (22-30); Chloride 101 mmol/L (98-107); Estimated Creatinine Clearance 19 ml/min; Glucose 97 mg/dl (70-99); Potassium 3.8 mmol/L (3.5-5.1); Sodium 135 mmol/L (135-145); Total Bilirubin 0.6 mg/dl (0.2-1.3); Total Protein 5.3 g/dl (6.3-8.2); eGFR 24.48
[2024-03-29] MEDS: EDECRIN 50 MG PO (15:21)
[2024-03-29 16:08] VITALS: BP 101/63
[2024-03-29] MEDS: DESENEX/MITRAZOL/ZEASORB TOPICAL (20:10)
[2024-03-30 00:22] VITALS: BP 96/50
[2024-03-30 00:48] VITALS: BP 94/47
[2024-03-30 06:00] VITALS: BMI 26.3
[2024-03-30 07:17] VITALS: BP 99/56
--- NOTE | 2024-03-30 07:26 | W.PN.HOSP.TC ---
Addendum entered and electronically signed by Lan Sky MD 03/30/24 23:10:
Attending Addendum-
I saw and evaluated the patient. I reviewed the resident�s note and agree with findings and plan as documented in the resident�s note. Sub: feels weak. seen with daughter present. no urinary sxs. Full 12 point ROS reviewed and negative except as
documented Exam: Vitals reviewed in chart GEN-NAD heart RRR lungs fine crackles at bases abd soft LE no edema
#Acute Hypoxic respiratory failure
- wean for 02 > 92%
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
ethacrynic acid IV x 1 due to sulfa allergy
euvolemic
no further diuretics
-Weight improving, down to 69 now @ dry weight
-UOP remains good
- T/C spironolactone on DC if needed
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
- baseline @ 1.8
- secondary to ETA- hold
- repeat BMP in am
#Sepsis secondary to acute cystitis on IV Rocephin.
- urine cx from PCN - contaminated
- Cefdinir 300mg q24 x5day per ID on DC
# Afib
- cont eliquis
# GERD
- cont famotidine
#Transitional cell carcinoma of the bladder
- d/w onc re chemo during rehab course
Dispo: DC to [facility] in am
Time spent coordinating care, review of plan of care with resident, personally reviewed records in EMR, med rec, consults, notes, labs, radiology, d/w nursing POA � 55 mins
Original Note:
Today's Communication/Plan
-
Patient appears to be euvolemic and at her baseline. Ethacrynic acid discontinued. Her lungs sound clear with mild diminished breath sounds at the bases of the lungs. Pulmonology recommended a home O2 eval which has been ordered with discharge
planning. Continue discharge planning.
Assessment / Plan
Assessment / Plan
HPI: Patient is an 83-year-old female with a history of hypertension, hyperlipidemia, pacemaker status, atrial fibrillation on Eliquis, GERD, bladder cancer, right nephrostomy tube status presented again after discharge from the ED on 03/22/24 for
UTI. She was given 1 g of Rocephin and cefdinir oral medication upon discharge. She felt generally weak, febrile, and had a poor appetite. She was hoping to avoid being admitted and rather opted to try outpatient antibiotics but unfortunately
returned back to the emergency department feeling worse. Patient was febrile in the emergency department with a temperature of 101.2, and a urine culture was sent. A blood culture was taken. She denied any nausea, vomiting, or diarrhea. Lactic
acid was 2.0 with a low BP at 94�59 and heart rate of 77 paced. BUN was 38 and creatinine was found to be elevated at 2.2. There was concern for risk of sepsis and the patient was admitted to [facility] to be given IV antibiotics. The
patient's oncologist has been informed of the patient's current status and was the one who advised her to return to the emergency department.
Asessment/Plan:
-Acute hypoxic respiratory failure with SpO2 on room air in the mid 80s: Stable
Patient spiked a temp at 100.8 on 03/25/2024 in the morning -currently 97.9
Patient remains on 2 L of oxygen via nasal cannula. Patient is not on nasal cannula oxygen normally.
Chest x-ray shows interval development of moderate pulmonary edema
Incentive spirometry ordered -education on how to use incentive spirometry given
VBG ordered on 03/25/2024-VBG pH of 7.36, pCO2 of 30, pO2 of 111, VBG O2 sat 99.3
Patient on her fourth day of cefdinir 300 mg on 03/30/2024. Continue to monitor white count
Appreciate pulmonology consult. They recommend a home O2 evaluation eventually. They continue to follow
Home O2 evaluation ordered
-UTI/Cystitis: Resolved
Continue IV Rocephin
Follow-up on blood culture taken -no growth in 24 hours
IV fluid support
Urine cultures from 02/19/2024 showed Proteus and Klebsiella as causative organisms
May consider switching to ertapenem if patient's status does not improve and culture sensitivities indicate
Follow-up repeat urine culture from most recent visit -reviewed and noted to be cloudy. The culture was polymicrobial which is not unexpected
Monitor temp and ensure patient is not febrile.
-Generalized Weakness likely secondary to poor oral intake: Monitoring
Generalized weakness may be due to poor oral intake or may be multifactorial in the setting of poor oral intake and acute cystitis patient. The patient has been encouraged to increase her oral intake with foods and liquids.
Discussed how caloric intake is required for the body's energy
-Transitional Cell Carcinoma: Monitoring
-Chronic R Ureteral Obstruction secondary to the above -right nephrostomy tube status
Abdomen/pelvis CT conducted on 03/23/2024 impression shown below in the data portion of this progress note.
Maintain R PCN tube / local care.
Follow-up with Oncology as an outpatient.
-CKD IV: Stable
Renal function is at or near known baseline which is around Cr 2.0 and BUN 20s-30s
Creatinine found to be 2.2 and BUN 30 on 03/23/2024 -creatinine is 1.8 and BUN is 32 on 03/27/2024
Urine output was 250 on the morning of 03/25/2024 - Unsure of urine output on 03/28/24 as it may not have been accurately measured.
Ethacrynic acid 50mg discontinued. Patient's creatinine has jumped up to 2.3 which is above her baseline of 1.8-2.0 on 03/30/2024. Patient appears to be euvolemic.
-Case management has worked with the patient and patient is prepared for discharge when medically stable -[facility] needs to know if the patient will be receiving chemotherapy during her time at the facility.
DVT Prophylaxis: Apixaban
Code Status: Full
Data:
-Chest x-ray conducted on 03/25/2024:
Interval development of moderate pulmonary edema.
No effusion
-Abdomen/pelvis CT conducted on 03/23/2024:
IMPRESSION:
1. 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
2. 3.2 cm mass in the RIGHT MID URETER consistent with UROTHELIAL CARCINOMA.
3. Right percutaneous nephrostomy tube in place and moderate right renal cortical atrophy.
4. No CT evidence for hydronephrosis in either kidney.
5. Severe calcific atherosclerotic plaque in the abdominal aorta.
6. Severe diverticulosis in the descending colon.
7. Small pericardial effusion.
8. Mild inflammatory interstitial pneumonitis in the lower lungs.
9. Severe discogenic degenerative disease and facet joint arthrosis in the lumbar spine.
-Chest x-ray conducted on 03/22/2024:
No acute cardiopulmonary process. Left cardiac conduction device with leads in the right atrium and right ventricle. Low lung volumes. No consolidation, pleural effusion, or pneumothorax. Stable enlargement of the cardiac silhouette. Chronic
degenerative changes of the spine.
-Head CT conducted on 03/22/2024:
No acute intracranial abnormality. Mild age-related parenchymal atrophy. No intra- or extra-axial mass, hemorrhage, or fluid collection. Mild subcortical, deep, and periventricular white matter low-attenuation, compatible with changes of chronic
small vessel ischemic disease. The imaged paranasal sinuses and mastoid air cells are clear.
Anticipated Discharge: Within 24 hours
Subjective/Interval History
-
Date of Service: March 30, 2024
Met with patient at the bedside. She is calm and cooperative in discussion. She understands that she is going to be discharged to a longterm facility for rehab. She believes that she is ready for discharge and is at her baseline. She
offers no complaints at the present time. She stated that she did not order breakfast this morning because she believes that breakfast and lunch are 'too close together.'
Objective Data
-
Labs:
Labs
03/30/24 07:24
03/30/24 07:24
Vital Signs:
Vital Signs
Temp Pulse Resp BP Pulse Ox
97.9 F 74 17 99/56 94
03/30/24 07:17 03/30/24 07:17 03/30/24 07:17 03/30/24 07:17 03/30/24 07:17
I&O
03/29/24 03/30/24 03/31/24
06:59 06:59 06:59
Intake Total 120 / 120
Output Total 300 / 300 350 / 350
Balance -180 / -180 -350 / -350
Review of Systems
-
History Source: Patient
All other systems: Reviewed and negative
Physical Exam
-
General: Well Developed, Well Nourished, No Apparent Distress and Comfortable
HEENT: Normocephalic, Atraumatic and Moist Mucous Membranes
Respiratory: Clear to Auscultation
Cardiac: Regular Rhythm and S1/S2
Breast: Deferred by me
GI: Soft, Nontender, Nondistended and Normal Bowel Sounds
Rectal: Deferred by Provider
Genito-urinary: Deferred by me and Nephrostomy Tubes (Right-sided nephrostomy tube draining clear urine)
Musculoskeletal: No Clubbing, No Cyanosis and No Edema
Skin: Warm and Dry
Neuro: Awake, Alert, Oriented and AO x 3
Psych: Calm
[2024-03-30 07:35] LABS: Hematocrit 38.6 % (37.0-47.0); Hemoglobin 12.5 g/dL (12.0-16.0); Mean Corp Hgb Conc. 32.4 g/dL (33.0-37.0); Mean Corpuscular Hgb 26.7 pg (27.0-31.0); Mean Corpuscular Volume 82.3 fL (81.0-99.0); Mean Platelet Volume 9.7 fL (7.4-10.4); Platelet Count 265 10^3/uL (130-400); Red Blood Cell Count 4.69 10^6/uL (4.20-5.40); Red Cell Dist. Width 16.3 % (11.5-14.5); White Blood Cell Count 6.1 10^3/uL (4.8-10.8)
[2024-03-30 08:08] LABS: ALT (SGPT) 28 U/L (0-35); AST (SGOT) 34 U/L (14-36); Albumin 2.7 g/dl (3.5-5.0); Alkaline Phosphatase 66 U/L (38-126); Blood Urea Nitrogen 53 mg/dl (7-17); Calcium 8.7 mg/dl (8.4-10.2); Carbon Dioxide 25 mmol/L (22-30); Chloride 99 mmol/L (98-107); Estimated Creatinine Clearance 16 ml/min; Glucose 117 mg/dl (70-99); Magnesium 2.2 mg/dl (1.6-2.3); Potassium 4.3 mmol/L (3.5-5.1); Sodium 136 mmol/L (135-145); Total Bilirubin 0.6 mg/dl (0.2-1.3); Total Protein 5.2 g/dl (6.3-8.2)
[2024-03-30] MEDS: PEPCID 20 MG PO (08:36)
[2024-03-30] MEDS: MIRALAX 17 GRAMS PO (08:36)
[2024-03-30] MEDS: ELIQUIS 2.5 MG PO ×2 (08:36→20:19)
[2024-03-30] MEDS: OMNICEF 300 MG PO (08:36)
[2024-03-30] MEDS: DESENEX/MITRAZOL/ZEASORB 1 APPLIC TOPICAL (08:44)
[2024-03-30] MEDS: EDECRIN PO (09:58)
--- NOTE | 2024-03-30 10:26 | CM ---
Addendum entered by Christel Hou 03/30/24 14:17:
[facility] has bed for patient tomorrow. CM started auth with [employer] reference number [id number]. Clinicals faxed to [phone]
Original Note:
Patient seen at bedside. Patient plan is for discharge to [facility], CM spoke with liaison and resident. Pending bed availability and update regarding plan for oncology treatment, CM will need to start auth. CM will continue to follow for discharge
planning needs.
Plan; SNF needs auth
--- NOTE | 2024-03-30 11:08 | W.PN.PUL3 ---
Today's Communication / Plan
-
Continue with current care
Agree with discharge planning
Home oxygen assessment
Outpatient pulmonary follow-up to document resolution of infiltrates as well as to follow-up on lung nodule.
Sign off
Assessment
-
Patient is an 83 year old F with PMH of transitional cell carcinoma, CKD IV who presents to ED complaining of weakness and fever. In the ED today, patient is febrile to 101.2F.
Adm to 03/23/24 for presumed UTI/cystitis. She developed SOB, CXR showing acute bilateral patchy opacities. We are asked for evaluation.
Impression:
Acute hypoxic respiratory failure
Moderate pulmonary edema on CXR
Volume overload from HFpEF
UTI / Cystitis
RHIANNA (baseline creatinine approximately 1.2)
Generalized weakness
s/p fall at home
Pulmonary nodule (8 mm subpleural left lower lobe nodule which was not FDG avid on recent PET/CT from 03/20/2024)
Conditions present WEEDER
Transitional Cell Carcinoma
Chronic R Ureteral Obstruction s/p R PCN tube
CKD IV
HTN
A-fib on Eliquis
GERD
Plan
Hypoxemia was not noted on arrival, developed in the 24 hours WEEDER
Back to baseline, oxygen has been discontinued.
Rapid improvement after diuresis.
Home O2 evaluation prior to discharge.
She denies prior history of lung disease, lifelong nonsmoker.
Denies fam hx of lung disease
Lung exam is clear 03/30/2024.
Suspect patient has volume overload in the setting of acute on chronic urinary hesitation/incomplete emptying
CXR/CT obtained indicating acute pulmonary patchy opacities most in keeping with edema
Other imaging reviewed in past, not present
Eventual repeat chest x-ray to document clearance
She is clinically improved
proBNP 5600
Diuretics per primary team
She has CKD stage IV, creat 1.9-2.2
She notes that HD was discussed in past but not offered
History of TCC, on treatment
Recent PET/CT reviewed with nodule - There are no areas of abnormal FDG avidity in the chest. Image 102 series 4 demonstrates a stable 8 mm subpleural pulmonary nodule at the posterolateral left lung base which is not FDG avid. The stability and
lack of FDG avidity suggests that this lesion is benign.
Can be followed as OP
Dr. Mcpherson updated daughters at bedside and all questions were answered to their satisfaction.
No additional recommendations at this point.
Agree with discharge planning
Home oxygen assessment prior to discharge.
Recommend outpatient pulmonary follow-up to assure clearance of bilateral infiltrates, also 8 mm subpleural nodule needs to be followed. Information was left in the chart

Diagnostic Data
Chest X-Ray: 03/25/24- Interval development of moderate pulmonary edema. No effusion
CT AP 03/23/24- CHEST: There is a cardiac pacemaker in place with lead tips terminating in the right atrium and right ventricle. There is mild calcification in the aortic valve. There is severe calcific atherosclerotic plaque and moderate tortuosity
in the descending thoracic aorta. There is a small pericardial effusion. There are no pleural effusions.
There is a moderate amount of subpleural ground-glass opacity in the basilar segments of the lower lobes of both lungs mixed with finely increased interstitial reticular markings suggesting a mild inflammatory interstitial pneumonitis.
Echo: 08/19/23- Normal left ventricular size and function. Mild concentric left ventricular hypertrophy. Normal regional wall motion. Left ventricular ejection fraction is 55-60%. Mild tricuspid regurgitation.
No evidence of vegetation, consider DILCIA if clinically indicated. No prior echo for comparison
Reports and relevant images were personally reviewed.
Subjective Data
-
Date of Service:
Date of Service: March 30, 2024
Chief Complaint: Pulmonary Follow Up
Subjective:
Clinically improved
Oxygen has been discontinued
Review of Systems
General: Fever (n)
Cardiopulmonary: Dyspnea (improved)
GI: Abdominal Pain (n) and Nausea (n)
Objective Data
Data Reviewed
Vital Signs / I&O / Oxygen:
Vital Signs
Temp Pulse Resp BP Pulse Ox
97.9 F 74 17 99/56 95
03/30/24 07:17 03/30/24 09:58 03/30/24 07:17 03/30/24 09:58 03/30/24 08:05
Intake and Output
03/29/24 03/30/24 03/31/24
06:59 06:59 06:59
Intake Total 120 / 120
Output Total 300 / 300 350 / 350
Balance -180 / -180 -350 / -350
SaO2 95
Nasal Cannula flow liters per 2
minute
Physical Exam
General: Respiratory Distress (negative), Comfortable and Chills (negative)
HEENT: Normocephalic and Anicteric
Cardiovascular: S1-S2, Murmur (LISA heard at RUSB) and Peripheral Edema (negative)
Respiratory: Wheeze (negative), Crackles (Bibasilar), Rhonchi (negative) and Non-Labored Respirations
GI: Soft, Non Distended, Non Tender and Normal Bowel Sounds
Neurology: Awake, Alert and Tremors (negative)
Skin: Warm, Dry, Cyanosis (negative) and Jaundice (negative)
Labs/Micro/Reports
Lab Data
03/30/24 07:24
03/30/24 07:24
Microbiology
03/26/24 14:00 Blood/Venous Blood Culture - Preliminary
No Growth in 72 hours- Final report to follow
03/23/24 19:19 Blood/Venous Blood Culture - Final
No Growth - Final Report
--- NOTE | 2024-03-30 12:18 | RESPNOTE ---
Ambulation Pulse ox done at this time
Resting RA sat 87-88%, waiting approx 10 minutes in attempts saturation would increased. It did not
Placed on 2 liter NC 92%
Ambulated with PT approx 35 FT on 2 liters-94% ( patient refusing to walk any further)
Left patient on 2 liters in room post walk 94%. RN aware
[2024-03-30 12:29] VITALS: BP 88/60; PULSE 71; O2SAT 93
[2024-03-30 13:54] VITALS: BMI 26.3
[2024-03-30 15:24] VITALS: BP 89/54
[2024-03-30] MEDS: DESENEX/MITRAZOL/ZEASORB TOPICAL (21:07)
[2024-03-30 23:00] VITALS: BP 121/62
[2024-03-31 06:00] VITALS: BMI 26.4
[2024-03-31 07:34] VITALS: BP 99/59
[2024-03-31 07:51] LABS: Hematocrit 38.1 % (37.0-47.0); Hemoglobin 12.4 g/dL (12.0-16.0); Mean Corp Hgb Conc. 32.5 g/dL (33.0-37.0); Mean Corpuscular Volume 82.8 fL (81.0-99.0); Platelet Count 289 10^3/uL (130-400); Red Cell Dist. Width 16.4 % (11.5-14.5); White Blood Cell Count 7.4 10^3/uL (4.8-10.8)
[2024-03-31] MEDS: MIRALAX 17 GRAMS PO (08:05)
[2024-03-31] MEDS: ELIQUIS 2.5 MG PO (08:05)
[2024-03-31] MEDS: OMNICEF 300 MG PO (08:05)
[2024-03-31] MEDS: DESENEX/MITRAZOL/ZEASORB 1 APPLIC TOPICAL (08:05)
[2024-03-31] MEDS: PEPCID 20 MG PO (08:05)
[2024-03-31 08:34] LABS: ALT (SGPT) 28 U/L (0-35); AST (SGOT) 37 U/L (14-36); Albumin 2.8 g/dl (3.5-5.0); Alkaline Phosphatase 72 U/L (38-126); Blood Urea Nitrogen 55 mg/dl (7-17); Calcium 8.6 mg/dl (8.4-10.2); Carbon Dioxide 25 mmol/L (22-30); Chloride 99 mmol/L (98-107); Estimated Creatinine Clearance 16 ml/min; Glucose 115 mg/dl (70-99); Magnesium 2.2 mg/dl (1.6-2.3); Potassium 4.3 mmol/L (3.5-5.1); Sodium 135 mmol/L (135-145); Total Bilirubin 0.5 mg/dl (0.2-1.3); Total Protein 5.2 g/dl (6.3-8.2); eGFR 19.67
--- NOTE | 2024-03-31 08:35 | W.PN.HOSP.TC ---
Addendum entered and electronically signed by Micky Eisenberg MD, Resident 04/01/24 18:26:
Addendum: Patient has paroxysmal Atrial fibrillation.
Addendum entered and electronically signed by Lan Sky MD 03/31/24 23:32:
Attending Addendum-
I saw and evaluated the patient. I reviewed the resident�s note and agree with findings and plan as documented in the resident�s note. Sub: feels weak. ready to get rehab. no urinary sxs. Full 12 point ROS reviewed and negative except as documented
Exam: Vitals reviewed in chart GEN-NAD heart RRR lungs fine crackles at bases abd soft LE no edema
#Acute Hypoxic respiratory failure
- wean for 02 > 92%
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
-ethacrynic acid IV x 1 due to sulfa allergy
-euvolemic
-no further diuretics
-Weight improving, now @ dry weight
-UOP remains good
- T/C spironolactone as OP if needed
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
- baseline @ 1.8
- secondary to ECA
- repeat BMP as OP, will likely resolve over time
#Sepsis secondary to acute cystitis on IV Rocephin.
- urine cx from PCN - contaminated
- Cefdinir 300mg q24 x5day per ID on DC
# Afib
- cont eliquis
# GERD
- cont famotidine
#Transitional cell carcinoma of the bladder
- d/w onc re chemo during rehab course
Dispo: DC to [facility]
Time spent coordinating care, DC planning, review of DC plan of care with resident, transition of care, review of records, med rec/scripts sent electronically, consults, notes, d/w consultants, nursing, family, accepting physician, and CM� 36 mins
Original Note:
Today's Communication/Plan
-
Patient is medically stable and appropriate for discharge at the present time. Discharge planning has been completed for [facility]. Upon discharge the patient should have her BMP checked including her creatinine. Her I/O's
should be followed with daily weights. Patient was started on midodrine 5 mg twice daily for hypotension.
Assessment / Plan
Assessment / Plan
HPI: Patient is an 83-year-old female with a history of hypertension, hyperlipidemia, pacemaker status, atrial fibrillation on Eliquis, GERD, bladder cancer, right nephrostomy tube status presented again after discharge from the ED on 03/22/24 for
UTI. She was given 1 g of Rocephin and cefdinir oral medication upon discharge. She felt generally weak, febrile, and had a poor appetite. She was hoping to avoid being admitted and rather opted to try outpatient antibiotics but unfortunately
returned back to the emergency department feeling worse. Patient was febrile in the emergency department with a temperature of 101.2, and a urine culture was sent. A blood culture was taken. She denied any nausea, vomiting, or diarrhea. Lactic
acid was 2.0 with a low BP at 94�59 and heart rate of 77 paced. BUN was 38 and creatinine was found to be elevated at 2.2. There was concern for risk of sepsis and the patient was admitted to [facility] to be given IV antibiotics. The
patient's oncologist has been informed of the patient's current status and was the one who advised her to return to the emergency department.
Asessment/Plan:
-Acute hypoxic respiratory failure with SpO2 on room air in the mid 80s: Stable
Patient spiked a temp at 100.8 on 03/25/2024 in the morning -currently 97.9
Patient remains on 2 L of oxygen via nasal cannula. Patient is not on nasal cannula oxygen normally.
Chest x-ray shows interval development of moderate pulmonary edema
Incentive spirometry ordered -education on how to use incentive spirometry given
VBG ordered on 03/25/2024-VBG pH of 7.36, pCO2 of 30, pO2 of 111, VBG O2 sat 99.3
Patient on her fourth day of cefdinir 300 mg on 03/30/2024. Continue to monitor white count
Appreciate pulmonology consult. They recommend a home O2 evaluation eventually. They continue to follow
Home O2 evaluation ordered
-Paroxysmal Hypotension:
Midodrine 5 mg twice daily started
Continue to trend blood pressure in the outpatient setting.
-UTI/Cystitis: Resolved
Continue IV Rocephin
Follow-up on blood culture taken -no growth in 24 hours
IV fluid support
Urine cultures from 02/19/2024 showed Proteus and Klebsiella as causative organisms
May consider switching to ertapenem if patient's status does not improve and culture sensitivities indicate
Follow-up repeat urine culture from most recent visit -reviewed and noted to be cloudy. The culture was polymicrobial which is not unexpected
Monitor temp and ensure patient is not febrile.
-Generalized Weakness likely secondary to poor oral intake: Monitoring
Generalized weakness may be due to poor oral intake or may be multifactorial in the setting of poor oral intake and acute cystitis patient. The patient has been encouraged to increase her oral intake with foods and liquids.
Discussed how caloric intake is required for the body's energy
-Transitional Cell Carcinoma: Monitoring
-Chronic R Ureteral Obstruction secondary to the above -right nephrostomy tube status
Abdomen/pelvis CT conducted on 03/23/2024 impression shown below in the data portion of this progress note.
Maintain R PCN tube / local care.
Follow-up with Oncology as an outpatient.
-CKD IV: Stable
Renal function is at or near known baseline which is around Cr 2.0 and BUN 20s-30s
Creatinine found to be 2.2 and BUN 30 on 03/23/2024 -creatinine is 1.8 and BUN is 32 on 03/27/2024
Urine output was 250 on the morning of 03/25/2024 - Unsure of urine output on 03/28/24 as it may not have been accurately measured.
Ethacrynic acid 50mg discontinued. Patient's Cr is 2.4 and stable. Patient appears to be euvolemic.
-Case management has worked with the patient and patient is prepared for discharge when medically stable -patient is prepared for discharge to [facility].
DVT Prophylaxis: Apixaban
Code Status: Full
Data:
-Chest x-ray conducted on 03/25/2024:
Interval development of moderate pulmonary edema.
No effusion
-Abdomen/pelvis CT conducted on 03/23/2024:
IMPRESSION:
1. 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
2. 3.2 cm mass in the RIGHT MID URETER consistent with UROTHELIAL CARCINOMA.
3. Right percutaneous nephrostomy tube in place and moderate right renal cortical atrophy.
4. No CT evidence for hydronephrosis in either kidney.
5. Severe calcific atherosclerotic plaque in the abdominal aorta.
6. Severe diverticulosis in the descending colon.
7. Small pericardial effusion.
8. Mild inflammatory interstitial pneumonitis in the lower lungs.
9. Severe discogenic degenerative disease and facet joint arthrosis in the lumbar spine.
-Chest x-ray conducted on 03/22/2024:
No acute cardiopulmonary process. Left cardiac conduction device with leads in the right atrium and right ventricle. Low lung volumes. No consolidation, pleural effusion, or pneumothorax. Stable enlargement of the cardiac silhouette. Chronic
degenerative changes of the spine.
-Head CT conducted on 03/22/2024:
No acute intracranial abnormality. Mild age-related parenchymal atrophy. No intra- or extra-axial mass, hemorrhage, or fluid collection. Mild subcortical, deep, and periventricular white matter low-attenuation, compatible with changes of chronic
small vessel ischemic disease. The imaged paranasal sinuses and mastoid air cells are clear.
Anticipated Discharge: Today
Subjective/Interval History
-
Date of Service: March 31, 2024
Met with patient at the bedside. Overall, she is doing well and offers no complaints at the present time. She did not have her nasal cannula on her nose when I walked into the room and when I pointed out to her she smiled and laughed. She has
done this many times in the past and does not really want to use oxygen if she can avoid it. I reminded her of the importance of trying her best to keep her nasal oxygen cannula on. We had a discussion about her upcoming discharge to [facility] and
she looks forward to her discharge.
Objective Data
-
Labs:
Laboratory Results
03/31/24
06:21
WBC 7.4
Hgb 12.4
Hct 38.1
Plt Count 289
Sodium 135
Potassium 4.3
Chloride 99
Carbon Dioxide 25
BUN 55 H
Creatinine 2.4 H
Glucose 115 H
Calcium 8.6
Total Bilirubin 0.5
AST 37 H
ALT 28
Alkaline Phosphatase 72
Vital Signs:
Vital Signs
Temp Pulse Resp BP Pulse Ox
98.7 F 86 18 99/59 94
03/31/24 07:34 03/31/24 07:34 03/31/24 07:34 03/31/24 07:34 03/31/24 07:34
I&O
03/30/24 03/31/24 04/01/24
06:59 06:59 06:59
Intake Total 960 / 960
Output Total 350 / 350 1150 / 1150
Balance -350 / -350 -190 / -190
Review of Systems
-
History Source: Patient
All other systems: Reviewed and negative
Physical Exam
-
General: Well Developed, Well Nourished and No Apparent Distress
HEENT: Normocephalic and Atraumatic
Respiratory: Crackles (Faint spread bilaterally throughout the lung bases.)
Cardiac: Regular Rhythm and S1/S2
Breast: Deferred by me
GI: Soft, Nontender, Nondistended and Normal Bowel Sounds
Rectal: Deferred by Provider
Musculoskeletal: No Clubbing, No Cyanosis and No Edema
Skin: Warm and Dry
Neuro: Awake, Alert, Oriented and AO x 3
Psych: Calm
--- NOTE | 2024-03-31 11:06 | CM ---
Patient accepted for transfer to [facility] today, pending physician assessment. IMM completed and signed form placed on chart. Patient auth received [facility] reference number [id number] Allyson Durbin ur person. [phone]/call [phone].
Physician/nursing, updated as well as [facility] liaison. Patient bed available after 1pm. Please call report to [phone]/fax [phone]. CM will continue to follow for discharge planning needs.
Plan; Transfer to [facility] pending physician assessment.
[2024-03-31 13:43] VITALS: BP 97/58
[2024-03-31] MEDS: ProAmatine 5 MG PO (13:53)
--- NOTE | 2024-03-31 14:45 | PN.CDI ---
Addendum entered and electronically signed by Micky Eisenberg MD, Resident 04/01/24 18:26:
Patient has paroxysmal Atrial fibrillation. No a-fib on this admission.
Original Note:
CDI
- -
CDI:
Physician Documentation Request
Admit Date: 03/23/24 23:00
Dear Doctor Faina,
Patient admitted with sepsis.
ED note, '83 yo female w h/o ....a fib on Eliquis.'
03/30 PN, 'Afib- cont Eliquis.'
Please provide in your note the likely type of atrial fibrillation:
Paroxysmal atrial fibrillation - terminates spontaneously or with intervention within 7 days of onset
Persistent atrial fibrillation - episodes of continuous AF that last more than 7 days and do not self-terminate
Permanent atrial fibrillation - when a decision has been made to accept the presence of AF and there is no further attempt to restore or maintain sinus rhythm
Other - please specify
Use of terms such as suspected, likely, concern for, or probable (associated with a specific diagnosis that is being evaluated, monitored, or treated as if it exists) are acceptable and can be coded in the inpatient setting, when documented at the
time of discharge.
Thank you,
Anjelica ARTEAGA,RN,CCDS
CDI Specialist
Available via [place] text
Please use your independent medical judgment in providing your response.
--- NOTE | 2024-03-31 17:01 | W.DCSUMMARY ---
Addendum entered and electronically signed by Lan Sky MD 03/31/24 23:34:
Read, reviewed, and agree. See same day progress note for additional details. DC to [facility]
Hung Sky MD
Original Note:
Documented by User: Micky Eisenberg MD, Resident 03/31/24 17:37
Discharge Summary
Discharge Data
Date of Admission: 03/23/24
Date of Discharge: 03/31/24
-
Pending Results: No
Hospital Course
Patient is an 83-year-old female with a history of hypertension, hyperlipidemia, pacemaker status, atrial fibrillation on Eliquis, GERD, bladder cancer, right nephrostomy tube status presented again after discharge from the ED on 03/22/24 for UTI.
She was given 1 g of Rocephin and cefdinir oral medication upon discharge. She felt generally weak, febrile, and had a poor appetite. She was hoping to avoid being admitted and rather opted to try outpatient antibiotics but unfortunately returned
back to the emergency department feeling worse. Patient was febrile in the emergency department with a temperature of 101.2, and a urine culture was sent. A blood culture was taken. She denied any nausea, vomiting, or diarrhea. Lactic acid was
2.0 with a low BP at 94�59 and heart rate of 77 paced. BUN was 38 and creatinine was found to be elevated at 2.2. There was concern for risk of sepsis and the patient was admitted to [facility] to be given IV antibiotics. The patient's
oncologist was been informed of the patient's status at the time and was the one who advised her to return to the emergency department.
Her acute cystitis was treated on IV Rocephin as her urine culture from 1 month prior showed that she was positive with Klebsiella sensitive to Rocephin. Urine sample collected in the emergency department was contaminated and did not produce any
usable results. Recollection of urine culture would be useless as she had already started IV Rocephin at that time. As her symptoms improved and she did not feel as weak as she remained on the IV antibiotics. After completing a course of IV
Rocephin she was transition to oral cefdinir for 5 days. She completed her oral course of cefdinir. Her strength had mostly returned upon the third day of her hospitalization with antibiotics but unfortunately she required consistent 2 L of oxygen
nasal cannula. She would often fluctuate between choosing to use the nasal cannula and removing it because she did not believe she needed it. With 2 L flow oxygen the patient was able to maintain saturation around 95 to 94% but if she removed her
nasal cannula she would slowly desaturate over the course of 30 minutes to an hour. Her desaturation was not acute but slow and she would not show any signs or symptoms or make any complaints. When asked how she felt, the patient believes that she
was fine as is without the oxygen. Plans were started to initiate discharge on 25 March but unfortunately the patient spiked a fever and had noticeable crackles throughout her lungs. Pulmonology was consulted. A chest x-ray was conducted that
showed development of moderate pulmonary edema. Ethracrynic Acid was started to diurese the patient because the patient had a sulfa allergy specifically to TMP-[id number]. As the patient was diuresed, the audible crackles throughout the patient's lungs
greatly reduced and improved. The patient is currently euvolemic with a creatinine of 2.4 which is slightly elevated compared to her baseline of 1.8-2 as she suffers from chronic kidney disease stage IV. She still requires 2 L of oxygen nasal
cannula and pulmonology recommended outpatient pulmonary follow-up to document resolution of infiltrates as well as to follow-up on a stable 8 mm subpleural lung nodule seen on the PET CT conducted on 03/20/2024. She was also started on midodrine 5
mg twice daily in order to help better control her blood pressure.
The patient has reached maximal benefit from this hospital admission and is appropriate for discharge at the present time. There are no barriers that would impede this patient from being safely discharged from the hospital at this time. The
patient has been recommended to follow-up with her outpatient director of clinical applications for monitoring and assessment of a stable 8 mm subpleural pulmonary nodule located at the left posterolateral lung base. The patient is appropriate for follow-up in the
outpatient setting by her primary care provider.
Discharge Plan
-
Patient Disposition: Detention/SNF
Discharge Diagnosis/Procedures: Acute Hypoxemic respiratory failure
Condition: Good
Diet: No restrictions
Activity: No restrictions
Driving Restrictions: As prior to admission
Bathing Restrictions: None
Referrals:
Alfredo Mcpherson MD [Active] - in four to six weeks
Anjelica Griffiths MD [Family Provider] - in one to two weeks
Additional Discharge Medication Instructions: Daily I/Os, BMPs, Home O2 as she desaturates slowly without 2L. Patient should follow-up with her director of clinical applications in the outpatient setting to continue to follow a stable 8 mm subpleural pulmonary nodule
located at the posterior lateral lung left lung base.
Prescriptions:
New
midodrine 5 mg Tablet
5 mg PO BID 30 Days Qty: 60 0RF
Continued
therapeutic multivitamin Tablet
1 tab PO DAILY
Eliquis 2.5 mg tablet
2.5 mg PO BID Qty: 60 0RF
famotidine 20 mg Tablet
20 mg PO DAILY
Discharge Orders:
Discharge Patient (As Directed); Ordered 03/31/24
Ordered By: Micky Eisenberg
Discharge Date and Time
Discharge Date/Time: 03/31/24 17:50
Print Language: SAUDI ARABIAN

Documented by User: Lan Sky MD 03/31/24 23:27
Discharge Summary
Discharge Data
Date of Admission: 03/23/24
Date of Discharge: 03/31/24
Discharge Plan
-
Patient Disposition: Detention/SNF
Discharge Diagnosis/Procedures: Acute Hypoxemic respiratory failure
Condition: Good
Diet: No restrictions
Activity: No restrictions
Driving Restrictions: As prior to admission
Bathing Restrictions: None
Referrals:
Alfredo Mcpherson MD [Active] - in four to six weeks
Anjelica Griffiths MD [Family Provider] - in one to two weeks
Additional Discharge Medication Instructions: Daily I/Os, BMPs, Home O2 as she desaturates slowly without 2L. Patient should follow-up with her director of clinical applications in the outpatient setting to continue to follow a stable 8 mm subpleural pulmonary nodule
located at the posterior lateral lung left lung base.
Prescriptions:
New
midodrine 5 mg Tablet
5 mg PO BID 30 Days Qty: 60 0RF
Continued
therapeutic multivitamin Tablet
1 tab PO DAILY
Eliquis 2.5 mg tablet
2.5 mg PO BID Qty: 60 0RF
famotidine 20 mg Tablet
20 mg PO DAILY
Discharge Orders:
Discharge Patient (As Directed); Ordered 03/31/24
Ordered By: Micky Eisenberg
Discharge Date and Time
Discharge Date/Time: 03/31/24 17:50
Print Language: SAUDI ARABIAN
== END 2024-03-31 17:50 | DRG 871 ==
LOC: 3 WEST ACU 23:00
PROVIDERS: Emergency Medicine; Student in an Organized Health Care Education/Training Program; ADMITTING PHYSICIAN Hospitalist; ATTENDING PHYSICIAN Family Medicine; CONSULT PHYSICIAN Internal Medicine; EMERGENCY PHYSICIAN Emergency Medicine; FAMILY PHYSICIAN Family Medicine; OTHER PHYSICIAN Internal Medicine Infectious Disease
DX: A41.9 Sepsis, unspecified organism (principal); I50.33 Acute on chronic diastolic (congestive) heart failure; J96.01 Acute respiratory failure with hypoxia; I13.0 Hypertensive heart and chronic kidney disease with heart failure and stage 1 through stage 4 chronic kidney disease, or unspecified chronic kidney disease; N13.6 Pyonephrosis; N18.4 Chronic kidney disease, stage 4 (severe); N30.00 Acute cystitis without hematuria; C67.9 Malignant neoplasm of bladder, unspecified; I48.91 Unspecified atrial fibrillation; Z79.01 Long term (current) use of anticoagulants; K21.9 Gastro-esophageal reflux disease without esophagitis; I48.0 Paroxysmal atrial fibrillation
CPT/HCPCS: 71046; 74176; 80048; 80053; 82805; 82962; 83605; 83735; 83880; 85025; 85027; 87040; 87811; 93005; 96361; 96374; 97162; 97166; 97530; 97535; 99285

== ENCOUNTER → 2024-04-01 09:57 | Outpatient (REF) | payer OTHER, MEDICARE, SELFPAY ==
[2024-04-01 11:16] LABS: % Basophils 0.8 % (0-2); % Eosinophils 3.8 % (0-6); % Lymphocytes 38.6 % (20.5-51.1); % Monocytes 12.1 % (1.7-9.3); % Neutrophils 43.7 % (42.2-75.2); Absolute Basophils 0.1 10^3/uL (0-0.2); Absolute Eosinophils 0.3 10^3/uL (0-0.7); Absolute Immature Granulocytes 0.1 10^3/uL (0-0.05); Absolute Lymphocytes 2.8 10^3/uL (1.2-3.4); Absolute Monocytes 0.9 10^3/uL (0.1-0.6); Absolute Neutrophils 3.1 10^3/uL (1.4-6.5); Hematocrit 37.8 % (37.0-47.0); Hemoglobin 12.2 g/dL (12.0-16.0); Mean Corp Hgb Conc. 32.3 g/dL (33.0-37.0); Mean Corpuscular Volume 83.6 fL (81.0-99.0); Mean Platelet Volume 10.1 fL (7.4-10.4); Nucleated Red Blood Cells % 0 %; Platelet Count 298 10^3/uL (130-400); Red Blood Cell Count 4.52 10^6/uL (4.20-5.40); Red Cell Dist. Width 16.2 % (11.5-14.5); White Blood Cell Count 7.2 10^3/uL (4.8-10.8)
[2024-04-01 12:03] LABS: Blood Urea Nitrogen 56 mg/dl (7-17); Calcium 8.3 mg/dl (8.4-10.2); Carbon Dioxide 24 mmol/L (22-30); Chloride 98 mmol/L (98-107); Glucose 98 mg/dl (70-99); Potassium 4.4 mmol/L (3.5-5.1); Sodium 133 mmol/L (135-145); eGFR 17.87
== END ==
LOC: OLABP 09:57
PROVIDERS: ATTENDING PHYSICIAN Family Medicine
DX: D64.9 Anemia, unspecified (principal); Z95.0 Presence of cardiac pacemaker; I48.91 Unspecified atrial fibrillation; I10 Essential (primary) hypertension; N18.4 Chronic kidney disease, stage 4 (severe); M62.81 Muscle weakness (generalized); J81.0 Acute pulmonary edema
CPT/HCPCS: 36415; 80048; 85025

== ENCOUNTER → 2024-04-02 11:10 | Outpatient (REF) | payer OTHER, MEDICARE, SELFPAY ==
[2024-04-02 12:13] LABS: % Basophils 0.8 % (0-2); % Eosinophils 3.4 % (0-6); % Immature Granulocytes 1.1 % (0-0.5); % Lymphocytes 34.6 % (20.5-51.1); % Monocytes 14.3 % (1.7-9.3); % Neutrophils 45.8 % (42.2-75.2); Absolute Basophils 0.1 10^3/uL (0-0.2); Absolute Eosinophils 0.3 10^3/uL (0-0.7); Absolute Immature Granulocytes 0.1 10^3/uL (0-0.05); Absolute Lymphocytes 2.6 10^3/uL (1.2-3.4); Absolute Monocytes 1.1 10^3/uL (0.1-0.6); Absolute Neutrophils 3.4 10^3/uL (1.4-6.5); Hematocrit 36.7 % (37.0-47.0); Hemoglobin 11.9 g/dL (12.0-16.0); Mean Corp Hgb Conc. 32.4 g/dL (33.0-37.0); Mean Corpuscular Hgb 26.7 pg (27.0-31.0); Mean Corpuscular Volume 82.5 fL (81.0-99.0); Mean Platelet Volume 10.2 fL (7.4-10.4); Nucleated Red Blood Cells % 0 %; Platelet Count 303 10^3/uL (130-400); Red Blood Cell Count 4.45 10^6/uL (4.20-5.40); Red Cell Dist. Width 16.2 % (11.5-14.5); White Blood Cell Count 7.4 10^3/uL (4.8-10.8)
[2024-04-02 12:30] LABS: Blood Urea Nitrogen 64 mg/dl (7-17); Calcium 8.6 mg/dl (8.4-10.2); Carbon Dioxide 21 mmol/L (22-30); Chloride 100 mmol/L (98-107); Glucose 112 mg/dl (70-99); Potassium 4.3 mmol/L (3.5-5.1); Sodium 134 mmol/L (135-145); eGFR 19.67
== END ==
LOC: OLABP 11:10
PROVIDERS: ATTENDING PHYSICIAN Family Medicine
DX: D64.9 Anemia, unspecified (principal); Z95.0 Presence of cardiac pacemaker; I48.91 Unspecified atrial fibrillation; I10 Essential (primary) hypertension; N18.4 Chronic kidney disease, stage 4 (severe); M62.81 Muscle weakness (generalized); J81.0 Acute pulmonary edema
CPT/HCPCS: 36415; 80048; 85025

== ENCOUNTER → 2024-04-07 11:55 | Outpatient (REF) | payer OTHER, MEDICARE, SELFPAY ==
[2024-04-07 12:28] LABS: % Eosinophils 3.4 % (0-6); % Immature Granulocytes 0.8 % (0-0.5); % Lymphocytes 41.8 % (20.5-51.1); % Monocytes 14.9 % (1.7-9.3); % Neutrophils 38.1 % (42.2-75.2); Absolute Basophils 0.1 10^3/uL (0-0.2); Absolute Eosinophils 0.3 10^3/uL (0-0.7); Absolute Immature Granulocytes 0.1 10^3/uL (0-0.05); Absolute Lymphocytes 3.2 10^3/uL (1.2-3.4); Absolute Monocytes 1.1 10^3/uL (0.1-0.6); Absolute Neutrophils 2.9 10^3/uL (1.4-6.5); Hematocrit 36.7 % (37.0-47.0); Hemoglobin 11.5 g/dL (12.0-16.0); Mean Corp Hgb Conc. 31.3 g/dL (33.0-37.0); Mean Corpuscular Hgb 27.3 pg (27.0-31.0); Mean Platelet Volume 10.1 fL (7.4-10.4); Nucleated Red Blood Cells % 0 %; Platelet Count 313 10^3/uL (130-400); Red Blood Cell Count 4.22 10^6/uL (4.20-5.40); Red Cell Dist. Width 16.6 % (11.5-14.5); White Blood Cell Count 7.7 10^3/uL (4.8-10.8)
[2024-04-07 13:49] LABS: Blood Urea Nitrogen 49 mg/dl (7-17); Calcium 8.9 mg/dl (8.4-10.2); Carbon Dioxide 22 mmol/L (22-30); Chloride 108 mmol/L (98-107); Glucose 97 mg/dl (70-99); Potassium 5.2 mmol/L (3.5-5.1); Sodium 139 mmol/L (135-145); eGFR 26.04
== END ==
LOC: OLABP 11:55
PROVIDERS: ATTENDING PHYSICIAN Family Medicine
DX: D64.9 Anemia, unspecified (principal); Z95.0 Presence of cardiac pacemaker; I48.91 Unspecified atrial fibrillation; I10 Essential (primary) hypertension; N18.4 Chronic kidney disease, stage 4 (severe); M62.81 Muscle weakness (generalized); J81.0 Acute pulmonary edema
CPT/HCPCS: 36415; 80048; 85025

== ENCOUNTER 2024-04-23 16:34 | Inpatient (IN) | payer MEDICARE, SELFPAY ==
[2024-04-23] VITALS (9 sets, daily range): BP systolic 88–128; BP diastolic 43–79
--- NOTE | 2024-04-23 13:22 | ED.GENMED ---
History of Present Illness
General
Chief Complaint: Fall
Time Seen by Provider: 04/23/24 12:46
History of Present Illness
History of Present Illness:
83-year-old female history of afib on eliquis, GERD, bladder cancer, right nephrostomy tube presenting s/p mechanical fall. Patient states that she was walking into the family room with her walker when her walker tipped over causing her to fall.
Patient states that she struck her head. Patient denies loss of conscious. Tetanus unknown. Patient denies any neck pain, back pain, chest pain, abdominal pain or extremity pain.
Family at bedside states that patient has been having increased fatigue, falls asleep quickly, difficultly with ambulation worsening over the past 1 week. States patient was diagnosed with UTI, started on augmentin 2 days ago but has been unable to
take it as prescribed due to keep on falling asleep. Family states patient has episodes of hypotension 60s/40s and reports dizziness.
Past History
Past History
ED Past Medical History: Cancer and HTN
ED Past Surgical History: Urological
Social History
Tobacco: Non-smoker
Alcohol: None
Drug: None
Personal: Other
Living: with family
Employment: Other
Family History
Family History: Other
Phy Exam
Physical Exam
Physical Exam:
General: Alert, no acute distress
Head: 1cm laceration to right forehead, no active bleeding
Eyes: clear conjunctiva
Neck: supple.
Cardiac: regular rate and rhythm, no murmur
Lungs: clear to auscultation bilaterally. No wheezes, rales, or rhonchi. Speaking full unlabored sentences. No respiratory distress.
Abdomen: soft, nondistended nontender. No rebound or guarding. right nephrostomy tube in place draining cloudy yellow urine
MSK: no lower extremity edema bilaterally. No deformity. FROM bilateral upper and lower extremities with no tenderness to palpation
Skin: warm, dry
Neuro: Alert and oriented x3. no focal deficits
Course
Orders/Labs/Results
Orders:
Orders
04/23/24 11:26
CT Head W/o Iv Contrast Urgent
Reason For Exam: fall on thinner
04/23/24 11:30
CT Cervical Spine W/o Iv Contr Urgent
Comment:
Reason For Exam: fall on thinners
04/23/24 14:14
Straight cath- Treatment ONCE
0.9% Sodium Chloride 1000 ml [Nss] 1,000 ml IV BOLUS
04/23/24 14:37
CBC/With Diff [Complete Blood Count/With Diff] Urgent
CMP [Comprehensive Metabolic Panel] Urgent
Lactate Level [Lactic Acid] Urgent
UA Reflex to Culture [Urinalysis Reflex To Culture] Urgent
Date Specimen was Collected: 04/23/24
Time Specimen was Collected: 14:32
Urine Microscopic Reflex Cult Urgent
Urine Culture Urgent
JESSICA Source: U
Specimen Description:
Date Specimen was Collected: 04/23/24
Time Specimen was Collected: 14:32
04/23/24 14:53
Urine Culture Urgent
JESSICA Source: Urine
Specimen Description:
Obtained by: Nephrostomy
Date Specimen was Collected: 04/23/24
Time Specimen was Collected: 14:15
Comment: spec in lab
04/23/24 14:55
Urine Culture Urgent
JESSICA Source: Urine
Specimen Description:
Comment: from nephrostomy
04/23/24 14:56
Acetaminophen [Tylenol] 1,000 mg PO NOW STA
04/23/24 15:24
CefTRIAXone [Rocephin] 1,000 mg IV NOW STA
04/23/24 15:25
Blood Culture Urgent
JESSICA Source: Blood/Venous
Specimen Description:
Blood Culture Urgent
JESSICA Source: Blood/Venous
Specimen Description:
04/23/24 15:35
Tetanus/Diphth/Acelpertussis [Adacel] 0.5 ml IM .ONCE ONE
Abnormal Lab Results
04/23/24
14:37
Hgb 11.8 L g/dL
(12.0-16.0)
Hct 36.2 L %
(37.0-47.0)
MCHC 32.6 L g/dL
(33.0-37.0)
RDW 16.3 H %
(11.5-14.5)
Absolute Monos (auto) 0.9 H 10^3/uL
(0.1-0.6)
Monocytes % 11.2 H %
(1.7-9.3)
Sodium 134 L mmol/L
(135-145)
BUN 32 H mg/dl
(7-17)
Creatinine 2.0 H mg/dL
(0.6-1.0)
Total Protein 5.1 L g/dl
(6.3-8.2)
Albumin 2.8 L g/dl
(3.5-5.0)
Urine Ketones 1+ A
(Negative)
Ur Occult Blood Reflex 3+ A
(Negative)
Leukocyte Esterase Rfl 2+ A
(Negative)
Urine WBC (Reflex) >100 A /HPF
(0-5)
Urine Bacteria (Reflex) Few A
(Negative)
Urine Albumin (Reflex) 3+ A
(Neg - Trace)
04/23/24 14:37
04/23/24 14:37
Vital Signs
Initial and Last Documented VS:
Initial Vital Signs
Temp Pulse Resp BP Pulse Ox
98.2 F 80 19 88/59 93
04/23/24 11:22 04/23/24 11:22 04/23/24 11:22 04/23/24 11:22 04/23/24 11:22
Last Documented Vital Signs
Temp Pulse Resp BP Pulse Ox
101.4 F H 71 15 112/65 94
04/23/24 14:44 04/23/24 14:00 04/23/24 14:00 04/23/24 14:00 04/23/24 14:00
Procedures
Laceration Closure
right forehead:
Status of Wound: clean
Size of Wound in cm: 1
Description of Wound Edges: sharp
Preparation: cleaned with saline
Anesthesia: 1% Lidocaine with epi
Revision/Debridement: routine- no revision
Wound exploration: explored to base- no FB
Type of Closure: single layer closure
Skin Closure Material: 5-0 nylon
Number of sutures: 1
MDM/Problems Addressed
Differential Diagnosis Includes:
uti, lori, electrolyte abnormality, progression of cancer, failure to thrive, intracranial hemorrhage
MDM/Problems Addressed:
83-year-old female history of atrial fibrillation on Eliquis status presenting with head injury post mechanical fall. 1cm laceration to right forehead. No other trauma. CT head/cervical spine unremarkable. Family at bedside states patient has been
progressively weaker with poor appetite, frequently sleeping for the past 1 week. States this is the second time she fell. Last Keytruda 4 weeks ago. Diagnosed with UTI 2 days ago on augmentin but not taking as prescribed due to keeps falling
asleep. Pt febrile to 101.4 in the ER.
Labs reviewed, wBC 8.4, creatinine 2 (baseline), lactate 0.8. UA consistent with UTI. Ordered ceftriaxone (previous cultures sensitive). Repaired laceration to right forehead which should be removed in 5-7 days. Discussed with hospitalist for
admission. Discussed with patient and family who are agreeable.
*Critical Care Note
Total Time (30-74mins, 75-104mins- exclusive of procedures): Not Applicable
ED Attending Note
-
Portions of this chart may have been created with voice recognition software.� Occasional wrong word or��sound alike� substitutions may have occurred due to the inherent limitations of voice recognition software.
Discharge Plan
Departure
Patient Disposition: Admit
Date of Disposition: 04/23/24
Time of Disposition: 15:33
Presentation/result/management discussed w/ accepting MD/DO: Hospitalist
Discharge Problem:
Acute UTI, Facial laceration
Prescriptions:
No Action
therapeutic multivitamin Tablet
1 tab PO DAILY
Eliquis 2.5 mg tablet
2.5 mg PO BID Qty: 60 0RF
famotidine 20 mg Tablet
20 mg PO DAILY
midodrine 5 mg Tablet
5 mg PO BID 30 Days Qty: 60 0RF
Referrals:
Anjelica Griffiths MD [Family Provider] -
Interventions
Interventions:
*Risk Screen - Suicide Last Done: 04/23/24 11:22
*General Assessment Last Done: 04/23/24 11:22
*Neglect/Abuse Screening Last Done: 04/23/24 11:22
ED- Fall Risk Assessment Last Done: 04/23/24 12:30
*ED COVID-19 Vaccine History Last Done: 04/23/24 14:00
ED-Musculoskeletal Assessment Last Done: 04/23/24 12:30
ED- Neurological Assessment Last Done: 04/23/24 12:14
ED-Skin Assessment Last Done: 04/23/24 12:14
Discharge Date and Time
Print Language: WELSH
[2024-04-23] MEDS: NSS 1000 IV (14:42)
[2024-04-23 14:49] LABS: % Basophils 0.4 % (0-2); % Eosinophils 4.4 % (0-6); % Immature Granulocytes 0.5 % (0-0.5); % Lymphocytes 30.4 % (20.5-51.1); % Monocytes 11.2 % (1.7-9.3); % Neutrophils 53.1 % (42.2-75.2); Absolute Eosinophils 0.4 10^3/uL (0-0.7); Absolute Lymphocytes 2.6 10^3/uL (1.2-3.4); Absolute Monocytes 0.9 10^3/uL (0.1-0.6); Absolute Neutrophils 4.5 10^3/uL (1.4-6.5); Hematocrit 36.2 % (37.0-47.0); Hemoglobin 11.8 g/dL (12.0-16.0); Mean Corp Hgb Conc. 32.6 g/dL (33.0-37.0); Mean Corpuscular Hgb 27.4 pg (27.0-31.0); Mean Platelet Volume 9.3 fL (7.4-10.4); Nucleated Red Blood Cells % 0 %; Platelet Count 251 10^3/uL (130-400); Red Blood Cell Count 4.31 10^6/uL (4.20-5.40); Red Cell Dist. Width 16.3 % (11.5-14.5); White Blood Cell Count 8.4 10^3/uL (4.8-10.8)
[2024-04-23 14:52] LABS: Urine Albumin 3+ (Neg - Trace); Urine Bilirubin Negative (Negative); Urine Character Very Cloudy (Clear); Urine Color Yellow; Urine Glucose Negative (Negative); Urine Ketone 1+ (Negative); Urine Leukocyte 2+ (Negative); Urine Nitrite Negative (Negative); Urine Occult Blood 3+ (Negative); Urine Urobilinogen Negative (Neg - 1+); Urine pH 6.5 (5.0-9.0)
[2024-04-23 15:04] LABS: Lactic Acid 0.8 mmol/L (0.7-2.0)
[2024-04-23 15:05] LABS: ALT (SGPT) 18 U/L (0-35); AST (SGOT) 28 U/L (14-36); Albumin 2.8 g/dl (3.5-5.0); Alkaline Phosphatase 56 U/L (38-126); Blood Urea Nitrogen 32 mg/dl (7-17); Calcium 8.7 mg/dl (8.4-10.2); Carbon Dioxide 22 mmol/L (22-30); Chloride 103 mmol/L (98-107); Glucose 88 mg/dl (70-99); Sodium 134 mmol/L (135-145); Total Bilirubin 0.6 mg/dl (0.2-1.3); Total Protein 5.1 g/dl (6.3-8.2); Urine Red Blood Cell None Seen /HPF (0-2); Urine White Cell >100 /HPF (0-5); eGFR 24.48
[2024-04-23 15:06] LABS: Urine Bacteria Few (Negative)
[2024-04-23] MEDS: TYLENOL 1000 MG PO (15:14)
--- NOTE | 2024-04-23 15:36 | HPS.HSE ---
Family Physician
-
Family Physician: Anjelica Griffiths
Chief Complaint
-
fall
History of Present Illness
Ms. Jessi Shipman is a 83 yo woman with hx essential HTN, HLD, atrial fibrillation on Eliquis, GERD, bladder CA s/p right nephrostomy tube, recent admission 03/23-03/31 for sepsis 2/2 UTI presents to the ER with weakness, anorexia. She was diagnosed
with a UTI 2 days ago and started on Augmentin but has not been alert enough to consistently take it per daughters.
History obtained mainly by daughters at bedside. After returning from [employer] she has remained weak, not able to get to walker without assistance. However, she was alert and eating up until a few days ago when she has been consistently sleeping.
She has not wanted to eat. First time they realized she had a fever was today in the ER. Per daughters, she has on and off chronic LE pain. Two days ago she requested a heating pad for back pain. Currently patient denies back pain and lower
abdominal pain.
No chest pain or shortness of breath. No rash.
She last received Keytruda 4 weeks ago, next dose would have been due tomorrow.
Medical History
Past Medical History
Past Medical History: Reports Other
Additional Past Medical History:
Transitional Cell Carcinoma
Right Ureteral Obstruction secondary to the above
CKD IV
essential HTN
HLD
Atrial fibrillation on Eliquis
GERD
Past Surgical History: Reports Other
Additional Past Surgical History:
TURBT
Right Percutaneous Nephrostomy Tube
Social History
Tobacco: Non-smoker
Alcohol: None
Family History
Family History: Not pertinent
Allergies / Home Medications
Allergies reflects when Allergies were last updated in [facility].
Home Medications with original date entered in [facility]
Allergy/Medication List:
Allergies
Allergy/AdvReac Type Severity Reaction Status Date / Time
sulfamethoxazole Allergy swelling Verified 03/23/24 18:07
[From Bactrim] of tongue
trimethoprim [From Bactrim] Allergy swelling Verified 03/23/24 18:07
of tongue
Home Medications
therapeutic multivitamin 1 tab PO DAILY Supplement 07/30/23
apixaban 2.5 mg tablet (Eliquis) 2.5 mg PO BID #60 tabs 09/26/23
Keytruda 1 dose IV Q3W 04/23/24
amoxicillin 500 mg-potassium clavulanate 125 mg tablet 1 tab PO BID 04/23/24
glucosamine sulf dipot chlr,msm,chond 550 mg-C 30 mg-balbir 1 mg capsule (Glucosamine Chondroitin) 1 cap PO DAILY 04/23/24
midodrine 5 mg tablet 5 mg PO TID Blood pressure 04/23/24
ondansetron HCl 4 mg tablet 4 mg PO DAILYPRN PRN nausea 04/23/24
oxycodone-acetaminophen 5 mg-325 mg tablet 1 tab PO Q8HPRN PRN moderate to severe pain 04/23/24
prednisone 10 mg tablet 10 mg PO DAILYPRN PRN w/ cancer treatment 04/23/24
Review of Systems
-
Unable to obtain full review of systems at this time due to: Dementia
A 12 point ROS was completed and negative except as noted: Yes
Physical Exam
Vital Signs
Vital Signs
Temp Pulse Resp BP Pulse Ox
101.4 F H 71 15 112/65 94
04/23/24 14:44 04/23/24 14:00 04/23/24 14:00 04/23/24 14:00 04/23/24 14:00
Physical Exam
General: No Apparent Distress and Other (sleeping during interview then awakes to verbal cues )
HEENT: PERRLA
Respiratory: Clear; No Wheezes
Cardiac: S1/S2 and Regular Rhythm
GI: Soft and Non Tender
Genito-urinary: Other (nephrostomy tube )
Musculoskeletal: No Edema
Skin: Warm, Dry and Other (laceration right forehead ); No Rash
Neuro: AO x 3
Psych: Calm
Laboratory Results
-
04/23/24 14:37
04/23/24 14:37
Laboratory Results
Lactic Acid 0.8 mmol/L (0.7-2.0) 04/23/24 14:37
Total Bilirubin 0.6 mg/dl (0.2-1.3) 04/23/24 14:37
AST 28 U/L (14-36) 04/23/24 14:37
ALT 18 U/L (0-35) 04/23/24 14:37
Alkaline Phosphatase 56 U/L (38-126) 04/23/24 14:37
Data Reviewed
-
Diagnostic Radiology: Report Reviewed by me
Lab Data: Labs Reviewed by me
Impression/Plan
-
Ms. Jessi Shipman is a 83 yo woman with hx essential HTN, HLD, atrial fibrillation on Eliquis, GERD, CKD III, bladder CA s/p right nephrostomy tube, recent admission 03/23-03/31 for sepsis 2/2 UTI presents to the ER with weakness, anorexia. She was
diagnosed with a UTI 2 days ago and started on Augmentin but has not been alert enough to take it.
Triage VS: T 98.2 upt o 101.4, P 80, RR 19, BP 88/59 up to 112/65, SpO2 93%
Labs: WBC 8.4, Hg 11.8, PLT 251, Na 134, K+ 5.0, Cl 103, BUN 32, Cr 2.0, Glucose 88, liver enzymes WNL
UA: > [address]
IMPRESSION:
1. No acute intracranial abnormalities appreciated.
2. Mild atrophy and mild chronic small vessel change.
3. No significant change compared to prior study.
Cervical Spine CT
IMPRESSION:
1. No osseous injury appreciated.
2. Mild degenerative change as detailed above.
3. Diffuse enlargement of the thyroid gland, multinodular.
MAR: 1L IVF, TDap, tylenol Ceftriaxone
Sepsis likely 2/2 UTI
TME 2/2 above with significant lethargy
-test flu, covid and obtain CXR
-admit to telemetry
-continue IV Ceftriaxone
-F/U blood and urine cultures
-IVF with D5 (will keep patient NPO given TME)
-PT/OT/ST
Transitional Cell Carcinoma
Chronic right ureteral obstruction s/p right nephrostomy tube
-receives Keytruda q 3 weeks - missed last dose 2/2 hospitalization and will miss tomorrow's dose
Forehead Laceration
-ER course: Repaired laceration to right forehead which should be removed in 5-7 days
CKD IV
-stable, renal function at baseline
Atrial Fibrillation
-FOOT ORTHOPEDIST Eliquis
Chronic hypotension
-FOOT ORTHOPEDIST Midodrine
DVT PPx Eliquis
76 minutes spent on patient care
[2024-04-23] MEDS: ROCEPHIN 1000 MG IV (16:15)
[2024-04-23] MEDS: ADACEL 0.5 ML IM (16:15)
[2024-04-23 16:55] LABS: COVID-19 Antigen Negative (Negative)
[2024-04-23] MEDS: D5/0.9% SODIUM CHLORIDE 1000 IV (19:50)
[2024-04-23] MEDS: ProAmatine PO (20:00)
[2024-04-23] MEDS: TYLENOL/FEVERALL 650 MG RECTAL (20:00)
[2024-04-23] MEDS: ELIQUIS 2.5 MG PO (20:07)
[2024-04-23] MEDS: ProAmatine 5 MG PO (23:04)
[2024-04-24] VITALS (10 sets, daily range): BP systolic 73–148; BP diastolic 34–92; PULSE 71; O2SAT 95
[2024-04-24] MEDS: TYLENOL/FEVERALL 650 MG RECTAL ×2 (00:43→23:15)
--- NOTE | 2024-04-24 03:02 | PTCARENOTE ---
Received pt from ED via stretcher with family at bedside. Pt admitted for sepsis 2/2 UTI. Telemetry orders> afib on monitor, T 103 orally, HR 85, RR26, BP 115/79, Pox 90% room air- 2LNC applied 93%. Noted rigors. Pt administered rectal Tylenol. Pt
confused and restless, unable to follow commands. bed alarm placed. daughters were able to answer a few questions. Pt fell and sustained a 1 cm laceration to right side of forehead. ED placed one suture which is PAYROLL CLERK, approximated, w/o drainage. Plan
of care reviewed with family.
--- NOTE | 2024-04-24 03:13 | PTCARENOTE ---
Pt administered x2 rectal Tylenol w/o improvement. House CENTRAL LAB TECHNICIAN made aware. x1 IV Ibuprofen ordered.
[2024-04-24] MEDS: CALDOLOR 104 MG IV (03:34)
[2024-04-24] MEDS: ELIQUIS 2.5 MG PO ×2 (07:30→21:00)
[2024-04-24] MEDS: ProAmatine 5 MG PO ×2 (07:30→09:18)
[2024-04-24] MEDS: THERAGRAN 1 TABLET PO (07:30)
[2024-04-24] MEDS: NSS 1000 IV (07:44)
--- NOTE | 2024-04-24 07:59 | PTCARENOTE ---
Patient's BP 74/45 - manually confirmed. Temp rectally 99.4. HR 70s. Lethargic but easily arousable. Baseline confusion. Blood cultures pending. COVID/Flu negative. Patient has UTI. WBC yesterday 8.4. CBC pending for this morning. Patient has had
high temps overnight with Tylenol and IV motrin given. Dr. Dylon Keyes made aware. NSS bolus started as per order. MD aware patient has history of heart failure. Tele - Afib which is patient's baseline.
[2024-04-24 08:16] LABS: % Basophils 0.3 % (0-2); % Eosinophils 4.2 % (0-6); % Immature Granulocytes 0.7 % (0-0.5); % Lymphocytes 8.6 % (20.5-51.1); % Monocytes 7.2 % (1.7-9.3); Absolute Eosinophils 0.4 10^3/uL (0-0.7); Absolute Immature Granulocytes 0.1 10^3/uL (0-0.05); Absolute Lymphocytes 0.8 10^3/uL (1.2-3.4); Absolute Monocytes 0.7 10^3/uL (0.1-0.6); Absolute Neutrophils 7.5 10^3/uL (1.4-6.5); Hematocrit 36.3 % (37.0-47.0); Hemoglobin 11.6 g/dL (12.0-16.0); Mean Corpuscular Hgb 27.2 pg (27.0-31.0); Mean Corpuscular Volume 85.2 fL (81.0-99.0); Nucleated Red Blood Cells % 0 %; Platelet Count 238 10^3/uL (130-400); Red Blood Cell Count 4.26 10^6/uL (4.20-5.40); Red Cell Dist. Width 16.4 % (11.5-14.5); White Blood Cell Count 9.4 10^3/uL (4.8-10.8)
--- NOTE | 2024-04-24 08:30 | PTOTSP ---
Dysphagia Evaluation
No significant signs of oral/pharyngeal dysphagia noted with limited PO accepted (thin straw, puree). Dysphagia risk elevated due to sepsis secondary to UTI (resulting in AMS and lethargy) and baseline GERD.
Recommend:
1. IDDSI Level 4 Puree, Thin Liquids
2. Medications - as best tolerated
3. Strategies: upright to 90 degrees, 1:1 supervision/assist, PO only when awake/alert, small single sips/bites, reflux precautions
4. Oral care 2x daily
5. Dysphagia tx at the acute care level
[2024-04-24] MEDS: DESENEX/MITRAZOL/ZEASORB 1 APPLIC TOPICAL ×2 (09:19→17:02)
[2024-04-24 09:20] LABS: Blood Urea Nitrogen 33 mg/dl (7-17); Calcium 7.8 mg/dl (8.4-10.2); Carbon Dioxide 17 mmol/L (22-30); Chloride 108 mmol/L (98-107); Glucose 121 mg/dl (70-99); Magnesium 1.7 mg/dl (1.6-2.3); Potassium 4.3 mmol/L (3.5-5.1); Sodium 136 mmol/L (135-145); eGFR 19.67
[2024-04-24] MEDS: D5/0.9% SODIUM CHLORIDE 1000 IV (10:04)
--- NOTE | 2024-04-24 12:09 | W.PN.HOSP.TC ---
Today's Communication/Plan
-
Monitor vital signs see plan
Continue with antibiotics
Follow fever curve
ID evaluation
Check CT abdomen/pelvis
Increase midodrine
Monitor volume status closely
Assessment / Plan
Assessment / Plan
General: No Apparent Distress and Other (sleeping during interview then awakes to verbal cues )
HEENT: PERRLA
Respiratory: Clear; No Wheezes
Cardiac: S1/S2 and Regular Rhythm
GI: Soft and Non Tender
Genito-urinary: Other (nephrostomy tube )
Musculoskeletal: No Edema
Skin: Warm, Dry and Other (laceration right forehead ); No Rash
Neuro: AO x 3
Psych: Calm
Sepsis likely 2/2 UTI/cystitis
Check abdomen/pelvis CT
Follow fever curve, follow blood culture, urine culture
Infectious disease evaluation
TME 2/2 above with significant lethargy likeley 2/2 sepsis
Flu, COVID-negative
CXR noted
-continue IV Ceftriaxone
Evaluated by speech, okay for pur�ed diet with thin
-PT/OT
Urine cultures from 02/19/2024 showed Proteus and Klebsiella
Chest x-ray with mild interstitial opacification, favoring mild interstitial edema which has been improved from previous imaging
Be careful with fluids as has history of CHF, monitor volume status closely
Transitional Cell Carcinoma
Chronic right ureteral obstruction s/p right nephrostomy tube
-receives Keytruda q 3 weeks - missed last dose 2/2 hospitalization
Chronic hypoxic respiratory failure
Was discharged on oxygen continuously on last admission
Monitor, currently on 2 L
Chronic hypotension
-MACHINE REPAIR PERSON Midodrine; inc to 10mg BID
Forehead Laceration
-ER course: Repaired laceration to right forehead which should be removed in 5-7 days
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
RHIANNA on CKD IV
Baseline creatinine around 2
-stable, renal function at baseline
Chronic R Ureteral Obstruction s/p R PCN tube
Atrial Fibrillation, paroxysmal
-MACHINE REPAIR PERSON Eliquis
DVT PPx Eliquis
I spent a total of 53 minutes with the patient or on the floor. More than 50% of this time involved counseling and coordination of care.
Anticipated Discharge: > 48 hours
Subjective/Interval History
-
Date of Service: April 24, 2024
denies nausea
Objective Data
-
Labs:
Laboratory Results
04/24/24
07:20
WBC 9.4
Hgb 11.6 L
Hct 36.3 L
Plt Count 238
Sodium 136
Potassium 4.3
Chloride 108 H
Carbon Dioxide 17 L
BUN 33 H
Creatinine 2.4 H
Glucose 121 H
Calcium 7.8 L
Vital Signs:
Vital Signs
Temp Pulse Resp BP Pulse Ox
97.5 F 72 18 106/47 95
04/24/24 11:07 04/24/24 11:07 04/24/24 11:07 04/24/24 11:07 04/24/24 11:07
I&O
04/23/24 04/24/24 04/25/24
06:59 06:59 06:59
Intake Total 944 / 944
Output Total 400 / 400
Balance 544 / 544
[2024-04-24] MEDS: ProAmatine 10 MG PO ×2 (13:10→17:12)
[2024-04-24] MEDS: TYLENOL 650 MG PO (13:10)
--- NOTE | 2024-04-24 15:38 | CON.ID ---
Consultation
-
Date/Time Consultation Requested: 04/24/2024 1119
Date/Time Consultation Performed: 04/24/2024 1500
Requesting Provider: Dr. Mccoy
Performing Provider: Dr. Wolf
Reason for Consultation: Urinary tract infection; fever
Chief Complaint / Past History
History of Present Illness
Jessi Mendoza is a an 83-year-old female being evaluated at the request of Dr. Mccoy in regards to a complicated urinary tract infection. History is obtained from chart review, along with patient interview.
The patient is known to the Infectious Diseases service, having been seen. In consultation in March 2024, when she was also evaluated for fever and noted to have generalized weakness. Following that admission she was discharged to home where
she resides with her . She is looked in after quite closely by her 2 daughters. According to the daughters who are present at the bedside now, the patient recently was in to see her Urologist. It was felt that she may have a urinary tract
infection, and she was started on Augmentin, but has only been able to take a few doses secondary to progressive lethargy. Additionally she has had decreased p.o. intake and she reportedly developed a fever at home, along with increasing
somnolence. Finally she fell, prompting being brought to the ER for further evaluation. According to the daughters, the patient has admitted to some low back pain intermittently. They additionally have noted progressive cloudiness of her right
PCN bag.
At present, no significant history is available from the patient secondary to lethargy, but she does denied any specific pain at the present.
Past History
Additional Past Medical History:
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
CKD stage IV
HTN
Dyslipidemia
A-fib; on Eliquis
GERD right percutaneous nephrostomy tube
Additional Past Surgical History:
Right PCN
Allergy History:
sulfamethoxazole [From Bactrim] Allergy (Verified 03/23/24 18:07)
swelling of tongue
trimethoprim [From Bactrim] Allergy (Verified 03/23/24 18:07)
swelling of tongue
Social History
Tobacco: Non-Smoker
Alcohol: None
Drug: None
Personal:
Living: With Family
Employment: Not Employed
Family History
Family History: Not Pertinent
Review of Systems
Vital Signs
Temp Pulse Resp BP Pulse Ox
98.2 F 72 18 116/92 92
04/24/24 15:20 04/24/24 15:20 04/24/24 15:20 04/24/24 15:20 04/24/24 15:20
Physical Exam
Physical Exam
Constitutional: Acutely Ill, Chronically Ill and Non-toxic
Head: Normocephalic
Eyes: Pupils Equal, Pupils Round and No Conjunctival Hemorrhage
Oral: No Thrush and No Ulcers
Cardiovascular: S1/S2; Negative S3/S4 or Murmur
Pulmonary: Clear; Negative Wheezes, Rales or Rhonchi
Gastrointestinal: Soft, Non Tender, Distended, Normal Bowel Sounds, No Rebound and No Guarding
Genito-Urinary: Turbid Urine (In PCN bag) and Other (Right PCN in place.)
Extremities: Negative Edema, Cyanosis or Erythema
Neurological: Awake and Alert
Psychological: Calm
.
Lab / Diagnostic Study Results
04/24/24 07:20
04/24/24 07:20
Abs Immat Gran (auto) 0.1 10^3/uL (0-0.05) H 04/24/24 07:20
Absolute Neuts (auto) 7.5 10^3/uL (1.4-6.5) H 04/24/24 07:20
Absolute Lymphs (auto) 0.8 10^3/uL (1.2-3.4) L 04/24/24 07:20
Absolute Monos (auto) 0.7 10^3/uL (0.1-0.6) H 04/24/24 07:20
Absolute Basos (auto) 0.0 10^3/uL (0-0.2) 04/24/24 07:20
Immature Gran % 0.7 % (0-0.5) H 04/24/24 07:20
Neutrophils % 79.0 % (42.2-75.2) H 04/24/24 07:20
Lymphocytes % 8.6 % (20.5-51.1) L 04/24/24 07:20
Monocytes % 7.2 % (1.7-9.3) 04/24/24 07:20
Eosinophils % 4.2 % (0-6) 04/24/24 07:20
Basophils % 0.3 % (0-2) 04/24/24 07:20
Lactic Acid 0.8 mmol/L (0.7-2.0) 04/23/24 14:37
Microbiology Results
Micro:
04/23/24 15:25 Blood Culture - Preliminary
Blood/Venous No Growth in 24 hours- Final report to follow
04/23/24 15:25 Blood Culture - Preliminary
Blood/Venous No Growth in 24 hours- Final report to follow
04/24/24 12:16 C. difficile GDH Antigen & Toxins - Final
Feces/Stool C. difficile antigen positive, toxin negative.
Clostridium difficile present, but toxin not detected.
Patient may be a carrier, colonized with nontoxinogenic
strain or the level of toxin in sample is below detection
limits. This information should be used in conjunction with
the patient's clinical history.
04/23/24 14:53 Urine Culture - Preliminary
Urine Sparse growth, too young to be identified. Further results
to follow.
04/23/24 14:37 Urine Culture - Final
Urine NO GROWTH
04/23/24 16:27 Influenza Types A & B (FAVIOLA) - Final
Nasal Swab Negative for Influenza A & B, NAAT
Negative results must be combined with clinical observations
and patient history.
Nucleic Acid Amplification test (NAAT)performed on the
[employer] NOW platform.
Imaging:
04/24/2024 CT abdomen/pelvis without contrast: There is pronounced wall thickening of the urinary bladder with some nodularity, with bladder wall measuring approximately 2 cm in greatest thickness. Findings are suggestive of cystitis and grossly
unchanged compared to prior CT. A right percutaneous nephrostomy tube is in appropriate position and without right hydronephrosis. Peripheral airspace consolidation within the right lower lobe, new compared to prior CT scan please see full
dictation for additional detail.
Assessment / Plan
Complicated urinary tract infection
Fever
Malaise and generalized weakness
Status post fall
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
CKD stage IV
HTN
Dyslipidemia
A-fib; on Eliquis
GERD
Recommendations:
Given ongoing fever, will broaden antibiotic coverage to cefepime 1 g IV every 12 hours
Urine culture has been obtained; will await further results to guide antibiotic therapy.
Monitor white count and temperature curve.
Encourage fluid intake.
Care Review
Plan reviewed with: Physician (Hospitalist)
[2024-04-24] MEDS: STERILE WATER FOR INJECTION 10 ML IV (16:58)
[2024-04-24] MEDS: MAXIPIME 1000 MG IV (17:02)
--- NOTE | 2024-04-24 18:20 | PTCARENOTE ---
Patient trying to pull out IV line and take tele off. Patient hanging legs out of bed. Remote med sitter obtained. Emotional support provided and reinforcement of safety precautions with patient. Patient is confused and oriented to self only.
[2024-04-25] VITALS (8 sets, daily range): BP systolic 80–144; BP diastolic 38–103; BMI 26.9
[2024-04-25] MEDS: DESENEX/MITRAZOL/ZEASORB 1 APPLIC TOPICAL ×3 (00:05→15:55)
[2024-04-25] MEDS: D5/0.9% SODIUM CHLORIDE IV (03:32)
[2024-04-25] MEDS: STERILE WATER FOR INJECTION 10 ML IV ×2 (04:12→15:58)
[2024-04-25] MEDS: MAXIPIME 1000 MG IV ×2 (04:12→15:57)
[2024-04-25] MEDS: TYLENOL/FEVERALL 650 MG RECTAL ×3 (04:13→15:56)
[2024-04-25] MEDS: ProAmatine 10 MG PO (08:57)
[2024-04-25] MEDS: ELIQUIS 2.5 MG PO (08:57)
[2024-04-25] MEDS: THERAGRAN 1 TABLET PO (08:57)
--- NOTE | 2024-04-25 10:59 | W.PN.ID1 ---
Date of Service
Date of Service: April 25, 2024
Today's Communication
Continue antibiotics.
Assessment / Plan
Complicated urinary tract infection
Fever
Malaise and generalized weakness
Status post fall
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
CKD stage IV
HTN
Dyslipidemia
A-fib; on Eliquis
GERD
Recommendations:
Continue cefepime.
Urine culture has been obtained; will await further results to guide antibiotic therapy.
Monitor white count and temperature curve.
Encourage fluid intake.
Monitor creatinine to guide antibiotic dosing.
Bladder appeared somewhat full on recent CT imaging. I have asked Nursing to perform bladder scanning.
Chief Complaint
-: UTI
Subjective / Review of Systems
Patient seen and examined. Remains allergic at this time. Temperature curve reviewed, fevers persist.
Review of Systems: Fever
Vital Signs / Physical Exam
Vital Signs
Vital Signs
Temp Pulse Resp BP Pulse Ox
101.5 F H 71 32 96/48 93
04/25/24 07:55 04/25/24 08:57 04/25/24 07:55 04/25/24 08:57 04/25/24 09:16
Physical Exam
Constitutional: Acutely Ill and Chronically Ill
Eyes: Sclera Anicteric
Cardiovascular: Regular Rate and S1/S2; Negative S3/S4
Pulmonary: Clear; Negative Wheezes or Rales
Gastrointestinal: Soft, Non Tender and Non Distended
Genito-Urinary: Other (Right PCN with cloudy turbid urine.)
Extremities: Edema; Negative Cyanosis or Erythema
Neurological: Awake and Alert
Psychological: Calm
Objective Data
Lab Data
Lactic Acid 0.8 mmol/L (0.7-2.0) 04/23/24 14:37
Total Bilirubin 0.6 mg/dl (0.2-1.3) 04/23/24 14:37
AST 28 U/L (14-36) 04/23/24 14:37
ALT 18 U/L (0-35) 04/23/24 14:37
Alkaline Phosphatase 56 U/L (38-126) 04/23/24 14:37
Most recent labs reviewed.
Micro Results:
04/23/24 14:53 Urine Culture - Preliminary
Urine Gram negative bacilli
04/23/24 15:25 Blood Culture - Preliminary
Blood/Venous No Growth in 24 hours- Final report to follow
04/23/24 15:25 Blood Culture - Preliminary
Blood/Venous No Growth in 24 hours- Final report to follow
04/24/24 12:16 C. difficile GDH Antigen & Toxins - Final
Feces/Stool C. difficile antigen positive, toxin negative.
Clostridium difficile present, but toxin not detected.
Patient may be a carrier, colonized with nontoxinogenic
strain or the level of toxin in sample is below detection
limits. This information should be used in conjunction with
the patient's clinical history.
04/23/24 14:37 Urine Culture - Final
Urine NO GROWTH
04/23/24 16:27 Influenza Types A & B (FAVIOLA) - Final
Nasal Swab Negative for Influenza A & B, NAAT
Negative results must be combined with clinical observations
and patient history.
Nucleic Acid Amplification test (NAAT)performed on the
[employer] platform.
Imaging:
04/24/2024 CT abdomen/pelvis without contrast: There is pronounced wall thickening of the urinary bladder with some nodularity, with bladder wall measuring approximately 2 cm in greatest thickness. Findings are suggestive of cystitis and grossly
unchanged compared to prior CT. A right percutaneous nephrostomy tube is in appropriate position and without right hydronephrosis. Peripheral airspace consolidation within the right lower lobe, new compared to prior CT scan please see full
dictation for additional detail.
--- NOTE | 2024-04-25 11:28 | PTCARENOTE ---
Pt bladder scanned per request of Dr. Wolf- 190 ml noted in bladder. Pt incont large amts loose BM; ? mixed with urine. Will continue to monitor output.
[2024-04-25 11:54] LABS: % Basophils 0.3 % (0-2); % Eosinophils 5.1 % (0-6); % Immature Granulocytes 0.9 % (0-0.5); % Lymphocytes 12.9 % (20.5-51.1); % Monocytes 7.2 % (1.7-9.3); % Neutrophils 73.6 % (42.2-75.2); Absolute Eosinophils 0.6 10^3/uL (0-0.7); Absolute Immature Granulocytes 0.1 10^3/uL (0-0.05); Absolute Lymphocytes 1.5 10^3/uL (1.2-3.4); Absolute Monocytes 0.8 10^3/uL (0.1-0.6); Absolute Neutrophils 8.5 10^3/uL (1.4-6.5); Hematocrit 38.7 % (37.0-47.0); Hemoglobin 12.3 g/dL (12.0-16.0); Mean Corp Hgb Conc. 31.8 g/dL (33.0-37.0); Mean Corpuscular Hgb 27.9 pg (27.0-31.0); Mean Corpuscular Volume 87.8 fL (81.0-99.0); Mean Platelet Volume 9.7 fL (7.4-10.4); Nucleated Red Blood Cells % 0 %; Platelet Count 231 10^3/uL (130-400); Red Blood Cell Count 4.41 10^6/uL (4.20-5.40); Red Cell Dist. Width 16.6 % (11.5-14.5); White Blood Cell Count 11.5 10^3/uL (4.8-10.8)
--- NOTE | 2024-04-25 12:06 | W.PN.HOSP.TC ---
Today's Communication/Plan
-
monitor vitals
see plan
nephrology evaluation
monitor urine output; bladder scan
IVF
follow fever curve
Monitor mental status
Follow cultures
Continue with antibiotics
Discussed in length with daughter (Laurence); she will be speaking to other family members regarding code status. Prognosis appears guarded.Currently full code
Assessment / Plan
Assessment / Plan
General: No Apparent Distress and Other (sleeping during interview then awakes to verbal cues )
HEENT: PERRLA
Respiratory: Clear; No Wheezes
Cardiac: S1/S2 and Regular Rhythm
GI: Soft and Non Tender
Genito-urinary: Other (nephrostomy tube )
Musculoskeletal: No Edema
Skin: Warm, Dry and Other (laceration right forehead ); No Rash
Neuro: AO x 1
Psych: Calm
Sepsis likely 2/2 UTI/cystitis
abdomen/pelvis CT noted with known malignancy
Follow fever curve, follow blood culture, urine culture
Infectious disease evaluation
TME 2/2 above with significant lethargy likely 2/2 sepsis
Flu, COVID-negative
CXR noted
-continue IV abx per ID
Evaluated by speech, okay for pur�ed diet with thin if awake and alert
-PT/OT
Urine cultures from 02/19/2024 showed Proteus and Klebsiella
Chest x-ray with mild interstitial opacification, favoring mild interstitial edema which has been improved from previous imaging
Be careful with fluids as has history of CHF, monitor volume status closely
midodrine increased
Transitional Cell Carcinoma
Chronic right ureteral obstruction s/p right nephrostomy tube.
-receives Keytruda q 3 weeks - missed last dose 2/2 hospitalization; too lethargic to undergo chemo
follows up with oncology outpatient
prognosis appears poor given she has no strength and she is severely lethargic. Discussed in length with daughter Laurence. They will decide with other family members regarding CODE STATUS and potential hospice
RHIANNA on CKD IV
Baseline creatinine around 2
cr 3.2 today; nephrology evaluation
bladder scan
monitor output from nephrostomy tube
Chronic hypoxic respiratory failure
Was discharged on oxygen continuously on last admission
Monitor, currently on 2 L
Chronic hypotension
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
Forehead Laceration
-ER course: Repaired laceration to right forehead which should be removed in 5-7 days
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
Chronic R Ureteral Obstruction s/p R PCN tube
Atrial Fibrillation, paroxysmal
-FOREST PATHOLOGY TEACHER Eliquis
DVT PPx Eliquis
Full code
Discussed in length with daughter Laurence. prognosis guarded. They will decide with other family members regarding CODE STATUS and potential hospice
I spent a total of 53 minutes with the patient or on the floor. More than 50% of this time involved counseling and coordination of care.
Anticipated Discharge: > 48 hours
Subjective/Interval History
-
Date of Service: April 25, 2024
lethargic
Objective Data
-
Labs:
Laboratory Results
04/25/24
11:18
WBC 11.5 H
Hgb 12.3
Hct 38.7
Plt Count 231
Sodium Pending
Potassium Pending
Chloride Pending
Carbon Dioxide Pending
BUN Pending
Creatinine Pending
Glucose Pending
Calcium Pending
Total Bilirubin Pending
AST Pending
ALT Pending
Alkaline Phosphatase Pending
Vital Signs:
Vital Signs
Temp Pulse Resp BP Pulse Ox
99.1 F 74 30 80/38 97
04/25/24 11:38 04/25/24 11:38 04/25/24 11:38 04/25/24 11:38 04/25/24 11:38
I&O
04/24/24 04/25/24 04/26/24
06:59 06:59 06:59
Intake Total 944 / 944 1240 / 1240
Output Total 400 / 400 100 / 100 150 / 150
Balance 544 / 544 1140 / 1140 -150 / -150
[2024-04-25 12:08] LABS: ALT (SGPT) 20 U/L (0-35); AST (SGOT) 33 U/L (14-36); Albumin 2.2 g/dl (3.5-5.0); Alkaline Phosphatase 44 U/L (38-126); Blood Urea Nitrogen 47 mg/dl (7-17); Carbon Dioxide 17 mmol/L (22-30); Chloride 112 mmol/L (98-107); Estimated Creatinine Clearance 12 ml/min; Glucose 100 mg/dl (70-99); Potassium 4.4 mmol/L (3.5-5.1); Sodium 140 mmol/L (135-145); Total Bilirubin 0.4 mg/dl (0.2-1.3); Total Protein 4.3 g/dl (6.3-8.2); eGFR 13.93
[2024-04-25] MEDS: FLUSH (NSS) 1 FLUSH IV ×2 (13:42→15:58)
[2024-04-25] MEDS: NSS 1000 IV (13:42)
[2024-04-25] MEDS: ProAmatine PO ×2 (13:52→17:51)
--- NOTE | 2024-04-25 14:49 | W.CON.NEPH ---
Consultation
-
Date/Time Consultation Requested: 04/25/24 1211
Date/Time Consultation Performed: 04/25/24 1500
Requesting Provider: Williams Chappell
Performing Provider: Jewels Johnson
Reason for Consultation: RHIANNA with CKD
Medical History
-
Chief Complaint: Fall
History of Present Illness:
83 yo woman with hx essential transitional cell carcinoma s/p right PCN on Keytruda, CKD IV baseline cr lately at low 2 range, atrial fibrillation on Eliquis, GERD, recent admission 03/23-03/31 for sepsis 2/2 UTI presents to the ER with weakness,
anorexia. 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 however over the time pt became weaker and decreased
oral intake and She fell at home then brought to ER. She found to have UTI with fever and started on abx. Her cr was at 2.4 but this am increased to 3.2 hence nephrology consulted. She had intermittent back pain. right pCN had cloudy urine. Note she
also maintain on midodrine for hypotension. She last received Keytruda 4 weeks ago.
Pt has persistent fever and remains altered unable to provide any history. Daughter at bedside proving most of the details, notes she has been hospitalized few times in recent months for UTIs. Per nursing pt also with frequent Bms too.
Past Medical History
Transitional Cell Carcinoma
Right Ureteral Obstruction secondary to the above
CKD IV
essential HTN
HLD
Atrial fibrillation on Eliquis
GERD
Past Surgical History: Other (TURBT Right Percutaneous Nephrostomy Tube)
Social History
Tobacco: Non-Smoker
Alcohol: None
Family History
no CKD
Family History: Not Pertinent
Allergies / Home Medications
Allergy/AdvReac Type Severity Reaction Status Date / Time
sulfamethoxazole Allergy swelling Verified 03/23/24 18:07
[From Bactrim] of tongue
trimethoprim [From Bactrim] Allergy swelling Verified 03/23/24 18:07
of tongue
�Medication �Instructions �Recorded �Confirmed �Type
therapeutic multivitamin 1 tab PO DAILY Supplement 07/30/23 04/23/24 History
apixaban 2.5 mg tablet (Eliquis) 2.5 mg PO BID #60 tabs 09/26/23 04/24/24 Rx
Keytruda 1 dose IV Q3W Autoimmune Disorder 04/23/24 04/23/24 History
amoxicillin 500 mg-potassium 1 tab PO BID Infection 04/23/24 04/23/24 History
clavulanate 125 mg tablet
glucosamine sulf dipot 1 cap PO DAILY Supplement 04/23/24 04/23/24 History
chlr,msm,chond 550 mg-C 30 mg-balbir
1 mg capsule (Glucosamine
Chondroitin)
midodrine 5 mg tablet 5 mg PO TID Blood pressure 04/23/24 04/24/24 History
ondansetron HCl 4 mg tablet 4 mg PO DAILYPRN PRN nausea 04/23/24 04/23/24 History
oxycodone-acetaminophen 5 mg-325 1 tab PO Q8HPRN PRN moderate to 04/23/24 04/23/24 History
mg tablet severe pain
prednisone 10 mg tablet 10 mg PO DAILYPRN PRN w/ cancer 04/23/24 04/23/24 History
treatment
Review of Systems
-
altered and unable to provide
Physical Exam
Vital Signs
Vital Signs
Temp Pulse Resp BP Pulse Ox
99.1 F 71 30 98/48 97
04/25/24 11:38 04/25/24 13:52 04/25/24 11:38 04/25/24 13:52 04/25/24 11:38
Lab Results
WBC 11.5 10^3/uL (4.8-10.8) H 04/25/24 11:18
RBC 4.41 10^6/uL (4.20-5.40) 04/25/24 11:18
Hgb 12.3 g/dL (12.0-16.0) 04/25/24 11:18
Hct 38.7 % (37.0-47.0) 04/25/24 11:18
Plt Count 231 10^3/uL (130-400) 04/25/24 11:18
Sodium 140 mmol/L (135-145) 04/25/24 11:18
Potassium 4.4 mmol/L (3.5-5.1) 04/25/24 11:18
Chloride 112 mmol/L (98-107) H 04/25/24 11:18
Carbon Dioxide 17 mmol/L (22-30) L 04/25/24 11:18
BUN 47 mg/dl (7-17) H 04/25/24 11:18
Creatinine 3.2 mg/dL (0.6-1.0) H 04/25/24 11:18
eGFR 13.93 04/25/24 11:18
Glucose 100 mg/dl (70-99) H 04/25/24 11:18
Calcium 8.0 mg/dl (8.4-10.2) L 04/25/24 11:18
Albumin 2.2 g/dl (3.5-5.0) L 04/25/24 11:18
Abnormal Lab Results
04/25/24
11:18
WBC 11.5 H
MCHC 31.8 L
RDW 16.6 H
Abs Immat Gran (auto) 0.1 H
Absolute Neuts (auto) 8.5 H
Absolute Monos (auto) 0.8 H
Immature Gran % 0.9 H
Lymphocytes % 12.9 L
Chloride 112 H
Carbon Dioxide 17 L
BUN 47 H
Creatinine 3.2 H
Glucose 100 H
Calcium 8.0 L
Total Protein 4.3 L
Albumin 2[address] with out contrast:
IMPRESSION:
1. Pronounced wall thickening of the urinary bladder, with some nodularity. Bladder wall measures approximately 2 cm in greatest thickness. Findings are suggestive of cystitis, grossly unchanged compared to prior CT. Consider direct visualization
via cystoscopy to exclude bladder neoplasm.
2. Right percutaneous nephrostomy is in appropriate position. No right hydronephrosis.
3. Peripheral airspace consolidation within the right lower lobe, new compared to prior CT, suggestive of subsegmental atelectasis or pneumonia.
4. Small bilateral pleural effusions.
CXR 04/23:
IMPRESSION:
There is mild interstitial opacification, favoring mild interstitial edema which is improved from prior radiograph. No pleural effusion or pneumothorax.
Physical Exam
General: Awake and Other (not responding)
HEENT: Anicteric and Facial Symmetry
Respiratory: Rhonchi and Other (tachypenea)
Cardiac: S1/S2 and Regular Rate/Rhythm
Abdomen: Soft, Nondistended and Other (unclear if has any tenderness)
Musculoskeletal: No Cyanosis and No Edema
Skin: No Rash
Neuro: Other (unable to asess)
Psych: Other (unable to assess)
Data Reviewed
-
Radiology: Report Reviewed by me and Discussed with Family
Labs: Labs Reviewed by me, Discussed with Nurse and Discussed with Family
Assessment/Plan
-
Impression:
Sepsis likely 2/2 UTI/cystitis
TME
Transitional Cell Carcinoma
Chronic right ureteral obstruction s/p right nephrostomy tube.
RHIANNA on CKD IV-cr baseline low 2 range
Non gap met acidosis
Chronic hypoxic respiratory failure
Chronic hypotension
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
Atrial Fibrillation, paroxysmal
Pacer
Plan:
A/w fall after recent d/c after treating UTI
recurrent UTI, sepsis , abx per ID. await cx
RHIANNA-suspect from hemodynamic, prerenal and sepsis
UA -UTI, follow bladder scan and monitor UOP from right PCN
no hydro noted on CT
given met acidosis -change to 1/2NS with bicarb
cautious IVF with known h/o CHF, wt slightly up today
check CXR as she seem to have ronchi on exam
dose meds renally
cont midodrine for hypotension
asp precautions
not candidate for dialysis with multiple comorbidities, daughter understands
poor prognosis reviewed with daughter in detail and she will speak to rest of the family tonight
she also thinking of hospice too
d/w nursing
--- NOTE | 2024-04-25 16:29 | PTCARENOTE ---
Pt sleeping intermittently; arousable to name; looks at speaker; does not verbalize; occ follows simple commands. Occ lower jaw tremors. Pt becomes agitated/combative at times when disturbed; resists care at times. DIAZ randomly; able to turn self.
VSS. Telemetry: A-fib. BP currently 94/62. Maintained on nc 2 lpm- pulse ox 96%, pt tachypneic with activity; no resp distress noted. Aspir prec maintained. Abd large, soft, pt refusing PO intake; incont frequent mod amts loose green/brown
stool. Incont urine- mixed with BM. Temp currently 101.2 ax; Tylenol supp given; will monitor. IV NSS @ 70 ml/hr infusing via Lt hand without sx of infiltration. Family member at bedside. Will continue to monitor.
--- NOTE | 2024-04-25 17:29 | CM ---
Patient seen at bedside with son Cheikh
IA completed
dx: sepsis, UTI
Hx: essential transitional cell carcinoma s/p right PCN on Keytruda
Presently lives in a 2 story home with , son states they will be moving to a [address]+ community in 1 story home at [facility].
PLOF: Independent with walker
Has had [facility] in past as well as [facility]
PT to eval
PCP: Anjelica Griffiths
PLAN: Discharge when medically stable, Await PT eval
[2024-04-25] MEDS: SODIUM BICARBONATE 1075 MEQ IV (17:52)
[2024-04-25] MEDS: ELIQUIS PO (20:55)
[2024-04-26] MEDS: DESENEX/MITRAZOL/ZEASORB 1 APPLIC TOPICAL ×2 (00:30→09:03)
[2024-04-26 03:26] VITALS: BP 102/64
[2024-04-26] MEDS: MAXIPIME 1000 MG IV (03:29)
[2024-04-26] MEDS: STERILE WATER FOR INJECTION 10 ML IV (03:30)
[2024-04-26 06:00] VITALS: BMI 26.6
[2024-04-26 07:55] VITALS: BP 123/63
[2024-04-26 08:00] LABS: % Basophils 0.3 % (0-2); % Eosinophils 5.4 % (0-6); % Immature Granulocytes 0.6 % (0-0.5); % Lymphocytes 16.5 % (20.5-51.1); % Monocytes 7.4 % (1.7-9.3); % Neutrophils 69.8 % (42.2-75.2); Absolute Eosinophils 0.6 10^3/uL (0-0.7); Absolute Immature Granulocytes 0.1 10^3/uL (0-0.05); Absolute Lymphocytes 1.9 10^3/uL (1.2-3.4); Absolute Monocytes 0.9 10^3/uL (0.1-0.6); Absolute Neutrophils 8.1 10^3/uL (1.4-6.5); Hemoglobin 12.9 g/dL (12.0-16.0); Mean Corp Hgb Conc. 32.3 g/dL (33.0-37.0); Mean Platelet Volume 10.1 fL (7.4-10.4); Nucleated Red Blood Cells % 0 %; Platelet Count 248 10^3/uL (130-400); White Blood Cell Count 11.6 10^3/uL (4.8-10.8)
[2024-04-26 08:01] LABS: ALT (SGPT) 18 U/L (0-35); AST (SGOT) 24 U/L (14-36); Albumin 2.1 g/dl (3.5-5.0); Alkaline Phosphatase 49 U/L (38-126); Blood Urea Nitrogen 56 mg/dl (7-17); Calcium 8.5 mg/dl (8.4-10.2); Carbon Dioxide 18 mmol/L (22-30); Chloride 112 mmol/L (98-107); Estimated Creatinine Clearance 12 ml/min; Glucose 97 mg/dl (70-99); Potassium 4.5 mmol/L (3.5-5.1); Sodium 140 mmol/L (135-145); Total Bilirubin 0.4 mg/dl (0.2-1.3); Total Protein 4.3 g/dl (6.3-8.2); eGFR 15.05
[2024-04-26 08:19] VITALS: BP 123/63
[2024-04-26] MEDS: ELIQUIS PO (09:00)
[2024-04-26] MEDS: THERAGRAN PO (09:01)
[2024-04-26] MEDS: ProAmatine PO (09:01)
[2024-04-26] MEDS: SODIUM BICARBONATE 1075 MEQ IV (09:02)
--- NOTE | 2024-04-26 10:05 | W.PN.NEPH.PH ---
Today's Communication / Plan
-
likely d/c IVF
Assessment/Plan
-
Impression:
Sepsis likely 2/2 UTI/cystitis
TME
Transitional Cell Carcinoma
Chronic right ureteral obstruction s/p right nephrostomy tube.
RHIANNA on CKD IV-cr baseline low 2 range
Non gap met acidosis
Chronic hypoxic respiratory failure
Chronic hypotension
Forehead Laceration-s/p fall STATIC BALANCER
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
Atrial Fibrillation, paroxysmal
Pacer
Plan:
A/w fall after recent d/c after treating UTI
recurrent UTI, sepsis , abx per ID.
RHIANNA-suspect from hemodynamic, prerenal and sepsis
UA -UTI, follow bladder scan and monitor UOP from right PCN
no hydro noted on CT
cautious IVF with known h/o CHF, CXR worse
met acidosis is no sig change on bicarb IVF
dose meds renally
cont midodrine for hypotension
asp precautions
not candidate for dialysis with multiple comorbidities, daughter understands as per discussion on 04/25
poor prognosis
comfort care is appropriate
d/w nursing
-
-
Date of Service: April 26, 2024
CC / HPI / ROS
-
Chief Complaint:
RHIANNA
History of Present Illness:
cr slightly down to 3
met acidosis no change at 18
oliguric
Review of Systems:
not responding
mouth breathing
on O2, febrile till last night
Labs
-
Labs:
WBC 11.6 10^3/uL (4.8-10.8) H 04/26/24 06:38
RBC 4.60 10^6/uL (4.20-5.40) 04/26/24 06:38
Hgb 12.9 g/dL (12.0-16.0) 04/26/24 06:38
Hct 40.0 % (37.0-47.0) 04/26/24 06:38
Plt Count 248 10^3/uL (130-400) 04/26/24 06:38
Sodium 140 mmol/L (135-145) 04/26/24 06:38
Potassium 4.5 mmol/L (3.5-5.1) 04/26/24 06:38
Chloride 112 mmol/L (98-107) H 04/26/24 06:38
Carbon Dioxide 18 mmol/L (22-30) L 04/26/24 06:38
BUN 56 mg/dl (7-17) H 04/26/24 06:38
Creatinine 3.0 mg/dL (0.6-1.0) H 04/26/24 06:38
eGFR 15.05 04/26/24 06:38
Glucose 97 mg/dl (70-99) 04/26/24 06:38
Calcium 8.5 mg/dl (8.4-10.2) 04/26/24 06:38
Albumin 2.1 g/dl (3.5-5.0) L 04/26/24 06:38
Physical Exam
-
Vital Signs:
Vital Signs
Temp Pulse Resp BP Pulse Ox
98.9 F 74 32 100/66 94
04/26/24 11:54 04/26/24 11:54 04/26/24 11:54 04/26/24 11:54 04/26/24 12:04
Cardiovascular:: Regular rate and rhythm
Lung Excursion:: Abnormal (decreased, mouth breathing)
Abdomen:: Nontender and Soft
Extremity Edema:: None: Bilateral:
Gracia Catheter: No
--- NOTE | 2024-04-26 11:21 | W.PN.HOSP.TC ---
Today's Communication/Plan
-
Monitor vitals
See plan
Comfort measures
Hospice evaluation
DNR
Discussed with family
Assessment / Plan
Assessment / Plan
General: No Apparent Distress and Other (sleeping during interview then awakes to verbal cues )
HEENT: PERRLA
Respiratory: Clear; No Wheezes
Cardiac: S1/S2 and Regular Rhythm
GI: Soft and Non Tender
Genito-urinary: Other (nephrostomy tube )
Musculoskeletal: No Edema
Skin: Warm, Dry and Other (laceration right forehead ); No Rash
Neuro: AO x 1
Psych: Calm
Sepsis likely 2/2 UTI/cystitis
abdomen/pelvis CT noted with known malignancy
Follow fever curve, follow blood culture, urine culture
Infectious disease evaluation
TME 2/2 above with significant lethargy likely 2/2 sepsis
Flu, COVID-negative
CXR noted
dc antibiotics since now on comfort; family aware
Evaluated by speech, okay for pur�ed diet with thin if awake and alert
-PT/OT
Urine cultures from 02/19/2024 showed Proteus and Klebsiella
Chest x-ray with mild interstitial opacification, favoring mild interstitial edema which has been improved from previous imaging
Transitional Cell Carcinoma
Chronic right ureteral obstruction s/p right nephrostomy tube.
-receives Keytruda q 3 weeks - missed last dose 2/2 hospitalization; too lethargic to undergo chemo
follows up with oncology outpatient
per urology; malignancy is invasive
prognosis appears poor given she has no strength and she is severely lethargic. Discussed in length with family yesterday and today. Family now agreeable for DNR and wants patient to be started on comfort measures with possible transition to
hospice. [employer] dry dock manager notified for hospice evaluation
RHIANNA on CKD IV
Nephrology following
bladder scan
monitor output from nephrostomy tube
Chronic hypoxic respiratory failure
Was discharged on oxygen continuously on last admission
Monitor, currently on 2 L
Chronic hypotension
Forehead Laceration
-ER course: Repaired laceration to right forehead which should be removed in 5-7 days
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
Chronic R Ureteral Obstruction s/p R PCN tube
Atrial Fibrillation, paroxysmal
Eliquis stopped since now on comfort
DNR
Comfort measures
prognosis appears poor given she has no strength and she is severely lethargic. Discussed in length with family yesterday and today. Family now agreeable for DNR and wants patient to be started on comfort measures with possible transition to
hospice. [employer] dry dock manager notified for hospice evaluation
I spent a total of 54 minutes with the patient or on the floor. More than 50% of this time involved counseling and coordination of care.
Anticipated Discharge: Within 24 hours
Subjective/Interval History
-
Date of Service: April 26, 2024
Lethargic
Objective Data
-
Labs:
Laboratory Results
04/26/24
06:38
WBC 11.6 H
Hgb 12.9
Hct 40.0
Plt Count 248
Sodium 140
Potassium 4.5
Chloride 112 H
Carbon Dioxide 18 L
BUN 56 H
Creatinine 3.0 H
Glucose 97
Calcium 8.5
Total Bilirubin 0.4
AST 24
ALT 18
Alkaline Phosphatase 49
Vital Signs:
Vital Signs
Temp Pulse Resp BP Pulse Ox
98.8 F 72 32 123/63 94
04/26/24 07:55 04/26/24 07:55 04/26/24 07:55 04/26/24 07:55 04/26/24 07:55
I&O
04/25/24 04/26/24 04/27/24
06:59 06:59 06:59
Intake Total 1240 / 1240 300 / 300
Output Total 100 / 100 450 / 450
Balance 1140 / 1140 -150 / -150
[2024-04-26 11:54] VITALS: BP 100/66
--- NOTE | 2024-04-26 12:44 | CM ---
Met with daughters Laurence and Lynn
Discussed options - prefer hospice.
tt Monisha Malhotra hospice nurse
Referral entered in [facility]
PLAN: comfort measures, hospice eval - referral entered for hospice
[2024-04-26] MEDS: ATIVAN 0.5 MG IV ×4 (14:34→23:16)
[2024-04-26] MEDS: MORPHINE SULFATE 1 MG IV ×4 (14:36→22:00)
[2024-04-26] MEDS: NSS (PRESERVATIVE FREE) 0.25 ML IV ×2 (14:44→18:15)
--- NOTE | 2024-04-26 15:03 | HOSPNOTE ---
Hospice referral received. Met with family at bedside. Explained hospice and the philosophy and they are in agreement. Patient is appropriate for inpatient hospice services and will be signed onto inpatient hospice tomorrow morning if patient is
still with us as she is actively dying. Primary nurse is medicating with IV morphine and ativan for pain, dyspnea and anxiety. Bed requested via admissions for [address] [place] [address]. Emotional support provided to family. Attending and CM updated as well. Primary
nurse aware of bed request to [address] [place] [address] as well.
[2024-04-26 19:15] VITALS: BP 126/64
[2024-04-26 23:12] VITALS: BP 139/78
[2024-04-27] MEDS: MORPHINE SULFATE 1 MG IV ×2 (01:29→02:35)
[2024-04-27] MEDS: ATIVAN 0.5 MG IV ×2 (01:33→07:40)
[2024-04-27] MEDS: MORPHINE 100 IV (03:27)
[2024-04-27] MEDS: MORPHINE SULFATE 2 MG IV ×4 (05:00→07:41)
[2024-04-27 07:00] VITALS: BP 79/46
[2024-04-27] MEDS: ROBINUL 0.2 MG IV (07:39)
[2024-04-27] MEDS: NSS (PRESERVATIVE FREE) 0.25 ML IV (07:40)
--- NOTE | 2024-04-27 07:52 | W.PN.HOSP.TC ---
Addendum entered and electronically signed by Lan Sky MD 04/28/24 00:03:
Attending Addendum:
I saw and evaluated the patient. I reviewed the resident�s note and agree with findings and plan as documented in the resident�s note. Sub: non responsive. seen with family present.
General: comfortable nonresponsive
Respiratory: Clear; No Wheezes
Cardiac: RRR
GI: Soft and Non Tender
Genito-urinary: Other (nephrostomy tube )
Musculoskeletal: No Edema
Skin: Warm, Dry and Other (laceration right forehead ); No Rash
Neuro: AO x o
Psych: Calm
# Sepsis likely 2/2 UTI/cystitis
- poor prog
- cont comfort care per family
# Transitional Cell Carcinoma
- cont comfort care
DNR
Comfort measures
Dispo patient will likely pass today
Time spent coordinating care, review of plan of care with resident, completion of note pronouncement review of records, med rec, consults, notes, nursing, family, and CM consoled family� 35 mins
Original Note:
Today's Communication/Plan
-
* Comfort care.
Assessment / Plan
Assessment / Plan
Assessment
Jessi Shipman, age 83, came to the hospital on 04-23-24 with weakness, anorexia and after a fall. She was recently discharged from the hospital on 03-31-24 following sepsis secondary to UTI. She went to rehab at [facility]. According to the family, the
patient continued to remain weak after coming home and needed a walker for ambulation. A few days before her presentation, the patient stopped eating well and has been persistently somnolent since. She was diagnosed with an acute urinary tract
infection 2 days prior to her presentation and was prescribed amoxicillin-clavulanate.
Impression and plan
Comfort care and hospice
- Family prefers [facility].
- wireless sales manager following; referred.
Sepsis secondary to acute urinary tract infection
Toxic metabolic encephalopathy secondary to above
- Febrile with T-max of 103.0 F on 04-24-24; intermittent hypotension and tachycardia.
- Urine culture with Alcaligenes faecalis; blood cultures negative.
- Ceftriaxone started from the ED, broadened to cefepime during admission; now discontinued.
- Overall prognosis seemed poor; after lengthy discussions with family, she was transitioned to comfort care.
Transitional cell carcinoma
Chronic right ureteral obstruction
Status-post tight nephrostomy tube
- Pembrolizumab every 3 weeks; missed past two doses.
- Comfort care now, per above.
Acute kidney injury on chronic kidney disease, IIIb
- Nephrology was following.
Chronic hypoxic respiratory failure
Chronic heart failure with preserved ejection fraction
- Mild interstitial edema on chest x-ray on admission.
- Progressed during the hospital course.
- Now comfort care per above.
Paroxysmal atrial fibrillation
- Was on apixaban; now discontinued.
Code status
- DNR-DNI
Anticipated Discharge: Today
Subjective/Interval History
-
Date of Service: April 27, 2024
Stable. No significant overnight events reported. Family at bedside.
Objective Data
-
Vital Signs:
Vital Signs
Temp Pulse Resp BP Pulse Ox
99.3 F 83 22 139/78 85
04/26/24 23:12 04/26/24 23:12 04/26/24 23:12 04/26/24 23:12 04/26/24 23:12
I&O
04/26/24 04/27/24 04/28/24
06:59 06:59 06:59
Intake Total 300 / 300
Output Total 450 / 450 20 / 20
Balance -150 / -150 -20 / -20
Review of Systems
-
Unable to obtain full review of systems at this time due to: Acuity
Physical Exam
-
General: No Apparent Distress and Comfortable
HEENT: Normocephalic, Atraumatic and Anicteric
Respiratory: Crackles (bilateral)
Cardiac: Regular Rhythm and S1/S2
GI: Soft, Nontender and Nondistended
Musculoskeletal: No Clubbing, No Cyanosis, Edema, Right Lower Extrem and Edema, Left Lower Extrem
Skin: Warm and Dry
Neuro: Sedated
Psych: Calm
--- NOTE | 2024-04-27 08:44 | PTOTSP ---
Reviewed chart and noted plans for hospice care. PT eval never completed, PT to sign off.
--- NOTE | 2024-04-27 09:40 | W.PN.DEATH ---
Addendum entered and electronically signed by Lan Sky MD 04/27/24 23:57:
read reviewed and agree
Hung Sky MD
Original Note:
Pronouncement of
-
Called to see patient to pronounce.
No spontaneous heart tones or respirations noted.
Patient not responsive to verbal stimuli.
Patient is pronounced .
Time of : 09:27
Date of : 04/27/24
Cause of : Sepsis secondary to acute urinary tract infection
Family Notified: Yes (at bedside)
--- NOTE | 2024-04-27 09:44 | W.DCSUMMARY ---
Addendum entered and electronically signed by Lan Sky MD 04/27/24 23:55:
Read, reviewed, and agree. See same day progress note for additional details.
Hung Sky MD
Original Note:
Documented by User: Power Avina MD, Resident 04/27/24 09:54
Discharge Summary
Discharge Data
Date of Admission: 04/23/24
Date of Discharge: 04/27/24
-
Pending Results: No
Hospital Course
Primary discharge diagnosis
* Sepsis secondary to acute urinary tract infection
Secondary discharge diagnoses
- Transitional cell carcinoma
- Chronic right ureteral obstruction
- Status-post tight nephrostomy tube
- Acute kidney injury on chronic kidney disease, IIIb
- Chronic hypoxic respiratory failure
- Chronic heart failure with preserved ejection fraction
- Paroxysmal atrial fibrillation
Hospital course
Jessi Shipman, age 83, came to the hospital on 04-23-24 with weakness, anorexia, intermittent somnolence and after a fall. She was found to have sepsis secondary to an acute urinary tract infection on admission, and started on broad-spectrum
antibiotics. Her hospital course was complicated by worsening acute kidney injury and progressive lethargy. In setting of other comorbidities, her prognosis was poor and after discussions with the family, decision was made to transition the patient
to comfort measures on 04-26-24. Patient at 09:27 on 04-27-24. Daughter was at bedside.
Discharge Plan
-
Patient Disposition:
Date/Time
Date/Time: 04/27/24 09:27
Discharge Date and Time
Discharge Date/Time: 04/27/24 09:27
Print Language: SLOVENIAN

Documented by User: Lan Sky MD 04/27/24 23:55
Discharge Summary
Discharge Data
Date of Admission: 04/23/24
Date of Discharge: 04/27/24
Discharge Plan
-
Patient Disposition:
Date/Time
Date/Time: 04/27/24 09:27
Discharge Date and Time
Discharge Date/Time: 04/27/24 09:27
Print Language: SLOVENIAN
--- NOTE | 2024-04-27 11:28 | CM ---
Patient on comfort care - this morning
Family at bedside.
CM offered emotional support.
Jacy from hospice gave family a list of 3 homes in [facility]
== END 2024-04-27 09:27 | disposition expired | DRG 871 ==
LOC: 2 NORTH 16:34
PROVIDERS: Internal Medicine; Student in an Organized Health Care Education/Training Program; ADMITTING PHYSICIAN Student in an Organized Health Care Education/Training Program; ATTENDING PHYSICIAN Family Medicine; CONSULT PHYSICIAN Internal Medicine; CONSULT PHYSICIAN Internal Medicine Infectious Disease; EMERGENCY PHYSICIAN Emergency Medicine; FAMILY PHYSICIAN Family Medicine
DX: A41.9 Sepsis, unspecified organism (principal); G92.8 Other toxic encephalopathy; J96.11 Chronic respiratory failure with hypoxia; I50.32 Chronic diastolic (congestive) heart failure; I13.0 Hypertensive heart and chronic kidney disease with heart failure and stage 1 through stage 4 chronic kidney disease, or unspecified chronic kidney disease; N17.9 Acute kidney failure, unspecified; N18.4 Chronic kidney disease, stage 4 (severe); N39.0 Urinary tract infection, site not specified; E87.20 Acidosis, unspecified; Z51.5 Encounter for palliative care; C67.9 Malignant neoplasm of bladder, unspecified; Z66 Do not resuscitate; I48.0 Paroxysmal atrial fibrillation; N30.90 Cystitis, unspecified without hematuria; Z11.52 Encounter for screening for COVID-19
CPT/HCPCS: 12001; 51701; 70450; 71045; 71046; 72125; 74176; 80048; 80053; 81003; 81015; 83605; 83735; 85025; 87040; 87077; 87086; 87186; 87324; 87449; 87502; 87811; 90715; 92610; 96360; 96361; 97167; 99285; J7030